=== PATIENT | male | born 1990 ===

== ENCOUNTER 2018-01-25 16:12 | Inpatient (IN) | payer OTHER ==
[2018-01-25] MEDS ORDERED: Sodium Chloride 0.9% 1,000 ML IV STA ×2 (17:02→20:00)
[2018-01-25 17:33] LABS: VENOUS BLOOD GAS BASE EXCESS 2.3 mmol/L (0.0-2.0); VENOUS BLOOD GAS PCO2 39 mmHg (40-60); VENOUS BLOOD GAS PO2 25 mm/Hg (30-55); VENOUS BLOOD PH 7.44 (7.32-7.43)
[2018-01-25 17:48] LABS: BASO % 0.3 % (0.0-2.0); EOS % 0.4 % (0.0-4.0); HEMOGLOBIN 14.8 g/dL (12.0-18.0); LYMPH # 0.6 K/uL (1.0-4.3); LYMPH % 9.9 % (20.0-40.0); MEAN CELL VOLUME 87.3 fl (80.0-94.0); MEAN CORPUSCULAR HGB CONC 34.4 g/dL (33.0-37.0); MEAN PLATELET VOLUME 8.1 fl (7.2-11.7); MONO # 0.2 K/uL (0.0-0.8); MONO % 2.7 % (0.0-10.0); NEUT # 5.1 K/uL (1.8-7.0); NEUT % 86.7 % (50.0-75.0); PLATELET COUNT 250 K/uL (130-400); RBC 4.92 Mil/uL (4.40-5.90); RED CELL DISTRIBUTION WIDTH 12.9 % (11.5-14.5); WHITE BLOOD COUNT 5.9 K/uL (4.8-10.8)
[2018-01-25 17:55] LABS: ALB/GLOB RATIO 0.9 (1.0-2.1)
[2018-01-25 18:03] LABS: ALBUMIN 3.6 g/dL (3.5-5.0); ALT/SGPT 63 U/L (21-72); AST/SGOT 65 U/L (17-59); BLOOD UREA NITROGEN 10 mg/dl (9-20); CALCIUM 8.2 mg/dL (8.4-10.2); GFR AFRICAN-AMERICAN > 60; GFR NON-AFRICAN AMERICAN > 60
[2018-01-25 18:56] LABS: BANDS 8 % (0-2); BASOPHIL 1 % (0-2); LYMPHOCYTE 5 % (20-50); MONOCYTE 1 % (0-10); NEUTROPHIL 82 % (42-75); REACTIVE LYMPHOCYTES 3 % (0-0); TOTAL CELLS COUNTED 100
[2018-01-25 18:57] LABS: PLATELET ESTIMATE NORMAL (NORMAL)
[2018-01-25] MEDS ORDERED: Iohexol 300 100 ML IJ ONE (19:05)
[2018-01-25] MEDS ORDERED: Sodium Chloride 0.9% 50 ML IV ONE (19:05)
--- NOTE | 2018-01-25 19:43 | ED PDOC ---
HPI: Fever Fever Onset Was: 01/24/18 Recent Sick Contacts: No Have you had recent travel within the past 21 days to any of the following countries: [place], [place], [place] or [place]?: No Does Patient Have Hx Of Febrile Seizures: No Did The Patient Have A Seizure Today: No Symptoms Associated With Fever: Vomiting, Diarrhea Additional Comments: 27 yo male with no medical problems presents with mild, diffuse abdominal pain for 1 week. PT states yesterday he began to have a fever. Pt did not take temperature at home. Pt states he took medication for fever at 4am today. Pt states he has been vomiting with watery diarrhea. No similar in the past. Past Medical History Reviewed: Historical Data, Nursing Documentation, Vital Signs Vital Signs: Last Vital Signs Temp 98.6 F 01/25/18 19:50 Pulse 102 H 01/25/18 19:50 Resp 18 01/25/18 19:50 BP 106/55 L 01/25/18 19:50 Pulse Ox 96 01/25/18 19:50 - Medical History PMH: No Chronic Diseases - Surgical History Surgical History: No Surg Hx - Family History Family History: States: No Known Family Hx - Living Arrangements Living Arrangements: With Family - Social History Current smoker - smoking cessation education provided: No - Allergies Allergies/Adverse Reactions: Allergies Allergy/AdvReac Type Severity Reaction Status Date / Time No Known Allergies Allergy Verified 01/25/18 16:26 Review of Systems ROS Statement: Except As Marked, All Systems Reviewed And Found Negative Physical Exam - Reviewed Nursing Documentation Reviewed: Yes Vital Signs Reviewed: Yes - Physical Exam Appears: Positive for: Well, Non-toxic, No Acute Distress Head Exam: Positive for: ATRAUMATIC, NORMAL INSPECTION, NORMOCEPHALIC Skin: Positive for: Normal Color, Warm, DRY Eye Exam: Positive for: Normal appearance ENT: Positive for: Normal ENT Inspection Neck: Positive for: Normal, Painless ROM Cardiovascular/Chest: Positive for: Regular Rate, Rhythm Respiratory: Positive for: Normal Breath Sounds. Negative for: Accessory Muscle Use, Respiratory Distress Gastrointestinal/Abdominal: Positive for: Normal Exam, Soft, Tenderness ( Diffuse ) Back: Positive for: Normal Inspection Extremity: Positive for: Normal ROM Neurologic/Psych: Positive for: Alert, Oriented - Laboratory Results Result Diagrams: 01/25/18 17:31 01/25/18 17:31 - ECG O2 Sat by Pulse Oximetry: 96 Medical Decision Making Medical Decision Making: Temp at 1845 - 99.[address] abd/pelvis. Disposition - Clinical Impression Clinical Impression: Fever, Abdominal discomfort - Patient ED Disposition Is Patient to be Admitted: Transfer of Care - Disposition Disposition: Transfer of Care Disposition Time: 20:00 Condition: STABLE Forms: [employer] (Belarusian)
[2018-01-25] MEDS ORDERED: Piperacillin/Tazobact 3.375 GM in Sodium Chloride 0.9% 100 ML IV ONE (20:51)
[2018-01-25] MEDS ORDERED: Piperacillin/Tazobact 3.375 gm Inj IVPB ONE (20:56)
[2018-01-25] MEDS ORDERED: Azithromycin 500 MG in Sodium Chloride 0.9% 250 ML IVPB STA (21:51)
[2018-01-25] MEDS ORDERED: Albuterol-Ipratrop 3 mg / 0.5 (3 ml) UD INH PRN (21:54)
--- NOTE | 2018-01-25 22:05 | CP.PCM.HP ---
History of Present Illness - History of Present Illness History of Present Illness: CC: f/n/v/d/abd pain HPI: This is a 27 y/o otherwise healthy male who presents with a week of n/v/d and abd pain. Has had some cough with clear sputum production. Has also had episodes of fever, uma noticeable from this AM. Episodic but not persistent SOB. denies any sick contacts with similar symptoms. Denies any specific exposures. Nothing seems to make symptoms better or worse. ROS: 14 systems reviewed, negative other than HPI MHx/SHx: None Allergies: NKDA Medications: None Family Hx: No relevant findings Social Hx: Lives with friends, smokes 4 cigs a day, occasional EtOH Present on Admission - Present on Admission Any Indicators Present on Admission: No Past Patient History - Past Social History Smoking Status: Former Smoker - PSYCHIATRIC Hx Substance Use: No Meds Allergies/Adverse Reactions: Allergies Allergy/AdvReac Type Severity Reaction Status Date / Time No Known Allergies Allergy Verified 01/25/18 16:26 Physical Exam - Constitutional Appears: No Acute Distress - Head Exam Head Exam: ATRAUMATIC, NORMOCEPHALIC - Eye Exam Eye Exam: EOMI, PERRL - ENT Exam ENT Exam: Mucous Membranes Moist - Neck Exam Neck exam: Positive for: Full Rom - Respiratory Exam Respiratory Exam: Decreased Breath Sounds - Cardiovascular Exam Cardiovascular Exam: REGULAR RHYTHM, +S1, +S2 - GI/Abdominal Exam GI & Abdominal Exam: Normal Bowel Sounds, Soft - Extremities Exam Extremities exam: Positive for: full ROM, normal inspection - Neurological Exam Neurological exam: Alert, CN II-XII Intact, Oriented x3 - Psychiatric Exam Psychiatric exam: Normal Affect, Normal Mood - Skin Skin Exam: Dry, Warm Results - Vital Signs Recent Vital Signs: Last Vital Signs Temp 98.6 F 01/25/18 19:50 Pulse 102 H 01/25/18 19:50 Resp 18 01/25/18 19:50 BP 106/55 L 01/25/18 19:50 Pulse Ox 96 01/25/18 20:00 - Labs Result Diagrams: 01/25/18 17:31 01/25/18 17:31 Labs: Laboratory Results - last 24 hr 01/25/18 01/25/18 01/25/18 17:06 17:31 17:31 WBC 5.9 RBC 4.92 Hgb 14.8 Hct 43.0 MCV 87.3 MCH 30.0 MCHC 34.4 RDW 12.9 Plt Count 250 MPV 8.1 Neut % (Auto) 86.7 H Lymph % (Auto) 9.9 L Coffey % (Auto) 2.7 Eos % (Auto) 0.4 Baso % (Auto) 0.3 Neut # (Auto) 5.1 Lymph # (Auto) 0.6 L Coffey # (Auto) 0.2 Eos # (Auto) 0.0 Baso # (Auto) 0.0 Neutrophils % (Manual) 82 H Band Neutrophils % 8 H Lymphocytes % (Manual) 5 L Reactive Lymphs % 3 H Monocytes % (Manual) 1 Basophils % (Manual) 1 Platelet Estimate Normal RBC Morphology Normal pO2 25 L VBG pH 7.44 H VBG pCO2 39 L VBG HCO3 25.3 VBG Total CO2 27.7 VBG O2 Sat (Calc) 51.8 VBG Base Excess 2.3 H VBG Potassium 3.4 L Sodium 131.0 L 134 Chloride 98.0 99 Glucose 102 Lactate 1.1 FiO2 21.0 Potassium 3.5 L Carbon Dioxide 25 Anion Gap 14 BUN 10 Creatinine 0.8 Est GFR ( Amer) > 60 Est GFR (Non-Af Amer) > 60 Random Glucose 103 Calcium 8.2 L Total Bilirubin 0.7 AST 65 H ALT 63 Alkaline Phosphatase 71 Total Protein 7.6 Albumin 3.6 Globulin 4.0 H Albumin/Globulin Ratio 0.9 L Venous Blood Potassium 3.4 L Influenza Typ A,B (EIA) 01/25/18 17:38 WBC RBC Hgb Hct MCV MCH MCHC RDW Plt Count MPV Neut % (Auto) Lymph % (Auto) Coffey % (Auto) Eos % (Auto) Baso % (Auto) Neut # (Auto) Lymph # (Auto) Coffey # (Auto) Eos # (Auto) Baso # (Auto) Neutrophils % (Manual) Band Neutrophils % Lymphocytes % (Manual) Reactive Lymphs % Monocytes % (Manual) Basophils % (Manual) Platelet Estimate RBC Morphology pO2 VBG pH VBG pCO2 VBG HCO3 VBG Total CO2 VBG O2 Sat (Calc) VBG Base Excess VBG Potassium Sodium Chloride Glucose Lactate FiO2 Potassium Carbon Dioxide Anion Gap BUN Creatinine Est GFR ( Amer) Est GFR (Non-Af Amer) Random Glucose Calcium Total Bilirubin AST ALT Alkaline Phosphatase Total Protein Albumin Globulin Albumin/Globulin Ratio Venous Blood Potassium Influenza Typ A,B (EIA) Negative for flu a/b - Imaging and Cardiology CT scan - abdomen Status: Image reviewed by me (showed ground glass opacities in b/l Lung h[place]) , Report reviewed by me Assessment & Plan (1) CAP (community acquired pneumonia) Assessment and Plan: 27 y/o male presenting with a week of n/v/d, abd pain, and with abnormal CT findings -- possible CAP, consider atypical like legionella as well. -Patient started on Zosyn in ER, will switch to azithromycin and ceftriaxone instead for better coverage of atypicals -Urine legionalla -PRN duonebs -PRN Zofran IV for n/v -PRN tylenol for fever -SQ lovenox for dvt ppx Status: Acute (2) Fever Status: Acute (3) Abdominal discomfort Status: Acute (4) DVT prophylaxis Status: Acute
[2018-01-26 06:56] LABS: HEMOGLOBIN 13.8 g/dL (12.0-18.0); MEAN CELL VOLUME 87.9 fl (80.0-94.0); MEAN CORPUSCULAR HGB CONC 34.2 g/dL (33.0-37.0); RBC 4.58 Mil/uL (4.40-5.90); RED CELL DISTRIBUTION WIDTH 12.9 % (11.5-14.5); WHITE BLOOD COUNT 5.1 K/uL (4.8-10.8)
[2018-01-26] MEDS ORDERED: Pneumococcal 23-Valent Vaccine IM ONE (08:00)
[2018-01-26 08:01] LABS: BLOOD UREA NITROGEN 6 mg/dl (9-20); CALCIUM 7.9 mg/dL (8.4-10.2); GFR AFRICAN-AMERICAN > 60; GFR NON-AFRICAN AMERICAN > 60
[2018-01-26] MEDS ORDERED: Sodium Chloride 3% for Inhalation 4 ML VIAL.NEB IH PRN ×2 (08:02→23:56)
[2018-01-26] MEDS: Enoxaparin 40 mg Syringe SC SCH (08:54)
--- NOTE | 2018-01-26 10:05 | CP.PCM.PN ---
<Edyta Veláqzuez - Last Filed: 01/26/18 15:59> Subjective - Date & Time of Evaluation Date of Evaluation: 01/26/18 Time of Evaluation: 10:05 - Subjective Subjective: 27 year old man admitted for a three day episode of nausea, vomiting, abdominal pain, chills and mild cough. Reports 6-7 bouts of diarrhea yesterday/overnight, of which he noticed were tinged with blood. No blood seen in urine. No abdominal tenderness on palpation. No recent travel history, has been in [facility] for last seven years. No sick contacts. Patient reports to be feeling better and is in no acute distress. Objective - Vital Signs/Intake and Output Vital Signs (last 24 hours): Temp Pulse Resp BP Pulse Ox 98.2 F 114 H 20 110/60 96 01/26/18 08:05 01/26/18 08:05 01/26/18 08:05 01/26/18 08:05 01/26/18 08:05 Intake and Output: 01/26/18 01/26/18 06:59 18:59 Intake Total 462 Balance 462 - Medications Medications: Current Medications Acetaminophen (Tylenol 325mg Tab) 650 mg PO Q6 PRN PRN Reason: Pain, Mild (1-3) Acetaminophen (Tylenol 325mg Tab) 650 mg PO Q6 PRN PRN Reason: Fever >100.4 F Albuterol/Ipratropium (Duoneb 3 Mg/0.5 Mg (3 Ml) Ud) 3 ml INH RQ6 PRN PRN Reason: Shortness of Breath Enoxaparin Sodium (Lovenox) 40 mg SC DAILY IVANNA PRN Reason: Protocol Last Admin: 01/26/18 08:54 Dose: 40 mg Azithromycin 500 mg/ Sodium (Chloride) 250 mls @ 250 mls/hr IVPB DAILY IVANNA PRN Reason: Protocol Ceftriaxone Sodium 1 gm/ (Sodium Chloride) 100 mls @ 100 mls/hr IVPB DAILY IVANNA PRN Reason: Protocol Last Admin: 01/26/18 08:55 Dose: 100 mls/hr Ondansetron HCl (Zofran Inj) 4 mg IVP Q6 PRN PRN Reason: Nausea/Vomiting - Labs Labs: 01/26/18 06:40 01/26/18 06:40 - Constitutional Appears: Well, Non-toxic, No Acute Distress - Head Exam Head Exam: ATRAUMATIC - Respiratory Exam Respiratory Exam: Clear to Ausculation Bilateral, Wheezes, NORMAL BREATHING PATTERN - Cardiovascular Exam Cardiovascular Exam: REGULAR RHYTHM - GI/Abdominal Exam GI & Abdominal Exam: Soft. absent: Guarding, Tenderness, Rebound - Neurological Exam Neurological Exam: Alert, Awake, Oriented x3 - Skin Skin Exam: Normal Color, Warm Assessment and Plan - Assessment and Plan (Free Text) Assessment: 27 year old man admitted for a three day episode of nausea, vomiting, abdominal pain, chills and mild cough. Reports 6-7 bouts of diarrhea yesterday/ overnight, of which he noticed were tinged with blood. No blood seen in urine. No abdominal tenderness on palpation. No recent travel history, has been in [facility] for last seven years. No sick contacts. Patient reports to be feeling better and is in no acute distress. 1. Gastroenteritis -6-7 episodes of bloody diarrhea yesterday (01/25), none as of today -Flagyl 500 mg IV Q8 -Zofran PRN -LR 100ml/mg -Stool cx pending -Ova parasites pending -Stool leukocytes pending 2. Pulmonary Nodules -CT: bilateral diffuse & extensive reticulo-nodular pulmonary opacities -Consulted pulmonary: Dr. Jenkins -Cannot rule out TB - transferred to 4th floor tele for TB precaution, PPD, AFBx3, possible bronchoscopy -Ceftriaxone 1gm , Azithromycin 500 mg -Tylenol PRN, Duoneb PRN -Sputum culture pending -Mycoplasma IgM pending -Legionella urine pending 3. DVT Prophylaxis -Lovenox <Adriana Fernandez - Last Filed: 01/26/18 16:34> Objective - Vital Signs/Intake and Output Vital Signs (last 24 hours): Temp Pulse Resp BP Pulse Ox 98.2 F 114 H 20 110/60 96 01/26/18 08:05 01/26/18 08:05 01/26/18 08:05 01/26/18 08:05 01/26/18 08:05 Intake and Output: 01/26/18 01/26/18 06:59 18:59 Intake Total 462 Balance 462 - Medications Medications: Current Medications Acetaminophen (Tylenol 325mg Tab) 650 mg PO Q6 PRN PRN Reason: Pain, Mild (1-3) Acetaminophen (Tylenol 325mg Tab) 650 mg PO Q6 PRN PRN Reason: Fever >100.4 F Albuterol/Ipratropium (Duoneb 3 Mg/0.5 Mg (3 Ml) Ud) 3 ml INH RQ6 PRN PRN Reason: Shortness of Breath Enoxaparin Sodium (Lovenox) 40 mg SC DAILY IVANNA PRN Reason: Protocol Last Admin: 01/26/18 08:54 Dose: 40 mg Azithromycin 500 mg/ Sodium (Chloride) 250 mls @ 250 mls/hr IVPB DAILY IVANNA PRN Reason: Protocol Last Admin: 01/26/18 11:35 Dose: 250 mls/hr Ceftriaxone Sodium 1 gm/ (Sodium Chloride) 100 mls @ 100 mls/hr IVPB DAILY IVANNA PRN Reason: Protocol Last Admin: 01/26/18 08:55 Dose: 100 mls/hr Metronidazole (Flagyl 500mg/100ml Ns) 100 mls @ 100 mls/hr IVPB Q8 IVANNA PRN Reason: Protocol Last Admin: 01/26/18 11:35 Dose: 100 mls/hr Lactated Ringer's (Lactated Ringer's) 1,000 mls @ 100 mls/hr IV .Q10H IVANNA Last Admin: 01/26/18 11:32 Dose: 100 mls/hr Ondansetron HCl (Zofran Inj) 4 mg IVP Q6 PRN PRN Reason: Nausea/Vomiting Tuberculin PPD (Tubersol) 5 tu ID ONCE ONE Stop: 01/26/18 15:45 - Labs Labs: 01/26/18 06:40 01/26/18 06:40 Attending/Attestation - Attestation I have personally seen and examined this patient.: Yes I have fully participated in the care of the patient.: Yes I have reviewed all pertinent clinical information, including history, physical exam and plan: Yes Notes (Text): 01/26/18 16:32 Additional Diagnosis: Renal Calcification, wedge shaped deformity seen on CT CT scan ( Kidneys) Bilateral renal wedge shaped and other verbal shaped calcific like hyperdensities -differential considerations as detailed above. Consider nephrology consultation follow up. Other renal findings are different than those initially provided by [facility] not aware patient having had any IV contrast on this exam. - Renal Sonogram -Urinalysis - Nephrology consult
--- NOTE | 2018-01-26 10:16 | CT ---
Date of service: 01/25/2018 PROCEDURE: CT Abdomen and Pelvis with contrast HISTORY: vomiting, diarrhea, fever COMPARISON: None. TECHNIQUE: Contrast dose: 95 mL of Omnipaque 300. Axial and reformatted coronal and sagittal CT images of the abdomen and pelvis were obtained after IV contrast administration. Radiation dose: Total exam DLP = 477.41 mGy-cm. This CT exam was performed using one or more of the following dose reduction techniques: Automated exposure control, adjustment of the mA and/or kV according to patient size, and/or use of iterative reconstruction technique. FINDINGS: LOWER THORAX: There are diffuse reticular and reticulonodular opacities in the lower lobes LIVER: Unremarkable. No gross lesion or ductal dilatation. GALLBLADDER AND BILE DUCTS: The gallbladder is contracted. No CT evidence of acute cholecystitis PANCREAS: Unremarkable. No gross lesion or ductal dilatation. SPLEEN: Unremarkable. ADRENALS: Unremarkable. No mass. KIDNEYS AND URETERS: Unremarkable. No hydronephrosis. No solid mass. VASCULATURE: Unremarkable. No aortic aneurysm. BOWEL: Unremarkable. No obstruction. No gross mural thickening. APPENDIX: Normal appendix. PERITONEUM: Unremarkable. No free fluid. No free air. LYMPH NODES: There are mildly enlarged retroperitoneal, root of the mesentery and periportal lymph nodes noted in the mid and upper abdomen. No evidence of significant lymphadenopathy in the pelvis. BLADDER: Unremarkable. REPRODUCTIVE: Unremarkable. BONES: No acute fracture. OTHER FINDINGS: None. IMPRESSION: Nonspecific diffuse reticular and reticulonodular opacities in the lungs. Differential consideration includes infection or inflammatory process. Mild retroperitoneal periportal and mesenteric root lymphadenopathy noted at the mid and upper abdomen. No CT evidence of cholecystitis pancreatitis or appendicitis. Preliminary report was submitted by [facility].
[2018-01-26] MEDS: Lactated Ringer's 1,000 ML IV SCH (11:32)
[2018-01-26] MEDS: metroNIDAZOLE 500mg/100ml NS 100 ML IVPB SCH ×2 (11:35→16:41)
[2018-01-26] MEDS: Azithromycin 500 MG in Sodium Chloride 0.9% 250 ML IVPB SCH (11:35)
--- NOTE | 2018-01-26 11:35 | CT ---
Date of service: 01/25/2018 PROCEDURE: CT Chest without contrast HISTORY: base of lungs abnormal on CT, bandemia COMPARISON: None. TECHNIQUE: Contiguous axial images were obtained through the chest without intravenous contrast enhancement. Sagittal and coronal reconstructions were performed. Radiation dose (DLP): 411 mGy-cm. This CT exam was performed using one or more of the following dose reduction techniques: Automated exposure control, adjustment of the mA and/or kV according to patient size, and/or use of iterative reconstruction technique. FINDINGS: LUNGS: Bilateral extensive diffuse reticular nodular opacities with superimposed coalescent airspace opacities are present. These coalescence of airspace opacities ground-glass like are mostly in the perihilar and upper lobe locations. No cavitary lesions noted. Some minimal biapical pleural thickening is present. A left upper lobe lateral peripheral 5-6 mm solid-appearing pulmonary nodule noted its chronicity is unknown another partly solid partly cystic peripheral nodule in the lateral left mid lung zone noted (axial series 3, image 57) MEDIASTINUM: Unremarkable thoracic aorta. No aneurysm. Normal sized heart. Main pulmonary artery unremarkable. No vascular congestion. No suspect lymphadenopathy. Few calcified mediastinal lymph nodes noted PLEURA: No pleural fluid. No pneumothorax. BONES: No fracture. No destructive lesion. UPPER ABDOMEN: Five renal multifocal hyperdensity compatible with renal variable shaped calcifications some of which are wedge shape. Medullary sponge kidney, papillary necrosis, calcified renal infarcts renal tuberculosis are some considerations. Consider nephrology consultation follow up OTHER FINDINGS: None. IMPRESSION: Bilateral diffuse and extensive reticulo nodular pulmonary opacities with superimposed coalescent airspace opacities -mostly central and upper lobe positions. A few nonspecific nodules on the left are noted. No cavities noted. No pneumothorax. No pleural effusion. Minimal biapical pleural thickening. Infection, inflammation, autoimmune, hypersensitivity are some considerations. TB is not excluded here. Clinical correlation and follow-up recommended. Bilateral renal wedge shaped and other verbal shaped calcific like hyperdensities -differential considerations as detailed above. Consider nephrology consultation follow up. Other renal findings are different than those initially provided by [facility] not aware patient having had any IV contrast on this exam. These findings are partially discordance with the results (preliminary interpretation) provided by [facility]. . Findings also marked for PA review
[2018-01-26] MEDS ORDERED: Tuberculin 5 Units/0.1 ml Inj ID ONE (15:44)
[2018-01-26] MEDS ORDERED: Potassium Chloride 20 mEq ER Tab PO ONE (17:00)
--- NOTE | 2018-01-26 18:06 | CP.PCM.CON ---
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 Worsening symptom of Fever, chills, that began on DOA 01-25-18 , with no relief, while at ER TMAx 104.0 F, HR: 134. Patient denies SOB, C/P, VARELA. 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 Aggravated factor: movements. On CT Abdomen were found opacities in the lungs, there after CT chest showed: B/ L diffused and extensive reticular nodular pulmonary opacities. TB no excluded. Pt denied: CP, syncope, dizziness, headache, back pain, numbness, urinary symptoms, sick contact, recent travel out of [facility]. A Review of Systems - Constitutional Constitutional: Chills, Fever - EENT Eyes: Other (negative) Ears: Other (negative) Nose/Mouth/Throat: Other (negative) - Cardiovascular Cardiovascular: Rapid Heart Rate - Respiratory Respiratory: Cough, Dyspnea (mild) - Gastrointestinal Gastrointestinal: Abdominal Pain (lower quadrants), Diarrhea, Nausea, Vomiting - Genitourinary Genitourinary: Other (negative) - Musculoskeletal Musculoskeletal: Other (negative) - Integumentary Integumentary: Other (negative) - Neurological Neurological: Other (negative) - Psychiatric Psychiatric: Other (negative) - Endocrine Endocrine: Other (negative) - Hematologic/Lymphatic Hematologic: Other (negative) Past Patient History - Past Medical History & Family History Past Medical History?: Yes Pertinent Family History: Unknown - Past Social History Smoking Status: Former Smoker Alcohol: Social Drugs: Denies Home Situation {Lives}: Friends - CARDIAC Hx Cardiac Disorders: No - PULMONARY Hx Respiratory Disorders: No - NEUROLOGICAL Hx Neurological Disorder: No - HEENT Hx HEENT Problems: No - RENAL Hx Chronic Kidney Disease: No - ENDOCRINE/METABOLIC Hx Endocrine Disorders: No - HEMATOLOGICAL/ONCOLOGICAL Hx Blood Disorders: No - INTEGUMENTARY Hx Dermatological Problems: No - MUSCULOSKELETAL/RHEUMATOLOGICAL Hx Musculoskeletal Disorders: No Hx Falls: No - GASTROINTESTINAL Hx Gastrointestinal Disorders: No - GENITOURINARY/GYNECOLOGICAL Hx Genitourinary Disorders: No - PSYCHIATRIC Hx Psychophysiologic Disorder: No Hx Substance Use: No - SURGICAL HISTORY Hx Surgeries: No - ANESTHESIA Hx Anesthesia: No Hx Anesthesia Reactions: No Hx Malignant Hyperthermia: No Has any member of the family had a problem w/ anesthesia?: No Meds Allergies/Adverse Reactions: Allergies Allergy/AdvReac Type Severity Reaction Status Date / Time No Known Allergies Allergy Verified 01/25/18 16:26 - Medications Medications: Current Medications Acetaminophen (Tylenol 325mg Tab) 650 mg PO Q6 PRN PRN Reason: Pain, Mild (1-3) Acetaminophen (Tylenol 325mg Tab) 650 mg PO Q6 PRN PRN Reason: Fever >100.4 F Albuterol/Ipratropium (Duoneb 3 Mg/0.5 Mg (3 Ml) Ud) 3 ml INH RQ6 PRN PRN Reason: Shortness of Breath Enoxaparin Sodium (Lovenox) 40 mg SC DAILY IVANNA PRN Reason: Protocol Last Admin: 01/26/18 08:54 Dose: 40 mg Azithromycin 500 mg/ Sodium (Chloride) 250 mls @ 250 mls/hr IVPB DAILY IVANNA PRN Reason: Protocol Last Admin: 01/26/18 11:35 Dose: 250 mls/hr Ceftriaxone Sodium 1 gm/ (Sodium Chloride) 100 mls @ 100 mls/hr IVPB DAILY IVANNA PRN Reason: Protocol Last Admin: 01/26/18 08:55 Dose: 100 mls/hr Metronidazole (Flagyl 500mg/100ml Ns) 100 mls @ 100 mls/hr IVPB Q8 IVANNA PRN Reason: Protocol Last Admin: 01/26/18 16:41 Dose: 100 mls/hr Lactated Ringer's (Lactated Ringer's) 1,000 mls @ 100 mls/hr IV .Q10H [facility] Last Admin: 01/26/18 11:32 Dose: 100 mls/hr Ondansetron HCl (Zofran Inj) 4 mg IVP Q6 PRN PRN Reason: Nausea/Vomiting Physical Exam - Constitutional Appears: No Acute Distress - Head Exam Head Exam: NORMAL INSPECTION - Eye Exam Eye Exam: PERRL - ENT Exam ENT Exam: Normal Exam - Neck Exam Neck exam: Positive for: Normal Inspection - Respiratory Exam Respiratory Exam: Clear to Auscultation Bilateral - Cardiovascular Exam Cardiovascular Exam: REGULAR RHYTHM - GI/Abdominal Exam GI & Abdominal Exam: Normal Bowel Sounds, Soft - Extremities Exam Extremities exam: Positive for: normal inspection - Back Exam Back exam: NORMAL INSPECTION - Neurological Exam Neurological exam: Alert, Oriented x3 Additional comments: No motor/sensory deficit. - Psychiatric Exam Psychiatric exam: Normal Mood - Skin Skin Exam: Warm Results - Vital Signs Recent Vital Signs: Last Vital Signs Temp 98 F 01/26/18 16:34 Pulse 117 H 01/26/18 16:34 Resp 20 01/26/18 16:34 BP 122/71 01/26/18 16:34 Pulse Ox 97 01/26/18 16:34 reviewed Marci - Labs Result Diagrams: 01/26/18 06:40 01/26/18 06:40 Labs: Laboratory Results - last 24 hr 01/25/18 01/25/18 01/25/18 17:31 17:38 22:00 WBC RBC Hgb Hct MCV MCH MCHC RDW Plt Count Neutrophils % (Manual) 82 H Band Neutrophils % 8 H Lymphocytes % (Manual) 5 L Reactive Lymphs % 3 H Monocytes % (Manual) 1 Basophils % (Manual) 1 Platelet Estimate Normal RBC Morphology Normal Sodium Potassium Chloride Carbon Dioxide Anion Gap BUN Creatinine Est GFR ( Amer) Est GFR (Non-Af Amer) Random Glucose Calcium Influenza Typ A,B (EIA) Negative for flu a/b Ur L.pneumophila Ag Grp A Beta Strep Ag Negative 01/25/18 01/26/18 01/26/18 22:00 06:40 06:40 WBC 5.1 RBC 4.58 Hgb 13.8 Hct 40.3 MCV 87.9 MCH 30.0 MCHC 34.2 RDW 12.9 Plt Count 241 Neutrophils % (Manual) Band Neutrophils % Lymphocytes % (Manual) Reactive Lymphs % Monocytes % (Manual) Basophils % (Manual) Platelet Estimate RBC Morphology Sodium 135 Potassium 3.4 L Chloride 102 Carbon Dioxide 23 Anion Gap 13 BUN 6 L Creatinine 0.7 L Est GFR ( Amer) > 60 Est GFR (Non-Af Amer) > 60 Random Glucose 90 Calcium 7.9 L Influenza Typ A,B (EIA) Ur L.pneumophila Ag Negative Grp A Beta Strep Ag reviewed J.P. - Imaging and Cardiology CT scan - chest Status: Report reviewed by me (Marci) CT scan - abdomen Status: Report reviewed by me (Marci) CT scan - pelvis Status: Report reviewed by me (Marci) Assessment & Plan (1) Pulmonary infiltrate Status: Acute Priority: High (2) Pulmonary nodules Status: Acute Priority: High - Assessment and Plan (Free Text) Plan: Continue Rocephin, Zithromax. Discussed with attendant, Patient to have PPD, Quantiferon Gold , respiratory isolation, Sputum AFB x3, sputum C-S , also, may need Bronchoscopy. - Date & Time Date: 01/26/18 Time: 13:30
[2018-01-27] MEDS: metroNIDAZOLE 500mg/100ml NS 100 ML IVPB SCH ×3 (00:53→15:59)
[2018-01-27] MEDS: Lactated Ringer's 1,000 ML IV SCH ×2 (00:54→10:00)
[2018-01-27 08:44] LABS: BASO % 0.4 % (0.0-2.0); EOS % 0.3 % (0.0-4.0); HEMOGLOBIN 14.2 g/dL (12.0-18.0); LYMPH # 0.7 K/uL (1.0-4.3); LYMPH % 10.3 % (20.0-40.0); MEAN CELL VOLUME 87.4 fl (80.0-94.0); MEAN CORPUSCULAR HGB CONC 34.4 g/dL (33.0-37.0); MEAN PLATELET VOLUME 8.3 fl (7.2-11.7); MONO # 0.1 K/uL (0.0-0.8); MONO % 1.8 % (0.0-10.0); NEUT % 87.2 % (50.0-75.0); RBC 4.74 Mil/uL (4.40-5.90); WHITE BLOOD COUNT 6.9 K/uL (4.8-10.8)
[2018-01-27 08:57] LABS: BLOOD UREA NITROGEN 5 mg/dl (9-20); CALCIUM 8.3 mg/dL (8.4-10.2); GFR AFRICAN-AMERICAN > 60; GFR NON-AFRICAN AMERICAN > 60
[2018-01-27] MEDS: Azithromycin 500 MG in Sodium Chloride 0.9% 250 ML IVPB SCH (10:01)
[2018-01-27] MEDS: Enoxaparin 40 mg Syringe SC SCH (10:02)
--- NOTE | 2018-01-27 11:03 | CP.PCM.PN ---
<Edyta Velázquez - Last Filed: 01/27/18 15:31> Subjective - Date & Time of Evaluation Date of Evaluation: 01/27/18 Time of Evaluation: 11:03 - Subjective Subjective: 27 year old man admitted for a three day episode of nausea, vomiting, abdominal pain, chills and mild cough. Late 01/26 and overnight patient had febrile episodes (T max 103.1 ). Examined at bedside, no abdominal tenderness on palpation. Patient is in no acute distress. Rapid HIV test positive - patient made aware of results, pending confirmatory RNA PCR testing. Explained diagnosis and emphasized management and severity of disease. Patient denies transfusion and IVDU, but admits to many unprotected sexual encounters with one female partner besides his (in [place]) since moving to the seven years ago. Objective - Vital Signs/Intake and Output Vital Signs (last 24 hours): Temp Pulse Resp BP Pulse Ox 99.5 F 145 H 20 114/68 94 L 01/27/18 08:00 01/27/18 08:00 01/27/18 08:00 01/27/18 08:00 01/27/18 08:00 - Medications Medications: Current Medications Acetaminophen (Tylenol 325mg Tab) 650 mg PO Q6 PRN PRN Reason: Pain, Mild (1-3) Acetaminophen (Tylenol 325mg Tab) 650 mg PO Q6 PRN PRN Reason: Fever >100.4 F Last Admin: 01/27/18 00:52 Dose: 650 mg Albuterol/Ipratropium (Duoneb 3 Mg/0.5 Mg (3 Ml) Ud) 3 ml INH RQ6 PRN PRN Reason: Shortness of Breath Enoxaparin Sodium (Lovenox) 40 mg SC DAILY IVANNA PRN Reason: Protocol Last Admin: 01/27/18 10:02 Dose: 40 mg Azithromycin 500 mg/ Sodium (Chloride) 250 mls @ 250 mls/hr IVPB DAILY IVANNA PRN Reason: Protocol Last Admin: 01/27/18 10:01 Dose: 250 mls/hr Ceftriaxone Sodium 1 gm/ (Sodium Chloride) 100 mls @ 100 mls/hr IVPB DAILY IVANNA PRN Reason: Protocol Last Admin: 01/27/18 10:02 Dose: 100 mls/hr Metronidazole (Flagyl 500mg/100ml Ns) 100 mls @ 100 mls/hr IVPB Q8 IVANNA PRN Reason: Protocol Last Admin: 01/27/18 10:01 Dose: 100 mls/hr Lactated Ringer's (Lactated Ringer's) 1,000 mls @ 100 mls/hr IV .Q10H [facility] Last Admin: 01/27/18 10:00 Dose: 100 mls/hr Ondansetron HCl (Zofran Inj) 4 mg IVP Q6 PRN PRN Reason: Nausea/Vomiting - Labs Labs: 01/27/18 08:00 01/27/18 08:00 - Constitutional Appears: Well - Head Exam Head Exam: ATRAUMATIC - Eye Exam Eye Exam: Normal appearance - Respiratory Exam Respiratory Exam: NORMAL BREATHING PATTERN - Cardiovascular Exam Cardiovascular Exam: REGULAR RHYTHM - GI/Abdominal Exam GI & Abdominal Exam: Soft. absent: Guarding, Tenderness, Rebound - Psychiatric Exam Psychiatric exam: Normal Affect, Normal Mood - Skin Skin Exam: Intact, Normal Color, Warm Assessment and Plan - Assessment and Plan (Free Text) Assessment: 27 year old man admitted for a three day episode of nausea, vomiting, abdominal pain, chills and mild cough. Rapid HIV test positive - confirmatory RNA PCR testing pending. 1. Gastroenteritis -Febrile (Tmax 103.1F) -Flagyl 500 mg IV Q8 -Zofran PRN -LR 100ml/mg -Stool cx NEG -Ova parasites NEG -Stool leukocytes NEG -Consult Infectious Disease 2. Pulmonary Nodules -CT: bilateral diffuse & extensive reticulo-nodular pulmonary opacities -Consulted pulmonary: Dr. Jenkins - recommended continue Ceftriaxone,Azithromycin , and TB workup, CRP, MANUEL, RADHA insufficiency -Cannot rule out TB - PPD, AFBx3, possible bronchoscopy -Ceftriaxone 1gm , Azithromycin 500 mg -Tylenol PRN, Duoneb PRN -Sputum culture pending -Mycoplasma IgM pending -Legionella NEGATIVE 3. 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 Renal Calcifications -CT: five renal multifocal hyperdensities compatable w/renal variable shaped calcifications -Nephrology Consult 5. DVT Prophylaxis -Lovenox <Adriana Fernandez - Last Filed: 01/27/18 16:29> Objective - Vital Signs/Intake and Output Vital Signs (last 24 hours): Temp Pulse Resp BP Pulse Ox 102.9 F H 132 H 18 110/66 94 L 01/27/18 16:16 01/27/18 16:16 01/27/18 16:16 01/27/18 16:16 01/27/18 16:16 - Medications Medications: Current Medications Acetaminophen (Tylenol 325mg Tab) 650 mg PO Q6 PRN PRN Reason: Pain, Mild (1-3) Acetaminophen (Tylenol 325mg Tab) 650 mg PO Q6 PRN PRN Reason: Fever >100.4 F Last Admin: 01/27/18 15:58 Dose: 650 mg Albuterol/Ipratropium (Duoneb 3 Mg/0.5 Mg (3 Ml) Ud) 3 ml INH RQ6 PRN PRN Reason: Shortness of Breath Enoxaparin Sodium (Lovenox) 40 mg SC DAILY IVANNA PRN Reason: Protocol Last Admin: 01/27/18 10:02 Dose: 40 mg Azithromycin 500 mg/ Sodium (Chloride) 250 mls @ 250 mls/hr IVPB DAILY IVANNA PRN Reason: Protocol Last Admin: 01/27/18 10:01 Dose: 250 mls/hr Ceftriaxone Sodium 1 gm/ (Sodium Chloride) 100 mls @ 100 mls/hr IVPB DAILY IVANNA PRN Reason: Protocol Last Admin: 01/27/18 10:02 Dose: 100 mls/hr Metronidazole (Flagyl 500mg/100ml Ns) 100 mls @ 100 mls/hr IVPB Q8 IVANNA PRN Reason: Protocol Last Admin: 01/27/18 15:59 Dose: 100 mls/hr Lactated Ringer's (Lactated Ringer's) 1,000 mls @ 100 mls/hr IV .Q10H [facility] Last Admin: 01/27/18 10:00 Dose: 100 mls/hr Ondansetron HCl (Zofran Inj) 4 mg IVP Q6 PRN PRN Reason: Nausea/Vomiting - Labs Labs: 01/27/18 08:00 01/27/18 08:00 Attending/Attestation - Attestation I have personally seen and examined this patient.: Yes I have fully participated in the care of the patient.: Yes I have reviewed all pertinent clinical information, including history, physical exam and plan: Yes
--- NOTE | 2018-01-27 11:05 | CP.PCM.CON ---
History of Present Illness - History of Present Illness History of Present Illness: Infectious Disease Consultation Note- asked to see this patient at the request of for fever and pulmonary findings on CT r/o TB HPI- Patient is a 27 year old male with no PMH who came to ED to be evaluated for 1 week history of fever and diarrhea, nausea and vomiting and night sweats and weight loss of 4 pounds. he denies any bloody diarrhea but the diarrhea is 4 times a day. He denies ever being sick before. denies any sob , has dry cough only, denies any sick contacts. denies any hemoptysis. denies any recent travel. denies any BELTRAN or sore throat. states he is but his is in [place]. states he has been in [place] for past 9 years and he works as [employer]. He states he lives with a roommate. he states he has out extramarital relations but always uses protection. He states he has never been tested for HIV. He denies ever knowing anyone with TB. Denies eating any new foods. He states he feels slightly betetr since being admitted here so far. MHx/SHx: None Allergies: NKDA Medications: None Family Hx: No relevant findings Social Hx: Lives with friends, smokes 4 cigs a day, occasional EtOH, weekly marijuana and he states 3 weeks ago one of his friends gave him cocaiene nad was his first time smoking this Review of Systems - Review of Systems Review of Systems: ROS- please see HPI Past Patient History - Past Medical History & Family History Past Medical History?: Yes - Past Social History Smoking Status: Former Smoker Alcohol: Social Drugs: Cannabis Home Situation {Lives}: Friends - CARDIAC Hx Cardiac Disorders: No - PULMONARY Hx Respiratory Disorders: No - NEUROLOGICAL Hx Neurological Disorder: No - HEENT Hx HEENT Problems: No - RENAL Hx Chronic Kidney Disease: No - ENDOCRINE/METABOLIC Hx Endocrine Disorders: No - HEMATOLOGICAL/ONCOLOGICAL Hx Blood Disorders: No - INTEGUMENTARY Hx Dermatological Problems: No - MUSCULOSKELETAL/RHEUMATOLOGICAL Hx Musculoskeletal Disorders: No Hx Falls: No - GASTROINTESTINAL Hx Gastrointestinal Disorders: No - GENITOURINARY/GYNECOLOGICAL Hx Genitourinary Disorders: No - PSYCHIATRIC Hx Psychophysiologic Disorder: No Hx Substance Use: No - SURGICAL HISTORY Hx Surgeries: No - ANESTHESIA Hx Anesthesia: No Hx Anesthesia Reactions: No Hx Malignant Hyperthermia: No Has any member of the family had a problem w/ anesthesia?: No Meds Allergies/Adverse Reactions: Allergies Allergy/AdvReac Type Severity Reaction Status Date / Time No Known Allergies Allergy Verified 01/25/18 16:26 - Medications Medications: Current Medications Acetaminophen (Tylenol 325mg Tab) 650 mg PO Q6 PRN PRN Reason: Pain, Mild (1-3) Acetaminophen (Tylenol 325mg Tab) 650 mg PO Q6 PRN PRN Reason: Fever >100.4 F Last Admin: 01/27/18 00:52 Dose: 650 mg Albuterol/Ipratropium (Duoneb 3 Mg/0.5 Mg (3 Ml) Ud) 3 ml INH RQ6 PRN PRN Reason: Shortness of Breath Enoxaparin Sodium (Lovenox) 40 mg SC DAILY IVANNA PRN Reason: Protocol Last Admin: 01/27/18 10:02 Dose: 40 mg Azithromycin 500 mg/ Sodium (Chloride) 250 mls @ 250 mls/hr IVPB DAILY IVANNA PRN Reason: Protocol Last Admin: 01/27/18 10:01 Dose: 250 mls/hr Ceftriaxone Sodium 1 gm/ (Sodium Chloride) 100 mls @ 100 mls/hr IVPB DAILY IVANNA PRN Reason: Protocol Last Admin: 01/27/18 10:02 Dose: 100 mls/hr Metronidazole (Flagyl 500mg/100ml Ns) 100 mls @ 100 mls/hr IVPB Q8 IVANNA PRN Reason: Protocol Last Admin: 01/27/18 10:01 Dose: 100 mls/hr Lactated Ringer's (Lactated Ringer's) 1,000 mls @ 100 mls/hr IV .Q10H [facility] Last Admin: 01/27/18 10:00 Dose: 100 mls/hr Ondansetron HCl (Zofran Inj) 4 mg IVP Q6 PRN PRN Reason: Nausea/Vomiting Physical Exam - Constitutional Appears: No Acute Distress - Head Exam Head Exam: ATRAUMATIC - Eye Exam Eye Exam: EOMI, PERRL - ENT Exam ENT Exam: Normal Oropharynx - Neck Exam Neck exam: Positive for: Full Rom Additional comments: supple - Respiratory Exam Respiratory Exam: NORMAL BREATHING PATTERN Additional comments: good breath sounds B/L no wheezing no rhonchi - Cardiovascular Exam Cardiovascular Exam: Tachycardia, +S1, +S2 - GI/Abdominal Exam GI & Abdominal Exam: Normal Bowel Sounds, Soft Additional comments: NT, ND No guarding, no rebound No CVA tenderness B/L - Extremities Exam Extremities exam: Positive for: normal inspection - Neurological Exam Neurological exam: Alert, Oriented x3 Results - Vital Signs Recent Vital Signs: Last Vital Signs Temp 99.5 F 01/27/18 08:00 Pulse 145 H 01/27/18 08:00 Resp 20 01/27/18 08:00 BP 114/68 01/27/18 08:00 Pulse Ox 94 L 01/27/18 08:00 - Labs Result Diagrams: 01/27/18 08:00 01/27/18 08:00 Labs: Laboratory Results - last 24 hr 01/25/18 01/26/18 01/27/18 22:00 12:14 08:00 WBC 6.9 RBC 4.74 Hgb 14.2 Hct 41.4 MCV 87.4 MCH 30.0 MCHC 34.4 RDW 13.0 Plt Count 275 MPV 8.3 Neut % (Auto) 87.2 H Lymph % (Auto) 10.3 L Meriw[place] % (Auto) 1.8 Eos % (Auto) 0.3 Baso % (Auto) 0.4 Neut # (Auto) 6.0 Lymph # (Auto) 0.7 L [place] # (Auto) 0.1 Eos # (Auto) 0.0 Baso # (Auto) 0.0 ESR 52 H Sodium Potassium Chloride Carbon Dioxide Anion Gap BUN Creatinine Est GFR ( Amer) Est GFR (Non-Af Amer) Random Glucose Calcium Stool Leukocytes, Qual Negative HIV-1 Ab Rapid Screen Ur L.pneumophila Ag Negative 01/27/18 01/27/18 08:00 08:00 WBC RBC Hgb Hct MCV MCH MCHC RDW Plt Count MPV Neut % (Auto) Lymph % (Auto) Meriwether % (Auto) Eos % (Auto) Baso % (Auto) Neut # (Auto) Lymph # (Auto) Meriwether # (Auto) Eos # (Auto) Baso # (Auto) ESR Sodium 135 Potassium 3.7 Chloride 100 Carbon Dioxide 26 Anion Gap 13 BUN 5 L Creatinine 0.6 L Est GFR ( Amer) > 60 Est GFR (Non-Af Amer) > 60 Random Glucose 98 Calcium 8.3 L Stool Leukocytes, Qual HIV-1 Ab Rapid Screen Ab reactive H Ur L.pneumophila Ag Microbiology 01/26/18 12:14 Stool Ova and Parasite Concentrate Exam - Final 01/25/18 22:00 Throat Group A Strep Throat Culture - Final NO BETA STREP GROUP A ISOLATED. 01/25/18 17:55 Blood-Venous Blood Culture - Preliminary NO GROWTH AFTER 24 HOURS 01/25/18 17:43 Blood-Venous Blood Culture - Preliminary NO GROWTH AFTER 24 HOURS Accession No. : [id number] Patient Name / ID : MARSHALL CANALES / [id number] Exam Date : 01/25/2018 22:01:25 ( Approved ) Study Comment : Sex / Age : M / 27Y Creator : Lisa Perez Dictator : Lisa Perez Inside Sales Manager : Cardroom Attendant : Lisa Perez Approver2 : Report Date : 01/26/2018 11:20:19 My Comment : Date of service: 01/25/2018 PROCEDURE: CT Chest without contrast HISTORY: base of lungs abnormal on CT, bandemia COMPARISON: None. TECHNIQUE: Contiguous axial images were obtained through the chest without intravenous contrast enhancement. Sagittal and coronal reconstructions were performed. Radiation dose (DLP): 411 mGy-cm. This CT exam was performed using one or more of the following dose reduction techniques: Automated exposure control, adjustment of the mA and/or kV according to patient size, and/or use of iterative reconstruction technique. FINDINGS: LUNGS: Bilateral extensive diffuse reticular nodular opacities with superimposed coalescent airspace opacities are present. These coalescence of airspace opacities ground-glass like are mostly in the perihilar and upper lobe locations. No cavitary lesions noted. Some minimal biapical pleural thickening is present. A left upper lobe lateral peripheral 5-6 mm solid-appearing pulmonary nodule noted its chronicity is unknown another partly solid partly cystic peripheral nodule in the lateral left mid lung zone noted (axial series 3, image 57) MEDIASTINUM: Unremarkable thoracic aorta. No aneurysm. Normal sized heart. Main pulmonary artery unremarkable. No vascular congestion. No suspect lymphadenopathy. Few calcified mediastinal lymph nodes noted PLEURA: No pleural fluid. No pneumothorax. BONES: No fracture. No destructive lesion. UPPER ABDOMEN: Five renal multifocal hyperdensity compatible with renal variable shaped calcifications some of which are wedge shape. Medullary sponge kidney, papillary necrosis, calcified renal infarcts renal tuberculosis are some considerations. Consider nephrology consultation follow up OTHER FINDINGS: None. IMPRESSION: Bilateral diffuse and extensive reticulo nodular pulmonary opacities with superimposed coalescent airspace opacities -mostly central and upper lobe positions. A few nonspecific nodules on the left are noted. No cavities noted. No pneumothorax. No pleural effusion. Minimal biapical pleural thickening. Infection, inflammation, autoimmune, hypersensitivity are some considerations. TB is not excluded here. Clinical correlation and follow-up recommended. Bilateral renal wedge shaped and other verbal shaped calcific like hyperdensities -differential considerations as detailed above. Consider nephrology consultation follow up. Other renal findings are different than those initially provided by [facility] not aware patient having had any IV contrast on this exam. These findings are partially discordance with the results (preliminary interpretation) provided by [facility]. . Findings also marked for PA review Accession No. : [id number] Patient Name / ID : MARSHALL NGUYEN PARKER / [id number] Exam Date : 01/25/2018 19:23:07 ( Approved ) Study Comment : Sex / Age : M / 27Y Creator : Jessica Schuster MD Dictator : Jessica Schuster MD Inside Sales Manager : Cardroom Attendant : Jessica Schuster MD Approver2 : Report Date : 01/26/2018 10:15:00 My Comment : Date of service: 01/25/2018 PROCEDURE: CT Abdomen and Pelvis with contrast HISTORY: vomiting, diarrhea, fever COMPARISON: None. TECHNIQUE: Contrast dose: 95 mL of Omnipaque 300. Axial and reformatted coronal and sagittal CT images of the abdomen and pelvis were obtained after IV contrast administration. Radiation dose: Total exam DLP = 477.41 mGy-cm. This CT exam was performed using one or more of the following dose reduction techniques: Automated exposure control, adjustment of the mA and/or kV according to patient size, and/or use of iterative reconstruction technique. FINDINGS: LOWER THORAX: There are diffuse reticular and reticulonodular opacities in the lower lobes LIVER: Unremarkable. No gross lesion or ductal dilatation. GALLBLADDER AND BILE DUCTS: The gallbladder is contracted. No CT evidence of acute cholecystitis PANCREAS: Unremarkable. No gross lesion or ductal dilatation. SPLEEN: Unremarkable. ADRENALS: Unremarkable. No mass. KIDNEYS AND URETERS: Unremarkable. No hydronephrosis. No solid mass. VASCULATURE: Unremarkable. No aortic aneurysm. BOWEL: Unremarkable. No obstruction. No gross mural thickening. APPENDIX: Normal appendix. PERITONEUM: Unremarkable. No free fluid. No free air. LYMPH NODES: There are mildly enlarged retroperitoneal, root of the mesentery and periportal lymph nodes noted in the mid and upper abdomen. No evidence of significant lymphadenopathy in the pelvis. BLADDER: Unremarkable. REPRODUCTIVE: Unremarkable. BONES: No acute fracture. OTHER FINDINGS: None. IMPRESSION: Nonspecific diffuse reticular and reticulonodular opacities in the lungs. Differential consideration includes infection or inflammatory process. Mild retroperitoneal periportal and mesenteric root lymphadenopathy noted at the mid and upper abdomen. No CT evidence of cholecystitis pancreatitis or appendicitis. Preliminary report was submitted by [facility].Accession No. : [id number] Patient Name / ID : MARSHALL NGUYEN PARKER / [id number] Exam Date : 01/27/2018 13:23:31 ( Approved ) Study Comment : Sex / Age : M / 27Y Creator : Tommy Gilmore MD Dictator : Tommy Gilmore MD Inside Sales Manager : Cardroom Attendant : Tommy Gilmore MD Approver2 : Report Date : 01/27/2018 14:33:29 My Comment : Date of service: 01/27/2018 PROCEDURE: Ultrasound of the Kidneys HISTORY: abnormal kidney on CT, for further eval COMPARISON: 01/25/2018. CT thorax 01/25/2018 CT abdomen and pelvis. TECHNIQUE: Sonogram of the kidneys. FINDINGS: RIGHT KIDNEY: Measures: 4.8 x 5.7 x 11.2 cm. Normal in size, contour and echogenicity. No stone, solid mass lesion or hydronephrosis visualized. LEFT KIDNEY: Measures: 6.2 x 6.6 x 11.5 cm. Normal in size, contour and echogenicity. No stone, solid mass lesion or hydronephrosis visualized. OTHER FINDINGS: None. IMPRESSION: Unremarkable renal sonogram. Assessment & Plan (1) Fever Status: Acute (2) Diarrhea Status: Acute (3) Nausea and vomiting Status: Acute - Assessment and Plan (Free Text) Assessment: A/P- 27 year old male with No PMH admitted with fever/ diarrhea/ n/v. etiology of the gastroenteritis unclear at this time, however since pt. has tested positive for HIV AB ( not confirmed yet) would definitely advise to check for opportunistic GI infections including cryptosporidium ,cyclospora. microsporidium in addition to stool cx and ova and parasite. pt. also noted to have extensive reticulonodular b/l pulmonary infiltrates on chest ct and would advise to cover for pneumonia. abd Ct - no evidence of colitis as per report. legionella ag- neg influenza- neg HIv ab- pos plan- check HIV Vl and CD4 check wetsern blot to confirm. check stool cx. check stool o and P. check cryptosporidium/cyclospora and microsporidium. check blood cx x 2. check Ua and urine cx. check mycoplasma serology. start opt. on IV zosyn for broader gram neg coverage. can continue with zithomax to cover for atypicals. check sputum AFB x 3. d/c IV flagyl. thank you for allowing me to take part in the care of this patient. will f/u
--- NOTE | 2018-01-27 14:40 | US ---
Date of service: 01/27/2018 PROCEDURE: Ultrasound of the Kidneys HISTORY: abnormal kidney on CT, for further eval COMPARISON: 01/25/2018. CT thorax 01/25/2018 CT abdomen and pelvis. TECHNIQUE: Sonogram of the kidneys. FINDINGS: RIGHT KIDNEY: Measures: 4.8 x 5.7 x 11.2 cm. Normal in size, contour and echogenicity. No stone, solid mass lesion or hydronephrosis visualized. LEFT KIDNEY: Measures: 6.2 x 6.6 x 11.5 cm. Normal in size, contour and echogenicity. No stone, solid mass lesion or hydronephrosis visualized. OTHER FINDINGS: None. IMPRESSION: Unremarkable renal sonogram.
[2018-01-27] MEDS: Piperacillin/Tazobact 3.375 GM in Sodium Chloride 0.9% 100 ML IVPB SCH (21:15)
[2018-01-28] MEDS: Piperacillin/Tazobact 3.375 GM in Sodium Chloride 0.9% 100 ML IVPB SCH ×4 (04:47→22:00)
[2018-01-28 05:49] LABS: BASO % 0.2 % (0.0-2.0); EOS % 0.7 % (0.0-4.0); HEMOGLOBIN 13.3 g/dL (12.0-18.0); LYMPH # 0.3 K/uL (1.0-4.3); LYMPH % 5.1 % (20.0-40.0); MEAN CELL VOLUME 87.5 fl (80.0-94.0); MEAN CORPUSCULAR HEMOGLOBIN 30.1 pg (27.0-31.0); MEAN CORPUSCULAR HGB CONC 34.4 g/dL (33.0-37.0); MEAN PLATELET VOLUME 8.4 fl (7.2-11.7); MONO # 0.1 K/uL (0.0-0.8); MONO % 1.9 % (0.0-10.0); NEUT % 92.1 % (50.0-75.0); NRBC % 0.2 % (0.0-0.0); PLATELET COUNT 234 K/uL (130-400); RBC 4.43 Mil/uL (4.40-5.90); WHITE BLOOD COUNT 5.4 K/uL (4.8-10.8)
[2018-01-28 06:13] LABS: BLOOD UREA NITROGEN 7 mg/dl (9-20); CALCIUM 8.1 mg/dL (8.4-10.2); GFR AFRICAN-AMERICAN > 60; GFR NON-AFRICAN AMERICAN > 60
[2018-01-28] MEDS ORDERED: Potassium Chloride 20 mEq ER Tab PO ONE (08:22)
[2018-01-28 08:31] LABS: BANDS 6 % (0-2); LYMPHOCYTE 3 % (20-50); MONOCYTE 2 % (0-10); NEUTROPHIL 89 % (42-75); PLATELET ESTIMATE NORMAL (NORMAL); TOTAL CELLS COUNTED 100
[2018-01-28] MEDS ORDERED: Potassium CL 10mEq/100ml 100 ML IVPB ONE (08:36)
--- NOTE | 2018-01-28 09:06 | CP.PCM.PN ---
Subjective - Date & Time of Evaluation Date of Evaluation: 01/27/18 Time of Evaluation: 11:00 - Subjective Subjective: NOTE for 01/27/18. F/U Pulmonary Infiltrate. No cough, no SOB , no abdominal pain, no Diarrhea Objective - Vital Signs/Intake and Output Vital Signs (last 24 hours): Temp Pulse Resp BP Pulse Ox 99.6 F 130 H 18 109/67 95 01/28/18 08:08 01/28/18 08:08 01/28/18 08:08 01/28/18 08:08 01/28/18 08:08 - Medications Medications: Current Medications Acetaminophen (Tylenol 325mg Tab) 650 mg PO Q6 PRN PRN Reason: Pain, Mild (1-3) Last Admin: 01/27/18 23:10 Dose: 650 mg Acetaminophen (Tylenol 325mg Tab) 650 mg PO Q6 PRN PRN Reason: Fever >100.4 F Last Admin: 01/27/18 15:58 Dose: 650 mg Albuterol/Ipratropium (Duoneb 3 Mg/0.5 Mg (3 Ml) Ud) 3 ml INH RQ6 PRN PRN Reason: Shortness of Breath Enoxaparin Sodium (Lovenox) 40 mg SC DAILY IVANNA PRN Reason: Protocol Last Admin: 01/27/18 10:02 Dose: 40 mg Azithromycin 500 mg/ Sodium (Chloride) 250 mls @ 250 mls/hr IVPB DAILY IVANNA PRN Reason: Protocol Last Admin: 01/27/18 10:01 Dose: 250 mls/hr Lactated Ringer's (Lactated Ringer's) 1,000 mls @ 100 mls/hr IV .Q10H IVANNA Last Admin: 01/27/18 10:00 Dose: 100 mls/hr Piperacillin Sod/Tazobactam (Sod 3.375 gm/ Sodium Chloride) 100 mls @ 100 mls/ hr IVPB Q6 IVANNA PRN Reason: Protocol Last Admin: 01/28/18 04:47 Dose: 100 mls/hr Potassium Chloride (Potassium Chloride 10 Meq/100 Ml) 100 mls @ 100 mls/hr IVPB ONCE ONE Stop: 01/28/18 09:35 Ondansetron HCl (Zofran Inj) 4 mg IVP Q6 PRN PRN Reason: Nausea/Vomiting - Labs Labs: 01/28/18 05:25 01/28/18 05:25 - Constitutional Appears: No Acute Distress - Head Exam Head Exam: NORMAL INSPECTION - Eye Exam Eye Exam: PERRL - ENT Exam ENT Exam: Normal Exam - Neck Exam Neck Exam: Normal Inspection - Respiratory Exam Respiratory Exam: Clear to Ausculation Bilateral - Cardiovascular Exam Cardiovascular Exam: REGULAR RHYTHM - GI/Abdominal Exam GI & Abdominal Exam: Soft, Normal Bowel Sounds - Extremities Exam Extremities Exam: Normal Inspection - Back Exam Back Exam: NORMAL INSPECTION - Neurological Exam Neurological Exam: Alert, Oriented x3. absent: Motor Sensory Deficit - Psychiatric Exam Psychiatric exam: Normal Mood - Skin Skin Exam: Warm Assessment and Plan (1) Pulmonary infiltrate Status: Acute (2) Pulmonary nodules Status: Acute - Assessment and Plan (Free Text) Plan: Continue Zithromax, Zosyn, f/u HIV Test , Quantiferon Gold
[2018-01-28] MEDS ORDERED: Metoprolol 1 mg/ml Inj IVP ONE (09:22)
[2018-01-28] MEDS: Enoxaparin 40 mg Syringe SC SCH (09:27)
[2018-01-28] MEDS: Azithromycin 500 MG in Sodium Chloride 0.9% 250 ML IVPB SCH (09:28)
--- NOTE | 2018-01-28 09:35 | CP.PCM.PN ---
Addendum entered and electronically signed by Edyta Fragoso MD 01/28/18 11: 54: Monitor hypokalemia via CMP Original Note: <Edyta Fragoso - Last Filed: 01/28/18 11:48> Subjective - Date & Time of Evaluation Date of Evaluation: 01/28/18 Time of Evaluation: 09:35 - Subjective Subjective: 27-year-old man admitted for a three day episode of n/v/d. Patient seen at bedside with noticeable chills complaining of being cold. Vitals: T 99.6F HR 130 , metoprolol 5mg ordered. Denies any new episodes of diarrhea since yesterday morning (01/27/18 am), no vomitting, nausea, chest pain, abdominal pain, or SOB. Objective - Vital Signs/Intake and Output Vital Signs (last 24 hours): Temp Pulse Resp BP Pulse Ox 99.6 F 130 H 18 109/67 95 01/28/18 08:08 01/28/18 08:08 01/28/18 08:08 01/28/18 08:08 01/28/18 08:08 - Medications Medications: Current Medications Acetaminophen (Tylenol 325mg Tab) 650 mg PO Q6 PRN PRN Reason: Pain, Mild (1-3) Last Admin: 01/27/18 23:10 Dose: 650 mg Acetaminophen (Tylenol 325mg Tab) 650 mg PO Q6 PRN PRN Reason: Fever >100.4 F Last Admin: 01/27/18 15:58 Dose: 650 mg Albuterol/Ipratropium (Duoneb 3 Mg/0.5 Mg (3 Ml) Ud) 3 ml INH RQ6 PRN PRN Reason: Shortness of Breath Enoxaparin Sodium (Lovenox) 40 mg SC DAILY IVANNA PRN Reason: Protocol Last Admin: 01/28/18 09:27 Dose: 40 mg Azithromycin 500 mg/ Sodium (Chloride) 250 mls @ 250 mls/hr IVPB DAILY IVANNA PRN Reason: Protocol Last Admin: 01/28/18 09:28 Dose: 250 mls/hr Lactated Ringer's (Lactated Ringer's) 1,000 mls @ 100 mls/hr IV .Q10H IVANNA Last Admin: 01/27/18 10:00 Dose: 100 mls/hr Piperacillin Sod/Tazobactam (Sod 3.375 gm/ Sodium Chloride) 100 mls @ 100 mls/ hr IVPB Q6 IVANNA PRN Reason: Protocol Last Admin: 01/28/18 04:47 Dose: 100 mls/hr Potassium Chloride (Potassium Chloride 10 Meq/100 Ml) 100 mls @ 100 mls/hr IVPB ONCE ONE Stop: 01/28/18 09:35 Metoprolol Tartrate (Lopressor) 5 mg IVP ONCE ONE Stop: 01/28/18 09:23 Ondansetron HCl (Zofran Inj) 4 mg IVP Q6 PRN PRN Reason: Nausea/Vomiting - Labs Labs: 01/28/18 05:25 01/28/18 05:25 Assessment and Plan - Assessment and Plan (Free Text) Assessment: 27 year old man admitted for a three day episode of nausea, vomiting, abdominal pain, chills and mild cough. Rapid HIV test positive - confirmatory RNA PCR testing pending. 1. Gastroenteritis -Febrile (T Max @ admission 104F), 102.9F (01/27/18), 99.6F (01/28/18) -Flagyl 500 mg IV Q8 -Zofran PRN -LR 100ml/mg -Stool cx NEG -Ova parasites NEG -Stool leukocytes NEG -Infectious Disease consulted: Dr. Atkinson 2. Pulmonary Nodules -CT: bilateral diffuse & extensive reticulo-nodular pulmonary opacities -Consulted pulmonary: Dr. Jenkins - recommended continue Ceftriaxone,Azithromycin , and TB workup, CRP, MANUEL, RADHA insufficiency -Cannot rule out TB - PPD, AFBx3, possible bronchoscopy -Ceftriaxone 1gm , Azithromycin 500 mg -Tylenol PRN, Duoneb PRN -Sputum culture = G NEG RODS -Mycoplasma IgM pending -Legionella NEGATIVE 3. HIV -HIV-1 Rapid Screen POSITIVE -HIV RNA PCR Pending -Hepatitis panel ordered, RPR, follow up CBC and CMP -oncology social worker made aware -contact [facility] 4. Renal Calcifications -CT: five renal multifocal hyperdensities compatable w/renal variable shaped calcifications -Nephrology Consult 5. Hypokalemia -40 mEq PO, 10 mEq IV -Monitor CBC 6. DVT Prophylaxis -Lovenox <Zina Montemayor K - Last Filed: 01/28/18 15:50> Objective - Vital Signs/Intake and Output Vital Signs (last 24 hours): Temp Pulse Resp BP Pulse Ox 99.5 F 132 H 18 99/58 L 94 L 01/28/18 12:03 01/28/18 12:03 01/28/18 12:03 01/28/18 12:03 01/28/18 12:03 - Medications Medications: Current Medications Acetaminophen (Tylenol 325mg Tab) 650 mg PO Q6 PRN PRN Reason: Pain, Mild (1-3) Last Admin: 01/27/18 23:10 Dose: 650 mg Acetaminophen (Tylenol 325mg Tab) 650 mg PO Q6 PRN PRN Reason: Fever >100.4 F Last Admin: 01/27/18 15:58 Dose: 650 mg Albuterol/Ipratropium (Duoneb 3 Mg/0.5 Mg (3 Ml) Ud) 3 ml INH RQ6 PRN PRN Reason: Shortness of Breath Enoxaparin Sodium (Lovenox) 40 mg SC DAILY IVANNA PRN Reason: Protocol Last Admin: 01/28/18 09:27 Dose: 40 mg Azithromycin 500 mg/ Sodium (Chloride) 250 mls @ 250 mls/hr IVPB DAILY IVANNA PRN Reason: Protocol Last Admin: 01/28/18 09:28 Dose: 250 mls/hr Lactated Ringer's (Lactated Ringer's) 1,000 mls @ 100 mls/hr IV .Q10H [facility] Last Admin: 01/28/18 13:09 Dose: 100 mls/hr Piperacillin Sod/Tazobactam (Sod 3.375 gm/ Sodium Chloride) 100 mls @ 100 mls/ hr IVPB Q6 IVANNA PRN Reason: Protocol Last Admin: 01/28/18 11:00 Dose: 100 mls/hr Ondansetron HCl (Zofran Inj) 4 mg IVP Q6 PRN PRN Reason: Nausea/Vomiting - Labs Labs: 01/28/18 05:25 01/28/18 05:25 Attending/Attestation - Attestation I have personally seen and examined this patient.: Yes I have fully participated in the care of the patient.: Yes I have reviewed all pertinent clinical information, including history, physical exam and plan: Yes Notes (Text): 01/28/18 15:50 Seen, examined, and discussed with resident Dr. Fragoso. Agree with findings and plan as above.
[2018-01-28 12:35] LABS: HEPATITIS B SURFACE AG Negative (NEGATIVE)
[2018-01-28 12:40] LABS: HEPATITIS A IGM NEGATIVE (NEGATIVE); HEPATITIS B CORE AB NEGATIVE (NEGATIVE)
[2018-01-28 12:51] LABS: HEPATITIS C ANTIBODY NEGATIVE (NEGATIVE)
[2018-01-28] MEDS: Lactated Ringer's 1,000 ML IV SCH (13:09)
--- NOTE | 2018-01-28 13:31 | CP.PCM.PN ---
Subjective - Date & Time of Evaluation Date of Evaluation: 01/28/18 Time of Evaluation: 13:31 - Subjective Subjective: ID Note- Pt. seen and examined today. denies any diarrhea or vomiting today. c/o chills. Objective - Vital Signs/Intake and Output Vital Signs (last 24 hours): Temp Pulse Resp BP Pulse Ox 99.5 F 132 H 18 99/58 L 94 L 01/28/18 12:03 01/28/18 12:03 01/28/18 12:03 01/28/18 12:03 01/28/18 12:03 - Medications Medications: Current Medications Acetaminophen (Tylenol 325mg Tab) 650 mg PO Q6 PRN PRN Reason: Pain, Mild (1-3) Last Admin: 01/27/18 23:10 Dose: 650 mg Acetaminophen (Tylenol 325mg Tab) 650 mg PO Q6 PRN PRN Reason: Fever >100.4 F Last Admin: 01/27/18 15:58 Dose: 650 mg Albuterol/Ipratropium (Duoneb 3 Mg/0.5 Mg (3 Ml) Ud) 3 ml INH RQ6 PRN PRN Reason: Shortness of Breath Enoxaparin Sodium (Lovenox) 40 mg SC DAILY IVANNA PRN Reason: Protocol Last Admin: 01/28/18 09:27 Dose: 40 mg Azithromycin 500 mg/ Sodium (Chloride) 250 mls @ 250 mls/hr IVPB DAILY IVANNA PRN Reason: Protocol Last Admin: 01/28/18 09:28 Dose: 250 mls/hr Lactated Ringer's (Lactated Ringer's) 1,000 mls @ 100 mls/hr IV .Q10H IVANNA Last Admin: 01/28/18 13:09 Dose: 100 mls/hr Piperacillin Sod/Tazobactam (Sod 3.375 gm/ Sodium Chloride) 100 mls @ 100 mls/ hr IVPB Q6 IVANNA PRN Reason: Protocol Last Admin: 01/28/18 11:00 Dose: 100 mls/hr Ondansetron HCl (Zofran Inj) 4 mg IVP Q6 PRN PRN Reason: Nausea/Vomiting - Labs Labs: - Additional Findings Additional findings: - Constitutional Appears: No Acute Distress - Head Exam Head Exam: ATRAUMATIC - Eye Exam Eye Exam: EOMI, PERRL - ENT Exam ENT Exam: Normal Oropharynx - Neck Exam Neck exam: Positive for: Full Rom Additional comments: supple - Respiratory Exam Respiratory Exam: NORMAL BREATHING PATTERN Additional comments: good breath sounds B/L no wheezing no rhonchi - Cardiovascular Exam Cardiovascular Exam: Tachycardia, +S1, +S2 - GI/Abdominal Exam GI & Abdominal Exam: Normal Bowel Sounds, Soft Additional comments: NT, ND No guarding, no rebound No CVA tenderness B/L - Extremities Exam Extremities exam: Positive for: normal inspection - Neurological Exam Neurological exam: Alert, Oriented x 3 Laboratory Results - last 72 hr 01/25/18 01/25/18 01/25/18 17:06 17:31 17:31 WBC 5.9 RBC 4.92 Hgb 14.8 Hct 43.0 MCV 87.3 MCH 30.0 MCHC 34.4 RDW 12.9 Plt Count 250 MPV 8.1 Neut % (Auto) 86.7 H Lymph % (Auto) 9.9 L [place] % (Auto) 2.7 Eos % (Auto) 0.4 Baso % (Auto) 0.3 Neut # (Auto) 5.1 Lymph # (Auto) 0.6 L [place] # (Auto) 0.2 Eos # (Auto) 0.0 Baso # (Auto) 0.0 Neutrophils % (Manual) 82 H Band Neutrophils % 8 H Lymphocytes % (Manual) 5 L Reactive Lymphs % 3 H Monocytes % (Manual) 1 Basophils % (Manual) 1 Platelet Estimate Normal RBC Morphology Normal ESR pO2 25 L VBG pH 7.44 H VBG pCO2 39 L VBG HCO3 25.3 VBG Total CO2 27.7 VBG O2 Sat (Calc) 51.8 VBG Base Excess 2.3 H VBG Potassium 3.4 L Sodium 131.0 L 134 Chloride 98.0 99 Glucose 102 Lactate 1.1 FiO2 21.0 Potassium 3.5 L Carbon Dioxide 25 Anion Gap 14 BUN 10 Creatinine 0.8 Est GFR ( Amer) > 60 Est GFR (Non-Af Amer) > 60 Random Glucose 103 Calcium 8.2 L Total Bilirubin 0.7 AST 65 H ALT 63 Alkaline Phosphatase 71 C-Reactive Protein Total Protein 7.6 Albumin 3.6 Globulin 4.0 H Albumin/Globulin Ratio 0.9 L Angiotensin Convert Enz Procalcitonin Venous Blood Potassium 3.4 L Urine Color Urine Clarity Urine pH Ur Specific [place] Urine Protein Urine Glucose (UA) Urine Ketones Urine Blood Urine Nitrate Urine Bilirubin Urine Urobilinogen Ur Leukocyte Esterase Urine RBC (Auto) Urine Microscopic WBC Stool Leukocytes, Qual MANUEL 6 Profile Scl-70 Antibody Scl-70 Interpretation Hepatitis A IgM Ab Hep Bs Antigen Hep B Core IgM Ab Hepatitis C Antibody HIV-1 Ab Rapid Screen Influenza Typ A,B (EIA) Ur L.pneumophila Ag Grp A Beta Strep Ag 01/25/18 01/25/18 01/25/18 17:38 22:00 22:00 WBC RBC Hgb Hct MCV MCH MCHC RDW Plt Count MPV Neut % (Auto) Lymph % (Auto) [place] % (Auto) Eos % (Auto) Baso % (Auto) Neut # (Auto) Lymph # (Auto) [place] # (Auto) Eos # (Auto) Baso # (Auto) Neutrophils % (Manual) Band Neutrophils % Lymphocytes % (Manual) Reactive Lymphs % Monocytes % (Manual) Basophils % (Manual) Platelet Estimate RBC Morphology ESR pO2 VBG pH VBG pCO2 VBG HCO3 VBG Total CO2 VBG O2 Sat (Calc) VBG Base Excess VBG Potassium Sodium Chloride Glucose Lactate FiO2 Potassium Carbon Dioxide Anion Gap BUN Creatinine Est GFR ( Amer) Est GFR (Non-Af Amer) Random Glucose Calcium Total Bilirubin AST ALT Alkaline Phosphatase C-Reactive Protein Total Protein Albumin Globulin Albumin/Globulin Ratio Angiotensin Convert Enz Procalcitonin Venous Blood Potassium Urine Color Urine Clarity Urine pH Ur Specific [place] Urine Protein Urine Glucose (UA) Urine Ketones Urine Blood Urine Nitrate Urine Bilirubin Urine Urobilinogen Ur Leukocyte Esterase Urine RBC (Auto) Urine Microscopic WBC Stool Leukocytes, Qual MANUEL 6 Profile Scl-70 Antibody Scl-70 Interpretation Hepatitis A IgM Ab Hep Bs Antigen Hep B Core IgM Ab Hepatitis C Antibody HIV-1 Ab Rapid Screen Influenza Typ A,B (EIA) Negative for flu a/b Ur L.pneumophila Ag Negative Grp A Beta Strep Ag Negative 01/26/18 01/26/18 01/26/18 06:40 06:40 12:14 WBC 5.1 RBC 4.58 Hgb 13.8 Hct 40.3 MCV 87.9 MCH 30.0 MCHC 34.2 RDW 12.9 Plt Count 241 MPV Neut % (Auto) Lymph % (Auto) [place] % (Auto) Eos % (Auto) Baso % (Auto) Neut # (Auto) Lymph # (Auto) [place] # (Auto) Eos # (Auto) Baso # (Auto) Neutrophils % (Manual) Band Neutrophils % Lymphocytes % (Manual) Reactive Lymphs % Monocytes % (Manual) Basophils % (Manual) Platelet Estimate RBC Morphology ESR pO2 VBG pH VBG pCO2 VBG HCO3 VBG Total CO2 VBG O2 Sat (Calc) VBG Base Excess VBG Potassium Sodium 135 Chloride 102 Glucose Lactate FiO2 Potassium 3.4 L Carbon Dioxide 23 Anion Gap 13 BUN 6 L Creatinine 0.7 L Est GFR ( Amer) > 60 Est GFR (Non-Af Amer) > 60 Random Glucose 90 Calcium 7.9 L Total Bilirubin AST ALT Alkaline Phosphatase C-Reactive Protein Total Protein Albumin Globulin Albumin/Globulin Ratio Angiotensin Convert Enz Procalcitonin Venous Blood Potassium Urine Color Urine Clarity Urine pH Ur Specific [place] Urine Protein Urine Glucose (UA) Urine Ketones Urine Blood Urine Nitrate Urine Bilirubin Urine Urobilinogen Ur Leukocyte Esterase Urine RBC (Auto) Urine Microscopic WBC Stool Leukocytes, Qual Negative MANUEL 6 Profile Scl-70 Antibody Scl-70 Interpretation Hepatitis A IgM Ab Hep Bs Antigen Hep B Core IgM Ab Hepatitis C Antibody HIV-1 Ab Rapid Screen Influenza Typ A,B (EIA) Ur L.pneumophila Ag Grp A Beta Strep Ag 01/27/18 01/27/18 01/27/18 08:00 08:00 08:00 WBC 6.9 RBC 4.74 Hgb 14.2 Hct 41.4 MCV 87.4 MCH 30.0 MCHC 34.4 RDW 13.0 Plt Count 275 MPV 8.3 Neut % (Auto) 87.2 H Lymph % (Auto) 10.3 L [place] % (Auto) 1.8 Eos % (Auto) 0.3 Baso % (Auto) 0.4 Neut # (Auto) 6.0 Lymph # (Auto) 0.7 L [place] # (Auto) 0.1 Eos # (Auto) 0.0 Baso # (Auto) 0.0 Neutrophils % (Manual) Band Neutrophils % Lymphocytes % (Manual) Reactive Lymphs % Monocytes % (Manual) Basophils % (Manual) Platelet Estimate RBC Morphology ESR 52 H pO2 VBG pH VBG pCO2 VBG HCO3 VBG Total CO2 VBG O2 Sat (Calc) VBG Base Excess VBG Potassium Sodium 135 Chloride 100 Glucose Lactate FiO2 Potassium 3.7 Carbon Dioxide 26 Anion Gap 13 BUN 5 L Creatinine 0.6 L Est GFR ( Amer) > 60 Est GFR (Non-Af Amer) > 60 Random Glucose 98 Calcium 8.3 L Total Bilirubin AST ALT Alkaline Phosphatase C-Reactive Protein 82.40 H Total Protein Albumin Globulin Albumin/Globulin Ratio Angiotensin Convert Enz Procalcitonin 0.61 H Venous Blood Potassium Urine Color Urine Clarity Urine pH Ur Specific [place] Urine Protein Urine Glucose (UA) Urine Ketones Urine Blood Urine Nitrate Urine Bilirubin Urine Urobilinogen Ur Leukocyte Esterase Urine RBC (Auto) Urine Microscopic WBC Stool Leukocytes, Qual MANUEL 6 Profile Negative Scl-70 Antibody Scl-70 Interpretation Hepatitis A IgM Ab Hep Bs Antigen Hep B Core IgM Ab Hepatitis C Antibody HIV-1 Ab Rapid Screen Influenza Typ A,B (EIA) Ur L.pneumophila Ag Grp A Beta Strep Ag 01/27/18 01/27/18 01/27/18 08:00 08:00 08:00 WBC RBC Hgb Hct MCV MCH MCHC RDW Plt Count MPV Neut % (Auto) Lymph % (Auto) [place] % (Auto) Eos % (Auto) Baso % (Auto) Neut # (Auto) Lymph # (Auto) [place] # (Auto) Eos # (Auto) Baso # (Auto) Neutrophils % (Manual) Band Neutrophils % Lymphocytes % (Manual) Reactive Lymphs % Monocytes % (Manual) Basophils % (Manual) Platelet Estimate RBC Morphology ESR pO2 VBG pH VBG pCO2 VBG HCO3 VBG Total CO2 VBG O2 Sat (Calc) VBG Base Excess VBG Potassium Sodium Chloride Glucose Lactate FiO2 Potassium Carbon Dioxide Anion Gap BUN Creatinine Est GFR ( Amer) Est GFR (Non-Af Amer) Random Glucose Calcium Total Bilirubin AST ALT Alkaline Phosphatase C-Reactive Protein Total Protein Albumin Globulin Albumin/Globulin Ratio Angiotensin Convert Enz 57 Procalcitonin Venous Blood Potassium Urine Color Urine Clarity Urine pH Ur Specific [place] Urine Protein Urine Glucose (UA) Urine Ketones Urine Blood Urine Nitrate Urine Bilirubin Urine Urobilinogen Ur Leukocyte Esterase Urine RBC (Auto) Urine Microscopic WBC Stool Leukocytes, Qual MANUEL 6 Profile Scl-70 Antibody <1.0 Scl-70 Interpretation Negative Hepatitis A IgM Ab Hep Bs Antigen Hep B Core IgM Ab Hepatitis C Antibody HIV-1 Ab Rapid Screen Ab reactive H Influenza Typ A,B (EIA) Ur L.pneumophila Ag Grp A Beta Strep Ag 01/28/18 01/28/18 01/28/18 05:25 05:25 05:25 WBC 5.4 RBC 4.43 Hgb 13.3 Hct 38.7 MCV 87.5 MCH 30.1 MCHC 34.4 RDW 13.0 Plt Count 234 MPV 8.4 Neut % (Auto) 92.1 H Lymph % (Auto) 5.1 L [place] % (Auto) 1.9 Eos % (Auto) 0.7 Baso % (Auto) 0.2 Neut # (Auto) 5.0 Lymph # (Auto) 0.3 L [place] # (Auto) 0.1 Eos # (Auto) 0.0 Baso # (Auto) 0.0 Neutrophils % (Manual) 89 H Band Neutrophils % 6 H Lymphocytes % (Manual) 3 L Reactive Lymphs % Monocytes % (Manual) 2 Basophils % (Manual) Platelet Estimate Normal RBC Morphology Normal ESR pO2 VBG pH VBG pCO2 VBG HCO3 VBG Total CO2 VBG O2 Sat (Calc) VBG Base Excess VBG Potassium Sodium 137 Chloride 101 Glucose Lactate FiO2 Potassium 3.2 L Carbon Dioxide 27 Anion Gap 12 BUN 7 L Creatinine 0.6 L Est GFR ( Amer) > 60 Est GFR (Non-Af Amer) > 60 Random Glucose 101 Calcium 8.1 L Total Bilirubin AST ALT Alkaline Phosphatase C-Reactive Protein Total Protein Albumin Globulin Albumin/Globulin Ratio Angiotensin Convert Enz Procalcitonin Venous Blood Potassium Urine Color Urine Clarity Urine pH Ur Specific [place] Urine Protein Urine Glucose (UA) Urine Ketones Urine Blood Urine Nitrate Urine Bilirubin Urine Urobilinogen Ur Leukocyte Esterase Urine RBC (Auto) Urine Microscopic WBC Stool Leukocytes, Qual MANUEL 6 Profile Scl-70 Antibody Scl-70 Interpretation Hepatitis A IgM Ab Negative Hep Bs Antigen Negative Hep B Core IgM Ab Negative Hepatitis C Antibody Negative HIV-1 Ab Rapid Screen Influenza Typ A,B (EIA) Ur L.pneumophila Ag Grp A Beta Strep Ag 01/28/18 15:30 WBC RBC Hgb Hct MCV MCH MCHC RDW Plt Count MPV Neut % (Auto) Lymph % (Auto) [place] % (Auto) Eos % (Auto) Baso % (Auto) Neut # (Auto) Lymph # (Auto) [place] # (Auto) Eos # (Auto) Baso # (Auto) Neutrophils % (Manual) Band Neutrophils % Lymphocytes % (Manual) Reactive Lymphs % Monocytes % (Manual) Basophils % (Manual) Platelet Estimate RBC Morphology ESR pO2 VBG pH VBG pCO2 VBG HCO3 VBG Total CO2 VBG O2 Sat (Calc) VBG Base Excess VBG Potassium Sodium Chloride Glucose Lactate FiO2 Potassium Carbon Dioxide Anion Gap BUN Creatinine Est GFR ( Amer) Est GFR (Non-Af Amer) Random Glucose Calcium Total Bilirubin AST ALT Alkaline Phosphatase C-Reactive Protein Total Protein Albumin Globulin Albumin/Globulin Ratio Angiotensin Convert Enz Procalcitonin Venous Blood Potassium Urine Color Yellow Urine Clarity Slighty-cloudy Urine pH 6.0 Ur Specific [place] 1.020 Urine Protein 100 Urine Glucose (UA) Neg Urine Ketones Negative Urine Blood Negative Urine Nitrate Negative Urine Bilirubin Negative Urine Urobilinogen 0.2-1.0 Ur Leukocyte Esterase Neg Urine RBC (Auto) < 1 Urine Microscopic WBC 4 Stool Leukocytes, Qual MANUEL 6 Profile Scl-70 Antibody Scl-70 Interpretation Hepatitis A IgM Ab Hep Bs Antigen Hep B Core IgM Ab Hepatitis C Antibody HIV-1 Ab Rapid Screen Influenza Typ A,B (EIA) Ur L.pneumophila Ag Grp A Beta Strep Ag Microbiology 01/27/18 08:31 Stool Ova and Parasite Concentrate Exam - Final 01/26/18 12:14 Stool Stool Culture - Final NO SALMONELLA, SHIGELLA OR CAMPYLOBACTER ISOLATED. 01/27/18 14:09 Sputum Gram Stain - Final 01/27/18 14:09 Sputum Sputum Culture - Preliminary NORMAL ORAL DEANN 01/25/18 17:55 Blood-Venous Blood Culture - Preliminary NO GROWTH AFTER 48 HOURS 01/25/18 17:43 Blood-Venous Blood Culture - Preliminary NO GROWTH AFTER 48 HOURS 01/26/18 12:14 Stool Ova and Parasite Concentrate Exam - Final 01/25/18 22:00 Throat Group A Strep Throat Culture - Final NO BETA STREP GROUP A ISOLATED. Assessment and Plan (1) Fever Status: Acute (2) Diarrhea Status: Acute (3) Nausea and vomiting Status: Acute - Assessment and Plan (Free Text) Assessment: A/P- 27 year old male with No PMH admitted with fever/ diarrhea/ n/v. afebrile normal wbc pt. also noted to have extensive reticulonodular b/l pulmonary infiltrates on chest ct and would advise to cover for pneumonia. abd Ct - no evidence of colitis as per report. legionella ag- neg influenza- neg HIv ab- pos blood cx- neg x 2 stool cx- neg stool ova and parasites- negative plan- await HIV Vl and CD4 check wetsern blot to confirm. await cryptosporidium/cyclospora and microsporidium. await mycoplasma serology. continue with IV zosyn and zithromax day #2. await sputum AFB x 3.
--- NOTE | 2018-01-28 14:25 | CP.PCM.PN ---
Subjective - Date & Time of Evaluation Date of Evaluation: 01/28/18 Time of Evaluation: 12:00 - Subjective Subjective: Occasional cogh with scanty amount of whitish flegm, every 3-4 hs, no SOB, no VARELA, Tachycardia, Fever reported by nurses Objective - Vital Signs/Intake and Output Vital Signs (last 24 hours): Temp Pulse Resp BP Pulse Ox 99.5 F 132 H 18 99/58 L 94 L 01/28/18 12:03 01/28/18 12:03 01/28/18 12:03 01/28/18 12:03 01/28/18 12:03 - Medications Medications: Current Medications Acetaminophen (Tylenol 325mg Tab) 650 mg PO Q6 PRN PRN Reason: Pain, Mild (1-3) Last Admin: 01/27/18 23:10 Dose: 650 mg Acetaminophen (Tylenol 325mg Tab) 650 mg PO Q6 PRN PRN Reason: Fever >100.4 F Last Admin: 01/27/18 15:58 Dose: 650 mg Albuterol/Ipratropium (Duoneb 3 Mg/0.5 Mg (3 Ml) Ud) 3 ml INH RQ6 PRN PRN Reason: Shortness of Breath Enoxaparin Sodium (Lovenox) 40 mg SC DAILY IVANNA PRN Reason: Protocol Last Admin: 01/28/18 09:27 Dose: 40 mg Azithromycin 500 mg/ Sodium (Chloride) 250 mls @ 250 mls/hr IVPB DAILY IVANNA PRN Reason: Protocol Last Admin: 01/28/18 09:28 Dose: 250 mls/hr Lactated Ringer's (Lactated Ringer's) 1,000 mls @ 100 mls/hr IV .Q10H IVANNA Last Admin: 01/28/18 13:09 Dose: 100 mls/hr Piperacillin Sod/Tazobactam (Sod 3.375 gm/ Sodium Chloride) 100 mls @ 100 mls/ hr IVPB Q6 IVANNA PRN Reason: Protocol Last Admin: 01/28/18 11:00 Dose: 100 mls/hr Ondansetron HCl (Zofran Inj) 4 mg IVP Q6 PRN PRN Reason: Nausea/Vomiting - Labs Labs: 01/28/18 05:25 01/28/18 05:25 - Constitutional Appears: No Acute Distress - Head Exam Head Exam: NORMAL INSPECTION - Eye Exam Eye Exam: PERRL - ENT Exam ENT Exam: Normal Exam - Neck Exam Neck Exam: Normal Inspection - Respiratory Exam Respiratory Exam: Rhonchi (few MYCHAL, rest clear) - Cardiovascular Exam Cardiovascular Exam: Tachycardia - GI/Abdominal Exam GI & Abdominal Exam: Soft, Normal Bowel Sounds - Extremities Exam Extremities Exam: Normal Inspection - Back Exam Back Exam: NORMAL INSPECTION - Neurological Exam Neurological Exam: Alert, CN II-XII Intact, Oriented x3. absent: Motor Sensory Deficit - Psychiatric Exam Psychiatric exam: Normal Affect - Skin Skin Exam: Warm Assessment and Plan (1) Pulmonary infiltrate Status: Acute (2) Pulmonary nodules Status: Acute (3) Fever Status: Acute - Assessment and Plan (Free Text) Plan: Fever, Tachycardia, PPD ( neg ), Quantiferon Gold ( neg ) , HIV rapid Test ( pos ), f/u Western Blood , [id number]-throat C-S all negative, f/u ECHO , Cardiology consult,if no clear etiology of Pulmonary infiltrates and fever Patient may need Bronchoscopy, continue Zithromax, Rocephin
[2018-01-28 15:56] LABS: URINE BILIRUBIN NEGATIVE (NEGATIVE); URINE BLOOD NEGATIVE (NEGATIVE); URINE CLARITY SLIGHTY-CLOUDY (Clear); URINE COLOR YELLOW (YELLOW); URINE GLUCOSE (UA) NEG (Normal); URINE LEUKOCYTE ESTERASE NEG Leu/uL (Negative); URINE PROTEIN 100 mg/dL (NEGATIVE); URINE UROBILINOGEN 0.2-1.0 mg/dL (0.2-1.0)
--- NOTE | 2018-01-28 22:38 | CP.PCM.PN ---
Subjective - Date & Time of Evaluation Date of Evaluation: 01/28/18 Time of Evaluation: 16:00 - Subjective Subjective: c/o current care Objective - Vital Signs/Intake and Output Vital Signs (last 24 hours): Temp Pulse Resp BP Pulse Ox 100.0 F H 134 H 18 124/63 93 L 01/28/18 19:37 01/28/18 19:37 01/28/18 19:37 01/28/18 19:37 01/28/18 19:37 Intake and Output: 01/28/18 01/29/18 18:59 06:59 Intake Total 2090 Output Total 640 Balance 1450 - Medications Medications: Current Medications Acetaminophen (Tylenol 325mg Tab) 650 mg PO Q6 PRN PRN Reason: Pain, Mild (1-3) Last Admin: 01/27/18 23:10 Dose: 650 mg Acetaminophen (Tylenol 325mg Tab) 650 mg PO Q6 PRN PRN Reason: Fever >100.4 F Last Admin: 01/27/18 15:58 Dose: 650 mg Albuterol/Ipratropium (Duoneb 3 Mg/0.5 Mg (3 Ml) Ud) 3 ml INH RQ6 PRN PRN Reason: Shortness of Breath Enoxaparin Sodium (Lovenox) 40 mg SC DAILY IVANNA PRN Reason: Protocol Last Admin: 01/28/18 09:27 Dose: 40 mg Azithromycin 500 mg/ Sodium (Chloride) 250 mls @ 250 mls/hr IVPB DAILY IVANNA PRN Reason: Protocol Last Admin: 01/28/18 09:28 Dose: 250 mls/hr Lactated Ringer's (Lactated Ringer's) 1,000 mls @ 100 mls/hr IV .Q10H IVANNA Last Admin: 01/28/18 13:09 Dose: 100 mls/hr Piperacillin Sod/Tazobactam (Sod 3.375 gm/ Sodium Chloride) 100 mls @ 100 mls/ hr IVPB Q6 IVANNA PRN Reason: Protocol Last Admin: 01/28/18 22:00 Dose: Not Given Ondansetron HCl (Zofran Inj) 4 mg IVP Q6 PRN PRN Reason: Nausea/Vomiting - Labs Labs: 01/28/18 05:25 01/28/18 05:25
[2018-01-29] MEDS: Lactated Ringer's 1,000 ML IV SCH ×3 (02:17→04:55)
[2018-01-29] MEDS: Piperacillin/Tazobact 3.375 GM in Sodium Chloride 0.9% 100 ML IVPB SCH ×4 (04:53→21:17)
[2018-01-29] MEDS ORDERED: Sodium Chloride 0.9% 1,000 ML IV SCH (07:15)
--- NOTE | 2018-01-29 07:15 | CP.PCM.PN ---
Subjective - Date & Time of Evaluation Date of Evaluation: 01/29/18 Time of Evaluation: 07:14 - Subjective Subjective: pt comfortable in bed, however complains of feeling warm tmax 101 overnight no sob, cp hd stable nad Objective - Vital Signs/Intake and Output Vital Signs (last 24 hours): Temp Pulse Resp BP Pulse Ox 101 F H 120 H 18 96/52 L 93 L 01/29/18 05:01 01/29/18 05:01 01/29/18 05:01 01/29/18 05:01 01/29/18 05:01 Intake and Output: 01/29/18 01/29/18 06:59 18:59 Intake Total 700 Balance 700 - Medications Medications: Current Medications Acetaminophen (Tylenol 325mg Tab) 650 mg PO Q6 PRN PRN Reason: Pain, Mild (1-3) Last Admin: 01/27/18 23:10 Dose: 650 mg Acetaminophen (Tylenol 325mg Tab) 650 mg PO Q6 PRN PRN Reason: Fever >100.4 F Last Admin: 01/29/18 04:53 Dose: 650 mg Albuterol/Ipratropium (Duoneb 3 Mg/0.5 Mg (3 Ml) Ud) 3 ml INH RQ6 PRN PRN Reason: Shortness of Breath Enoxaparin Sodium (Lovenox) 40 mg SC DAILY IVANNA PRN Reason: Protocol Last Admin: 01/28/18 09:27 Dose: 40 mg Azithromycin 500 mg/ Sodium (Chloride) 250 mls @ 250 mls/hr IVPB DAILY IVANNA PRN Reason: Protocol Last Admin: 01/28/18 09:28 Dose: 250 mls/hr Piperacillin Sod/Tazobactam (Sod 3.375 gm/ Sodium Chloride) 100 mls @ 100 mls/ hr IVPB Q6 IVANNA PRN Reason: Protocol Last Admin: 01/29/18 04:53 Dose: 100 mls/hr Sodium Chloride (Sodium Chloride 0.9%) 1,000 mls @ 999 mls/hr IV .Q1H1M IVANNA Stop: 01/30/18 07:14 Ondansetron HCl (Zofran Inj) 4 mg IVP Q6 PRN PRN Reason: Nausea/Vomiting - Labs Labs: 01/28/18 05:25 01/28/18 05:25 - Constitutional Appears: Non-toxic, No Acute Distress - Head Exam Head Exam: ATRAUMATIC, NORMOCEPHALIC - Eye Exam Eye Exam: EOMI, Normal appearance, PERRL Pupil Exam: NORMAL ACCOMODATION - ENT Exam ENT Exam: Mucous Membranes Moist, TM's Normal Bilaterally - Neck Exam Neck Exam: Full ROM, Normal Inspection - Respiratory Exam Respiratory Exam: Clear to Ausculation Bilateral, NORMAL BREATHING PATTERN - Cardiovascular Exam Cardiovascular Exam: RRR, +S1, +S2 - GI/Abdominal Exam GI & Abdominal Exam: Soft, Normal Bowel Sounds. absent: Tenderness, Organomegaly - Extremities Exam Extremities Exam: Normal Capillary Refill, Normal Inspection - Back Exam Back Exam: absent: CVA tenderness (L), CVA tenderness (R) - Neurological Exam Neurological Exam: Alert, Awake - Psychiatric Exam Psychiatric exam: Normal Affect, Normal Mood - Skin Skin Exam: Dry, Warm Assessment and Plan - Assessment and Plan (Free Text) Plan: 27 year old man admitted for a three day episode of nausea, vomiting, abdominal pain, chills and mild cough. Rapid HIV test positive - confirmatory RNA PCR testing pending. 1. Gastroenteritis -Febrile (T Max 101 overnight) -Flagyl 500 mg IV Q8 -Zofran PRN -LR 100ml/mg -Stool cx NEG -Ova parasites NEG -Stool leukocytes NEG -Infectious Disease consulted: Dr. Atkinson, awaiting further recommendations 2. Pulmonary Nodules -CT: bilateral diffuse & extensive reticulo-nodular pulmonary opacities -Consulted pulmonary: Dr. Jenkins - recommended continue Ceftriaxone,Azithromycin , CRP, MANUEL, RADHA insufficiency -Rule out TB - PPD, Quantiferon, AFBx3, possible bronchoscopy -Ceftriaxone 1gm , Azithromycin 500 mg -Tylenol PRN, Duoneb PRN -Sputum culture = G NEG RODS -Mycoplasma IgM pending -Legionella NEGATIVE 3. HIV -HIV-1 Rapid Screen POSITIVE -HIV RNA PCR Pending -Hepatitis panel ordered, RPR, follow up CBC and CMP -social scientist made aware -contact [facility] 4. Renal Calcifications -CT: five renal multifocal hyperdensities compatable w/renal variable shaped calcifications -Nephrology Consult 5. Hypokalemia -replete K, monitor 6. DVT Prophylaxis -Lovenox
[2018-01-29 07:27] LABS: BASO % 0.3 % (0.0-2.0); EOS % 0.7 % (0.0-4.0); HEMOGLOBIN 12.8 g/dL (12.0-18.0); LYMPH # 0.5 K/uL (1.0-4.3); LYMPH % 7.6 % (20.0-40.0); MEAN CELL VOLUME 87.6 fl (80.0-94.0); MEAN CORPUSCULAR HEMOGLOBIN 30.2 pg (27.0-31.0); MEAN CORPUSCULAR HGB CONC 34.4 g/dL (33.0-37.0); MEAN PLATELET VOLUME 8.6 fl (7.2-11.7); MONO # 0.1 K/uL (0.0-0.8); MONO % 2.3 % (0.0-10.0); NEUT # 5.7 K/uL (1.8-7.0); NEUT % 89.1 % (50.0-75.0); NRBC % 0.1 % (0.0-0.0); RBC 4.25 Mil/uL (4.40-5.90); RED CELL DISTRIBUTION WIDTH 13.1 % (11.5-14.5); WHITE BLOOD COUNT 6.3 K/uL (4.8-10.8)
[2018-01-29 07:49] LABS: ALB/GLOB RATIO 0.9 (1.0-2.1); ALT/SGPT 64 U/L (21-72); AST/SGOT 91 U/L (17-59); BLOOD UREA NITROGEN 5 mg/dl (9-20); GFR AFRICAN-AMERICAN > 60; GFR NON-AFRICAN AMERICAN > 60
[2018-01-29] MEDS: Enoxaparin 40 mg Syringe SC SCH (08:40)
[2018-01-29] MEDS: Azithromycin 500 MG in Sodium Chloride 0.9% 250 ML IVPB SCH (08:46)
[2018-01-29 10:59] LABS: % CD4 (T HELPER CELL) 8 Percent (30-61); % CD8 (SUPPRESSOR T CELL) 63 Percent (12-42); ABSOLUTE CD4 CELLS 30 Cells/mcL (490-1740); ABSOLUTE CD8 CELLS 229 Cells/mcL (180-1170); ABSOLUTE LYMPHOCYTES 365 Cells/mcL (850-3900); HELPER/SUPPRESSOR RATIO 0.13 Ratio (0.86-5.00)
--- NOTE | 2018-01-29 11:33 | CP.PCM.CON ---
History of Present Illness - History of Present Illness History of Present Illness: This 27-year- old man came into the emergency room after a brief period of nausea vomiting and diarrhea along with chills. His nausea and vomiting and diarrhea have mostly resolved but he continues to have chills and fevers. This consultation was requested because of a persistent tachycardia. The patient denies being sick for this illness and was not taking any particular medication. He is a smoker who denies recreational drug use or IV drug use. There is no history of chronic alcohol abuse. He reports good effort tolerance prior to this sickness. Physical examination shows a young man who is lying virtually flat in bed and his telemetry demonstrates a persistent sinus tachycardia in the range of 140 to 160 bpm. His jugular venous pressure was not elevated and there was no edema over his lower extremity. His blood pressure was 110/70 mmHg. His pedal pulses were well felt. His extremities were warm and nailbeds were pink. There was no central or peripheral cyanosis. There was no clubbing. There was no lymphadenopathy. The apex was not palpable the first and second heart sounds are normal there was no murmur or gallop no rales his abdomen was soft there was no area of tenderness or organomegaly a rectal examination was deferred. His electrocardiogram showed sinus tachycardia but otherwise no abnormal finding. His CT scan of the chest findings were noted. His lab tests were noted among which was the finding that he was positive for HIV antibody. Further workup is underway. Impression: Probable HIV disease. Sinus tachycardia here represents a physiological response to sepsis, fever and hypoxia imposed by pulmonary infiltrates. At this point no structural heart disease is suspected. An echocardiogram done during this period of tachycardia will have less than adequate findings. Since no clinical decision is going to be based on echo findings I have instructed the nurse to withhold echocardiogram until his heart rate slows down below 100 bpm. Are not detected any structural heart disease and no further intervention is necessary at this juncture. Past Patient History - Past Medical History & Family History Past Medical History?: Yes - Past Social History Smoking Status: Former Smoker Alcohol: Social Drugs: Cannabis Home Situation {Lives}: Friends - CARDIAC Hx Cardiac Disorders: No - PULMONARY Hx Respiratory Disorders: No - NEUROLOGICAL Hx Neurological Disorder: No - HEENT Hx HEENT Problems: No - RENAL Hx Chronic Kidney Disease: No - ENDOCRINE/METABOLIC Hx Endocrine Disorders: No - HEMATOLOGICAL/ONCOLOGICAL Hx Blood Disorders: No - INTEGUMENTARY Hx Dermatological Problems: No - MUSCULOSKELETAL/RHEUMATOLOGICAL Hx Musculoskeletal Disorders: No Hx Falls: No - GASTROINTESTINAL Hx Gastrointestinal Disorders: No - GENITOURINARY/GYNECOLOGICAL Hx Genitourinary Disorders: No - PSYCHIATRIC Hx Psychophysiologic Disorder: No Hx Substance Use: No - SURGICAL HISTORY Hx Surgeries: No - ANESTHESIA Hx Anesthesia: No Hx Anesthesia Reactions: No Hx Malignant Hyperthermia: No Has any member of the family had a problem w/ anesthesia?: No Meds Allergies/Adverse Reactions: Allergies Allergy/AdvReac Type Severity Reaction Status Date / Time No Known Allergies Allergy Verified 01/25/18 16:26 - Medications Medications: Current Medications Acetaminophen (Tylenol 325mg Tab) 650 mg PO Q6 PRN PRN Reason: Pain, Mild (1-3) Last Admin: 01/27/18 23:10 Dose: 650 mg Acetaminophen (Tylenol 325mg Tab) 650 mg PO Q6 PRN PRN Reason: Fever >100.4 F Last Admin: 01/29/18 09:51 Dose: 650 mg Albuterol/Ipratropium (Duoneb 3 Mg/0.5 Mg (3 Ml) Ud) 3 ml INH RQ6 PRN PRN Reason: Shortness of Breath Piperacillin Sod/Tazobactam (Sod 3.375 gm/ Sodium Chloride) 100 mls @ 100 mls/ hr IVPB Q6 IVANNA PRN Reason: Protocol Last Admin: 01/29/18 04:53 Dose: 100 mls/hr Sodium Chloride (Sodium Chloride 0.9%) 1,000 mls @ 999 mls/hr IV .Q1H1M IVANNA Stop: 01/30/18 07:14 Ondansetron HCl (Zofran Inj) 4 mg IVP Q6 PRN PRN Reason: Nausea/Vomiting Results - Vital Signs Recent Vital Signs: Last Vital Signs Temp 101.6 F H 01/29/18 09:51 Pulse 100 H 01/29/18 08:00 Resp 18 01/29/18 08:00 BP 112/67 01/29/18 08:00 Pulse Ox 96 01/29/18 08:00 - Labs Result Diagrams: 01/29/18 06:30 01/29/18 06:30 Labs: Laboratory Results - last 24 hr 01/26/18 01/27/18 01/27/18 09:20 08:00 08:00 WBC RBC Hgb Hct MCV MCH MCHC RDW Plt Count MPV Neut % (Auto) Lymph % (Auto) [place] % (Auto) Eos % (Auto) Baso % (Auto) Neut # (Auto) Lymph # (Auto) [place] # (Auto) Eos # (Auto) Baso # (Auto) Sodium Potassium Chloride Carbon Dioxide Anion Gap BUN Creatinine Est GFR ( Amer) Est GFR (Non-Af Amer) Random Glucose Calcium Total Bilirubin AST ALT Alkaline Phosphatase Total Protein Albumin Globulin Albumin/Globulin Ratio Angiotensin Convert Enz 57 Urine Color Urine Clarity Urine pH Ur Specific [place] Urine Protein Urine Glucose (UA) Urine Ketones Urine Blood Urine Nitrate Urine Bilirubin Urine Urobilinogen Ur Leukocyte Esterase Urine RBC (Auto) Urine Microscopic WBC Scl-70 Antibody <1.0 Scl-70 Interpretation Negative Absolute Lymphs (Flow) % CD4 Cells Absolute CD4 Count T-Help/Suppress Ratio % CD8 Cells Absolute CD8 Count T-Lymph Analys Comment RPR Hepatitis A IgM Ab Hep Bs Antigen Hep B Core IgM Ab Hepatitis C Antibody Mycoplasma pneumon IgM 144 TB Test (QFT) Nil TB Test Mitogen - Nil TB Test TB - Nil TB Test (QFT) 01/27/18 01/27/18 01/28/18 11:24 11:24 05:25 WBC RBC Hgb Hct MCV MCH MCHC RDW Plt Count MPV Neut % (Auto) Lymph % (Auto) [place] % (Auto) Eos % (Auto) Baso % (Auto) Neut # (Auto) Lymph # (Auto) [place] # (Auto) Eos # (Auto) Baso # (Auto) Sodium Potassium Chloride Carbon Dioxide Anion Gap BUN Creatinine Est GFR ( Amer) Est GFR (Non-Af Amer) Random Glucose Calcium Total Bilirubin AST ALT Alkaline Phosphatase Total Protein Albumin Globulin Albumin/Globulin Ratio Angiotensin Convert Enz Urine Color Urine Clarity Urine pH Ur Specific [place] Urine Protein Urine Glucose (UA) Urine Ketones Urine Blood Urine Nitrate Urine Bilirubin Urine Urobilinogen Ur Leukocyte Esterase Urine RBC (Auto) Urine Microscopic WBC Scl-70 Antibody Scl-70 Interpretation Absolute Lymphs (Flow) 365 L % CD4 Cells 8 L Absolute CD4 Count 30 L T-Help/Suppress Ratio 0.13 L % CD8 Cells 63 H Absolute CD8 Count 229 T-Lymph Analys Comment See note RPR Hepatitis A IgM Ab Negative Hep Bs Antigen Negative Hep B Core IgM Ab Negative Hepatitis C Antibody Negative Mycoplasma pneumon IgM TB Test (QFT) Nil 0.77 TB Test Mitogen - Nil 1.10 TB Test TB - Nil <0.00 TB Test (QFT) Negative 01/28/18 01/28/18 01/29/18 05:25 15:30 06:30 WBC RBC Hgb Hct MCV MCH MCHC RDW Plt Count MPV Neut % (Auto) Lymph % (Auto) [place] % (Auto) Eos % (Auto) Baso % (Auto) Neut # (Auto) Lymph # (Auto) [place] # (Auto) Eos # (Auto) Baso # (Auto) Sodium 135 Potassium 3.8 Chloride 100 Carbon Dioxide 29 Anion Gap 10 BUN 5 L Creatinine 0.7 L Est GFR ( Amer) > 60 Est GFR (Non-Af Amer) > 60 Random Glucose 93 Calcium 8.0 L Total Bilirubin 0.7 AST 91 H D ALT 64 Alkaline Phosphatase 77 Total Protein 6.4 Albumin 3.0 L Globulin 3.4 Albumin/Globulin Ratio 0.9 L Angiotensin Convert Enz Urine Color Yellow Urine Clarity Slighty-cloudy Urine pH 6.0 Ur Specific [place] 1.020 Urine Protein 100 Urine Glucose (UA) Neg Urine Ketones Negative Urine Blood Negative Urine Nitrate Negative Urine Bilirubin Negative Urine Urobilinogen 0.2-1.0 Ur Leukocyte Esterase Neg Urine RBC (Auto) < 1 Urine Microscopic WBC 4 Scl-70 Antibody Scl-70 Interpretation Absolute Lymphs (Flow) % CD4 Cells Absolute CD4 Count T-Help/Suppress Ratio % CD8 Cells Absolute CD8 Count T-Lymph Analys Comment RPR Nonreactive Hepatitis A IgM Ab Hep Bs Antigen Hep B Core IgM Ab Hepatitis C Antibody Mycoplasma pneumon IgM TB Test (QFT) Nil TB Test Mitogen - Nil TB Test TB - Nil TB Test (QFT) 01/29/18 06:30 WBC 6.3 RBC 4.25 L Hgb 12.8 Hct 37.2 MCV 87.6 MCH 30.2 MCHC 34.4 RDW 13.1 Plt Count 253 MPV 8.6 Neut % (Auto) 89.1 H Lymph % (Auto) 7.6 L [place] % (Auto) 2.3 Eos % (Auto) 0.7 Baso % (Auto) 0.3 Neut # (Auto) 5.7 Lymph # (Auto) 0.5 L [place] # (Auto) 0.1 Eos # (Auto) 0.0 Baso # (Auto) 0.0 Sodium Potassium Chloride Carbon Dioxide Anion Gap BUN Creatinine Est GFR ( Amer) Est GFR (Non-Af Amer) Random Glucose Calcium Total Bilirubin AST ALT Alkaline Phosphatase Total Protein Albumin Globulin Albumin/Globulin Ratio Angiotensin Convert Enz Urine Color Urine Clarity Urine pH Ur Specific [place] Urine Protein Urine Glucose (UA) Urine Ketones Urine Blood Urine Nitrate Urine Bilirubin Urine Urobilinogen Ur Leukocyte Esterase Urine RBC (Auto) Urine Microscopic WBC Scl-70 Antibody Scl-70 Interpretation Absolute Lymphs (Flow) % CD4 Cells Absolute CD4 Count T-Help/Suppress Ratio % CD8 Cells Absolute CD8 Count T-Lymph Analys Comment RPR Hepatitis A IgM Ab Hep Bs Antigen Hep B Core IgM Ab Hepatitis C Antibody Mycoplasma pneumon IgM TB Test (QFT) Nil TB Test Mitogen - Nil TB Test TB - Nil TB Test (QFT)
--- NOTE | 2018-01-29 14:07 | CP.PCM.PN ---
Subjective - Date & Time of Evaluation Date of Evaluation: 01/29/18 Time of Evaluation: 17:00 - Subjective Subjective: F/U Pulmonary Infiltrate. no SOB, no VARELA , occasional cough with scanty amount of whitish secetion Objective - Vital Signs/Intake and Output Vital Signs (last 24 hours): Temp Pulse Resp BP Pulse Ox 100 F H 137 H 18 96/51 L 94 L 01/29/18 12:00 01/29/18 12:00 01/29/18 12:00 01/29/18 12:00 01/29/18 12:00 Intake and Output: 01/29/18 01/29/18 06:59 18:59 Intake Total 700 1750 Output Total 800 Balance 700 950 - Medications Medications: Current Medications Acetaminophen (Tylenol 325mg Tab) 650 mg PO Q6 PRN PRN Reason: Pain, Mild (1-3) Last Admin: 01/27/18 23:10 Dose: 650 mg Acetaminophen (Tylenol 325mg Tab) 650 mg PO Q6 PRN PRN Reason: Fever >100.4 F Last Admin: 01/29/18 09:51 Dose: 650 mg Albuterol/Ipratropium (Duoneb 3 Mg/0.5 Mg (3 Ml) Ud) 3 ml INH RQ6 PRN PRN Reason: Shortness of Breath Piperacillin Sod/Tazobactam (Sod 3.375 gm/ Sodium Chloride) 100 mls @ 100 mls/ hr IVPB Q6 IVANNA PRN Reason: Protocol Last Admin: 01/29/18 11:33 Dose: 100 mls/hr Sodium Chloride (Sodium Chloride 0.9%) 1,000 mls @ 999 mls/hr IV .Q1H1M [facility] Stop: 01/30/18 07:14 Ondansetron HCl (Zofran Inj) 4 mg IVP Q6 PRN PRN Reason: Nausea/Vomiting - Labs Labs: 01/29/18 06:30 01/29/18 06:30 - Constitutional Appears: No Acute Distress - Head Exam Head Exam: NORMAL INSPECTION - Eye Exam Eye Exam: PERRL - ENT Exam ENT Exam: Normal Exam - Neck Exam Neck Exam: Normal Inspection - Respiratory Exam Respiratory Exam: Rhonchi (few LUE, rest clear) - Cardiovascular Exam Cardiovascular Exam: Tachycardia - GI/Abdominal Exam GI & Abdominal Exam: Soft, Normal Bowel Sounds - Extremities Exam Extremities Exam: Normal Inspection - Neurological Exam Neurological Exam: Alert, Oriented x3. absent: Motor Sensory Deficit - Psychiatric Exam Psychiatric exam: Normal Affect - Skin Skin Exam: Warm Assessment and Plan (1) Pulmonary infiltrate Status: Acute (2) Pulmonary nodules Status: Acute (3) Fever Status: Acute - Assessment and Plan (Free Text) Plan: Fever, Tachycardia , f/u ECHO , if/ sputum AFB neg, , Patient to have FOB Bx when stable
[2018-01-30] MEDS: Piperacillin/Tazobact 3.375 GM in Sodium Chloride 0.9% 100 ML IVPB SCH ×4 (04:00→21:00)
[2018-01-30 06:19] LABS: HEMOGLOBIN 13.4 g/dL (12.0-18.0); MEAN CELL VOLUME 85.7 fl (80.0-94.0); RBC 4.46 Mil/uL (4.40-5.90); RED CELL DISTRIBUTION WIDTH 13.4 % (11.5-14.5); WHITE BLOOD COUNT 7.7 K/uL (4.8-10.8)
[2018-01-30 06:30] LABS: BLOOD UREA NITROGEN 9 mg/dl (9-20); CALCIUM 8.1 mg/dL (8.4-10.2); GFR AFRICAN-AMERICAN > 60; GFR NON-AFRICAN AMERICAN > 60
[2018-01-30] MEDS ORDERED: Enoxaparin 80 mg Syringe SC STA (10:30)
[2018-01-30] MEDS ORDERED: Sodium Chloride 3% for Inhalation 4 ML VIAL.NEB IH PRN (10:31)
--- NOTE | 2018-01-30 10:47 | CP.PCM.PN ---
Subjective - Date & Time of Evaluation Date of Evaluation: 01/30/18 Time of Evaluation: 13:34 - Subjective Subjective: PT WORSENING TACHYCARDIA AND HYPOXIA TODAY MILD DYSPNEA REQUIRING 2-4L NC MONITOR CLOSELY CTA NO PE, +WORSENING RETICULONODULAR INFILTRATES INITIATE BACTRIM/SOLUMEDROL THERAPY today Objective - Vital Signs/Intake and Output Vital Signs (last 24 hours): Temp Pulse Resp BP Pulse Ox 103 F H 120 H 18 108/64 95 01/30/18 10:46 01/30/18 08:00 01/30/18 08:00 01/30/18 08:00 01/30/18 08:00 - Medications Medications: Current Medications Acetaminophen (Tylenol 325mg Tab) 650 mg PO Q6 PRN PRN Reason: Pain, Mild (1-3) Last Admin: 01/30/18 04:58 Dose: 650 mg Acetaminophen (Tylenol 325mg Tab) 650 mg PO Q6 PRN PRN Reason: Fever >100.4 F Last Admin: 01/30/18 10:46 Dose: 650 mg Albuterol/Ipratropium (Duoneb 3 Mg/0.5 Mg (3 Ml) Ud) 3 ml INH RQ6 PRN PRN Reason: Shortness of Breath Piperacillin Sod/Tazobactam (Sod 3.375 gm/ Sodium Chloride) 100 mls @ 100 mls/ hr IVPB Q6 IVANNA PRN Reason: Protocol Last Admin: 01/30/18 09:40 Dose: 100 mls/hr Vancomycin HCl 1 gm/ Sodium (Chloride) 250 mls @ 166.667 mls/hr IVPB Q12H [facility]NA PRN Reason: Protocol Ondansetron HCl (Zofran Inj) 4 mg IVP Q6 PRN PRN Reason: Nausea/Vomiting - Labs Labs: 01/30/18 05:45 01/30/18 05:45 - Constitutional Appears: Non-toxic, No Acute Distress - Head Exam Head Exam: ATRAUMATIC, NORMOCEPHALIC - Eye Exam Eye Exam: EOMI, Normal appearance, PERRL - ENT Exam ENT Exam: Mucous Membranes Moist, Normal Oropharynx - Respiratory Exam Respiratory Exam: NORMAL BREATHING PATTERN Additional comments: coarse breath sounds bilaterally - Cardiovascular Exam Cardiovascular Exam: Tachycardia, REGULAR RHYTHM, +S1, +S2 - GI/Abdominal Exam GI & Abdominal Exam: Soft, Normal Bowel Sounds. absent: Mass, Organomegaly - Extremities Exam Extremities Exam: Normal Capillary Refill. absent: Pedal Edema - Back Exam Back Exam: absent: CVA tenderness (L), CVA tenderness (R) - Neurological Exam Neurological Exam: Alert, Awake - Psychiatric Exam Psychiatric exam: Normal Affect, Normal Mood - Skin Skin Exam: Dry, Warm Assessment and Plan - Assessment and Plan (Free Text) Plan: 27 year old man admitted for a three day episode of nausea, vomiting, abdominal pain, chills and mild cough. Rapid HIV test positive - confirmatory RNA PCR tests positive. CD4 count 30. Worsening respiratory status day 5 of admission. Empiric treatment of PJP intiated with steroid therapy. ABG on room air had pO2 < 70 and Aa >35. AIDS, advanced HIV infection PCP Patient clinically worsening with O2 requirement 2L, tachycardia, high fever TMAX 103 today. Patient was evaluated for PE as he has been in bed for several days. No central PE, however worsening reticulonodular opacities/groundglass infiltrates. Given clinically worsening respiratory status, will empirically treat with Bactrim 20 mg/kg/day and Solumedrol 40mg q6h for prevention ARDS: ABG showed Aa >35 (45) and pO2 <70 (63). LDH sent today. - HIV-1 Rapid Screen POSITIVE - HIV RNA positive - CD 4 COUNT 30 -CT: bilateral diffuse & extensive reticulonodular pulmonary opacities, repeat CT worsened reticulonod/groundglass infiltrates - patient on Bactrim 450 mg IV Q8 hours and Solumedrol - continuing Vanc/Zosyn, will await further recs from ID. - Hepatitis panel, RPR, neg - Consulted pulmonary: Dr. Jenkins - recommended continue antibiotics, CRP, MANUEL, RADHA insufficiency - Rule out TB - PPD, Quantiferon, AFBx3 (two sent), possible bronchoscopy Quant test: based on [facility] instructions, there is possibility for false neg given the Cheng test is not 0.5 greater than test tube. Will await AFBs. - Sputum culture = G NEG RODS, normal oral quinten. Will await repeat cultures. - Mycoplasma IgG positive - Mycoplasma IgM - NOTE FROM [facility] TO DISREGARD RESULT. - Legionella NEGATIVE - ID consult, Dr. Atkinson - on isolation Gastroenteritis -on zosyn -Zofran PRN -Stool cx NEG -Ova parasites NEG -Stool leukocytes NEG -Infectious Disease consulted: Dr. Atkinson Renal Calcifications -CT: five renal multifocal hyperdensities compatable w/renal variable shaped calcifications -Nephrology Consult Hypokalemia -replete K, monitor DVT Prophylaxis -Lovenox
[2018-01-30] MEDS ORDERED: Sodium Chloride 0.9% 50 ML IV ONE (11:27)
[2018-01-30] MEDS ORDERED: Iodixanol 320 MG/ML 100 ML BOTTLE IV ONE (11:27)
--- NOTE | 2018-01-30 12:55 | CT ---
Date of service: 01/30/2018 PROCEDURE: CT Chest with contrast (Pulmonary Angiogram) HISTORY: dyspnea COMPARISON: Comparison made with CT chest 01/25/2018 TECHNIQUE: Axial computed tomography images were obtained of the chest in the pulmonary arterial phase of enhancement. Coronal and sagittal reformatted images were created and reviewed. Intravenous contrast dose: 90 cc Visipaque 320 Radiation dose: Total exam DLP = 439.01 mGy-cm. This CT exam was performed using one or more of the following dose reduction techniques: Automated exposure control, adjustment of the mA and/or kV according to patient size, and/or use of iterative reconstruction technique. The examination is limited due to suboptimal contrast enhancement of the pulmonary arteries. FINDINGS: PULMONARY ARTERIES: Unremarkable. No pulmonary embolism. AORTA: No acute findings. No thoracic aortic aneurysm. LUNGS: Re- demonstrated are extensive - significant diffuse reticulonodular interstitial infiltrates of which appear to have progressed slightly in both lower lung [place]. More confluent opacities in the lung apices/upper lobes remain. PLEURAL SPACES: Unremarkable. No effusion or pneumothorax. HEART: Unremarkable. No cardiomegaly. There is a tiny amount of fluid seen in the left between the ascending thoracic aorta and pulmonary trunk. LYMPH NODES: No lymphadenopathy. BONES, CHEST WALL: Unremarkable. No fracture or destructive lesion OTHER FINDINGS: There is a small hiatal hernia. IMPRESSION: Suboptimal study to evaluate for pulmonary embolus. No large central pulmonary embolus is identified extensive - significant diffuse reticulonodular interstitial infiltrates of which appear to have progressed slightly in both lower lung [place]. More confluent opacities in the lung apices/upper lobes remain.
[2018-01-30 13:50] LABS: ABG ALLEN TEST YES; ARTERIAL BLOOD GAS HEMOGLOBIN 13.8 g/dL (11.7-17.4); ARTERIAL BLOOD GAS O2 CAPACITY 18.7 mL/dL (16-24); ARTERIAL BLOOD GAS O2 CONTENT 17.9 ML/dL (15-23); ARTERIAL BLOOD GAS O2 SAT 95.8 % (95-98); ARTERIAL BLOOD GAS PCO2 33 mm/Hg (35-45); ARTERIAL BLOOD GAS PH 7.46 (7.35-7.45); ARTERIAL BLOOD GAS PO2 63 mm/Hg (80-100); ARTERIAL BLOOD GAS TCO2 24.5 mmol/L (22-28)
[2018-01-30] MEDS: WATER IVPB SCH ×3 (14:29→23:00)
[2018-01-30] MEDS: TRIMETHOPRIM IVPB SCH ×3 (14:29→23:00)
[2018-01-30] MEDS: SULFAMETHOXAZOLE IVPB SCH ×3 (14:29→23:00)
[2018-01-30] MEDS: DEXTROSE 5% IVPB SCH ×3 (14:29→23:00)
[2018-01-30] MEDS: MethylPREDNISolone 40 mg Vial IVP SCH ×2 (17:35→22:03)
[2018-01-31] MEDS: Piperacillin/Tazobact 3.375 GM in Sodium Chloride 0.9% 100 ML IVPB SCH ×4 (04:21→21:17)
[2018-01-31] MEDS: MethylPREDNISolone 40 mg Vial IVP SCH ×4 (04:21→22:57)
[2018-01-31] MEDS: TRIMETHOPRIM IVPB SCH ×3 (06:22→22:56)
[2018-01-31] MEDS: WATER IVPB SCH ×3 (06:22→22:56)
[2018-01-31] MEDS: SULFAMETHOXAZOLE IVPB SCH ×3 (06:22→22:56)
[2018-01-31] MEDS: DEXTROSE 5% IVPB SCH ×3 (06:22→22:56)
[2018-01-31 06:29] LABS: BASO % 0.2 % (0.0-2.0); EOS % 0.1 % (0.0-4.0); HEMOGLOBIN 13.1 g/dL (12.0-18.0); LYMPH # 0.3 K/uL (1.0-4.3); LYMPH % 8.3 % (20.0-40.0); MEAN CELL VOLUME 86.7 fl (80.0-94.0); MEAN CORPUSCULAR HEMOGLOBIN 29.7 pg (27.0-31.0); MEAN CORPUSCULAR HGB CONC 34.2 g/dL (33.0-37.0); MEAN PLATELET VOLUME 8.9 fl (7.2-11.7); MONO # 0.1 K/uL (0.0-0.8); MONO % 2.9 % (0.0-10.0); NEUT # 3.6 K/uL (1.8-7.0); NEUT % 88.5 % (50.0-75.0); NRBC % 0.1 % (0.0-0.0); RBC 4.42 Mil/uL (4.40-5.90); RED CELL DISTRIBUTION WIDTH 12.9 % (11.5-14.5)
[2018-01-31 06:54] LABS: BLOOD UREA NITROGEN 8 mg/dl (9-20); CALCIUM 8.2 mg/dL (8.4-10.2); GFR AFRICAN-AMERICAN > 60; GFR NON-AFRICAN AMERICAN > 60
--- NOTE | 2018-01-31 08:13 | CP.PCM.PN ---
Subjective - Date & Time of Evaluation Date of Evaluation: 01/31/18 Time of Evaluation: 08:12 - Subjective Subjective: pt significantly improved this morning states he feels much better after initiating bactrim and steroids less O2 requirement today, saturation improved HD stable NAD Objective - Vital Signs/Intake and Output Vital Signs (last 24 hours): Temp Pulse Resp BP Pulse Ox 97.5 F L 111 H 18 122/66 98 01/31/18 07:56 01/31/18 08:07 01/31/18 07:56 01/31/18 08:07 01/31/18 07:56 Vitals Reviewed GEN: WDWN, alert, cooperative HEENT: NCAT, PERRL, EOMI HEART: RRR, +S1S2, NO MRG LUNG: CTAB, with some coarse breath sounds ABD: soft, NT, ND, No HSM, No masses EXT: normal pedal pulses, normal capillary refill NEURO: awake, alert, no focal deficits SKIN: warm, dry PSYCH: normal mood, normal affect - Medications Medications: Current Medications Acetaminophen (Tylenol 325mg Tab) 650 mg PO Q6 PRN PRN Reason: Pain, Mild (1-3) Last Admin: 01/30/18 04:58 Dose: 650 mg Acetaminophen (Tylenol 325mg Tab) 650 mg PO Q6 PRN PRN Reason: Fever >100.4 F Last Admin: 01/30/18 10:46 Dose: 650 mg Albuterol/Ipratropium (Duoneb 3 Mg/0.5 Mg (3 Ml) Ud) 3 ml INH RQ6 PRN PRN Reason: Shortness of Breath Piperacillin Sod/Tazobactam (Sod 3.375 gm/ Sodium Chloride) 100 mls @ 100 mls/ hr IVPB Q6 IVANNA PRN Reason: Protocol Last Admin: 01/31/18 04:21 Dose: 100 mls/hr Vancomycin HCl 1 gm/ Sodium (Chloride) 250 mls @ 166.667 mls/hr IVPB Q12H IVANNA PRN Reason: Protocol Last Admin: 01/30/18 23:02 Dose: 166.667 mls/hr Trimethoprim/Sulfamethoxazole (450 mg/ Dextrose) 500 mls @ 333.333 mls/hr IVPB Q8@0630,1430,2230 IVANNA PRN Reason: Protocol Last Admin: 01/31/18 06:22 Dose: 333.333 mls/hr Methylprednisolone (Solu-Medrol) 40 mg IVP Q6 [facility] Last Admin: 01/31/18 04:21 Dose: 40 mg Metoprolol Tartrate (Lopressor) 25 mg PO Q12 [facility] Last Admin: 01/31/18 08:07 Dose: 25 mg Ondansetron HCl (Zofran Inj) 4 mg IVP Q6 PRN PRN Reason: Nausea/Vomiting - Labs Labs: 01/31/18 04:20 01/31/18 04:20 Assessment and Plan - Assessment and Plan (Free Text) Plan: 27 year old man admitted for a three day episode of nausea, vomiting, abdominal pain, chills and mild cough. Rapid HIV test positive - confirmatory RNA PCR tests positive. CD4 count 30. Worsening respiratory status day 5 of admission. Empiric treatment of PJP intiated with steroid therapy. ABG on room air had pO2 < 70 and Aa >35. AIDS, advanced HIV infection PCP Patient clinically worsening with O2 requirement 2L, tachycardia, high fever TMAX 103 today. Patient was evaluated for PE as he has been in bed for several days. No central PE, however worsening reticulonodular opacities/groundglass infiltrates. Given clinically worsening respiratory status, will empirically treat with Bactrim 20 mg/kg/day and Solumedrol 40mg q6h for prevention ARDS: ABG showed Aa >35 (45) and pO2 <70 (63). LDH sent. Improving with current therapy. - HIV-1 Rapid Screen POSITIVE - HIV RNA positive - CD 4 COUNT 30 -CT: bilateral diffuse & extensive reticulonodular pulmonary opacities, repeat CT worsened reticulonod/groundglass infiltrates - patient on Bactrim 450 mg IV Q8 hours and Solumedrol - continuing Vanc/Zosyn, will await further recs from ID. - Hepatitis panel, RPR, neg - Consulted pulmonary: Dr. Jenkins - recommended continue antibiotics, CRP, MANUEL, RADHA insufficiency, possible bronch. - Rule out TB - PPD, Quantiferon, AFBx3 (two sent), possible bronchoscopy Quant test: based on [facility] instructions, there is possibility for false neg given the Cheng test is not 0.5 greater than test tube. Will await AFBs. - Sputum culture = G NEG RODS, normal oral quinten. Will await repeat cultures. - Mycoplasma IgG positive - Mycoplasma IgM - NOTE FROM [facility] TO DISREGARD RESULT. - Legionella NEGATIVE - ID consult, Dr. Atkinson - on isolation Gastroenteritis -on zosyn -Zofran PRN -Stool cx NEG -Ova parasites NEG -Stool leukocytes NEG -Infectious Disease consulted: Dr. Atkinson Renal Calcifications -CT: five renal multifocal hyperdensities compatable w/renal variable shaped calcifications -Nephrology Consult Hypokalemia -replete K, monitor DVT Prophylaxis -Lovenox
--- NOTE | 2018-01-31 08:50 | CP.PCM.PN ---
Subjective - Date & Time of Evaluation Date of Evaluation: 01/30/18 Time of Evaluation: 12:00 - Subjective Subjective: NOTE FOR 01-30-18 no SOB , no SOB , occasional cough with scanty yellowish flegm Objective - Vital Signs/Intake and Output Vital Signs (last 24 hours): Temp Pulse Resp BP Pulse Ox 97.5 F L 111 H 18 122/66 98 01/31/18 07:56 01/31/18 08:07 01/31/18 07:56 01/31/18 08:07 01/31/18 07:56 - Medications Medications: Current Medications Acetaminophen (Tylenol 325mg Tab) 650 mg PO Q6 PRN PRN Reason: Pain, Mild (1-3) Last Admin: 01/30/18 04:58 Dose: 650 mg Acetaminophen (Tylenol 325mg Tab) 650 mg PO Q6 PRN PRN Reason: Fever >100.4 F Last Admin: 01/30/18 10:46 Dose: 650 mg Albuterol/Ipratropium (Duoneb 3 Mg/0.5 Mg (3 Ml) Ud) 3 ml INH RQ6 PRN PRN Reason: Shortness of Breath Piperacillin Sod/Tazobactam (Sod 3.375 gm/ Sodium Chloride) 100 mls @ 100 mls/ hr IVPB Q6 [facility] PRN Reason: Protocol Last Admin: 01/31/18 04:21 Dose: 100 mls/hr Vancomycin HCl 1 gm/ Sodium (Chloride) 250 mls @ 166.667 mls/hr IVPB Q12H [facility] PRN Reason: Protocol Last Admin: 01/30/18 23:02 Dose: 166.667 mls/hr Trimethoprim/Sulfamethoxazole (450 mg/ Dextrose) 500 mls @ 333.333 mls/hr IVPB Q8@0630,1430,2230 [facility] PRN Reason: Protocol Last Admin: 01/31/18 06:22 Dose: 333.333 mls/hr Methylprednisolone (Solu-Medrol) 40 mg IVP Q6 [facility] Last Admin: 01/31/18 04:21 Dose: 40 mg Metoprolol Tartrate (Lopressor) 25 mg PO Q12 [facility] Last Admin: 01/31/18 08:07 Dose: 25 mg Ondansetron HCl (Zofran Inj) 4 mg IVP Q6 PRN PRN Reason: Nausea/Vomiting - Labs Labs: 01/31/18 04:20 01/31/18 04:20 - Constitutional Appears: No Acute Distress - Head Exam Head Exam: NORMAL INSPECTION - Eye Exam Eye Exam: PERRL - ENT Exam ENT Exam: Normal Exam - Neck Exam Neck Exam: Normal Inspection - Respiratory Exam Respiratory Exam: Clear to Ausculation Bilateral - Cardiovascular Exam Cardiovascular Exam: Tachycardia - GI/Abdominal Exam GI & Abdominal Exam: Soft, Normal Bowel Sounds - Extremities Exam Extremities Exam: Normal Inspection - Back Exam Back Exam: NORMAL INSPECTION - Neurological Exam Neurological Exam: Alert, CN II-XII Intact, Oriented x3. absent: Motor Sensory Deficit - Psychiatric Exam Psychiatric exam: Normal Affect - Skin Skin Exam: Warm Assessment and Plan (1) Pulmonary infiltrate Status: Acute (2) Pulmonary nodules Status: Acute (3) Fever Status: Acute - Assessment and Plan (Free Text) Assessment: Tachycardia up to 130 , Fever up to 103, Patient on Zosyn, Bactrim , Vanco , awaiting sputum smear AFB x3 , if neg , planning Bronchoscopy when heart rate stable
--- NOTE | 2018-01-31 12:26 | CP.PCM.PN ---
Subjective - Date & Time of Evaluation Date of Evaluation: 01/31/18 Time of Evaluation: 12:26 - Subjective Subjective: ID Note- Pt. seen and examined today. Pt. states today he finally feels better after bactrim was initiated. He is afebrile today and denies any sob or any palpitations today. He is now aware of his HIV diagnosis ( as it was confirmed) and he states he has accepted this diagnosis and will try his best to stay positive and string and will be complaint with meds once prescribed. he denies any diarrhea or any nausea or vomiting and is eating well today. denies any dysurea. Objective - Vital Signs/Intake and Output Vital Signs (last 24 hours): Temp Pulse Resp BP Pulse Ox 97.9 F 107 H 18 110/70 98 01/31/18 12:15 01/31/18 12:15 01/31/18 12:15 01/31/18 12:15 01/31/18 12:15 - Medications Medications: Current Medications Acetaminophen (Tylenol 325mg Tab) 650 mg PO Q6 PRN PRN Reason: Pain, Mild (1-3) Last Admin: 01/30/18 04:58 Dose: 650 mg Acetaminophen (Tylenol 325mg Tab) 650 mg PO Q6 PRN PRN Reason: Fever >100.4 F Last Admin: 01/30/18 10:46 Dose: 650 mg Albuterol/Ipratropium (Duoneb 3 Mg/0.5 Mg (3 Ml) Ud) 3 ml INH RQ6 PRN PRN Reason: Shortness of Breath Piperacillin Sod/Tazobactam (Sod 3.375 gm/ Sodium Chloride) 100 mls @ 100 mls/ hr IVPB Q6 IVANNA PRN Reason: Protocol Last Admin: 01/31/18 04:21 Dose: 100 mls/hr Vancomycin HCl 1 gm/ Sodium (Chloride) 250 mls @ 166.667 mls/hr IVPB Q12H IVANNA PRN Reason: Protocol Last Admin: 01/31/18 09:54 Dose: 166.667 mls/hr Trimethoprim/Sulfamethoxazole (450 mg/ Dextrose) 500 mls @ 333.333 mls/hr IVPB Q8@0630,1430,2230 IVANNA PRN Reason: Protocol Last Admin: 01/31/18 06:22 Dose: 333.333 mls/hr Methylprednisolone (Solu-Medrol) 40 mg IVP Q6 [facility] Last Admin: 01/31/18 04:21 Dose: 40 mg Metoprolol Tartrate (Lopressor) 25 mg PO Q12 [facility] Last Admin: 01/31/18 08:07 Dose: 25 mg Ondansetron HCl (Zofran Inj) 4 mg IVP Q6 PRN PRN Reason: Nausea/Vomiting - Labs Labs: - Additional Findings Additional findings: - Constitutional Appears: No Acute Distress - Head Exam Head Exam: ATRAUMATIC - Eye Exam Eye Exam: EOMI, PERRL - ENT Exam ENT Exam: Normal Oropharynx - Neck Exam Neck exam: Positive for: Full Rom Additional comments: supple - Respiratory Exam Respiratory Exam: NORMAL BREATHING PATTERN Additional comments: good breath sounds B/L no wheezing no rhonchi - Cardiovascular Exam Cardiovascular Exam: Tachycardia, +S1, +S2 - GI/Abdominal Exam GI & Abdominal Exam: Normal Bowel Sounds, Soft Additional comments: NT, ND No guarding, no rebound No CVA tenderness B/L - Extremities Exam Extremities exam: Positive for: normal inspection - Neurological Exam Neurological exam: Alert, Oriented x 3 Laboratory Results - last 72 hr 01/26/18 01/27/18 01/27/18 09:20 08:00 09:49 WBC RBC Hgb Hct MCV MCH MCHC RDW Plt Count MPV Neut % (Auto) Lymph % (Auto) [place] % (Auto) Eos % (Auto) Baso % (Auto) Neut # (Auto) Lymph # (Auto) [place] # (Auto) Eos # (Auto) Baso # (Auto) D-Dimer, Quantitative pCO2 pO2 HCO3 ABG pH ABG Total CO2 ABG O2 Saturation ABG O2 Content ABG Base Excess ABG Hemoglobin ABG Carboxyhemoglobin POC ABG HHb (Measured) ABG Methemoglobin ABG O2 Capacity Lino Test A-a O2 Difference Hgb O2 Saturation FiO2 Sodium Potassium Chloride Carbon Dioxide Anion Gap BUN Creatinine Est GFR ( Amer) Est GFR (Non-Af Amer) POC Glucose (mg/dL) Random Glucose Calcium Total Bilirubin AST ALT Alkaline Phosphatase Total Protein Albumin Globulin Albumin/Globulin Ratio MANUEL Screen Negative MANUEL Titer TEST NOT PERFORMED MANUEL Titer 2 TEST NOT PERFORMED MANUEL Pattern TEST NOT PERFORMED MANUEL Pattern 2 TEST NOT PERFORMED Absolute Lymphs (Flow) % CD4 Cells Absolute CD4 Count T-Help/Suppress Ratio % CD8 Cells Absolute CD8 Count T-Lymph Analys Comment RPR HIV-1 RNA Qnt (RT-PCR) 5.19 H Mycoplasma pneumon IgG 1.15 H Mycoplasma pneumon IgM 144 TB Test (QFT) Nil TB Test Mitogen - Nil TB Test TB - Nil TB Test (QFT) 01/27/18 01/27/18 01/28/18 11:24 11:24 05:25 WBC RBC Hgb Hct MCV MCH MCHC RDW Plt Count MPV Neut % (Auto) Lymph % (Auto) [place] % (Auto) Eos % (Auto) Baso % (Auto) Neut # (Auto) Lymph # (Auto) [place] # (Auto) Eos # (Auto) Baso # (Auto) D-Dimer, Quantitative pCO2 pO2 HCO3 ABG pH ABG Total CO2 ABG O2 Saturation ABG O2 Content ABG Base Excess ABG Hemoglobin ABG Carboxyhemoglobin POC ABG HHb (Measured) ABG Methemoglobin ABG O2 Capacity Lino Test A-a O2 Difference Hgb O2 Saturation FiO2 Sodium Potassium Chloride Carbon Dioxide Anion Gap BUN Creatinine Est GFR ( Amer) Est GFR (Non-Af Amer) POC Glucose (mg/dL) Random Glucose Calcium Total Bilirubin AST ALT Alkaline Phosphatase Total Protein Albumin Globulin Albumin/Globulin Ratio MANUEL Screen MANUEL Titer MANUEL Titer 2 MANUEL Pattern MANUEL Pattern 2 Absolute Lymphs (Flow) 365 L % CD4 Cells 8 L Absolute CD4 Count 30 L T-Help/Suppress Ratio 0.13 L % CD8 Cells 63 H Absolute CD8 Count 229 T-Lymph Analys Comment See note RPR Nonreactive HIV-1 RNA Qnt (RT-PCR) Mycoplasma pneumon IgG Mycoplasma pneumon IgM TB Test (QFT) Nil 0.77 TB Test Mitogen - Nil 1.10 TB Test TB - Nil <0.00 TB Test (QFT) Negative 01/29/18 01/29/18 01/30/18 06:30 06:30 05:23 WBC 6.3 RBC 4.25 L Hgb 12.8 Hct 37.2 MCV 87.6 MCH 30.2 MCHC 34.4 RDW 13.1 Plt Count 253 MPV 8.6 Neut % (Auto) 89.1 H Lymph % (Auto) 7.6 L [place] % (Auto) 2.3 Eos % (Auto) 0.7 Baso % (Auto) 0.3 Neut # (Auto) 5.7 Lymph # (Auto) 0.5 L [place] # (Auto) 0.1 Eos # (Auto) 0.0 Baso # (Auto) 0.0 D-Dimer, Quantitative pCO2 pO2 HCO3 ABG pH ABG Total CO2 ABG O2 Saturation ABG O2 Content ABG Base Excess ABG Hemoglobin ABG Carboxyhemoglobin POC ABG HHb (Measured) ABG Methemoglobin ABG O2 Capacity Lino Test A-a O2 Difference Hgb O2 Saturation FiO2 Sodium 135 Potassium 3.8 Chloride 100 Carbon Dioxide 29 Anion Gap 10 BUN 5 L Creatinine 0.7 L Est GFR ( Amer) > 60 Est GFR (Non-Af Amer) > 60 POC Glucose (mg/dL) 80 Random Glucose 93 Calcium 8.0 L Total Bilirubin 0.7 AST 91 H D ALT 64 Alkaline Phosphatase 77 Total Protein 6.4 Albumin 3.0 L Globulin 3.4 Albumin/Globulin Ratio 0.9 L MANUEL Screen MANUEL Titer MANUEL Titer 2 MANUEL Pattern MANUEL Pattern 2 Absolute Lymphs (Flow) % CD4 Cells Absolute CD4 Count T-Help/Suppress Ratio % CD8 Cells Absolute CD8 Count T-Lymph Analys Comment RPR HIV-1 RNA Qnt (RT-PCR) Mycoplasma pneumon IgG Mycoplasma pneumon IgM TB Test (QFT) Nil TB Test Mitogen - Nil TB Test TB - Nil TB Test (QFT) 01/30/18 01/30/18 01/30/18 05:45 05:45 07:30 WBC 7.7 RBC 4.46 Hgb 13.4 Hct 38.2 MCV 85.7 MCH 30.0 MCHC 35.0 RDW 13.4 Plt Count 277 MPV Neut % (Auto) Lymph % (Auto) [place] % (Auto) Eos % (Auto) Baso % (Auto) Neut # (Auto) Lymph # (Auto) [place] # (Auto) Eos # (Auto) Baso # (Auto) D-Dimer, Quantitative 2962 H pCO2 pO2 HCO3 ABG pH ABG Total CO2 ABG O2 Saturation ABG O2 Content ABG Base Excess ABG Hemoglobin ABG Carboxyhemoglobin POC ABG HHb (Measured) ABG Methemoglobin ABG O2 Capacity Lino Test A-a O2 Difference Hgb O2 Saturation FiO2 Sodium 134 Potassium 3.7 Chloride 100 Carbon Dioxide 24 Anion Gap 14 BUN 9 Creatinine 0.5 L Est GFR ( Amer) > 60 Est GFR (Non-Af Amer) > 60 POC Glucose (mg/dL) Random Glucose 97 Calcium 8.1 L Total Bilirubin AST ALT Alkaline Phosphatase Total Protein Albumin Globulin Albumin/Globulin Ratio MANUEL Screen MANUEL Titer MANUEL Titer 2 MANUEL Pattern MANUEL Pattern 2 Absolute Lymphs (Flow) % CD4 Cells Absolute CD4 Count T-Help/Suppress Ratio % CD8 Cells Absolute CD8 Count T-Lymph Analys Comment RPR HIV-1 RNA Qnt (RT-PCR) Mycoplasma pneumon IgG Mycoplasma pneumon IgM TB Test (QFT) Nil TB Test Mitogen - Nil TB Test TB - Nil TB Test (QFT) 01/30/18 01/31/18 01/31/18 13:40 04:20 04:20 WBC 4.0 L RBC 4.42 Hgb 13.1 Hct 38.3 MCV 86.7 MCH 29.7 MCHC 34.2 RDW 12.9 Plt Count 306 MPV 8.9 Neut % (Auto) 88.5 H Lymph % (Auto) 8.3 L [place] % (Auto) 2.9 Eos % (Auto) 0.1 Baso % (Auto) 0.2 Neut # (Auto) 3.6 Lymph # (Auto) 0.3 L [place] # (Auto) 0.1 Eos # (Auto) 0.0 Baso # (Auto) 0.0 D-Dimer, Quantitative pCO2 33 L pO2 63 L HCO3 25.0 ABG pH 7.46 H ABG Total CO2 24.5 ABG O2 Saturation 95.8 ABG O2 Content 17.9 ABG Base Excess 0.3 ABG Hemoglobin 13.8 ABG Carboxyhemoglobin 2.0 H POC ABG HHb (Measured) 4.1 ABG Methemoglobin 1.4 ABG O2 Capacity 18.7 Lino Test Yes A-a O2 Difference 45.0 Hgb O2 Saturation 92.5 L FiO2 21.0 Sodium 137 Potassium 3.8 Chloride 103 Carbon Dioxide 22 Anion Gap 16 BUN 8 L Creatinine 0.4 L Est GFR ( Amer) > 60 Est GFR (Non-Af Amer) > 60 POC Glucose (mg/dL) Random Glucose 136 H Calcium 8.2 L Total Bilirubin AST ALT Alkaline Phosphatase Total Protein Albumin Globulin Albumin/Globulin Ratio MANUEL Screen MANUEL Titer MANUEL Titer 2 MANUEL Pattern MANUEL Pattern 2 Absolute Lymphs (Flow) % CD4 Cells Absolute CD4 Count T-Help/Suppress Ratio % CD8 Cells Absolute CD8 Count T-Lymph Analys Comment RPR HIV-1 RNA Qnt (RT-PCR) Mycoplasma pneumon IgG Mycoplasma pneumon IgM TB Test (QFT) Nil TB Test Mitogen - Nil TB Test TB - Nil TB Test (QFT) Microbiology 01/30/18 13:39 Other: Please Indicate Mycobacterial Culture - Preliminary 01/30/18 12:45 Blood Blood Culture - Preliminary NO GROWTH AFTER 24 HOURS 01/30/18 12:30 Blood Blood Culture - Preliminary NO GROWTH AFTER 24 HOURS 01/30/18 13:44 Urine Urine Culture - Final No Growth (<1,000 CFU/ML) 01/25/18 17:55 Blood-Venous Blood Culture - Final NO GROWTH AFTER 5 DAYS 01/25/18 17:43 Blood-Venous Blood Culture - Final NO GROWTH AFTER 5 DAYS 01/25/18 17:43 Blood-Venous Gram Stain - Final TEST NOT PERFORMED 01/28/18 15:30 Urine Urine Culture - Final No Growth (<1,000 CFU/ML) 01/27/18 14:09 Sputum Gram Stain - Final 01/27/18 14:09 Sputum Sputum Culture - Final NORMAL ORAL DEANN 01/27/18 08:31 Stool Ova and Parasite Concentrate Exam - Final 01/26/18 12:14 Stool Stool Culture - Final NO SALMONELLA, SHIGELLA OR CAMPYLOBACTER ISOLATED. 01/26/18 12:14 Stool Ova and Parasite Concentrate Exam - Final 01/25/18 22:00 Throat Group A Strep Throat Culture - Final NO BETA STREP GROUP A ISOLATED. Accession No. : [id number] Patient Name / ID : MARSHALL NGUYEN PARKER / [id number] Exam Date : 01/30/2018 11:29:54 ( Addendum_Approved ) Study Comment : Sex / Age : M / 27Y Creator : Herman Ziegler MD Dictator : Plant Manager : Reimbursement Spec : Herman Ziegler MD Approver2 : Report Date : 01/30/2018 12:53:23 My Comment : ADDENDUM: Subsequent discussion with attending physician indicates patient is HIV positive and therefore pneumocystis carinii lung infection should be considered. . The gallbladder is also incompletely distended which in part accounts for minimal wall thickening however there may also be small amount pericholecystic fluid. Clinic correlation recommended. Questionable hepatomegaly [ Addendum Report Added by Herman Ziegelr MD at 01/30/2018 14:24:49 ] Date of service: 01/30/2018 PROCEDURE: CT Chest with contrast (Pulmonary Angiogram) HISTORY: dyspnea COMPARISON: Comparison made with CT chest 01/25/2018 TECHNIQUE: Axial computed tomography images were obtained of the chest in the pulmonary arterial phase of enhancement. Coronal and sagittal reformatted images were created and reviewed. Intravenous contrast dose: 90 cc Visipaque 320 Radiation dose: Total exam DLP = 439.01 mGy-cm. This CT exam was performed using one or more of the following dose reduction techniques: Automated exposure control, adjustment of the mA and/or kV according to patient size, and/or use of iterative reconstruction technique. The examination is limited due to suboptimal contrast enhancement of the pulmonary arteries. FINDINGS: PULMONARY ARTERIES: Unremarkable. No pulmonary embolism. AORTA: No acute findings. No thoracic aortic aneurysm. LUNGS: Re- demonstrated are extensive - significant diffuse reticulonodular interstitial infiltrates of which appear to have progressed slightly in both lower lung [place]. More confluent opacities in the lung apices/upper lobes remain. PLEURAL SPACES: Unremarkable. No effusion or pneumothorax. HEART: Unremarkable. No cardiomegaly. There is a tiny amount of fluid seen in the left between the ascending thoracic aorta and pulmonary trunk. LYMPH NODES: No lymphadenopathy. BONES, CHEST WALL: Unremarkable. No fracture or destructive lesion OTHER FINDINGS: There is a small hiatal hernia. IMPRESSION: Suboptimal study to evaluate for pulmonary embolus. No large central pulmonary embolus is identified extensive - significant diffuse reticulonodular interstitial infiltrates of which appear to have progressed slightly in both lower lung [place]. More confluent opacities in the lung apices/upper lobes remain. Assessment and Plan (1) Fever Status: Acute (2) Diarrhea Status: Acute (3) Nausea and vomiting Status: Acute - Assessment and Plan (Free Text) Assessment: A/P- 27 year old male with No PMH admitted with fever/ diarrhea/ n/v and found to be HIV positive ( confirmed ) new diagnosis and extensive reticulonodular b/l lung opacitis on chest Ct . afebrile today normal wbc extensive reticulonodular b/l pulmonary infiltrates on chest ct and would advise to cover for pneumonia. abd Ct - no evidence of colitis as per report. legionella ag- neg influenza- neg HIv ab- pos ( conformed ) CD4-30 ( AIDS) blood cx- neg x 2 stool cx- neg stool ova and parasites- negative plan- agree with IV bactrim and steroids since Cd4 is <200 and extensive reticulonodular b/l pattern on chest CT PCP high possibility . day #2 continue with IV zosyn day #5. can d/c daily zithormax. await sputum AFB results. as per nurse all 3 have been sent. would advise to also place on weekly zithromax 1200 mg once a week for MAC prophylaxis since his CD4 is <50. advise to also check HIV genotype . pt. may also need bronchoscopy if no improvement in pulmonary findings on chest CT in next few days. had a lengthy conversation with patient and expained everything in regards to his illness to him in detail and answered all his questions and advised him once he is better and is d/c to f/u closely with the [facility] here in [place] for His HIV care. Patient verbalizes full understanding of all above nad agrees with above plan of care.
--- NOTE | 2018-01-31 13:57 | CARD ---
APPROVED REPORT Date of service: 01/28/2018 EKG Measurement Heart [id number] <Conclusion> Sinus tachycardia Otherwise normal ECG
--- NOTE | 2018-01-31 14:08 | CARD ---
APPROVED REPORT Date of service: 01/31/2018 EXAM: Two-dimensional and M-mode echocardiogram with Doppler and color Doppler. Other Information Quality : GoodRhythm : Tachycardia INDICATION Abnormal EKG/Arrhythmia 2D DIMENSIONS IVSd0.67 (0.7-1.1cm)LVDd4.57 (3.9-5.9cm) LVOT Diameter2.24 (1.8-2.4cm)PWd0.68 (0.7-1.1cm) IVSs1.15 (0.8-1.2cm)LVDs3.08 (2.5-4.0cm) FS (%) 32.6 %PWs0.83 (0.8-1.2cm) M-Mode DIMENSIONS Left Atrium (MM)3.62 (2.5-4.0cm)IVSd0.74 (0.7-1.1cm) Aortic Root2.97 (2.2-3.7cm)LVDd5.50 (4.0-5.6cm) Aortic Cusp Exc.1.97 (1.5-2.0cm)PWd0.85 (0.7-1.1cm) IVSs1.65 cmFS (%) 47 % LVDs2.91 (2.0-3.8cm)PWs1.26 cm Aortic Valve AoV Peak Jmqtrzzu310.4cm/sAoV VTI20.3cmAO Peak GR.8mmHg LVOT Peak Nepyzxcd827.0cm/sLVOT VTI19.77cmAO Mean GR.3mmHg PELON (VMAX)2.04qw6IWD (VTI)2.24cm2 Mitral Valve MV E Edlqiwux05.6cm/sMV DECEL [id number] A Szwzlnmm01.4cm/s MV RTV11chD/A ratio1.0MVA (PHT)5.09cm2 TDI Lateral E' Peak V14.67cm/sMedial E' Peak V13.77cm/sE/Lateral E'6.3 E/Medial E'6.7 Pulmonary Valve PV Peak Hhiztibi402.4cm/s LEFT VENTRICLE The left ventricle is normal size. There is normal left ventricular wall thickness. The left ventricular function is normal. The left ventricular ejection fraction is within the normal range. The Ejection Fraction is 60-65%. There is normal LV segmental wall motion. The left ventricular diastolic function is normal. RIGHT VENTRICLE The right ventricle is normal size. The right ventricular systolic function is normal. ATRIA The left atrium size is normal. The right atrium size is normal. AORTIC VALVE The aortic valve is normal in structure. No aortic regurgitation is present. There is no aortic valvular stenosis. MITRAL VALVE The mitral valve is normal in structure. There is no evidence of mitral valve prolapse. There is no mitral valve stenosis. Mitral regurgitation is trace. TRICUSPID VALVE The tricuspid valve is normal in structure. There is trace tricuspid regurgitation. There is no tricuspid valve prolapse or vegetation. There is no tricuspid valve stenosis. PULMONIC VALVE The pulmonary valve is normal in structure. There is no pulmonic valvular regurgitation. There is no pulmonic valvular stenosis. GREAT VESSELS The aortic root is normal in size. The IVC is normal in size and collapses >50% with inspiration. PERICARDIAL EFFUSION The pericardium appears normal. <Conclusion> The left ventricular function is normal. The left ventricular ejection fraction is within the normal range. The Ejection Fraction is 60-65%. Mitral regurgitation is trace.
--- NOTE | 2018-01-31 15:42 | CP.PCM.PN ---
Subjective - Date & Time of Evaluation Date of Evaluation: 01/31/18 Time of Evaluation: 12:00 - Subjective Subjective: F/U Pulmonary Infiltrate no cough, no SOB,no VARELA , no diarrhea Objective - Vital Signs/Intake and Output Vital Signs (last 24 hours): Temp Pulse Resp BP Pulse Ox 97.9 F 107 H 18 110/70 98 01/31/18 12:15 01/31/18 12:15 01/31/18 12:15 01/31/18 12:15 01/31/18 12:15 - Medications Medications: Current Medications Acetaminophen (Tylenol 325mg Tab) 650 mg PO Q6 PRN PRN Reason: Pain, Mild (1-3) Last Admin: 01/30/18 04:58 Dose: 650 mg Acetaminophen (Tylenol 325mg Tab) 650 mg PO Q6 PRN PRN Reason: Fever >100.4 F Last Admin: 01/30/18 10:46 Dose: 650 mg Albuterol/Ipratropium (Duoneb 3 Mg/0.5 Mg (3 Ml) Ud) 3 ml INH RQ6 PRN PRN Reason: Shortness of Breath Piperacillin Sod/Tazobactam (Sod 3.375 gm/ Sodium Chloride) 100 mls @ 100 mls/ hr IVPB Q6 IVANNA PRN Reason: Protocol Last Admin: 01/31/18 10:00 Dose: 100 mls/hr Vancomycin HCl 1 gm/ Sodium (Chloride) 250 mls @ 166.667 mls/hr IVPB Q12H IVNANA PRN Reason: Protocol Last Admin: 01/31/18 09:54 Dose: 166.667 mls/hr Trimethoprim/Sulfamethoxazole (450 mg/ Dextrose) 500 mls @ 333.333 mls/hr IVPB Q8@0630,1430,2230 IVANNA PRN Reason: Protocol Last Admin: 01/31/18 06:22 Dose: 333.333 mls/hr Methylprednisolone (Solu-Medrol) 40 mg IVP Q6 IVANNA Last Admin: 01/31/18 10:00 Dose: 40 mg Metoprolol Tartrate (Lopressor) 25 mg PO Q12 IVANNA Last Admin: 01/31/18 08:07 Dose: 25 mg Ondansetron HCl (Zofran Inj) 4 mg IVP Q6 PRN PRN Reason: Nausea/Vomiting - Labs Labs: 01/31/18 04:20 01/31/18 04:20 - Constitutional Appears: No Acute Distress - Head Exam Head Exam: NORMAL INSPECTION - Eye Exam Eye Exam: PERRL - ENT Exam ENT Exam: Normal Exam - Neck Exam Neck Exam: Normal Inspection - Respiratory Exam Respiratory Exam: Clear to Ausculation Bilateral - Cardiovascular Exam Cardiovascular Exam: Tachycardia - GI/Abdominal Exam GI & Abdominal Exam: Soft, Normal Bowel Sounds - Extremities Exam Extremities Exam: Normal Inspection - Back Exam Back Exam: NORMAL INSPECTION - Neurological Exam Neurological Exam: Alert, CN II-XII Intact, Oriented x3. absent: Motor Sensory Deficit - Psychiatric Exam Psychiatric exam: Normal Mood - Skin Skin Exam: Warm Assessment and Plan (1) Pulmonary infiltrate Status: Acute (2) Pulmonary nodules Status: Acute (3) Fever Status: Resolved (4) AIDS Status: Acute
[2018-02-01] MEDS: Piperacillin/Tazobact 3.375 GM in Sodium Chloride 0.9% 100 ML IVPB SCH ×4 (03:25→21:09)
[2018-02-01] MEDS: MethylPREDNISolone 40 mg Vial IVP SCH ×2 (03:41→09:29)
[2018-02-01] MEDS: TRIMETHOPRIM IVPB SCH ×3 (05:30→23:17)
[2018-02-01] MEDS: WATER IVPB SCH ×3 (05:30→23:17)
[2018-02-01] MEDS: SULFAMETHOXAZOLE IVPB SCH ×3 (05:30→23:17)
[2018-02-01] MEDS: DEXTROSE 5% IVPB SCH ×3 (05:30→23:17)
[2018-02-01 06:04] LABS: HEMOGLOBIN 12.9 g/dL (12.0-18.0); MEAN CELL VOLUME 88.4 fl (80.0-94.0); MEAN CORPUSCULAR HEMOGLOBIN 29.7 pg (27.0-31.0); MEAN CORPUSCULAR HGB CONC 33.6 g/dL (33.0-37.0); RBC 4.34 Mil/uL (4.40-5.90); RED CELL DISTRIBUTION WIDTH 13.4 % (11.5-14.5); WHITE BLOOD COUNT 8.8 K/uL (4.8-10.8)
[2018-02-01 06:40] LABS: ALBUMIN 3.3 g/dL (3.5-5.0); ALT/SGPT 94 U/L (21-72); AST/SGOT 90 U/L (17-59); BLOOD UREA NITROGEN 9 mg/dl (9-20); GFR AFRICAN-AMERICAN > 60; GFR NON-AFRICAN AMERICAN > 60
--- NOTE | 2018-02-01 09:58 | CP.PCM.PN ---
<Maura Lopez - Last Filed: 02/01/18 16:06> Subjective - Date & Time of Evaluation Date of Evaluation: 02/01/18 Time of Evaluation: 09:45 - Subjective Subjective: Patient was seen and examined at bedside with Dr. Fernandez. He reports feeling well today but was a bit worried about his recent diagnosis of HIV. Patient was counseled on HIV and what to expect in the coming days. He denies having any more diarrhea. He states he has good appetite and slept well last night. He denies Chest pain, fever, chills, nausea, vomiting, dyspnea, abdominal pain, diarrhea and constipation. Objective - Vital Signs/Intake and Output Vital Signs (last 24 hours): Temp Pulse Resp BP Pulse Ox 97.6 F 106 H 20 118/64 99 02/01/18 08:00 02/01/18 09:34 02/01/18 08:00 02/01/18 09:34 02/01/18 08:00 - Medications Medications: Current Medications Acetaminophen (Tylenol 325mg Tab) 650 mg PO Q6 PRN PRN Reason: Pain, Mild (1-3) Last Admin: 01/30/18 04:58 Dose: 650 mg Acetaminophen (Tylenol 325mg Tab) 650 mg PO Q6 PRN PRN Reason: Fever >100.4 F Last Admin: 01/30/18 10:46 Dose: 650 mg Albuterol/Ipratropium (Duoneb 3 Mg/0.5 Mg (3 Ml) Ud) 3 ml INH RQ6 PRN PRN Reason: Shortness of Breath Azithromycin (Zithromax) 1,200 mg PO MON@1800 [facility] PRN Reason: Protocol Last Admin: 01/31/18 18:00 Dose: 1,200 mg Piperacillin Sod/Tazobactam (Sod 3.375 gm/ Sodium Chloride) 100 mls @ 100 mls/ hr IVPB Q6 [facility] PRN Reason: Protocol Last Admin: 02/01/18 09:28 Dose: 100 mls/hr Vancomycin HCl 1 gm/ Sodium (Chloride) 250 mls @ 166.667 mls/hr IVPB Q12H [facility] PRN Reason: Protocol Last Admin: 01/31/18 22:44 Dose: 166.667 mls/hr Trimethoprim/Sulfamethoxazole (450 mg/ Dextrose) 500 mls @ 333.333 mls/hr IVPB Q8@0630,1430,2230 [facility] PRN Reason: Protocol Last Admin: 02/01/18 05:30 Dose: 333.333 mls/hr Methylprednisolone (Solu-Medrol) 40 mg IVP Q6 [facility] Last Admin: 02/01/18 09:29 Dose: 40 mg Metoprolol Tartrate (Lopressor) 25 mg PO Q12 [facility] Last Admin: 02/01/18 09:34 Dose: 25 mg Ondansetron HCl (Zofran Inj) 4 mg IVP Q6 PRN PRN Reason: Nausea/Vomiting - Labs Labs: 02/01/18 04:20 02/01/18 04:20 - Constitutional Appears: Well, Non-toxic, No Acute Distress - Head Exam Head Exam: NORMAL INSPECTION - Eye Exam Eye Exam: Normal appearance - ENT Exam ENT Exam: Mucous Membranes Moist (No oral thrush present on exam. ), Normal Exam , Normal External Ear Exam, Normal Oropharynx - Neck Exam Neck Exam: Full ROM. absent: Lymphadenopathy, Tenderness, Thyromegaly - Respiratory Exam Respiratory Exam: Clear to Ausculation Bilateral, NORMAL BREATHING PATTERN. absent: Decreased Breath Sounds, Prolonged Expiratory Phase, Rales, Rhonchi, Wheezes - Cardiovascular Exam Cardiovascular Exam: REGULAR RHYTHM, RRR, +S1, +S2. absent: Clicks, Gallop, JVD , Murmur - GI/Abdominal Exam GI & Abdominal Exam: Soft, Normal Bowel Sounds. absent: Distended, Guarding, Tenderness, Organomegaly, Rebound - Extremities Exam Extremities Exam: Normal Capillary Refill, Normal Inspection - Back Exam Back Exam: NORMAL INSPECTION. absent: CVA tenderness (L), CVA tenderness (R) - Neurological Exam Neurological Exam: Alert, Awake, Oriented x3 - Psychiatric Exam Psychiatric exam: Normal Affect, Normal Mood - Skin Skin Exam: Dry, Normal Color, Warm Assessment and Plan (1) AIDS Assessment & Plan: Positive HIV-1 rapid screen, HIV RNA= 5.1 million , CD4 count of 30. CT: bilateraly diffuse and extensive reticulonodular pulmonary opacities, repeat CT demonstrated worsened reticulonodular opacities with groundglass infiltrates. - Currently on Bactrim 450mg IV Q8h + Solumedrol 40 mg IV Q6h. - Taper Solumedrol beginning tomorrow: Solumedrol 40 mg po BID for a total of 5 days; Then on 02/05/18, taper to solumedrol 40mg po daily for 5 days. - Continue Vanco/ Zosyn. - Recommendation by ID: Zithromax 1200mg po once a week for MAC prophylaxis. - Check HIV genotype. Pending TB cultures: 2 cultures were negative; pending 1 AFB cultures. Quantiferon was negative. Dr. Phillip's recommendation: bronchoscopy when patient's HR is stable. Status: Acute (2) Gastroenteritis Assessment & Plan: Patient afebrile and denies abdominal pain and states he has not had any diarrhea the past 24 hours. Continue IV Zosyn + Zofran prn . Stool clx: Neg; Ova and parasites: NEG; Stool leukocytes: NEG; Resolved. Status: Acute (3) Renal calcification Assessment & Plan: Dedicated CT scan and ultrasound of kidneys did not show any kidney abnormalities. Status: Acute (4) Hypokalemia Assessment & Plan: Resolved. Status: Acute (5) DVT prophylaxis Assessment & Plan: Continue current management: SCD's and early ambulation. Status: Acute - Assessment and Plan (Free Text) Assessment: 27 yo m without medical history presented with 3 day history of N/V/ abd pain/ chilss/ and mild cough. Rapid HIV test was performed and reported as positive with confirmatory RNA PCR test positive. CD4 count reported as 30. Patient currenly on empiric treatment for PJP. Pending AFB sputum tests ( pending 2 test out of 3; 1st sputum was reported as negative) <Adriana Fernandez - Last Filed: 02/01/18 17:02> Objective - Vital Signs/Intake and Output Vital Signs (last 24 hours): Temp Pulse Resp BP Pulse Ox 98.2 F 100 H 17 113/62 98 02/01/18 15:51 02/01/18 15:51 02/01/18 15:51 02/01/18 15:51 02/01/18 15:51 - Medications Medications: Current Medications Acetaminophen (Tylenol 325mg Tab) 650 mg PO Q6 PRN PRN Reason: Pain, Mild (1-3) Last Admin: 01/30/18 04:58 Dose: 650 mg Acetaminophen (Tylenol 325mg Tab) 650 mg PO Q6 PRN PRN Reason: Fever >100.4 F Last Admin: 01/30/18 10:46 Dose: 650 mg Albuterol/Ipratropium (Duoneb 3 Mg/0.5 Mg (3 Ml) Ud) 3 ml INH RQ6 PRN PRN Reason: Shortness of Breath Azithromycin (Zithromax) 1,200 mg PO MON@1800 [facility] PRN Reason: Protocol Last Admin: 01/31/18 18:00 Dose: 1,200 mg Piperacillin Sod/Tazobactam (Sod 3.375 gm/ Sodium Chloride) 100 mls @ 100 mls/ hr IVPB Q6 [facility] PRN Reason: Protocol Last Admin: 02/01/18 09:28 Dose: 100 mls/hr Vancomycin HCl 1 gm/ Sodium (Chloride) 250 mls @ 166.667 mls/hr IVPB Q12H [facility] PRN Reason: Protocol Last Admin: 02/01/18 10:56 Dose: 166.667 mls/hr Trimethoprim/Sulfamethoxazole (450 mg/ Dextrose) 500 mls @ 333.333 mls/hr IVPB Q8@0630,1430,2230 [facility] PRN Reason: Protocol Last Admin: 02/01/18 14:53 Dose: 333.333 mls/hr Metoprolol Tartrate (Lopressor) 25 mg PO Q12 [facility] Last Admin: 02/01/18 09:34 Dose: 25 mg Ondansetron HCl (Zofran Inj) 4 mg IVP Q6 PRN PRN Reason: Nausea/Vomiting Prednisone (Prednisone Tab) 40 mg PO BID [facility] Stop: 02/04/18 17:01 Prednisone (Prednisone Tab) 40 mg PO DAILY [facility] Stop: 02/09/18 09:01 - Labs Labs: 02/01/18 04:20 02/01/18 04:20 Attending/Attestation - Attestation I have personally seen and examined this patient.: Yes I have fully participated in the care of the patient.: Yes I have reviewed all pertinent clinical information, including history, physical exam and plan: Yes
--- NOTE | 2018-02-01 15:10 | CP.PCM.PN ---
Subjective - Date & Time of Evaluation Date of Evaluation: 02/01/18 Time of Evaluation: 12:20 - Subjective Subjective: F/U Pulmonary Infiltrate. No cough, no SOB, no VARELA, no diarrhea Objective - Vital Signs/Intake and Output Vital Signs (last 24 hours): Temp Pulse Resp BP Pulse Ox 97.9 F 100 H 20 108/54 L 100 02/01/18 12:47 02/01/18 12:47 02/01/18 12:47 02/01/18 12:47 02/01/18 12:47 - Medications Medications: Current Medications Acetaminophen (Tylenol 325mg Tab) 650 mg PO Q6 PRN PRN Reason: Pain, Mild (1-3) Last Admin: 01/30/18 04:58 Dose: 650 mg Acetaminophen (Tylenol 325mg Tab) 650 mg PO Q6 PRN PRN Reason: Fever >100.4 F Last Admin: 01/30/18 10:46 Dose: 650 mg Albuterol/Ipratropium (Duoneb 3 Mg/0.5 Mg (3 Ml) Ud) 3 ml INH RQ6 PRN PRN Reason: Shortness of Breath Azithromycin (Zithromax) 1,200 mg PO MON@1800 [facility] PRN Reason: Protocol Last Admin: 01/31/18 18:00 Dose: 1,200 mg Piperacillin Sod/Tazobactam (Sod 3.375 gm/ Sodium Chloride) 100 mls @ 100 mls/ hr IVPB Q6 [facility] PRN Reason: Protocol Last Admin: 02/01/18 09:28 Dose: 100 mls/hr Vancomycin HCl 1 gm/ Sodium (Chloride) 250 mls @ 166.667 mls/hr IVPB Q12H [facility] PRN Reason: Protocol Last Admin: 02/01/18 10:56 Dose: 166.667 mls/hr Trimethoprim/Sulfamethoxazole (450 mg/ Dextrose) 500 mls @ 333.333 mls/hr IVPB Q8@0630,1430,2230 [facility] PRN Reason: Protocol Last Admin: 02/01/18 14:53 Dose: 333.333 mls/hr Methylprednisolone (Solu-Medrol) 40 mg IVP Q6 [facility] Last Admin: 02/01/18 09:29 Dose: 40 mg Metoprolol Tartrate (Lopressor) 25 mg PO Q12 [facility] Last Admin: 02/01/18 09:34 Dose: 25 mg Ondansetron HCl (Zofran Inj) 4 mg IVP Q6 PRN PRN Reason: Nausea/Vomiting - Labs Labs: 02/01/18 04:20 02/01/18 04:20 - Constitutional Appears: No Acute Distress - Head Exam Head Exam: NORMAL INSPECTION - Eye Exam Eye Exam: PERRL - ENT Exam ENT Exam: Normal Exam - Neck Exam Neck Exam: Normal Inspection - Respiratory Exam Respiratory Exam: Clear to Ausculation Bilateral - Cardiovascular Exam Cardiovascular Exam: Tachycardia - GI/Abdominal Exam GI & Abdominal Exam: Soft, Normal Bowel Sounds - Extremities Exam Extremities Exam: Normal Inspection - Back Exam Back Exam: NORMAL INSPECTION - Neurological Exam Neurological Exam: Alert, CN II-XII Intact, Oriented x3. absent: Motor Sensory Deficit - Psychiatric Exam Psychiatric exam: Normal Affect - Skin Skin Exam: Warm Assessment and Plan (1) Pulmonary infiltrate Status: Acute (2) Pulmonary nodules Status: Acute (3) Fever Status: Resolved (4) AIDS Status: Acute - Assessment and Plan (Free Text) Plan: continue Zosyn, Bactrim, Vanco, repeat CT Chest - to monitor PNA , may need FOB Bx if no improvement
[2018-02-02] MEDS: Piperacillin/Tazobact 3.375 GM in Sodium Chloride 0.9% 100 ML IVPB SCH ×4 (04:04→21:25)
[2018-02-02] MEDS: TRIMETHOPRIM IVPB SCH ×3 (05:52→22:49)
[2018-02-02] MEDS: SULFAMETHOXAZOLE IVPB SCH ×3 (05:52→22:49)
[2018-02-02] MEDS: WATER IVPB SCH ×3 (05:52→22:49)
[2018-02-02] MEDS: DEXTROSE 5% IVPB SCH ×3 (05:52→22:49)
--- NOTE | 2018-02-02 06:55 | CP.PCM.PN ---
<Maura Lopez - Last Filed: 02/02/18 15:17> Subjective - Date & Time of Evaluation Date of Evaluation: 02/02/18 Time of Evaluation: 07:45 - Subjective Subjective: Patient was seen and examined at bedside with Dr. Fernandez. He reports feeling well this morning with good appetite and no pain. He states that he is breathing well but is worried to be taken off the nasal cannula because he fears he will become worse. It was explained to him that he is saturating very well off of the nasal cannula and he should try to get out of bed and walk around the room. He denies chest pain, dyspnea, nausea, vomiting, abdominal pain, diarrhea, and constipation. Objective - Vital Signs/Intake and Output Vital Signs (last 24 hours): Temp Pulse Resp BP Pulse Ox 97.5 F L 91 H 20 104/62 97 02/02/18 05:00 02/02/18 05:00 02/02/18 05:00 02/02/18 05:00 02/02/18 05:00 Intake and Output: 02/01/18 02/02/18 18:59 06:59 Intake Total 3050 Output Total 2800 Balance 250 - Medications Medications: Current Medications Acetaminophen (Tylenol 325mg Tab) 650 mg PO Q6 PRN PRN Reason: Pain, Mild (1-3) Last Admin: 01/30/18 04:58 Dose: 650 mg Acetaminophen (Tylenol 325mg Tab) 650 mg PO Q6 PRN PRN Reason: Fever >100.4 F Last Admin: 01/30/18 10:46 Dose: 650 mg Albuterol/Ipratropium (Duoneb 3 Mg/0.5 Mg (3 Ml) Ud) 3 ml INH RQ6 PRN PRN Reason: Shortness of Breath Piperacillin Sod/Tazobactam (Sod 3.375 gm/ Sodium Chloride) 100 mls @ 100 mls/ hr IVPB Q6 [facility] PRN Reason: Protocol Last Admin: 02/02/18 04:04 Dose: 100 mls/hr Vancomycin HCl 1 gm/ Sodium (Chloride) 250 mls @ 166.667 mls/hr IVPB Q12H [facility] PRN Reason: Protocol Last Admin: 02/01/18 22:09 Dose: 166.667 mls/hr Trimethoprim/Sulfamethoxazole (450 mg/ Dextrose) 500 mls @ 333.333 mls/hr IVPB Q8@0630,1430,2230 [facility] PRN Reason: Protocol Last Admin: 02/02/18 05:52 Dose: 333.333 mls/hr Metoprolol Tartrate (Lopressor) 25 mg PO Q12 [facility] Last Admin: 02/01/18 21:09 Dose: 25 mg Ondansetron HCl (Zofran Inj) 4 mg IVP Q6 PRN PRN Reason: Nausea/Vomiting Prednisone (Prednisone Tab) 40 mg PO BID [facility] Stop: 02/04/18 17:01 Last Admin: 02/01/18 17:33 Dose: 40 mg Prednisone (Prednisone Tab) 40 mg PO DAILY [facility] Stop: 02/09/18 09:01 - Labs Labs: 02/01/18 04:20 02/01/18 04:20 - Constitutional Appears: Well, Non-toxic, No Acute Distress - Head Exam Head Exam: NORMAL INSPECTION - Eye Exam Eye Exam: Normal appearance - ENT Exam ENT Exam: Mucous Membranes Moist, Normal Exam, Normal Oropharynx (No thrush present on exam. ) - Neck Exam Neck Exam: Normal Inspection. absent: Lymphadenopathy, Tenderness, Thyromegaly - Respiratory Exam Respiratory Exam: Clear to Ausculation Bilateral, NORMAL BREATHING PATTERN. absent: Chest Wall Tenderness, Decreased Breath Sounds, Rales, Rhonchi, Wheezes , Respiratory Distress, Stridor - Cardiovascular Exam Cardiovascular Exam: REGULAR RHYTHM, RRR, +S1, +S2. absent: Clicks, Gallop, Rubs, Murmur - GI/Abdominal Exam GI & Abdominal Exam: Soft, Normal Bowel Sounds. absent: Firm, Guarding, Tenderness, Organomegaly, Pulsatile Mass, Rebound - Extremities Exam Extremities Exam: Normal Capillary Refill, Normal Inspection. absent: Pedal Edema, Tenderness - Back Exam Back Exam: NORMAL INSPECTION. absent: rash noted, tenderness - Neurological Exam Neurological Exam: Alert, Awake, Oriented x3 - Psychiatric Exam Psychiatric exam: Normal Affect, Normal Mood - Skin Skin Exam: Dry, Intact, Normal Color Assessment and Plan (1) AIDS Status: Acute (2) Gastroenteritis Status: Acute (3) Renal calcification Status: Acute (4) Hypokalemia Status: Acute (5) DVT prophylaxis Assessment & Plan: Status: Acute - Assessment and Plan (Free Text) Assessment: 27 yo m without medical history presented with 3 day history of N/V/ abd pain/ chilss/ and mild cough. Rapid HIV test was performed and reported as positive with confirmatory RNA PCR test positive. CD4 count reported as 30. Patient currenly on empiric treatment for PJP. Pending AFB sputum tests ( pending 1 test out of 3; 2 sputum tests were reported as negative) Plan: 1. AIDS Assessment & Plan: Positive HIV-1 rapid screen, HIV RNA= 5.1 million , CD4 count of 30. CT: bilateraly diffuse and extensive reticulonodular pulmonary opacities, repeat CT demonstrated worsened reticulonodular opacities with groundglass infiltrates. - Continue Bactrim. - Continue Prednisone 40 mg po BID for a total of 5 days; Then on 02/05/18, taper to Prednisone 40mg po daily for 5 days. - Continue Vanco/ Zosyn. - Recommendation by ID: Zithromax 1200mg po once a week for MAC prophylaxis. - Check HIV genotype. Pending TB cultures: 2 cultures were negative; pending 1 AFB cultures. 2 AFB sputum came back negative. Quantiferon was negative. - RPR: nonreactive. Hepatitis panel: negative. - As per Dr. Jenkins's recommendation: Pt may need CT chest on 02/06 to monitor pneumonia. 2 Gastroenteritis Assessment & Plan: Patient afebrile and denies abdominal pain and states he has not had any diarrhea the past 48 hours. Continue IV Zosyn + Zofran prn . Stool clx: Neg; Ova and parasites: NEG; Stool leukocytes: NEG; Resolved. 3 Renal calcification Assessment & Plan: Dedicated CT scan and ultrasound of kidneys did not show any kidney abnormalities. 4 Hypokalemia Assessment & Plan: Resolved. 5 DVT prophylaxis Assessment & Plan: Continue current management: SCD's and early ambulation. <Adriana Fernandez - Last Filed: 02/02/18 16:18> Objective - Vital Signs/Intake and Output Vital Signs (last 24 hours): Temp Pulse Resp BP Pulse Ox 98.2 F 103 H 20 116/68 97 02/02/18 12:49 02/02/18 12:49 02/02/18 12:49 02/02/18 12:49 02/02/18 12:49 - Medications Medications: Current Medications Acetaminophen (Tylenol 325mg Tab) 650 mg PO Q6 PRN PRN Reason: Pain, Mild (1-3) Last Admin: 01/30/18 04:58 Dose: 650 mg Acetaminophen (Tylenol 325mg Tab) 650 mg PO Q6 PRN PRN Reason: Fever >100.4 F Last Admin: 01/30/18 10:46 Dose: 650 mg Albuterol/Ipratropium (Duoneb 3 Mg/0.5 Mg (3 Ml) Ud) 3 ml INH RQ6 PRN PRN Reason: Shortness of Breath Piperacillin Sod/Tazobactam (Sod 3.375 gm/ Sodium Chloride) 100 mls @ 100 mls/ hr IVPB Q6 [facility] PRN Reason: Protocol Last Admin: 02/02/18 16:13 Dose: 100 mls/hr Vancomycin HCl 1 gm/ Sodium (Chloride) 250 mls @ 166.667 mls/hr IVPB Q12H [facility] PRN Reason: Protocol Last Admin: 02/02/18 09:35 Dose: 166.667 mls/hr Trimethoprim/Sulfamethoxazole (450 mg/ Dextrose) 500 mls @ 333.333 mls/hr IVPB Q8@0630,1430,2230 [facility] PRN Reason: Protocol Last Admin: 02/02/18 13:39 Dose: 333.333 mls/hr Metoprolol Tartrate (Lopressor) 25 mg PO Q12 [facility] Last Admin: 02/02/18 09:31 Dose: 25 mg Ondansetron HCl (Zofran Inj) 4 mg IVP Q6 PRN PRN Reason: Nausea/Vomiting Prednisone (Prednisone Tab) 40 mg PO BID [facility] Stop: 02/04/18 17:01 Last Admin: 02/02/18 09:32 Dose: 40 mg Prednisone (Prednisone Tab) 40 mg PO DAILY [facility] Stop: 02/09/18 09:01 - Labs Labs: 02/01/18 04:20 02/01/18 04:20 Attending/Attestation - Attestation I have personally seen and examined this patient.: Yes I have fully participated in the care of the patient.: Yes I have reviewed all pertinent clinical information, including history, physical exam and plan: Yes
--- NOTE | 2018-02-02 18:33 | CP.PCM.PN ---
Subjective - Date & Time of Evaluation Date of Evaluation: 02/02/18 Time of Evaluation: 14:10 - Subjective Subjective: F/U Pulmonary Infiltrate no SOB, no cough , no VARELA Objective - Vital Signs/Intake and Output Vital Signs (last 24 hours): Temp Pulse Resp BP Pulse Ox 98.3 F 105 H 16 120/73 96 02/02/18 16:37 02/02/18 16:37 02/02/18 16:37 02/02/18 16:37 02/02/18 16:37 Intake and Output: 02/02/18 02/02/18 06:59 18:59 Intake Total 2009 Output Total 400 Balance 1610 - Medications Medications: Current Medications Acetaminophen (Tylenol 325mg Tab) 650 mg PO Q6 PRN PRN Reason: Pain, Mild (1-3) Last Admin: 01/30/18 04:58 Dose: 650 mg Acetaminophen (Tylenol 325mg Tab) 650 mg PO Q6 PRN PRN Reason: Fever >100.4 F Last Admin: 01/30/18 10:46 Dose: 650 mg Albuterol/Ipratropium (Duoneb 3 Mg/0.5 Mg (3 Ml) Ud) 3 ml INH RQ6 PRN PRN Reason: Shortness of Breath Piperacillin Sod/Tazobactam (Sod 3.375 gm/ Sodium Chloride) 100 mls @ 100 mls/ hr IVPB Q6 [facility] PRN Reason: Protocol Last Admin: 02/02/18 16:13 Dose: 100 mls/hr Vancomycin HCl 1 gm/ Sodium (Chloride) 250 mls @ 166.667 mls/hr IVPB Q12H [facility] PRN Reason: Protocol Last Admin: 02/02/18 09:35 Dose: 166.667 mls/hr Trimethoprim/Sulfamethoxazole (450 mg/ Dextrose) 500 mls @ 333.333 mls/hr IVPB Q8@0630,1430,2230 [facility] PRN Reason: Protocol Last Admin: 02/02/18 13:39 Dose: 333.333 mls/hr Metoprolol Tartrate (Lopressor) 25 mg PO Q12 [facility] Last Admin: 02/02/18 09:31 Dose: 25 mg Ondansetron HCl (Zofran Inj) 4 mg IVP Q6 PRN PRN Reason: Nausea/Vomiting Prednisone (Prednisone Tab) 40 mg PO BID [facility] Stop: 02/04/18 17:01 Last Admin: 02/02/18 17:36 Dose: 40 mg Prednisone (Prednisone Tab) 40 mg PO DAILY [facility] Stop: 02/09/18 09:01 - Labs Labs: 02/01/18 04:20 02/01/18 04:20 - Constitutional Appears: No Acute Distress - Head Exam Head Exam: NORMAL INSPECTION - Eye Exam Eye Exam: PERRL - ENT Exam ENT Exam: Normal Exam - Neck Exam Neck Exam: Normal Inspection - Respiratory Exam Respiratory Exam: Clear to Ausculation Bilateral - Cardiovascular Exam Cardiovascular Exam: REGULAR RHYTHM - GI/Abdominal Exam GI & Abdominal Exam: Soft, Normal Bowel Sounds - Extremities Exam Extremities Exam: Normal Inspection - Back Exam Back Exam: NORMAL INSPECTION - Neurological Exam Neurological Exam: Alert, CN II-XII Intact, Oriented x3. absent: Motor Sensory Deficit - Psychiatric Exam Psychiatric exam: Normal Affect - Skin Skin Exam: Warm Assessment and Plan (1) Pulmonary infiltrate Status: Acute (2) Pulmonary nodules Status: Acute (3) Fever Status: Resolved (4) AIDS Status: Acute - Assessment and Plan (Free Text) Plan: fever resolved, low hundreds tachycardia to RSR, ECHO LVEF 60-65%, no vegetations,improved after start Bactrim, continue Zosyn, Vanco, f/u sputum x 3 AFB smear, repeat CT Chest -
[2018-02-03] MEDS: Piperacillin/Tazobact 3.375 GM in Sodium Chloride 0.9% 100 ML IVPB SCH ×4 (04:52→21:21)
[2018-02-03 05:48] LABS: HEMOGLOBIN 14.1 g/dL (12.0-18.0); MEAN CORPUSCULAR HEMOGLOBIN 29.5 pg (27.0-31.0); MEAN CORPUSCULAR HGB CONC 33.5 g/dL (33.0-37.0); RBC 4.79 Mil/uL (4.40-5.90); RED CELL DISTRIBUTION WIDTH 13.6 % (11.5-14.5)
[2018-02-03 06:05] LABS: ALB/GLOB RATIO 1.1 (1.0-2.1); ALBUMIN 3.7 g/dL (3.5-5.0); ALT/SGPT 165 U/L (21-72); AST/SGOT 80 U/L (17-59); BLOOD UREA NITROGEN 10 mg/dl (9-20); CALCIUM 8.3 mg/dL (8.4-10.2); GFR AFRICAN-AMERICAN > 60; GFR NON-AFRICAN AMERICAN > 60
[2018-02-03] MEDS: DEXTROSE 5% IVPB SCH ×3 (06:28→22:50)
[2018-02-03] MEDS: SULFAMETHOXAZOLE IVPB SCH ×3 (06:28→22:50)
[2018-02-03] MEDS: WATER IVPB SCH ×3 (06:28→22:50)
[2018-02-03] MEDS: TRIMETHOPRIM IVPB SCH ×3 (06:28→22:50)
--- NOTE | 2018-02-03 11:22 | CP.PCM.PN ---
<Maura Lopez - Last Filed: 02/03/18 15:15> Subjective - Date & Time of Evaluation Date of Evaluation: 02/03/18 Time of Evaluation: 09:50 - Subjective Subjective: Patient was seen and examined at bedside with Dr. Fernandez. He reports feeling well today. States he has not had diarrhea and reports he is breathing well without the nasal cannula. Denies fevers, chills, chest pain, dyspnea, nausea, vomiting , headache, abdominal pain, and diarrhea. [facility] came to see the patient and offered information about the [facility] program. Patient states that he spoke to the direct customer service representative and he states that he completed an application. Objective - Vital Signs/Intake and Output Vital Signs (last 24 hours): Temp Pulse Resp BP Pulse Ox 97 F L 89 20 122/71 97 02/03/18 09:00 02/03/18 09:00 02/03/18 09:00 02/03/18 09:00 02/03/18 09:00 - Medications Medications: Current Medications Acetaminophen (Tylenol 325mg Tab) 650 mg PO Q6 PRN PRN Reason: Pain, Mild (1-3) Last Admin: 01/30/18 04:58 Dose: 650 mg Acetaminophen (Tylenol 325mg Tab) 650 mg PO Q6 PRN PRN Reason: Fever >100.4 F Last Admin: 01/30/18 10:46 Dose: 650 mg Albuterol/Ipratropium (Duoneb 3 Mg/0.5 Mg (3 Ml) Ud) 3 ml INH RQ6 PRN PRN Reason: Shortness of Breath Piperacillin Sod/Tazobactam (Sod 3.375 gm/ Sodium Chloride) 100 mls @ 100 mls/ hr IVPB Q6 [facility] PRN Reason: Protocol Last Admin: 02/03/18 09:01 Dose: 100 mls/hr Vancomycin HCl 1 gm/ Sodium (Chloride) 250 mls @ 166.667 mls/hr IVPB Q12H [facility] PRN Reason: Protocol Last Admin: 02/03/18 10:02 Dose: 166.667 mls/hr Trimethoprim/Sulfamethoxazole (450 mg/ Dextrose) 500 mls @ 333.333 mls/hr IVPB Q8@0630,1430,2230 [facility] PRN Reason: Protocol Last Admin: 02/03/18 06:28 Dose: 333.333 mls/hr Metoprolol Tartrate (Lopressor) 25 mg PO Q12 [facility] Last Admin: 02/03/18 08:28 Dose: 25 mg Ondansetron HCl (Zofran Inj) 4 mg IVP Q6 PRN PRN Reason: Nausea/Vomiting Prednisone (Prednisone Tab) 40 mg PO BID [facility] Stop: 02/04/18 17:01 Last Admin: 02/03/18 08:29 Dose: 40 mg Prednisone (Prednisone Tab) 40 mg PO DAILY [facility] Stop: 02/09/18 09:01 - Labs Labs: 02/03/18 05:33 02/03/18 05:33 - Constitutional Appears: Well, Non-toxic, No Acute Distress - Head Exam Head Exam: NORMAL INSPECTION - Eye Exam Eye Exam: Normal appearance - ENT Exam ENT Exam: Mucous Membranes Moist, Normal Exam (no oral thrush present on exam. ) - Neck Exam Neck Exam: Normal Inspection. absent: Lymphadenopathy, Tenderness, Thyromegaly - Respiratory Exam Respiratory Exam: Clear to Ausculation Bilateral, NORMAL BREATHING PATTERN. absent: Chest Wall Tenderness, Decreased Breath Sounds, Rales, Rhonchi, Wheezes , Stridor - Cardiovascular Exam Cardiovascular Exam: REGULAR RHYTHM, RRR, +S1, +S2. absent: Diastolic murmur, Gallop, JVD, Rubs, Murmur - GI/Abdominal Exam GI & Abdominal Exam: Soft, Normal Bowel Sounds. absent: Firm, Guarding, Tenderness, Organomegaly, Rebound - Extremities Exam Extremities Exam: Full ROM, Normal Capillary Refill, Normal Inspection. absent : Pedal Edema, Tenderness - Neurological Exam Neurological Exam: Alert, Awake, Oriented x3 - Psychiatric Exam Psychiatric exam: Normal Affect, Normal Mood - Skin Skin Exam: Dry, Intact, Normal Color, Warm Assessment and Plan (1) AIDS Status: Acute (2) Gastroenteritis Status: Acute (3) Renal calcification Status: Acute (4) Hypokalemia Status: Acute (5) DVT prophylaxis Status: Acute - Assessment and Plan (Free Text) Assessment: 27 yo m without medical history presented with 3 day history of N/V/ abd pain/ chills/ and mild cough. Rapid HIV test was performed and reported as positive with confirmatory RNA PCR test positive. CD4 count reported as 30. Patient currenly on empiric treatment for PJP. Pending AFB sputum tests ( pending 1 test out of 3; 2 sputum tests were reported as negative) Plan: 1. AIDS Assessment & Plan: Positive HIV-1 rapid screen, HIV RNA= 5.1 million , CD4 count of 30. CT: bilateraly diffuse and extensive reticulonodular pulmonary opacities, repeat CT demonstrated worsened reticulonodular opacities with groundglass infiltrates. - Continue Bactrim. - Continue Prednisone 40 mg po BID for a total of 5 days; Then on 02/05/18, taper to Prednisone 40mg po daily for 5 days. - Continue Vanco/ Zosyn. - Recommendation by ID: Zithromax 1200mg po once a week for MAC prophylaxis. - Check HIV genotype. Pending TB cultures: 2 cultures were negative; pending 1 AFB cultures. 2 AFB sputum came back negative. Quantiferon was negative. - RPR: nonreactive. Hepatitis panel: negative. - Repeat chest CT in the am. - F/U Vancomycin trough 02/04/18. 2 Gastroenteritis Assessment & Plan: Resolved. 3 Renal calcification Assessment & Plan: Dedicated CT scan and ultrasound of kidneys did not show any kidney abnormalities. 4 Hypokalemia Assessment & Plan: Resolved. 5 DVT prophylaxis Assessment & Plan: Continue current management: SCD's and early ambulation. <Adriana Fernandez - Last Filed: 02/03/18 15:33> Objective - Vital Signs/Intake and Output Vital Signs (last 24 hours): Temp Pulse Resp BP Pulse Ox 98.4 F 101 H 18 117/67 97 02/03/18 12:00 02/03/18 12:00 02/03/18 12:00 02/03/18 12:00 02/03/18 12:00 - Medications Medications: Current Medications Acetaminophen (Tylenol 325mg Tab) 650 mg PO Q6 PRN PRN Reason: Pain, Mild (1-3) Last Admin: 01/30/18 04:58 Dose: 650 mg Acetaminophen (Tylenol 325mg Tab) 650 mg PO Q6 PRN PRN Reason: Fever >100.4 F Last Admin: 01/30/18 10:46 Dose: 650 mg Albuterol/Ipratropium (Duoneb 3 Mg/0.5 Mg (3 Ml) Ud) 3 ml INH RQ6 PRN PRN Reason: Shortness of Breath Piperacillin Sod/Tazobactam (Sod 3.375 gm/ Sodium Chloride) 100 mls @ 100 mls/ hr IVPB Q6 [facility] PRN Reason: Protocol Last Admin: 02/03/18 09:01 Dose: 100 mls/hr Vancomycin HCl 1 gm/ Sodium (Chloride) 250 mls @ 166.667 mls/hr IVPB Q12H [facility] PRN Reason: Protocol Last Admin: 02/03/18 10:02 Dose: 166.667 mls/hr Trimethoprim/Sulfamethoxazole (450 mg/ Dextrose) 500 mls @ 333.333 mls/hr IVPB Q8@0630,1430,2230 [facility] PRN Reason: Protocol Last Admin: 02/03/18 13:44 Dose: 333.333 mls/hr Metoprolol Tartrate (Lopressor) 25 mg PO Q12 [facility] Last Admin: 02/03/18 08:28 Dose: 25 mg Ondansetron HCl (Zofran Inj) 4 mg IVP Q6 PRN PRN Reason: Nausea/Vomiting Prednisone (Prednisone Tab) 40 mg PO BID [facility] Stop: 02/04/18 17:01 Last Admin: 02/03/18 08:29 Dose: 40 mg Prednisone (Prednisone Tab) 40 mg PO DAILY [facility] Stop: 02/09/18 09:01 - Labs Labs: 02/03/18 05:33 02/03/18 05:33 Attending/Attestation - Attestation I have personally seen and examined this patient.: Yes I have fully participated in the care of the patient.: Yes I have reviewed all pertinent clinical information, including history, physical exam and plan: Yes
--- NOTE | 2018-02-03 12:13 | CP.PCM.PN ---
Subjective - Date & Time of Evaluation Date of Evaluation: 02/03/18 Time of Evaluation: 12:13 - Subjective Subjective: ID Note- Pt. seen and examined today . pt. is in very good spirits and states he feels much better and his breathing is much better and denies any sob and is walking around in the room without any sob. he denies any more diarrhea and states his appetite is great and he is eating all his meals. Objective - Vital Signs/Intake and Output Vital Signs (last 24 hours): Temp Pulse Resp BP Pulse Ox 97 F L 89 20 122/71 97 02/03/18 09:00 02/03/18 09:00 02/03/18 09:00 02/03/18 09:00 02/03/18 09:00 - Medications Medications: Current Medications Acetaminophen (Tylenol 325mg Tab) 650 mg PO Q6 PRN PRN Reason: Pain, Mild (1-3) Last Admin: 01/30/18 04:58 Dose: 650 mg Acetaminophen (Tylenol 325mg Tab) 650 mg PO Q6 PRN PRN Reason: Fever >100.4 F Last Admin: 01/30/18 10:46 Dose: 650 mg Albuterol/Ipratropium (Duoneb 3 Mg/0.5 Mg (3 Ml) Ud) 3 ml INH RQ6 PRN PRN Reason: Shortness of Breath Piperacillin Sod/Tazobactam (Sod 3.375 gm/ Sodium Chloride) 100 mls @ 100 mls/ hr IVPB Q6 [facility] PRN Reason: Protocol Last Admin: 02/03/18 09:01 Dose: 100 mls/hr Vancomycin HCl 1 gm/ Sodium (Chloride) 250 mls @ 166.667 mls/hr IVPB Q12H [facility] PRN Reason: Protocol Last Admin: 02/03/18 10:02 Dose: 166.667 mls/hr Trimethoprim/Sulfamethoxazole (450 mg/ Dextrose) 500 mls @ 333.333 mls/hr IVPB Q8@0630,1430,2230 [facility] PRN Reason: Protocol Last Admin: 02/03/18 06:28 Dose: 333.333 mls/hr Metoprolol Tartrate (Lopressor) 25 mg PO Q12 [facility] Last Admin: 02/03/18 08:28 Dose: 25 mg Ondansetron HCl (Zofran Inj) 4 mg IVP Q6 PRN PRN Reason: Nausea/Vomiting Prednisone (Prednisone Tab) 40 mg PO BID [facility] Stop: 02/04/18 17:01 Last Admin: 02/03/18 08:29 Dose: 40 mg Prednisone (Prednisone Tab) 40 mg PO DAILY [facility] Stop: 02/09/18 09:01 - Labs Labs: - Additional Findings Additional findings: - Constitutional Appears: No Acute Distress - Head Exam Head Exam: ATRAUMATIC - Eye Exam Eye Exam: EOMI, PERRL - ENT Exam ENT Exam: Normal Oropharynx - Neck Exam Neck exam: Positive for: Full Rom Additional comments: supple - Respiratory Exam Respiratory Exam: NORMAL BREATHING PATTERN Additional comments: good breath sounds B/L no wheezing no rhonchi - Cardiovascular Exam Cardiovascular Exam: Tachycardia, +S1, +S2 - GI/Abdominal Exam GI & Abdominal Exam: Normal Bowel Sounds, Soft Additional comments: NT, ND No guarding, no rebound No CVA tenderness B/L - Extremities Exam Extremities exam: Positive for: normal inspection - Neurological Exam Neurological exam: Alert, Oriented x 3 Laboratory Results - last 72 hr 01/27/18 01/31/18 02/01/18 08:00 15:29 04:20 WBC 8.8 D RBC 4.34 L Hgb 12.9 Hct 38.4 MCV 88.4 MCH 29.7 MCHC 33.6 RDW 13.4 Plt Count 346 Sodium Potassium Chloride Carbon Dioxide Anion Gap BUN Creatinine Est GFR ( Amer) Est GFR (Non-Af Amer) Random Glucose Calcium Phosphorus Magnesium Total Bilirubin AST ALT Alkaline Phosphatase Lactate Dehydrogenase 1440 H Total Protein Albumin Globulin Albumin/Globulin Ratio A-PM Scleroderma 100 Ab <20 02/01/18 02/03/18 02/03/18 04:20 05:33 05:33 WBC 6.0 RBC 4.79 Hgb 14.1 Hct 42.1 MCV 88.0 MCH 29.5 MCHC 33.5 RDW 13.6 Plt Count 332 Sodium 138 137 Potassium 3.6 4.3 Chloride 106 104 Carbon Dioxide 24 23 Anion Gap 12 14 BUN 9 10 Creatinine 0.5 L 0.5 L Est GFR ( Amer) > 60 > 60 Est GFR (Non-Af Amer) > 60 > 60 Random Glucose 140 H 129 H Calcium 8.0 L 8.3 L Phosphorus 3.1 Magnesium 2.6 H Total Bilirubin 0.6 0.4 AST 90 H 80 H ALT 94 H D 165 H D Alkaline Phosphatase 89 102 Lactate Dehydrogenase Total Protein 6.6 7.1 Albumin 3.3 L 3.7 Globulin 3.4 3.4 Albumin/Globulin Ratio 1.0 1.1 A-PM Scleroderma 100 Ab Microbiology 01/30/18 12:45 Blood Blood Culture - Preliminary NO GROWTH AFTER 4 DAYS 01/30/18 12:30 Blood Blood Culture - Preliminary NO GROWTH AFTER 4 DAYS 01/31/18 12:58 Sputum Induced Gram Stain - Final 01/31/18 12:58 Sputum Induced Sputum Culture - Final NORMAL ORAL DEANN 01/31/18 09:35 Other: Please Indicate Mycobacterial Culture - Preliminary 01/30/18 13:39 Other: Please Indicate Mycobacterial Culture - Preliminary 01/30/18 13:44 Urine Urine Culture - Final No Growth (<1,000 CFU/ML) 01/25/18 17:55 Blood-Venous Blood Culture - Final NO GROWTH AFTER 5 DAYS 01/25/18 17:43 Blood-Venous Blood Culture - Final NO GROWTH AFTER 5 DAYS 01/25/18 17:43 Blood-Venous Gram Stain - Final TEST NOT PERFORMED 01/28/18 15:30 Urine Urine Culture - Final No Growth (<1,000 CFU/ML) 01/27/18 14:09 Sputum Gram Stain - Final 01/27/18 14:09 Sputum Sputum Culture - Final NORMAL ORAL DEANN 01/27/18 08:31 Stool Ova and Parasite Concentrate Exam - Final 01/26/18 12:14 Stool Stool Culture - Final NO SALMONELLA, SHIGELLA OR CAMPYLOBACTER ISOLATED. 01/26/18 12:14 Stool Ova and Parasite Concentrate Exam - Final 01/25/18 22:00 Throat Group A Strep Throat Culture - Final NO BETA STREP GROUP A ISOLATED. Assessment and Plan (1) Fever Status: Resolved (2) Diarrhea Status: Acute (3) Nausea and vomiting Status: Acute - Assessment and Plan (Free Text) Assessment: A/P- 27 year old male with No PMH admitted with fever/ diarrhea/ n/v and found to be HIV positive ( confirmed ) new diagnosis and extensive reticulonodular b/l lung opacitis on chest Ct . clinically much improved. afebrile past few days. normal wbc extensive reticulonodular b/l pulmonary infiltrates on chest ct report.. legionella ag- neg influenza- neg HIV ab- pos ( conformed ) CD4-30 ( AIDS) blood cx- neg x 3 stool cx- neg stool ova and parasites- negative sputum AFb- neg x 2 plan- agree with IV bactrim and steroids since Cd4 is <200 and extensive reticulonodular b/l pattern on chest CT PCP high possibility . day #5 needs total 21 days of PCP treatment and after completion of the treatment phase pt. should be on oral bactrim for PCP prophylaxis until his CD4 increases to above 200 once HAART regimen is initiated. continue with IV zosyn day #7 await third sputum AFB result. weekly zithromax 1200 mg once a week for MAC prophylaxis since his CD4 is <50. advise to also check HIV genotype . had a lengthy conversation with patient and explained everything in regards to his illness to him in detail and answered all his questions and advised him once he is better and is d/c to f/u closely with the [id number] here in [place] for His HIV care. Patient verbalizes full understanding of all above nad agrees with above plan of care.
--- NOTE | 2018-02-03 14:15 | CP.PCM.PN ---
Subjective - Date & Time of Evaluation Date of Evaluation: 02/03/18 Time of Evaluation: 10:50 - Subjective Subjective: F/U Pulmonary Infiltrate no AD, no SOB, no VARELA Objective - Vital Signs/Intake and Output Vital Signs (last 24 hours): Temp Pulse Resp BP Pulse Ox 98.4 F 101 H 18 117/67 97 02/03/18 12:00 02/03/18 12:00 02/03/18 12:00 02/03/18 12:00 02/03/18 12:00 - Medications Medications: Current Medications Acetaminophen (Tylenol 325mg Tab) 650 mg PO Q6 PRN PRN Reason: Pain, Mild (1-3) Last Admin: 01/30/18 04:58 Dose: 650 mg Acetaminophen (Tylenol 325mg Tab) 650 mg PO Q6 PRN PRN Reason: Fever >100.4 F Last Admin: 01/30/18 10:46 Dose: 650 mg Albuterol/Ipratropium (Duoneb 3 Mg/0.5 Mg (3 Ml) Ud) 3 ml INH RQ6 PRN PRN Reason: Shortness of Breath Piperacillin Sod/Tazobactam (Sod 3.375 gm/ Sodium Chloride) 100 mls @ 100 mls/ hr IVPB Q6 [facility]ANNA PRN Reason: Protocol Last Admin: 02/03/18 09:01 Dose: 100 mls/hr Vancomycin HCl 1 gm/ Sodium (Chloride) 250 mls @ 166.667 mls/hr IVPB Q12H [facility] PRN Reason: Protocol Last Admin: 02/03/18 10:02 Dose: 166.667 mls/hr Trimethoprim/Sulfamethoxazole (450 mg/ Dextrose) 500 mls @ 333.333 mls/hr IVPB Q8@0630,1430,2230 IVANNA PRN Reason: Protocol Last Admin: 02/03/18 13:44 Dose: 333.333 mls/hr Metoprolol Tartrate (Lopressor) 25 mg PO Q12 [facility] Last Admin: 02/03/18 08:28 Dose: 25 mg Ondansetron HCl (Zofran Inj) 4 mg IVP Q6 PRN PRN Reason: Nausea/Vomiting Prednisone (Prednisone Tab) 40 mg PO BID [facility] Stop: 02/04/18 17:01 Last Admin: 02/03/18 08:29 Dose: 40 mg Prednisone (Prednisone Tab) 40 mg PO DAILY [facility] Stop: 02/09/18 09:01 - Labs Labs: 02/03/18 05:33 02/03/18 05:33 - Constitutional Appears: No Acute Distress - Head Exam Head Exam: NORMAL INSPECTION - Eye Exam Eye Exam: PERRL - ENT Exam ENT Exam: Normal Exam - Neck Exam Neck Exam: Normal Inspection - Respiratory Exam Respiratory Exam: Clear to Ausculation Bilateral - Cardiovascular Exam Cardiovascular Exam: REGULAR RHYTHM - GI/Abdominal Exam GI & Abdominal Exam: Soft, Normal Bowel Sounds - Extremities Exam Extremities Exam: Normal Inspection - Back Exam Back Exam: NORMAL INSPECTION - Neurological Exam Neurological Exam: Alert, CN II-XII Intact, Oriented x3. absent: Motor Sensory Deficit - Psychiatric Exam Psychiatric exam: Normal Affect - Skin Skin Exam: Warm Assessment and Plan (1) Pulmonary infiltrate Status: Acute (2) Pulmonary nodules Status: Acute (3) Fever Status: Resolved (4) AIDS Status: Acute - Assessment and Plan (Free Text) Plan: Patient improved , most of the time on RSR, at times sinus Tach low 100, s , afebril, continue Bactrim, Zosyn, Vanco, f/u CT Chest
[2018-02-04] MEDS: Piperacillin/Tazobact 3.375 GM in Sodium Chloride 0.9% 100 ML IVPB SCH ×4 (04:05→21:40)
[2018-02-04 05:36] LABS: HEMOGLOBIN 14.4 g/dL (12.0-18.0); MEAN CELL VOLUME 87.5 fl (80.0-94.0); MEAN CORPUSCULAR HEMOGLOBIN 29.5 pg (27.0-31.0); MEAN CORPUSCULAR HGB CONC 33.7 g/dL (33.0-37.0); RBC 4.87 Mil/uL (4.40-5.90); WHITE BLOOD COUNT 6.5 K/uL (4.8-10.8)
[2018-02-04 05:51] LABS: ALB/GLOB RATIO 1.1 (1.0-2.1); ALBUMIN 3.7 g/dL (3.5-5.0); ALT/SGPT 181 U/L (21-72); AST/SGOT 78 U/L (17-59); BLOOD UREA NITROGEN 8 mg/dl (9-20); CALCIUM 8.6 mg/dL (8.4-10.2); GFR AFRICAN-AMERICAN > 60; GFR NON-AFRICAN AMERICAN > 60
[2018-02-04] MEDS: DEXTROSE 5% IVPB SCH ×3 (06:05→22:35)
[2018-02-04] MEDS: TRIMETHOPRIM IVPB SCH ×3 (06:05→22:35)
[2018-02-04] MEDS: WATER IVPB SCH ×3 (06:05→22:35)
[2018-02-04] MEDS: SULFAMETHOXAZOLE IVPB SCH ×3 (06:05→22:35)
--- NOTE | 2018-02-04 08:04 | CP.PCM.PN ---
<Maura Lopez - Last Filed: 02/04/18 16:21> Subjective - Date & Time of Evaluation Date of Evaluation: 02/04/18 Time of Evaluation: 08:00 - Subjective Subjective: Patient seen and examined at bedside with Dr. Montemayor. He states that he is feeling well and reports that after his meeting yesterday with [facility] he has hope that there is still a future after being diagnosed with HIV. He states he has a great support system. He reports good appetite and last BM was reported last night, around 10 p.m., described as soft and brown in color, non-watery and non-bloody. Denies chest pain, sore throat, fevers, chills, headaches, dyspnea, abdominal pain, dysuria, frequency and urgency. Objective - Vital Signs/Intake and Output Vital Signs (last 24 hours): Temp Pulse Resp BP Pulse Ox 98.0 F 93 H 18 118/70 97 02/04/18 04:54 02/04/18 04:54 02/04/18 04:54 02/04/18 04:54 02/04/18 04:54 - Medications Medications: Current Medications Acetaminophen (Tylenol 325mg Tab) 650 mg PO Q6 PRN PRN Reason: Pain, Mild (1-3) Last Admin: 01/30/18 04:58 Dose: 650 mg Acetaminophen (Tylenol 325mg Tab) 650 mg PO Q6 PRN PRN Reason: Fever >100.4 F Last Admin: 01/30/18 10:46 Dose: 650 mg Albuterol/Ipratropium (Duoneb 3 Mg/0.5 Mg (3 Ml) Ud) 3 ml INH RQ6 PRN PRN Reason: Shortness of Breath Piperacillin Sod/Tazobactam (Sod 3.375 gm/ Sodium Chloride) 100 mls @ 100 mls/ hr IVPB Q6 [facility] PRN Reason: Protocol Last Admin: 02/04/18 04:05 Dose: 100 mls/hr Vancomycin HCl 1 gm/ Sodium (Chloride) 250 mls @ 166.667 mls/hr IVPB Q12H [facility] PRN Reason: Protocol Last Admin: 02/03/18 22:50 Dose: 166.667 mls/hr Trimethoprim/Sulfamethoxazole (450 mg/ Dextrose) 500 mls @ 333.333 mls/hr IVPB Q8@0630,1430,2230 [facility] PRN Reason: Protocol Last Admin: 02/04/18 06:05 Dose: 333.333 mls/hr Metoprolol Tartrate (Lopressor) 25 mg PO Q12 [facility] Last Admin: 02/03/18 21:20 Dose: 25 mg Ondansetron HCl (Zofran Inj) 4 mg IVP Q6 PRN PRN Reason: Nausea/Vomiting Prednisone (Prednisone Tab) 40 mg PO BID [facility] Stop: 02/04/18 17:01 Last Admin: 02/03/18 16:24 Dose: 40 mg Prednisone (Prednisone Tab) 40 mg PO DAILY [facility] Stop: 02/09/18 09:01 - Labs Labs: 02/04/18 04:20 02/04/18 04:20 - Constitutional Appears: Well, Non-toxic, No Acute Distress - Head Exam Head Exam: NORMAL INSPECTION - Eye Exam Eye Exam: Normal appearance - ENT Exam ENT Exam: Mucous Membranes Moist, Normal Exam, Normal Oropharynx (No oral thrush appreciated on physical exam. ) - Neck Exam Neck Exam: Normal Inspection. absent: Lymphadenopathy, Tenderness, Thyromegaly - Respiratory Exam Respiratory Exam: Clear to Ausculation Bilateral, NORMAL BREATHING PATTERN. absent: Chest Wall Tenderness, Prolonged Expiratory Phase, Rales, Rhonchi, Wheezes, Respiratory Distress, Stridor - Cardiovascular Exam Cardiovascular Exam: REGULAR RHYTHM, RRR, +S1, +S2. absent: Clicks, Diastolic murmur, Gallop, JVD, Rubs, Murmur - GI/Abdominal Exam GI & Abdominal Exam: Soft, Normal Bowel Sounds. absent: Distended, Firm, Guarding, Rigid, Tenderness, Pulsatile Mass, Rebound - Extremities Exam Extremities Exam: Normal Capillary Refill, Normal Inspection. absent: Joint Swelling, Pedal Edema, Tenderness - Back Exam Back Exam: NORMAL INSPECTION. absent: CVA tenderness (L), CVA tenderness (R), paraspinal tenderness, rash noted, tenderness, vertebral tenderness - Neurological Exam Neurological Exam: Alert, Awake, Normal Gait, Oriented x3 - Psychiatric Exam Psychiatric exam: Normal Affect, Normal Mood - Skin Skin Exam: Dry, Intact, Normal Color, Warm Assessment and Plan (1) AIDS Status: Acute (2) Gastroenteritis Status: Acute (3) Renal calcification Status: Acute (4) Hypokalemia Status: Acute (5) DVT prophylaxis Status: Acute - Assessment and Plan (Free Text) Assessment: 27 yo m without medical history presented with 3 day history of N/V/ abd pain/ chills/ and mild cough. Rapid HIV test was performed and reported as positive with confirmatory RNA PCR test positive. CD4 count reported as 30. Patient is now feeling better and denies any complaints at this time. Patient currently on empiric treatment for PJP. AFB sputum negative x3. Plan: 1. AIDS Assessment & Plan: Positive HIV-1 rapid screen, HIV RNA= 5.1 million , CD4 count of 30. CT chest : bilateraly diffuse and extensive reticulonodular pulmonary opacities , repeat CT demonstrated worsened reticulonodular opacities with groundglass infiltrates. Repeat CT chest 02/04/18: interval worsening of interstitial, nodular, alveolar airspace disease in both lungs, worse in the left. Findings are concerning for opportunistic infection and atypical pneumonia including pneumo cystitis carinii and CADEN. - Continue Bactrim weight based; Complete 21 day course (Ending February 20.). - Continue Prednisone 40mg po daily for 5 days. - Continue Vanco/ Zosyn. Vanco trough: 5.3. - Recommendation by ID: Zithromax 1200mg po once a week for MAC prophylaxis. - AFB sputum negative x3. Quantiferon negative. - RPR: nonreactive. Hepatitis panel: negative. - per Dr. Jenkins: Patient is not stable to go home based on today's CT chest and ABG. ABG A-a difference: 54; pCO2: 31; Po2: 57; pH: 7.45; O2 saturation: 94.3. 2 Gastroenteritis Assessment & Plan: Resolved. 3 Renal calcification Assessment & Plan: Dedicated CT scan and ultrasound of kidneys did not show any kidney abnormalities. 4 Hypokalemia Assessment & Plan: Resolved. 5 DVT prophylaxis Assessment & Plan: Continue current management: SCD's and early ambulation. <Zina Montemayor - Last Filed: 02/05/18 09:33> Objective - Vital Signs/Intake and Output Vital Signs (last 24 hours): Temp Pulse Resp BP Pulse Ox 97.9 F 92 H 20 130/82 99 02/05/18 08:00 02/05/18 08:00 02/05/18 08:00 02/05/18 08:00 02/05/18 08:00 - Medications Medications: Current Medications Acetaminophen (Tylenol 325mg Tab) 650 mg PO Q6 PRN PRN Reason: Pain, Mild (1-3) Last Admin: 01/30/18 04:58 Dose: 650 mg Acetaminophen (Tylenol 325mg Tab) 650 mg PO Q6 PRN PRN Reason: Fever >100.4 F Last Admin: 01/30/18 10:46 Dose: 650 mg Albuterol/Ipratropium (Duoneb 3 Mg/0.5 Mg (3 Ml) Ud) 3 ml INH RQ6 PRN PRN Reason: Shortness of Breath Piperacillin Sod/Tazobactam (Sod 3.375 gm/ Sodium Chloride) 100 mls @ 100 mls/ hr IVPB Q6 [facility] PRN Reason: Protocol Last Admin: 02/05/18 04:03 Dose: 100 mls/hr Vancomycin HCl 1 gm/ Sodium (Chloride) 250 mls @ 166.667 mls/hr IVPB Q12H [facility] PRN Reason: Protocol Last Admin: 02/04/18 21:40 Dose: 166.667 mls/hr Trimethoprim/Sulfamethoxazole (450 mg/ Dextrose) 500 mls @ 333.333 mls/hr IVPB Q8@0630,1430,2230 [facility] PRN Reason: Protocol Last Admin: 02/05/18 06:03 Dose: 333.333 mls/hr Metoprolol Tartrate (Lopressor) 25 mg PO Q12 [facility] Last Admin: 02/04/18 21:39 Dose: 25 mg Ondansetron HCl (Zofran Inj) 4 mg IVP Q6 PRN PRN Reason: Nausea/Vomiting Prednisone (Prednisone Tab) 40 mg PO DAILY [facility] Stop: 02/09/18 09:01 - Labs Labs: 02/04/18 04:20 02/04/18 04:20 Attending/Attestation - Attestation I have personally seen and examined this patient.: Yes I have fully participated in the care of the patient.: Yes I have reviewed all pertinent clinical information, including history, physical exam and plan: Yes Notes (Text): 02/05/18 09:33 SEEN EXAMINED AND DISCUSSED WITH RESIDENT DR. Lopez. AGREE WITH FINDINGS AND PLAN ABOVE.
--- NOTE | 2018-02-04 10:23 | CP.PCM.DIS ---
Provider - Provider Date of Admission: 01/26/18 16:47 Attending physician: Wilma Edwards MD Primary care physician: Dr. Brewer. Consults: Dr. Alice Nunes Diagnosis - Discharge Diagnosis (1) AIDS Status: Acute Comment: Positive HIV-1 Rapid screen. HIV RNA PCR: 5.1 million. CD4 count of 30. Continue outpatient Bactrim. Continue Prednisone taper, 40 mg po daily for 5 days. Begin Zithromax 1200mg po once weekly for MAC prophylaxis until CD4 count rises to > 200. RPR: negative; Hepatitis panel: negative. (2) Gastroenteritis Status: Acute Comment: Resolved. (3) Renal calcification Status: Acute Comment: CT scan and ultrasound of kidneys did not show any kidney abnormalities. (4) Hypokalemia Status: Acute Comment: Resolved. (5) DVT prophylaxis Status: Acute Comment: Patient was on SCD's and early ambulation. He can continue ambulation at home. Hospital Course - Lab Results Lab Results: Micro Results 02/02/18 17:55 Other: Please Indicate Mycobacterial Culture - Preliminary 01/30/18 12:45 Blood Blood Culture - Preliminary NO GROWTH AFTER 4 DAYS 01/30/18 12:30 Blood Blood Culture - Preliminary NO GROWTH AFTER 4 DAYS 01/31/18 12:58 Sputum Induced Gram Stain - Final 01/31/18 12:58 Sputum Induced Sputum Culture - Final NORMAL ORAL DEANN 01/31/18 09:35 Other: Please Indicate Mycobacterial Culture - Preliminary 01/30/18 13:39 Other: Please Indicate Mycobacterial Culture - Preliminary 01/30/18 13:44 Urine Urine Culture - Final No Growth (<1,000 CFU/ML) 01/25/18 17:55 Blood-Venous Blood Culture - Final NO GROWTH AFTER 5 DAYS 01/25/18 17:43 Blood-Venous Blood Culture - Final NO GROWTH AFTER 5 DAYS 01/25/18 17:43 Blood-Venous Gram Stain - Final TEST NOT PERFORMED 01/28/18 15:30 Urine Urine Culture - Final No Growth (<1,000 CFU/ML) 01/27/18 14:09 Sputum Gram Stain - Final 01/27/18 14:09 Sputum Sputum Culture - Final NORMAL ORAL DEANN 01/27/18 08:31 Stool Ova and Parasite Concentrate Exam - Final 01/26/18 12:14 Stool Stool Culture - Final NO SALMONELLA, SHIGELLA OR CAMPYLOBACTER ISOLATED. 01/26/18 12:14 Stool Ova and Parasite Concentrate Exam - Final 01/25/18 22:00 Throat Group A Strep Throat Culture - Final NO BETA STREP GROUP A ISOLATED. Most Recent Lab Values WBC 6.5 K/uL (4.8-10.8) 02/04/18 04:20 RBC 4.87 Mil/uL (4.40-5.90) 02/04/18 04:20 Hgb 14.4 g/dL (12.0-18.0) 02/04/18 04:20 Hct 42.6 % (35.0-51.0) 02/04/18 04:20 MCV 87.5 fl (80.0-94.0) 02/04/18 04:20 MCH 29.5 pg (27.0-31.0) 02/04/18 04:20 MCHC 33.7 g/dL (33.0-37.0) 02/04/18 04:20 RDW 13.0 % (11.5-14.5) 02/04/18 04:20 Plt Count 339 K/uL (130-400) 02/04/18 04:20 MPV 8.9 fl (7.2-11.7) 01/31/18 04:20 Neut % (Auto) 88.5 % (50.0-75.0) H 01/31/18 04:20 Lymph % (Auto) 8.3 % (20.0-40.0) L 01/31/18 04:20 Josephine % (Auto) 2.9 % (0.0-10.0) 01/31/18 04:20 Eos % (Auto) 0.1 % (0.0-4.0) 01/31/18 04:20 Baso % (Auto) 0.2 % (0.0-2.0) 01/31/18 04:20 Neut # (Auto) 3.6 K/uL (1.8-7.0) 01/31/18 04:20 Lymph # (Auto) 0.3 K/uL (1.0-4.3) L 01/31/18 04:20 Josephine # (Auto) 0.1 K/uL (0.0-0.8) 01/31/18 04:20 Eos # (Auto) 0.0 K/uL (0.0-0.7) 01/31/18 04:20 Baso # (Auto) 0.0 K/uL (0.0-0.2) 01/31/18 04:20 Neutrophils % (Manual) 89 % (42-75) H 01/28/18 05:25 Band Neutrophils % 6 % (0-2) H 01/28/18 05:25 Lymphocytes % (Manual) 3 % (20-50) L 01/28/18 05:25 Reactive Lymphs % 3 % (0-0) H 01/25/18 17:31 Monocytes % (Manual) 2 % (0-10) 01/28/18 05:25 Basophils % (Manual) 1 % (0-2) 01/25/18 17:31 Platelet Estimate Normal (NORMAL) 01/28/18 05:25 RBC Morphology Normal (NORMAL) 01/28/18 05:25 ESR 52 mm/hr (0-15) H 01/27/18 08:00 D-Dimer, Quantitative 2962 ng/mlDDU (0-230) H 01/30/18 07:30 pCO2 33 mm/Hg (35-45) L 01/30/18 13:40 pO2 63 mm/Hg (80-100) L 01/30/18 13:40 HCO3 25.0 mmol/L (21-28) 01/30/18 13:40 ABG pH 7.46 (7.35-7.45) H 01/30/18 13:40 ABG Total CO2 24.5 mmol/L (22-28) 01/30/18 13:40 ABG O2 Saturation 95.8 % (95-98) 01/30/18 13:40 ABG O2 Content 17.9 ML/dL (15-23) 01/30/18 13:40 ABG Base Excess 0.3 mmol/L (-2.0-3.0) 01/30/18 13:40 ABG Hemoglobin 13.8 g/dL (11.7-17.4) 01/30/18 13:40 ABG Carboxyhemoglobin 2.0 % (0.5-1.5) H 01/30/18 13:40 POC ABG HHb (Measured) 4.1 % (0.0-5.0) 01/30/18 13:40 ABG Methemoglobin 1.4 % (0.0-3.0) 01/30/18 13:40 ABG O2 Capacity 18.7 mL/dL (16-24) 01/30/18 13:40 Lino Test Yes 01/30/18 13:40 VBG pH 7.44 (7.32-7.43) H 01/25/18 17:06 VBG pCO2 39 mmHg (40-60) L 01/25/18 17:06 VBG HCO3 25.3 mmol/L 01/25/18 17:06 VBG Total CO2 27.7 mmol/L (22-28) 01/25/18 17:06 VBG O2 Sat (Calc) 51.8 % (40-65) 01/25/18 17:06 VBG Base Excess 2.3 mmol/L (0.0-2.0) H 01/25/18 17:06 VBG Potassium 3.4 mmol/L (3.6-5.2) L 01/25/18 17:06 A-a O2 Difference 45.0 mm/Hg 01/30/18 13:40 Hgb O2 Saturation 92.5 % (95.0-98.0) L 01/30/18 13:40 Sodium 131.0 mmol/L (132-148) L 01/25/18 17:06 Chloride 98.0 mmol/L (98-107) 01/25/18 17:06 Glucose 102 mg/dL (75-110) 01/25/18 17:06 Lactate 1.1 mmol/L (0.7-2.1) 01/25/18 17:06 FiO2 21.0 % 01/30/18 13:40 Sodium 138 mmol/l (132-148) 02/04/18 04:20 Potassium 4.3 MMOL/L (3.6-5.0) 02/04/18 04:20 Chloride 102 mmol/L (98-107) 02/04/18 04:20 Carbon Dioxide 24 mmol/L (22-30) 02/04/18 04:20 Anion Gap 16 (10-20) 02/04/18 04:20 BUN 8 mg/dl (9-20) L 02/04/18 04:20 Creatinine 0.6 mg/dl (0.8-1.5) L 02/04/18 04:20 Est GFR ( Amer) > 60 02/04/18 04:20 Est GFR (Non-Af Amer) > 60 02/04/18 04:20 POC Glucose (mg/dL) 80 mg/dL (65-110) 01/30/18 05:23 Random Glucose 108 mg/dL (75-110) 02/04/18 04:20 Calcium 8.6 mg/dL (8.4-10.2) 02/04/18 04:20 Phosphorus 3.1 mg/dl (2.5-4.5) 02/01/18 04:20 Magnesium 2.6 MG/DL (1.6-2.3) H 02/01/18 04:20 Total Bilirubin 0.4 mg/dl (0.2-1.3) 02/04/18 04:20 AST 78 U/L (17-59) H 02/04/18 04:20 ALT 181 U/L (21-72) H 02/04/18 04:20 Alkaline Phosphatase 126 U/L (38-126) D 02/04/18 04:20 Lactate Dehydrogenase 1440 U/L (313-618) H 01/31/18 15:29 C-Reactive Protein 82.40 mg/L (0.0-9.9) H 01/27/18 08:00 Total Protein 7.1 G/DL (6.3-8.2) 02/04/18 04:20 Albumin 3.7 g/dL (3.5-5.0) 02/04/18 04:20 Globulin 3.4 gm/dL (2.2-3.9) 02/04/18 04:20 Albumin/Globulin Ratio 1.1 (1.0-2.1) 02/04/18 04:20 Angiotensin Convert Enz 57 U/L (9-67) 01/27/18 08:00 Procalcitonin 0.61 NG/ML (0.19-0.49) H 01/27/18 08:00 Venous Blood Potassium 3.4 mmol/L (3.6-5.2) L 01/25/18 17:06 Urine Color Yellow (YELLOW) 01/28/18 15:30 Urine Clarity Slighty-cloudy (Clear) 01/28/18 15:30 Urine pH 6.0 (5.0-8.0) 01/28/18 15:30 Ur Specific Blackwell 1.020 (1.003-1.030) 01/28/18 15:30 Urine Protein 100 mg/dL (NEGATIVE) 01/28/18 15:30 Urine Glucose (UA) Neg mg/dL (Normal) 01/28/18 15:30 Urine Ketones Negative mg/dL (NEGATIVE) 01/28/18 15:30 Urine Blood Negative (NEGATIVE) 01/28/18 15:30 Urine Nitrate Negative (NEGATIVE) 01/28/18 15:30 Urine Bilirubin Negative (NEGATIVE) 01/28/18 15:30 Urine Urobilinogen 0.2-1.0 mg/dL (0.2-1.0) 01/28/18 15:30 Ur Leukocyte Esterase Neg Lyric/uL (Negative) 01/28/18 15:30 Urine RBC (Auto) < 1 /hpf (0-3) 01/28/18 15:30 Urine Microscopic WBC 4 /hpf (0-5) 01/28/18 15:30 Stool Leukocytes, Qual Negative (NEGATIVE) 01/26/18 12:14 Vancomycin Trough 5.3 ug/mL (5.0-10.0) 02/04/18 04:20 Rheumatoid Factor IgA <5 U (<=6) 01/27/18 08:00 Rheumatoid Factor IgM <5 U (<=6) 01/27/18 08:00 MANUEL 6 Profile Negative (NEGATIVE) 01/27/18 08:00 MAUNEL Screen Negative (Negative) 01/27/18 08:00 MANUEL Titer TEST NOT PERFORMED 01/27/18 08:00 MANUEL Titer 2 TEST NOT PERFORMED 01/27/18 08:00 MANUEL Pattern TEST NOT PERFORMED 01/27/18 08:00 MANUEL Pattern 2 TEST NOT PERFORMED 01/27/18 08:00 Scl-70 Antibody <1.0 AI (<1.0) 01/27/18 08:00 Scl-70 Interpretation Negative (Negative) 01/27/18 08:00 A-PM Scleroderma 100 Ab <20 Units (<20) 01/27/18 08:00 Anti-SRP Antibody Not detected (Not detected) 01/27/18 08:00 Absolute Lymphs (Flow) 365 Cells/mcL (850-3900) L 01/27/18 11:24 % CD4 Cells 8 Percent (30-61) L 01/27/18 11:24 Absolute CD4 Count 30 Cells/mcL (490-1740) L 01/27/18 11:24 T-Help/Suppress Ratio 0.13 Ratio (0.86-5.00) L 01/27/18 11:24 % CD8 Cells 63 Percent (12-42) H 01/27/18 11:24 Absolute CD8 Count 229 Cells/mcL (180-1170) 01/27/18 11:24 T-Lymph Analys Comment See note 01/27/18 11:24 RPR Nonreactive (NONREACTIVE) 01/28/18 05:25 Hepatitis A IgM Ab Negative (NEGATIVE) 01/28/18 05:25 Hep Bs Antigen Negative (NEGATIVE) 01/28/18 05:25 Hep B Core IgM Ab Negative (NEGATIVE) 01/28/18 05:25 Hepatitis C Antibody Negative (NEGATIVE) 01/28/18 05:25 HIV-1 Ab Rapid Screen Ab reactive (NON REAC) H 01/27/18 08:00 HIV-1 RNA Qnt (RT-PCR) 5.19 (Not Detected) H 01/27/18 09:49 Influenza Typ A,B (EIA) Negative for flu a/b (NEGATIVE) 01/25/18 17:38 Ur L.pneumophila Ag Negative (NEGATIVE) 01/25/18 22:00 Mycoplasma pneumon IgG 1.15 (<=0.90) H 01/26/18 09:20 Mycoplasma pneumon IgM 144 U/mL (<770) 01/26/18 09:20 Grp A Beta Strep Ag Negative (NEGATIVE) 01/25/18 22:00 TB Test (QFT) Nil 0.77 IU/mL 01/27/18 11:24 TB Test Mitogen - Nil 1.10 IU/mL 01/27/18 11:24 TB Test TB - Nil <0.00 IU/mL 01/27/18 11:24 TB Test (QFT) Negative (Negative) 01/27/18 11:24 - Hospital Course Hospital Course: 27 yo m without medical history presented to the E.R with a week of abdominal pain associated with F/N/V/D. He also had cough productive of clear sputum. During the hospital course, patient was found to be HIV + on preliminary testing , HIV RNA PCR: 5.1 million, CD4 count of 30. CT of the chest on 01/30/18 demonstrated extensive diffuse reticulonodular interstitial infiltrates. Given HIV status, PCP lung infection was considered. Repeat CT of the chest on 02/04/18 demonstrates Antibiotic use during hospital stay: Vancomycin, Bactrim, and Zosyn. Discharge Exam - Head Exam Head Exam: NORMAL INSPECTION - Eye Exam Eye Exam: Normal appearance, PERRL - ENT Exam ENT Exam: Mucous Membranes Moist, Normal Exam, Normal Oropharynx - Neck Exam Additional comments: Normal inspection. No lymphadenopathy, full ROM, no neck stiffness, no thyromegaly. - Respiratory Exam Respiratory Exam: NORMAL BREATHING PATTERN, UNREMARKABLE. absent: Decreased Breath Sounds, Prolonged Expiratory Phase, Rales, Rhonchi, Wheezes, Respiratory Distress, Stridor - Cardiovascular Exam Cardiovascular Exam: REGULAR RHYTHM, RRR, +S1, +S2. absent: Clicks, Diastolic murmur, Gallop, JVD, Rubs, Systolic Murmur - GI/Abdominal Exam GI & Abdominal Exam: Normal Bowel Sounds, Soft, Unremarkable. absent: Distended , Firm, Guarding, Mass, Organomegaly, Pulsatile Mass, Rebound, Tenderness - Extremities Exam Extremities exam: normal inspection - Back Exam Back exam: NORMAL INSPECTION. absent: CVA tenderness (L), CVA tenderness (R), muscle spasm, paraspinal tenderness, rash noted, tenderness, vertebral tenderness - Neurological Exam Neurological exam: Alert, Normal Gait, Oriented x3 - Psychiatric Exam Psychiatric exam: Normal Affect, Normal Mood - Skin Skin Exam: Dry, Intact, Normal Color, Warm Discharge Plan - Discharge Medications Prescriptions: Metoprolol Tartrate [Lopressor] 25 mg PO Q12 #60 tab predniSONE [predniSONE Tab] 40 mg PO DAILY #30 tab - Follow Up Plan Condition: STABLE Disposition: HOME/ ROUTINE Instructions: Acute Abdomen (Belly Pain), Adult (DC), Fever, Adult (DC), Community-Acquired Pneumonia, Adult (DC) Additional Instructions: follow up with primary MD 1 week Follow up with HIV specialist at [facility] to initiate ARV therapy. Referrals: Angel Jenkins MD [Staff Provider] -
[2018-02-04 12:59] LABS: ABG ALLEN TEST YES; ARTERIAL BLOOD GAS HCO3 23.6 mmol/L (21-28); ARTERIAL BLOOD GAS O2 CAPACITY 18.9 mL/dL (16-24); ARTERIAL BLOOD GAS O2 CONTENT 17.8 ML/dL (15-23); ARTERIAL BLOOD GAS O2 SAT 94.3 % (95-98); ARTERIAL BLOOD GAS PCO2 31 mm/Hg (35-45); ARTERIAL BLOOD GAS PH 7.45 (7.35-7.45); ARTERIAL BLOOD GAS PO2 57 mm/Hg (80-100); ARTERIAL BLOOD GAS TCO2 22.5 mmol/L (22-28)
--- NOTE | 2018-02-04 13:52 | CT ---
Date of service: 02/04/2018 PROCEDURE: CT Chest without contrast HISTORY: Evaluate nodules and dyspnea, HIV-positive COMPARISON: 01/30/2018 and 01/25/2018. TECHNIQUE: Contiguous axial images were obtained through the chest without intravenous contrast enhancement. Sagittal and coronal reconstructions were performed. Radiation dose (DLP): mGy-cm. This CT exam was performed using one or more of the following dose reduction techniques: Automated exposure control, adjustment of the mA and/or kV according to patient size, and/or use of iterative reconstruction technique. FINDINGS: LUNGS: The lungs are well inflated. When compared to the prior examination, there is interval worsening of alveolar airspace disease in both lungs, worse in the left upper lobe, lingula and left lower lobe. There is redemonstration of diffuse interstitial thickening and extensive micro nodules in the lungs. There are no endobronchial lesions. MEDIASTINUM: The aorta is not dilated. The heart is normal in size. No pericardial effusion. No pathologic mediastinal lymphadenopathy. PLEURA: No pleural fluid. No pneumothorax. BONES: No fracture. No destructive lesion. Within normal limits for the patient's age. UPPER ABDOMEN: Grossly unremarkable. OTHER FINDINGS: None. IMPRESSION: Interval worsening of interstitial, nodular and alveolar airspace disease in both lungs, worse in the left lung. Findings are concerning for opportunistic infection an atypical pneumonia including pneumo cystitis carinii and CADEN.
--- NOTE | 2018-02-04 16:16 | CP.PCM.PN ---
Subjective - Date & Time of Evaluation Date of Evaluation: 02/04/18 Time of Evaluation: 12:20 - Subjective Subjective: F/u of Pulmonary infiltrate Seen and examined at bedside. In no acute distress. having low grade fever this morning Denies Cp, SOB, cough, chills no events overnight Objective - Vital Signs/Intake and Output Vital Signs (last 24 hours): Temp Pulse Resp BP Pulse Ox 100.9 F H 112 H 16 117/66 97 02/04/18 16:08 02/04/18 16:08 02/04/18 16:08 02/04/18 16:08 02/04/18 16:08 - Medications Medications: Current Medications Acetaminophen (Tylenol 325mg Tab) 650 mg PO Q6 PRN PRN Reason: Pain, Mild (1-3) Last Admin: 01/30/18 04:58 Dose: 650 mg Acetaminophen (Tylenol 325mg Tab) 650 mg PO Q6 PRN PRN Reason: Fever >100.4 F Last Admin: 01/30/18 10:46 Dose: 650 mg Albuterol/Ipratropium (Duoneb 3 Mg/0.5 Mg (3 Ml) Ud) 3 ml INH RQ6 PRN PRN Reason: Shortness of Breath Piperacillin Sod/Tazobactam (Sod 3.375 gm/ Sodium Chloride) 100 mls @ 100 mls/ hr IVPB Q6 IVANNA PRN Reason: Protocol Last Admin: 02/04/18 15:18 Dose: 100 mls/hr Vancomycin HCl 1 gm/ Sodium (Chloride) 250 mls @ 166.667 mls/hr IVPB Q12H IVANNA PRN Reason: Protocol Last Admin: 02/04/18 10:53 Dose: 166.667 mls/hr Trimethoprim/Sulfamethoxazole (450 mg/ Dextrose) 500 mls @ 333.333 mls/hr IVPB Q8@0630,1430,2230 IVANNA PRN Reason: Protocol Last Admin: 02/04/18 15:17 Dose: 333.333 mls/hr Metoprolol Tartrate (Lopressor) 25 mg PO Q12 IVANNA Last Admin: 02/04/18 09:28 Dose: 25 mg Ondansetron HCl (Zofran Inj) 4 mg IVP Q6 PRN PRN Reason: Nausea/Vomiting Prednisone (Prednisone Tab) 40 mg PO BID [facility] Stop: 02/04/18 17:01 Last Admin: 02/04/18 09:29 Dose: 40 mg Prednisone (Prednisone Tab) 40 mg PO DAILY IVANNA Stop: 02/09/18 09:01 - Labs Labs: 02/04/18 04:20 02/04/18 04:20 - Constitutional Appears: Non-toxic, No Acute Distress - Head Exam Head Exam: ATRAUMATIC, NORMOCEPHALIC - Eye Exam Eye Exam: Normal appearance - ENT Exam ENT Exam: Mucous Membranes Moist - Respiratory Exam Respiratory Exam: Clear to Ausculation Bilateral, NORMAL BREATHING PATTERN. absent: Rales, Rhonchi, Wheezes - Cardiovascular Exam Cardiovascular Exam: REGULAR RHYTHM, +S1, +S2 - GI/Abdominal Exam GI & Abdominal Exam: Soft, Normal Bowel Sounds. absent: Guarding, Rigid, Tenderness - Extremities Exam Extremities Exam: Normal Inspection. absent: Calf Tenderness, Pedal Edema - Back Exam Back Exam: NORMAL INSPECTION. absent: CVA tenderness (L), CVA tenderness (R) - Neurological Exam Neurological Exam: Alert, Awake, Oriented x3 Assessment and Plan (1) Pulmonary infiltrate Status: Acute (2) Pulmonary nodules Status: Acute (3) Fever Status: Resolved (4) AIDS Status: Acute - Assessment and Plan (Free Text) Plan: Having fevers this morning on current antibiotic treatment Chest CT done this morning reviewed, and impression is that infiltrates is not improving, and seem to be getting worse. pending official report will do an ABG stat in Room air c/w steriods c/w IV antibiotics, Vanco, Zosyn, Bactrim plan for Bronchoscopy on Wednesday will discuss with primary team
[2018-02-05] MEDS: Piperacillin/Tazobact 3.375 GM in Sodium Chloride 0.9% 100 ML IVPB SCH ×4 (04:03→21:24)
[2018-02-05] MEDS: WATER IVPB SCH ×2 (06:03→16:28)
[2018-02-05] MEDS: SULFAMETHOXAZOLE IVPB SCH ×2 (06:03→16:28)
[2018-02-05] MEDS: TRIMETHOPRIM IVPB SCH ×2 (06:03→16:28)
[2018-02-05] MEDS: DEXTROSE 5% IVPB SCH ×2 (06:03→16:28)
--- NOTE | 2018-02-05 12:01 | CP.PCM.PN ---
Subjective - Date & Time of Evaluation Date of Evaluation: 02/05/18 Time of Evaluation: 11:59 - Subjective Subjective: COMFORTABLE NO COMPLAINTS NO SOB / CP /CALF TENDERNESS HD STABLE NAD Objective - Vital Signs/Intake and Output Vital Signs (last 24 hours): Temp Pulse Resp BP Pulse Ox 97.9 F 92 H 20 130/82 99 02/05/18 08:00 02/05/18 09:55 02/05/18 08:00 02/05/18 09:55 02/05/18 08:00 - Medications Medications: Current Medications Acetaminophen (Tylenol 325mg Tab) 650 mg PO Q6 PRN PRN Reason: Pain, Mild (1-3) Last Admin: 01/30/18 04:58 Dose: 650 mg Acetaminophen (Tylenol 325mg Tab) 650 mg PO Q6 PRN PRN Reason: Fever >100.4 F Last Admin: 01/30/18 10:46 Dose: 650 mg Albuterol/Ipratropium (Duoneb 3 Mg/0.5 Mg (3 Ml) Ud) 3 ml INH RQ6 PRN PRN Reason: Shortness of Breath Piperacillin Sod/Tazobactam (Sod 3.375 gm/ Sodium Chloride) 100 mls @ 100 mls/ hr IVPB Q6 IVANNA PRN Reason: Protocol Last Admin: 02/05/18 09:52 Dose: 100 mls/hr Vancomycin HCl 1 gm/ Sodium (Chloride) 250 mls @ 166.667 mls/hr IVPB Q12H IVANNA PRN Reason: Protocol Last Admin: 02/05/18 09:54 Dose: 166.667 mls/hr Trimethoprim/Sulfamethoxazole (450 mg/ Dextrose) 500 mls @ 333.333 mls/hr IVPB Q8@0630,1430,2230 IVANNA PRN Reason: Protocol Last Admin: 02/05/18 06:03 Dose: 333.333 mls/hr Metoprolol Tartrate (Lopressor) 25 mg PO Q12 IVANNA Last Admin: 02/05/18 09:55 Dose: 25 mg Ondansetron HCl (Zofran Inj) 4 mg IVP Q6 PRN PRN Reason: Nausea/Vomiting Prednisone (Prednisone Tab) 40 mg PO DAILY IVANNA Stop: 02/09/18 09:01 Last Admin: 02/05/18 09:56 Dose: 40 mg - Labs Labs: 02/04/18 04:20 02/04/18 04:20 - Constitutional Appears: Non-toxic, No Acute Distress - Head Exam Head Exam: ATRAUMATIC, NORMOCEPHALIC - Eye Exam Eye Exam: EOMI, Normal appearance, PERRL Pupil Exam: NORMAL ACCOMODATION - Respiratory Exam Respiratory Exam: Clear to Ausculation Bilateral, NORMAL BREATHING PATTERN - Cardiovascular Exam Cardiovascular Exam: RRR, +S2 - GI/Abdominal Exam GI & Abdominal Exam: Soft, Normal Bowel Sounds. absent: Mass, Organomegaly - Extremities Exam Extremities Exam: Normal Capillary Refill. absent: Calf Tenderness - Back Exam Back Exam: absent: CVA tenderness (L), CVA tenderness (R) - Neurological Exam Neurological Exam: Alert, Awake, Oriented x3 - Psychiatric Exam Psychiatric exam: Normal Affect, Normal Mood - Skin Skin Exam: Normal Color, Petechiae, Warm Assessment and Plan - Assessment and Plan (Free Text) Plan: 7 yo m without medical history presented with 3 day history of N/V/ abd pain/ chills/ and mild cough. Rapid HIV test was performed and reported as positive with confirmatory RNA PCR test positive. CD4 count reported as 30. Patient is now feeling better and denies any complaints at this time. Patient currently on empiric treatment for PJP. AFB sputum negative x3. 1. AIDS Assessment & Plan: Positive HIV-1 rapid screen, HIV RNA= 5.1 million , CD4 count of 30. CT chest : bilateraly diffuse and extensive reticulonodular pulmonary opacities , repeat CT demonstrated worsened reticulonodular opacities with groundglass infiltrates. Repeat CT chest 02/04/18: interval worsening of interstitial, nodular, alveolar airspace disease in both lungs, worse in the left. Findings are concerning for opportunistic infection and atypical pneumonia including pneumo cystitis carinii and CADEN. - Continue Bactrim weight based; Complete 21 day course (Ending February 20.). - Continue Prednisone 40mg po daily - Continue Vanco/ Zosyn. Vanco trough: 5.3. - Recommendation by ID: Zithromax 1200mg po once a week for MAC prophylaxis. - AFB sputum negative x3. Quantiferon negative. - RPR: nonreactive. Hepatitis panel: negative. - per Dr. Jenkins: BRONCH FOR Wednesday Gastroenteritis Assessment & Plan: Resolved. 3 Renal calcification Assessment & Plan: Dedicated CT scan and ultrasound of kidneys did not show any kidney abnormalities. 4 Hypokalemia Assessment & Plan: Resolved. 5 DVT prophylaxis Assessment & Plan: Continue current management: SCD's and early ambulation.
--- NOTE | 2018-02-05 14:11 | CP.PCM.PN ---
Subjective - Date & Time of Evaluation Date of Evaluation: 02/05/18 Time of Evaluation: 12:30 - Subjective Subjective: F/U Pulmonary infiltrate No A/D, no SOB, no cough. Objective - Vital Signs/Intake and Output Vital Signs (last 24 hours): Temp Pulse Resp BP Pulse Ox 100.1 F H 119 H 18 111/58 L 97 02/05/18 13:00 02/05/18 13:00 02/05/18 13:00 02/05/18 13:00 02/05/18 13:00 - Medications Medications: Current Medications Acetaminophen (Tylenol 325mg Tab) 650 mg PO Q6 PRN PRN Reason: Pain, Mild (1-3) Last Admin: 01/30/18 04:58 Dose: 650 mg Acetaminophen (Tylenol 325mg Tab) 650 mg PO Q6 PRN PRN Reason: Fever >100.4 F Last Admin: 01/30/18 10:46 Dose: 650 mg Albuterol/Ipratropium (Duoneb 3 Mg/0.5 Mg (3 Ml) Ud) 3 ml INH RQ6 PRN PRN Reason: Shortness of Breath Piperacillin Sod/Tazobactam (Sod 3.375 gm/ Sodium Chloride) 100 mls @ 100 mls/ hr IVPB Q6 IVANNA PRN Reason: Protocol Last Admin: 02/05/18 09:52 Dose: 100 mls/hr Vancomycin HCl 1 gm/ Sodium (Chloride) 250 mls @ 166.667 mls/hr IVPB Q12H IVANNA PRN Reason: Protocol Last Admin: 02/05/18 09:54 Dose: 166.667 mls/hr Trimethoprim/Sulfamethoxazole (450 mg/ Dextrose) 500 mls @ 333.333 mls/hr IVPB Q8@0630,1430,2230 IVANNA PRN Reason: Protocol Last Admin: 02/05/18 06:03 Dose: 333.333 mls/hr Metoprolol Tartrate (Lopressor) 25 mg PO Q12 IVANNA Last Admin: 02/05/18 09:55 Dose: 25 mg Ondansetron HCl (Zofran Inj) 4 mg IVP Q6 PRN PRN Reason: Nausea/Vomiting Prednisone (Prednisone Tab) 40 mg PO DAILY IVANNA Stop: 02/09/18 09:01 Last Admin: 02/05/18 09:56 Dose: 40 mg - Labs Labs: 02/04/18 04:20 02/04/18 04:20 - Constitutional Appears: No Acute Distress - Head Exam Head Exam: NORMAL INSPECTION - Eye Exam Eye Exam: PERRL - ENT Exam ENT Exam: Normal Exam - Neck Exam Neck Exam: Normal Inspection - Respiratory Exam Respiratory Exam: Clear to Ausculation Bilateral - Cardiovascular Exam Cardiovascular Exam: REGULAR RHYTHM - GI/Abdominal Exam GI & Abdominal Exam: Soft, Normal Bowel Sounds - Extremities Exam Extremities Exam: Normal Inspection - Back Exam Back Exam: NORMAL INSPECTION - Neurological Exam Neurological Exam: Alert, CN II-XII Intact, Oriented x3. absent: Motor Sensory Deficit - Psychiatric Exam Psychiatric exam: Normal Mood - Skin Skin Exam: Warm Assessment and Plan (1) Pulmonary infiltrate Status: Acute (2) Pulmonary nodules Status: Acute (3) Fever Status: Resolved (4) AIDS Status: Acute - Assessment and Plan (Free Text) Plan: Continue ZoVincenzo abarca and rets of Tx. For Bronchoscopy/Bx on Wednesday
[2018-02-06] MEDS: Piperacillin/Tazobact 3.375 GM in Sodium Chloride 0.9% 100 ML IVPB SCH ×4 (04:10→21:09)
[2018-02-06 07:11] LABS: BASO % 0.2 % (0.0-2.0); EOS % 0.5 % (0.0-4.0); HEMOGLOBIN 15.7 g/dL (12.0-18.0); LYMPH # 0.5 K/uL (1.0-4.3); MEAN CELL VOLUME 87.7 fl (80.0-94.0); MEAN CORPUSCULAR HEMOGLOBIN 29.8 pg (27.0-31.0); MEAN PLATELET VOLUME 8.3 fl (7.2-11.7); MONO # 0.2 K/uL (0.0-0.8); NEUT # 7.3 K/uL (1.8-7.0); NEUT % 91.3 % (50.0-75.0); NRBC % 0.2 % (0.0-0.0); PLATELET COUNT 252 K/uL (130-400); RBC 5.27 Mil/uL (4.40-5.90); RED CELL DISTRIBUTION WIDTH 13.7 % (11.5-14.5)
[2018-02-06 07:17] LABS: BLOOD UREA NITROGEN 11 mg/dl (9-20); CALCIUM 8.6 mg/dL (8.4-10.2); GFR AFRICAN-AMERICAN > 60; GFR NON-AFRICAN AMERICAN > 60
--- NOTE | 2018-02-06 09:48 | CP.PCM.PN ---
Subjective - Date & Time of Evaluation Date of Evaluation: 02/06/18 Time of Evaluation: 09:47 - Subjective Subjective: pt doing well clinically no complaints no cp / sob / pain / calf tenderness hd stable nad Objective - Vital Signs/Intake and Output Vital Signs (last 24 hours): Temp Pulse Resp BP Pulse Ox 100 F H 129 H 18 149/66 95 02/06/18 08:00 02/06/18 08:00 02/06/18 08:00 02/06/18 08:00 02/06/18 08:00 - Medications Medications: Current Medications Acetaminophen (Tylenol 325mg Tab) 650 mg PO Q6 PRN PRN Reason: Pain, Mild (1-3) Last Admin: 01/30/18 04:58 Dose: 650 mg Acetaminophen (Tylenol 325mg Tab) 650 mg PO Q6 PRN PRN Reason: Fever >100.4 F Last Admin: 02/06/18 06:13 Dose: 650 mg Albuterol/Ipratropium (Duoneb 3 Mg/0.5 Mg (3 Ml) Ud) 3 ml INH RQ6 PRN PRN Reason: Shortness of Breath Piperacillin Sod/Tazobactam (Sod 3.375 gm/ Sodium Chloride) 100 mls @ 100 mls/ hr IVPB Q6 IVANNA PRN Reason: Protocol Last Admin: 02/06/18 04:10 Dose: 100 mls/hr Vancomycin HCl 1 gm/ Sodium (Chloride) 250 mls @ 166.667 mls/hr IVPB Q12H IVANNA PRN Reason: Protocol Last Admin: 02/05/18 22:37 Dose: 166.667 mls/hr Metoprolol Tartrate (Lopressor) 25 mg PO Q12 IVANNA Last Admin: 02/05/18 20:54 Dose: 25 mg Ondansetron HCl (Zofran Inj) 4 mg IVP Q6 PRN PRN Reason: Nausea/Vomiting Prednisone (Prednisone Tab) 40 mg PO DAILY IVANNA Stop: 02/09/18 09:01 Last Admin: 02/05/18 09:56 Dose: 40 mg - Labs Labs: 02/06/18 06:02 02/06/18 06:02 Assessment and Plan - Assessment and Plan (Free Text) Plan: 7 yo m without medical history presented with 3 day history of N/V/ abd pain/ chills/ and mild cough. Rapid HIV test was performed and reported as positive with confirmatory RNA PCR test positive. CD4 count reported as 30. Patient is now feeling better and denies any complaints at this time. Patient currently on empiric treatment for PJP. AFB sputum negative x3. 1. AIDS Assessment & Plan: Positive HIV-1 rapid screen, HIV RNA= 5.1 million , CD4 count of 30. CT chest : bilateraly diffuse and extensive reticulonodular pulmonary opacities , repeat CT demonstrated worsened reticulonodular opacities with groundglass infiltrates. Repeat CT chest 02/04/18: interval worsening of interstitial, nodular, alveolar airspace disease in both lungs, worse in the left. Findings are concerning for opportunistic infection and atypical pneumonia including pneumo cystitis carinii and CADEN. - Continue Bactrim weight based; Complete 21 day course (Ending February 20.). - Continue Prednisone 40mg po daily - Continue Vanco/ Zosyn. Vanco trough: 5.3. - Recommendation by ID: Zithromax 1200mg po once a week for MAC prophylaxis. - AFB sputum negative x3. Quantiferon negative. - RPR: nonreactive. Hepatitis panel: negative. - per Dr. Jenkins: BRONCH FOR WEDNESDAY, TOMORROW 2 Gastroenteritis Assessment & Plan: Resolved. 3 Renal calcification Assessment & Plan: Dedicated CT scan and ultrasound of kidneys did not show any kidney abnormalities. 4 Hypokalemia Assessment & Plan: Resolved. 5 Elevated transaminase -trend DVT prophylaxis Assessment & Plan: Continue current management: SCD's and early ambulation.
[2018-02-06 10:50] LABS: BANDS 5 % (0-2); LYMPHOCYTE 6 % (20-50); MONOCYTE 9 % (0-10); NEUTROPHIL 76 % (42-75); PLATELET CLUMPS PRESENT; PLATELET ESTIMATE NORMAL (NORMAL); REACTIVE LYMPHOCYTES 4 % (0-0); TOTAL CELLS COUNTED 100
[2018-02-06] MEDS: TRIMETHOPRIM IVPB SCH ×2 (11:32→18:00)
[2018-02-06] MEDS: DEXTROSE 5% IVPB SCH ×2 (11:32→18:00)
[2018-02-06] MEDS: WATER IVPB SCH ×2 (11:32→18:00)
[2018-02-06] MEDS: SULFAMETHOXAZOLE IVPB SCH ×2 (11:32→18:00)
--- NOTE | 2018-02-06 14:52 | CP.PCM.PN ---
Subjective - Date & Time of Evaluation Date of Evaluation: 02/06/18 Time of Evaluation: 13:40 - Subjective Subjective: F/U Pulmonary Infiltrate no Ad, no SOB, no VARELA, no cough Objective - Vital Signs/Intake and Output Vital Signs (last 24 hours): Temp Pulse Resp BP Pulse Ox 99.4 F 114 H 20 93/48 L 98 02/06/18 12:00 02/06/18 12:00 02/06/18 12:00 02/06/18 12:00 02/06/18 12:00 - Medications Medications: Current Medications Acetaminophen (Tylenol 325mg Tab) 650 mg PO Q6 PRN PRN Reason: Pain, Mild (1-3) Last Admin: 01/30/18 04:58 Dose: 650 mg Acetaminophen (Tylenol 325mg Tab) 650 mg PO Q6 PRN PRN Reason: Fever >100.4 F Last Admin: 02/06/18 06:13 Dose: 650 mg Albuterol/Ipratropium (Duoneb 3 Mg/0.5 Mg (3 Ml) Ud) 3 ml INH RQ6 PRN PRN Reason: Shortness of Breath Piperacillin Sod/Tazobactam (Sod 3.375 gm/ Sodium Chloride) 100 mls @ 100 mls/ hr IVPB Q6 IVANNA PRN Reason: Protocol Last Admin: 02/06/18 09:58 Dose: 100 mls/hr Vancomycin HCl 1 gm/ Sodium (Chloride) 250 mls @ 166.667 mls/hr IVPB Q12H IVANNA PRN Reason: Protocol Last Admin: 02/06/18 09:57 Dose: 166.667 mls/hr Trimethoprim/Sulfamethoxazole (450 mg/ Dextrose) 500 mls @ 333.333 mls/hr IVPB Q8 IVANNA PRN Reason: Protocol Stop: 02/20/18 00:00 Last Admin: 02/06/18 11:32 Dose: 333.333 mls/hr Metoprolol Tartrate (Lopressor) 25 mg PO Q12 IVANNA Last Admin: 02/06/18 09:57 Dose: 25 mg Ondansetron HCl (Zofran Inj) 4 mg IVP Q6 PRN PRN Reason: Nausea/Vomiting Prednisone (Prednisone Tab) 40 mg PO DAILY [facility] Stop: 02/09/18 09:01 Last Admin: 07/22/18 09:58 Dose: 40 mg - Labs Labs: 02/06/18 06:02 02/06/18 06:02 - Constitutional Appears: No Acute Distress - Head Exam Head Exam: NORMAL INSPECTION - Eye Exam Eye Exam: PERRL - ENT Exam ENT Exam: Normal Exam - Neck Exam Neck Exam: Normal Inspection - Respiratory Exam Respiratory Exam: Clear to Ausculation Bilateral - Cardiovascular Exam Cardiovascular Exam: REGULAR RHYTHM - GI/Abdominal Exam GI & Abdominal Exam: Soft, Normal Bowel Sounds - Extremities Exam Extremities Exam: Normal Inspection - Back Exam Back Exam: NORMAL INSPECTION - Neurological Exam Neurological Exam: Alert, CN II-XII Intact, Oriented x3. absent: Motor Sensory Deficit - Psychiatric Exam Psychiatric exam: Normal Affect - Skin Skin Exam: Warm Assessment and Plan (1) Pulmonary infiltrate Status: Acute (2) Pulmonary nodules Status: Acute (3) Fever Status: Resolved (4) AIDS Status: Acute - Assessment and Plan (Free Text) Plan: T Max 103, Tachycardia avg 100 to 110, continue DuoNeb, Bactrim Zosyn, Vanco, Prednisone, NPO after midnight, for FOB Bx am requiring intubation due to extensive B/L infiltrates and marked hypoxemia on RA
[2018-02-06 23:23] LABS: URINE BILIRUBIN NEGATIVE (NEGATIVE); URINE BLOOD NEGATIVE (NEGATIVE); URINE CLARITY CLEAR (Clear); URINE COLOR STRAW (YELLOW); URINE GLUCOSE (UA) >=500 mg/dL (Normal); URINE LEUKOCYTE ESTERASE NEG Leu/uL (Negative); URINE PROTEIN NEGATIVE (NEGATIVE); URINE UROBILINOGEN 0.2-1.0 mg/dL (0.2-1.0)
[2018-02-07] MEDS: WATER IVPB SCH ×3 (00:28→17:13)
[2018-02-07] MEDS: DEXTROSE 5% IVPB SCH ×3 (00:28→17:13)
[2018-02-07] MEDS: TRIMETHOPRIM IVPB SCH ×3 (00:28→17:13)
[2018-02-07] MEDS: SULFAMETHOXAZOLE IVPB SCH ×3 (00:28→17:13)
[2018-02-07] MEDS: Piperacillin/Tazobact 3.375 GM in Sodium Chloride 0.9% 100 ML IVPB SCH ×2 (04:16→09:33)
[2018-02-07 06:41] LABS: BASO % 0.3 % (0.0-2.0); EOS # 0.2 K/uL (0.0-0.7); EOS % 2.1 % (0.0-4.0); HEMOGLOBIN 15.9 g/dL (12.0-18.0); LYMPH # 1.1 K/uL (1.0-4.3); LYMPH % 11.9 % (20.0-40.0); MEAN CELL VOLUME 90.1 fl (80.0-94.0); MEAN CORPUSCULAR HEMOGLOBIN 29.8 pg (27.0-31.0); MEAN PLATELET VOLUME 8.2 fl (7.2-11.7); MONO # 0.1 K/uL (0.0-0.8); MONO % 1.3 % (0.0-10.0); NEUT # 7.9 K/uL (1.8-7.0); NEUT % 84.4 % (50.0-75.0); RBC 5.36 Mil/uL (4.40-5.90); RED CELL DISTRIBUTION WIDTH 14.4 % (11.5-14.5); WHITE BLOOD COUNT 9.3 K/uL (4.8-10.8)
[2018-02-07 06:50] LABS: INR 0.9 (0.9-1.2); PARTIAL THROMBOPLASTIN TIME 28.7 Seconds (25.6-37.1); PROTHROMBIN TIME 10.4 Seconds (9.8-13.1)
[2018-02-07 07:01] LABS: ALB/GLOB RATIO 1.1 (1.0-2.1); ALBUMIN 4.2 g/dL (3.5-5.0); ALT/SGPT 615 U/L (21-72); AST/SGOT 364 U/L (17-59); BLOOD UREA NITROGEN 11 mg/dl (9-20); CALCIUM 8.6 mg/dL (8.4-10.2); GFR AFRICAN-AMERICAN > 60; GFR NON-AFRICAN AMERICAN > 60
[2018-02-07] MEDS ORDERED: Metoprolol 1 mg/ml Inj IVP STA (07:10)
[2018-02-07] MEDS ORDERED: EPINEPHrine 1 mg/ml (1:1000) Inj ONE (10:29)
[2018-02-07] MEDS ORDERED: Lidocaine 2% Jelly (5 ml) TOP ONE (10:30)
--- NOTE | 2018-02-07 11:21 | CP.PCM.PN ---
<Maura Lopez - Last Filed: 02/07/18 15:41> Subjective - Date & Time of Evaluation Date of Evaluation: 02/07/18 Time of Evaluation: 11:35 - Subjective Subjective: Patient was seen and examined at bedside with Dr. Fernandez. He is sitting comfortably and reports he has no complaints. He states that he understands why the bronchoscopy could not be performed today due to his elevated LFT's. Patient was counseled on drinking habits. he reports he felt a bit feverish before but denies chills. He denies chest pain, shortness of breath, sore throat , nausea, vomiting, abdominal pain, diarrhea or constipation. Objective - Vital Signs/Intake and Output Vital Signs (last 24 hours): Temp Pulse Resp BP Pulse Ox 98.2 F 111 H 20 93/55 L 95 02/07/18 10:31 02/07/18 10:31 02/07/18 10:31 02/07/18 10:31 02/07/18 10:31 - Medications Medications: Current Medications Acetaminophen (Tylenol 325mg Tab) 650 mg PO Q6 PRN PRN Reason: Pain, Mild (1-3) Last Admin: 01/30/18 04:58 Dose: 650 mg Acetaminophen (Tylenol 325mg Tab) 650 mg PO Q6 PRN PRN Reason: Fever >100.4 F Last Admin: 02/06/18 06:13 Dose: 650 mg Albuterol/Ipratropium (Duoneb 3 Mg/0.5 Mg (3 Ml) Ud) 3 ml INH RQ6 PRN PRN Reason: Shortness of Breath Piperacillin Sod/Tazobactam (Sod 3.375 gm/ Sodium Chloride) 100 mls @ 100 mls/ hr IVPB Q6 IVANNA PRN Reason: Protocol Last Admin: 02/07/18 09:33 Dose: 100 mls/hr Vancomycin HCl 1 gm/ Sodium (Chloride) 250 mls @ 166.667 mls/hr IVPB Q12H IVANNA PRN Reason: Protocol Last Admin: 02/07/18 09:32 Dose: 166.667 mls/hr Trimethoprim/Sulfamethoxazole (450 mg/ Dextrose) 500 mls @ 333.333 mls/hr IVPB Q8 IVANNA PRN Reason: Protocol Stop: 02/20/18 00:00 Last Admin: 02/07/18 09:50 Dose: 333.333 mls/hr Metoprolol Tartrate (Lopressor) 25 mg PO Q12 IVANNA Last Admin: 02/07/18 09:58 Dose: Not Given Ondansetron HCl (Zofran Inj) 4 mg IVP Q6 PRN PRN Reason: Nausea/Vomiting Last Admin: 02/07/18 07:01 Dose: 4 mg Prednisone (Prednisone Tab) 40 mg PO DAILY IVANNA Stop: 02/09/18 09:01 Last Admin: 02/06/18 09:58 Dose: 40 mg - Labs Labs: 02/07/18 05:41 02/07/18 05:41 PT 10.4 Seconds (9.8-13.1) 02/07/18 05:41 INR 0.9 (0.9-1.2) 02/07/18 05:41 APTT 28.7 Seconds (25.6-37.1) 02/07/18 05:41 - Constitutional Appears: Well, Non-toxic, No Acute Distress - Head Exam Head Exam: NORMAL INSPECTION - Eye Exam Eye Exam: Normal appearance - ENT Exam ENT Exam: Mucous Membranes Moist, Normal Oropharynx (no oral thrush present on exam. ) - Neck Exam Neck Exam: Normal Inspection. absent: Lymphadenopathy, Tenderness, Thyromegaly - Respiratory Exam Respiratory Exam: Clear to Ausculation Bilateral, NORMAL BREATHING PATTERN. absent: Chest Wall Tenderness, Rales, Rhonchi, Wheezes, Respiratory Distress, Stridor - Cardiovascular Exam Cardiovascular Exam: REGULAR RHYTHM, RRR, +S1, +S2. absent: Clicks, Diastolic murmur, Gallop, JVD, Rubs, Murmur - GI/Abdominal Exam GI & Abdominal Exam: Soft, Normal Bowel Sounds. absent: Distended, Firm, Guarding, Tenderness, Organomegaly, Pulsatile Mass, Rebound - Extremities Exam Extremities Exam: Full ROM, Normal Capillary Refill, Normal Inspection. absent : Joint Swelling, Pedal Edema, Tenderness - Back Exam Back Exam: NORMAL INSPECTION - Neurological Exam Neurological Exam: Alert, Awake, Normal Gait, Oriented x3 - Psychiatric Exam Psychiatric exam: Normal Affect, Normal Mood - Skin Skin Exam: Dry, Intact, Normal Color, Warm Assessment and Plan (1) AIDS Status: Acute (2) Gastroenteritis Status: Acute (3) Elevated transaminase level Status: Acute (4) Renal calcification Status: Acute (5) Hypokalemia Status: Acute (6) DVT prophylaxis Status: Acute - Assessment and Plan (Free Text) Assessment: 27 yo male without medical history presented with 3 day history of N/V/ abd pain / chills/ and mild cough. Rapid HIV test was performed and reported as positive with confirmatory RNA PCR test positive. CD4 count reported as 30. Patient is now feeling better and denies any complaints at this time. Patient currently on empiric treatment for PJP. AFB sputum negative x3. Repeat CT chest 02/04/18: interval worsening of interstitial, nodular, alveolar airspace disease in both lungs, worse in the left. Findings are concerning for opportunistic infection and atypical pneumonia including pneumo cystitis carinii and CADEN. Plan: 1. AIDS Assessment & Plan: Positive HIV-1 rapid screen, HIV RNA= 5.1 million , CD4 count of 30. CT chest : bilateraly diffuse and extensive reticulonodular pulmonary opacities , repeat CT demonstrated worsened reticulonodular opacities with groundglass infiltrates. Repeat CT chest 02/04/18: interval worsening of interstitial, nodular, alveolar airspace disease in both lungs, worse in the left. Findings are concerning for opportunistic infection and atypical pneumonia including pneumo cystitis carinii and CADEN. - Continue Bactrim weight based; Complete 21 day course (Ending February 20.). - Begin Prednisone taper: Prednisone changed to 20mg po daily. - Continue Vanco. Vanco trough: 5.3. - Recommendation by ID: Zithromax 1200mg po once a week for MAC prophylaxis. - AFB sputum negative x3. Quantiferon negative. - RPR: nonreactive. Hepatitis panel: negative. - per Dr. Jenkins: BRONCH cancelled today due to elevated LFT's, Repeat CT CHEST Wednesday. 2 Gastroenteritis Assessment & Plan: Resolved. 3 Renal calcification Assessment & Plan: Dedicated CT scan and ultrasound of kidneys did not show any kidney abnormalities. 4 Hypokalemia Assessment & Plan: Resolved. 5 Elevated transaminase - possibly secondary to medication (Bactrim or Zosyn), need to r/o other liver causes. - CT abdomen on admission was negative for any abnormalities in the liver. -Zosyn discontinued -Patient was counseled on drinking habits. -Acetaminophen discontinued; Ibuprofen will be used for fever: 600mg Q8H prn fever. -continue to trend -If persistent transaminitis even after discontinuing Zosyn, will do further workup and consult GI. DVT prophylaxis Assessment & Plan: Continue current management: SCD's and early ambulation. <Adriana Fernandez Tanesha - Last Filed: 02/07/18 16:22> Objective - Vital Signs/Intake and Output Vital Signs (last 24 hours): Temp Pulse Resp BP Pulse Ox 100.4 F H 132 H 20 109/59 L 94 L 02/07/18 15:49 02/07/18 15:49 02/07/18 15:49 02/07/18 15:49 02/07/18 15:49 - Medications Medications: Current Medications Albuterol/Ipratropium (Duoneb 3 Mg/0.5 Mg (3 Ml) Ud) 3 ml INH RQ6 PRN PRN Reason: Shortness of Breath Trimethoprim/Sulfamethoxazole (450 mg/ Dextrose) 500 mls @ 333.333 mls/hr IVPB Q8 IVANNA PRN Reason: Protocol Stop: 02/20/18 00:00 Last Admin: 02/07/18 09:50 Dose: 333.333 mls/hr Ibuprofen (Motrin Tab) 600 mg PO Q8 PRN PRN Reason: Fever >100.4 F Metoprolol Tartrate (Lopressor) 25 mg PO Q12 [facility] Last Admin: 02/07/18 09:58 Dose: Not Given Ondansetron HCl (Zofran Inj) 4 mg IVP Q6 PRN PRN Reason: Nausea/Vomiting Last Admin: 02/07/18 07:01 Dose: 4 mg Prednisone (Prednisone Tab) 20 mg PO DAILY [facility] - Labs Labs: 02/07/18 05:41 02/07/18 05:41 PT 10.4 Seconds (9.8-13.1) 02/07/18 05:41 INR 0.9 (0.9-1.2) 02/07/18 05:41 APTT 28.7 Seconds (25.6-37.1) 02/07/18 05:41 Attending/Attestation - Attestation I have personally seen and examined this patient.: Yes I have fully participated in the care of the patient.: Yes I have reviewed all pertinent clinical information, including history, physical exam and plan: Yes
--- NOTE | 2018-02-07 14:00 | CP.PCM.PN ---
Subjective - Date & Time of Evaluation Date of Evaluation: 02/07/18 Time of Evaluation: 14:00 - Subjective Subjective: ID Note- Pt. seen and examined today. pt. denies any complaints now but overnight has had high fever spikes and tachycardia and sweating as per nurse when he gets the fevers. He denies any cough or sob . denies any dysurea, denies any abd. pain, denies any diarrhea, denies any nausea or vomiting and in fact has been eating 4 times a day. Objective - Vital Signs/Intake and Output Vital Signs (last 24 hours): Temp Pulse Resp BP Pulse Ox 98.4 F 116 H 18 115/71 97 02/07/18 12:25 02/07/18 12:25 02/07/18 12:25 02/07/18 12:25 02/07/18 12:25 - Medications Medications: Current Medications Albuterol/Ipratropium (Duoneb 3 Mg/0.5 Mg (3 Ml) Ud) 3 ml INH RQ6 PRN PRN Reason: Shortness of Breath Vancomycin HCl 1 gm/ Sodium (Chloride) 250 mls @ 166.667 mls/hr IVPB Q12H IVANNA PRN Reason: Protocol Last Admin: 02/07/18 09:32 Dose: 166.667 mls/hr Trimethoprim/Sulfamethoxazole (450 mg/ Dextrose) 500 mls @ 333.333 mls/hr IVPB Q8 IVANNA PRN Reason: Protocol Stop: 02/20/18 00:00 Last Admin: 02/07/18 09:50 Dose: 333.333 mls/hr Ibuprofen (Motrin Tab) 600 mg PO Q8 PRN PRN Reason: Fever >100.4 F Metoprolol Tartrate (Lopressor) 25 mg PO Q12 [facility] Last Admin: 02/07/18 09:58 Dose: Not Given Ondansetron HCl (Zofran Inj) 4 mg IVP Q6 PRN PRN Reason: Nausea/Vomiting Last Admin: 02/07/18 07:01 Dose: 4 mg Prednisone (Prednisone Tab) 20 mg PO DAILY [facility] Prednisone (Prednisone Tab) 20 mg PO DAILY [facility] Stop: 02/08/18 13:35 - Labs Labs: - Additional Findings Additional findings: - Constitutional Appears: No Acute Distress - Head Exam Head Exam: ATRAUMATIC - Eye Exam Eye Exam: EOMI, PERRL - ENT Exam ENT Exam: Normal Oropharynx - Neck Exam Neck exam: Positive for: Full Rom Additional comments: supple - Respiratory Exam Respiratory Exam: NORMAL BREATHING PATTERN Additional comments: good breath sounds B/L no wheezing no rhonchi - Cardiovascular Exam Cardiovascular Exam: Tachycardia, +S1, +S2 - GI/Abdominal Exam GI & Abdominal Exam: Normal Bowel Sounds, Soft Additional comments: NT, ND No guarding, no rebound No CVA tenderness B/L - Extremities Exam Extremities exam: Positive for: normal inspection - Neurological Exam Neurological exam: Alert, Oriented x 3 Laboratory Results - last 72 hr 01/27/18 02/06/18 02/06/18 08:00 06:02 06:02 WBC 8.0 RBC 5.27 Hgb 15.7 Hct 46.2 MCV 87.7 MCH 29.8 MCHC 34.0 RDW 13.7 Plt Count 252 MPV 8.3 Neut % (Auto) 91.3 H Lymph % (Auto) 6.0 L [place] % (Auto) 2.0 Eos % (Auto) 0.5 Baso % (Auto) 0.2 Neut # (Auto) 7.3 H Lymph # (Auto) 0.5 L [place] # (Auto) 0.2 Eos # (Auto) 0.0 Baso # (Auto) 0.0 Neutrophils % (Manual) 76 H Band Neutrophils % 5 H Lymphocytes % (Manual) 6 L Reactive Lymphs % 4 H Monocytes % (Manual) 9 Platelet Estimate Normal Plt Clumps, EDTA Present RBC Morphology Normal PT INR APTT Sodium 133 Potassium 4.6 Chloride 95 L Carbon Dioxide 27 Anion Gap 16 BUN 11 Creatinine 0.8 Est GFR ( Amer) > 60 Est GFR (Non-Af Amer) > 60 Random Glucose 84 Calcium 8.6 Total Bilirubin AST ALT Alkaline Phosphatase Total Protein Albumin Globulin Albumin/Globulin Ratio Urine Color Urine Clarity Urine pH Ur Specific [place] Urine Protein Urine Glucose (UA) Urine Ketones Urine Blood Urine Nitrate Urine Bilirubin Urine Urobilinogen Ur Leukocyte Esterase Urine RBC (Auto) Rheumatoid Factor IgG <5 02/06/18 02/07/18 02/07/18 23:00 05:41 05:41 WBC 9.3 RBC 5.36 Hgb 15.9 Hct 48.3 MCV 90.1 D MCH 29.8 MCHC 33.0 RDW 14.4 Plt Count 230 MPV 8.2 Neut % (Auto) 84.4 H Lymph % (Auto) 11.9 L [place] % (Auto) 1.3 Eos % (Auto) 2.1 Baso % (Auto) 0.3 Neut # (Auto) 7.9 H Lymph # (Auto) 1.1 [place] # (Auto) 0.1 Eos # (Auto) 0.2 Baso # (Auto) 0.0 Neutrophils % (Manual) Band Neutrophils % Lymphocytes % (Manual) Reactive Lymphs % Monocytes % (Manual) Platelet Estimate Plt Clumps, EDTA RBC Morphology PT INR APTT Sodium 141 Potassium 3.7 Chloride 100 Carbon Dioxide 24 Anion Gap 21 H BUN 11 Creatinine 0.7 L Est GFR ( Amer) > 60 Est GFR (Non-Af Amer) > 60 Random Glucose 90 Calcium 8.6 Total Bilirubin 0.7 AST 364 H D ALT 615 H D Alkaline Phosphatase 174 H D Total Protein 7.9 Albumin 4.2 Globulin 3.7 Albumin/Globulin Ratio 1.1 Urine Color Straw Urine Clarity Clear Urine pH 6.0 Ur Specific [place] 1.008 Urine Protein Negative Urine Glucose (UA) >=500 Urine Ketones Negative Urine Blood Negative Urine Nitrate Negative Urine Bilirubin Negative Urine Urobilinogen 0.2-1.0 Ur Leukocyte Esterase Neg Urine RBC (Auto) 2 Rheumatoid Factor IgG 02/07/18 05:41 WBC RBC Hgb Hct MCV MCH MCHC RDW Plt Count MPV Neut % (Auto) Lymph % (Auto) [place] % (Auto) Eos % (Auto) Baso % (Auto) Neut # (Auto) Lymph # (Auto) [place] # (Auto) Eos # (Auto) Baso # (Auto) Neutrophils % (Manual) Band Neutrophils % Lymphocytes % (Manual) Reactive Lymphs % Monocytes % (Manual) Platelet Estimate Plt Clumps, EDTA RBC Morphology PT 10.4 INR 0.9 APTT 28.7 Sodium Potassium Chloride Carbon Dioxide Anion Gap BUN Creatinine Est GFR ( Amer) Est GFR (Non-Af Amer) Random Glucose Calcium Total Bilirubin AST ALT Alkaline Phosphatase Total Protein Albumin Globulin Albumin/Globulin Ratio Urine Color Urine Clarity Urine pH Ur Specific [place] Urine Protein Urine Glucose (UA) Urine Ketones Urine Blood Urine Nitrate Urine Bilirubin Urine Urobilinogen Ur Leukocyte Esterase Urine RBC (Auto) Rheumatoid Factor IgG Microbiology 01/30/18 13:39 Other: Please Indicate Mycobacterial Culture - Preliminary 01/30/18 12:45 Blood Blood Culture - Final NO GROWTH AFTER 5 DAYS 01/30/18 12:45 Blood Gram Stain - Final TEST NOT PERFORMED 01/30/18 12:30 Blood Blood Culture - Final NO GROWTH AFTER 5 DAYS 01/30/18 12:30 Blood Gram Stain - Final TEST NOT PERFORMED 02/02/18 17:55 Other: Please Indicate Mycobacterial Culture - Preliminary 01/31/18 12:58 Sputum Induced Gram Stain - Final 01/31/18 12:58 Sputum Induced Sputum Culture - Final NORMAL ORAL DEANN 01/31/18 09:35 Other: Please Indicate Mycobacterial Culture - Preliminary 01/30/18 13:44 Urine Urine Culture - Final No Growth (<1,000 CFU/ML) 01/25/18 17:55 Blood-Venous Blood Culture - Final NO GROWTH AFTER 5 DAYS 01/25/18 17:43 Blood-Venous Blood Culture - Final NO GROWTH AFTER 5 DAYS 01/25/18 17:43 Blood-Venous Gram Stain - Final TEST NOT PERFORMED 01/28/18 15:30 Urine Urine Culture - Final No Growth (<1,000 CFU/ML) 01/27/18 14:09 Sputum Gram Stain - Final 01/27/18 14:09 Sputum Sputum Culture - Final NORMAL ORAL DEANN 01/27/18 08:31 Stool Ova and Parasite Concentrate Exam - Final 01/26/18 12:14 Stool Stool Culture - Final NO SALMONELLA, SHIGELLA OR CAMPYLOBACTER ISOLATED. 01/26/18 12:14 Stool Ova and Parasite Concentrate Exam - Final 01/25/18 22:00 Throat Group A Strep Throat Culture - Final NO BETA STREP GROUP A ISOLATED. Accession No. : [id number] Patient Name / ID : MARSHALL NGUYEN PARKER / [id number] Exam Date : 02/04/2018 09:01:11 ( Approved ) Study Comment : Sex / Age : M / 27Y Creator : Carolin Young MD Dictator : Carolin Young MD Hris Manager : Housecleaner : Carolin Young MD Approver2 : Report Date : 02/04/2018 13:46:06 My Comment : Date of service: 02/04/2018 PROCEDURE: CT Chest without contrast HISTORY: Evaluate nodules and dyspnea, HIV-positive COMPARISON: 01/30/2018 and 01/25/2018. TECHNIQUE: Contiguous axial images were obtained through the chest without intravenous contrast enhancement. Sagittal and coronal reconstructions were performed. Radiation dose (DLP): mGy-cm. This CT exam was performed using one or more of the following dose reduction techniques: Automated exposure control, adjustment of the mA and/or kV according to patient size, and/or use of iterative reconstruction technique. FINDINGS: LUNGS: The lungs are well inflated. When compared to the prior examination, there is interval worsening of alveolar airspace disease in both lungs, worse in the left upper lobe, lingula and left lower lobe. There is redemonstration of diffuse interstitial thickening and extensive micro nodules in the lungs. There are no endobronchial lesions. MEDIASTINUM: The aorta is not dilated. The heart is normal in size. No pericardial effusion. No pathologic mediastinal lymphadenopathy. PLEURA: No pleural fluid. No pneumothorax. BONES: No fracture. No destructive lesion. Within normal limits for the patient's age. UPPER ABDOMEN: Grossly unremarkable. OTHER FINDINGS: None. IMPRESSION: Interval worsening of interstitial, nodular and alveolar airspace disease in both lungs, worse in the left lung. Findings are concerning for opportunistic infection an atypical pneumonia including pneumo cystitis carinii and CADEN. Assessment and Plan (1) Fever Status: Resolved (2) Diarrhea Status: Acute (3) Nausea and vomiting Status: Acute (4) AIDS Status: Acute (5) Elevated transaminase level Status: Acute (6) Pulmonary infiltrate Status: Acute - Assessment and Plan (Free Text) Assessment: A/P- 27 year old male with No PMH admitted with fever/ diarrhea/ n/v and found to be HIV positive ( confirmed ) new diagnosis and extensive reticulonodular b/l lung opacitis on chest Ct . was afebrile and clinically betteruntil 2 days ago when he started to spike temps again. normal wbc extensive reticulonodular b/l pulmonary infiltrates on repeat chest CT report despite being on empiric broad spectrum antibiotics and iv bactrim for preseumed PCP. legionella ag- neg influenza- neg HIV ab- pos ( conformed ) CD4-30 ( AIDS) blood cx- neg x 3 stool cx- neg stool ova and parasites- negative sputum AFb smear- neg x 3 transaminitis - new hepatitis panel- neg plan- panculture again for fever work up. agree with IV bactrim and steroids since Cd4 is <200 and extensive reticulonodular b/l pattern on chest CT PCP high possibility . day #9 needs total 21 days of PCP treatment and after completion of the treatment phase pt. should be on oral bactrim for PCP prophylaxis until his CD4 increases to above 200 once HAART regimen is initiated. has completed 10 days of IV zosyn . d/c zosyn now. advise to d/c IV empiric vanco as well. weekly zithromax 1200 mg once a week for MAC prophylaxis since his CD4 is <50. disseminated MAC is still on the list of possibilities ,eventhough sputum AFB smear neg x 3, await sputum AFB culture. would advise bronchoscopy so that actual tissue can be sent for AFB, Fungal , cx. check CMV serology as well.may need EGD r/o CMV vs candidal esophagitis in light of very low cd4 and transaminitis . monitor LFTs now that zosyn is on hold and hold tylenol, would advise motrin instead PRN fever and if LFTS do not decrease will need CT of abd/pelv and GI consult. Patient verbalizes full understanding of all above nad agrees with above plan of care. All above also d/w hospitalist taking care of the patient at length.
--- NOTE | 2018-02-07 14:25 | CP.PCM.PN ---
Subjective - Date & Time of Evaluation Date of Evaluation: 02/07/18 Time of Evaluation: 11:00 - Subjective Subjective: F/U Pulmonary infiltrate Seen and examined at bedside. Patient in no acute distress. Denies Cp, SOB, cough, N/V. Continue spiking fevers in current abx Tx NPO for Bronchoscopy this morning. Spoke with Anesthesiologist due to significantly elevation of LFTs noted in this morning labs. Anesthesia agreed on cancel Broncho today, will re-test LFTs tomorrow. Primary team informed. Objective - Vital Signs/Intake and Output Vital Signs (last 24 hours): Temp Pulse Resp BP Pulse Ox 98.4 F 116 H 18 115/71 97 02/07/18 12:25 02/07/18 12:25 02/07/18 12:25 02/07/18 12:25 02/07/18 12:25 - Medications Medications: Current Medications Albuterol/Ipratropium (Duoneb 3 Mg/0.5 Mg (3 Ml) Ud) 3 ml INH RQ6 PRN PRN Reason: Shortness of Breath Vancomycin HCl 1 gm/ Sodium (Chloride) 250 mls @ 166.667 mls/hr IVPB Q12H [facility] PRN Reason: Protocol Last Admin: 02/07/18 09:32 Dose: 166.667 mls/hr Trimethoprim/Sulfamethoxazole (450 mg/ Dextrose) 500 mls @ 333.333 mls/hr IVPB Q8 [facility]NA PRN Reason: Protocol Stop: 02/20/18 00:00 Last Admin: 02/07/18 09:50 Dose: 333.333 mls/hr Ibuprofen (Motrin Tab) 600 mg PO Q8 PRN PRN Reason: Fever >100.4 F Metoprolol Tartrate (Lopressor) 25 mg PO Q12 [facility] Last Admin: 02/07/18 09:58 Dose: Not Given Ondansetron HCl (Zofran Inj) 4 mg IVP Q6 PRN PRN Reason: Nausea/Vomiting Last Admin: 02/07/18 07:01 Dose: 4 mg Prednisone (Prednisone Tab) 20 mg PO DAILY [facility] Prednisone (Prednisone Tab) 20 mg PO DAILY ONE Stop: 02/08/18 13:35 - Labs Labs: 02/07/18 05:41 02/07/18 05:41 PT 10.4 Seconds (9.8-13.1) 02/07/18 05:41 INR 0.9 (0.9-1.2) 02/07/18 05:41 APTT 28.7 Seconds (25.6-37.1) 02/07/18 05:41 - Constitutional Appears: Non-toxic, No Acute Distress - Eye Exam Eye Exam: Normal appearance - ENT Exam ENT Exam: Mucous Membranes Moist - Respiratory Exam Respiratory Exam: Clear to Ausculation Bilateral, NORMAL BREATHING PATTERN - Cardiovascular Exam Cardiovascular Exam: Tachycardia, REGULAR RHYTHM, +S1, +S2 - GI/Abdominal Exam GI & Abdominal Exam: Soft, Normal Bowel Sounds. absent: Guarding, Rigid, Tenderness - Extremities Exam Extremities Exam: Normal Inspection. absent: Calf Tenderness, Pedal Edema - Back Exam Back Exam: NORMAL INSPECTION. absent: CVA tenderness (L), CVA tenderness (R) - Neurological Exam Neurological Exam: Alert, Awake, Oriented x3 - Psychiatric Exam Psychiatric exam: Normal Affect, Normal Mood - Skin Skin Exam: Dry, Intact, Normal Color Assessment and Plan (1) Pulmonary infiltrate Status: Acute (2) Pulmonary nodules Status: Acute (3) Fever Status: Resolved (4) AIDS Status: Acute - Assessment and Plan (Free Text) Plan: C/w spiking fevers with T max 103 F, Tachycardia 110s-140s continue DuoNeb, Bactrim, Vanco, Prednisone f/u LFTs tomorrow morning. Pt requires intubation for Broncho due to extensive B/L infiltrates and marked hypoxemia on RA. f/u ID consult, recs are appreciated
--- NOTE | 2018-02-07 19:06 | US ---
Date of service: 02/07/2018 PROCEDURE: Bilateral lower extremity venous duplex Doppler. HISTORY: r/o DVT COMPARISON: None available. TECHNIQUE: Bilateral common femoral, superficial femoral, popliteal and posterior tibial veins were evaluated. Flow was assessed with color Doppler, compressibility, assessment of phasic flow and augmentation response. FINDINGS: COMMON FEMORAL VEIN: Right CFV: Unremarkable. Left CFV: Unremarkable. SUPERFICIAL FEMORAL VEIN: Right SFV: Unremarkable. Left SFV: Unremarkable. POPLITEAL VEIN: Right Popliteal: Unremarkable. Left Popliteal: Unremarkable. POSTERIOR TIBIAL VEIN: Right PTV: Unremarkable. Left PTV: Unremarkable. OTHER FINDINGS: None. IMPRESSION: No evidence of deep venous thrombosis.
[2018-02-08] MEDS: TRIMETHOPRIM IVPB SCH ×3 (00:29→16:52)
[2018-02-08] MEDS: DEXTROSE 5% IVPB SCH ×3 (00:29→16:52)
[2018-02-08] MEDS: SULFAMETHOXAZOLE IVPB SCH ×3 (00:29→16:52)
[2018-02-08] MEDS: WATER IVPB SCH ×3 (00:29→16:52)
[2018-02-08 06:09] LABS: BASO % 0.4 % (0.0-2.0); EOS # 0.2 K/uL (0.0-0.7); EOS % 5.6 % (0.0-4.0); HEMOGLOBIN 13.3 g/dL (12.0-18.0); LYMPH # 0.6 K/uL (1.0-4.3); MEAN CELL VOLUME 88.2 fl (80.0-94.0); MEAN CORPUSCULAR HEMOGLOBIN 29.2 pg (27.0-31.0); MEAN CORPUSCULAR HGB CONC 33.1 g/dL (33.0-37.0); MEAN PLATELET VOLUME 8.1 fl (7.2-11.7); MONO # 0.2 K/uL (0.0-0.8); MONO % 5.2 % (0.0-10.0); NEUT # 2.8 K/uL (1.8-7.0); NEUT % 73.8 % (50.0-75.0); NRBC % 0.2 % (0.0-0.0); RBC 4.55 Mil/uL (4.40-5.90); RED CELL DISTRIBUTION WIDTH 14.4 % (11.5-14.5); WHITE BLOOD COUNT 3.8 K/uL (4.8-10.8)
[2018-02-08 06:40] LABS: ALBUMIN 3.2 g/dL (3.5-5.0); ALT/SGPT 535 U/L (21-72); AST/SGOT 230 U/L (17-59); BILIRUBIN,DIRECT 0.2 mg/ml (0.0-0.4); BLOOD UREA NITROGEN 7 mg/dl (9-20); CALCIUM 8.3 mg/dL (8.4-10.2); GFR AFRICAN-AMERICAN > 60; GFR NON-AFRICAN AMERICAN > 60
--- NOTE | 2018-02-08 08:50 | CP.PCM.PN ---
<Maura Lopez - Last Filed: 02/08/18 11:34> Subjective - Date & Time of Evaluation Date of Evaluation: 02/08/18 Time of Evaluation: 08:45 - Subjective Subjective: Patient seen and examined at bedside with Dr. Fernandez. He reports that yesterday he felt feverish, had a mild sore throat and was sweating throughout the day but states that today he feels much better and denies those complaints. He reports excellent appetite and his last bowel movement was last night and was soft, denies blood in stool. Denies Fevers, chills, chest pain, dypsnea, sore throat, nausea, vomiting, and diarrhea. Duplex of bilateral lower extremities: negative for DVT. Objective - Vital Signs/Intake and Output Vital Signs (last 24 hours): Temp Pulse Resp BP Pulse Ox 97.4 F L 94 H 18 91/51 L 97 02/08/18 07:59 02/08/18 07:59 02/08/18 07:59 02/08/18 07:59 02/08/18 07:59 Intake and Output: 02/08/18 02/08/18 06:59 18:59 Intake Total 500 Output Total 300 Balance 200 - Medications Medications: Current Medications Albuterol/Ipratropium (Duoneb 3 Mg/0.5 Mg (3 Ml) Ud) 3 ml INH RQ6 PRN PRN Reason: Shortness of Breath Trimethoprim/Sulfamethoxazole (450 mg/ Dextrose) 500 mls @ 333.333 mls/hr IVPB Q8 IV[facility] PRN Reason: Protocol Stop: 02/20/18 00:00 Last Admin: 02/08/18 00:29 Dose: 333.333 mls/hr Ibuprofen (Motrin Tab) 600 mg PO Q8 PRN PRN Reason: Fever >100.4 F Last Admin: 02/07/18 17:46 Dose: 600 mg Metoprolol Tartrate (Lopressor) 25 mg PO Q12 [facility] Last Admin: 02/07/18 20:58 Dose: 25 mg Ondansetron HCl (Zofran Inj) 4 mg IVP Q6 PRN PRN Reason: Nausea/Vomiting Last Admin: 02/07/18 07:01 Dose: 4 mg Prednisone (Prednisone Tab) 20 mg PO DAILY [facility] - Labs Labs: 02/08/18 05:00 02/08/18 05:00 PT 10.4 Seconds (9.8-13.1) 02/07/18 05:41 INR 0.9 (0.9-1.2) 02/07/18 05:41 APTT 28.7 Seconds (25.6-37.1) 02/07/18 05:41 - Constitutional Appears: Well, Non-toxic, No Acute Distress - Head Exam Head Exam: NORMAL INSPECTION - Eye Exam Eye Exam: Normal appearance - ENT Exam ENT Exam: Mucous Membranes Moist, Normal Exam, Normal Oropharynx (no oral thrush on exam. ) - Neck Exam Neck Exam: Full ROM, Normal Inspection. absent: Lymphadenopathy, Tenderness, Thyromegaly - Respiratory Exam Respiratory Exam: Clear to Ausculation Bilateral, NORMAL BREATHING PATTERN. absent: Prolonged Expiratory Phase, Rhonchi, Wheezes - Cardiovascular Exam Cardiovascular Exam: REGULAR RHYTHM, RRR, +S1, +S2. absent: Clicks, Diastolic murmur, Gallop, JVD, Rubs, Murmur - GI/Abdominal Exam GI & Abdominal Exam: Soft, Normal Bowel Sounds. absent: Distended, Firm, Guarding, Tenderness, Organomegaly, Pulsatile Mass, Rebound - Extremities Exam Extremities Exam: Full ROM, Normal Capillary Refill, Normal Inspection. absent : Calf Tenderness, Joint Swelling, Pedal Edema, Tenderness - Back Exam Back Exam: NORMAL INSPECTION. absent: CVA tenderness (L), CVA tenderness (R), paraspinal tenderness, rash noted, tenderness, vertebral tenderness - Neurological Exam Neurological Exam: Alert, Awake, Oriented x3 - Psychiatric Exam Psychiatric exam: Normal Affect, Normal Mood - Skin Skin Exam: Dry, Intact, Normal Color, Warm Assessment and Plan (1) AIDS Status: Acute (2) Elevated transaminase level Status: Acute (3) Gastroenteritis Status: Acute (4) Renal calcification Status: Acute (5) Hypokalemia Status: Acute (6) DVT prophylaxis Status: Acute - Assessment and Plan (Free Text) Assessment: 27 yo male without medical history presented with 3 day history of N/V/ abd pain / chills/ and mild cough. Rapid HIV test was performed and reported as positive with confirmatory RNA PCR test positive. CD4 count reported as 30. Patient is now feeling better and denies any complaints at this time. Patient currently on empiric treatment for PJP. AFB sputum negative x3. Repeat CT chest 02/04/18: interval worsening of interstitial, nodular, alveolar airspace disease in both lungs, worse in the left. Findings are concerning for opportunistic infection and atypical pneumonia including pneumo cystitis carinii and CADEN. Plan: 1. AIDS Assessment & Plan: Positive HIV-1 rapid screen, HIV RNA= 5.1 million , CD4 count of 30. CT chest : bilateraly diffuse and extensive reticulonodular pulmonary opacities , repeat CT demonstrated worsened reticulonodular opacities with groundglass infiltrates. Repeat CT chest 02/04/18: interval worsening of interstitial, nodular, alveolar airspace disease in both lungs, worse in the left. Findings are concerning for opportunistic infection and atypical pneumonia including pneumo cystitis carinii and CADEN. - Continue Bactrim weight based; Complete 21 day course (Ending February 20.). - Begin Prednisone taper: Prednisone changed to 20mg po daily. - Continue Vanco. Vanco trough: 5.3. - Recommendation by ID: Zithromax 1200mg po once a week for MAC prophylaxis. - AFB sputum negative x3. Quantiferon negative. - RPR: nonreactive. Hepatitis panel: negative. - per Dr. Jenkins: BRONCH was cancelled 02/07/18 due to elevated LFT's, possibly reschedule for tomorrow, 02/09/18 if LFT's have decreased. If not then repeat CT CHEST Wednesday02/09/18. 2 Elevated transaminase - possibly secondary to medication (Bactrim or Zosyn), need to r/o other liver causes. - Lvier enzymes trending down after discontinuation of Zosyn - CT abdomen on admission was negative for any abnormalities in the liver. - Zosyn and Vanco were discontinued -Acetaminophen discontinued; Ibuprofen will be used for fever: 600mg Q8H prn fever. -continue to trend 3 Gastroenteritis Assessment & Plan: Resolved. 4 Renal calcification Assessment & Plan: Dedicated CT scan and ultrasound of kidneys did not show any kidney abnormalities. 5 Hypokalemia Assessment & Plan: Resolved. 6 DVT prophylaxis Assessment & Plan: Duplex of bilateral lower extremities 02/07/18 was negative for DVT. Continue current management: SCD's and early ambulation. <Adriana Fernandez - Last Filed: 02/08/18 15:46> Objective - Vital Signs/Intake and Output Vital Signs (last 24 hours): Temp Pulse Resp BP Pulse Ox 97.5 F L 113 H 18 121/72 97 02/08/18 13:00 02/08/18 13:00 02/08/18 13:00 02/08/18 13:00 02/08/18 13:00 Intake and Output: 02/08/18 02/08/18 06:59 18:59 Intake Total 500 Output Total 300 Balance 200 - Medications Medications: Current Medications Albuterol/Ipratropium (Duoneb 3 Mg/0.5 Mg (3 Ml) Ud) 3 ml INH RQ6 PRN PRN Reason: Shortness of Breath Trimethoprim/Sulfamethoxazole (450 mg/ Dextrose) 500 mls @ 333.333 mls/hr IVPB Q8 IVANNA PRN Reason: Protocol Stop: 02/20/18 00:00 Last Admin: 02/08/18 09:09 Dose: 333.333 mls/hr Ibuprofen (Motrin Tab) 600 mg PO Q8 PRN PRN Reason: Fever >100.4 F Last Admin: 02/07/18 17:46 Dose: 600 mg Metoprolol Tartrate (Lopressor) 25 mg PO Q12 [facility] Last Admin: 02/08/18 09:07 Dose: Not Given Ondansetron HCl (Zofran Inj) 4 mg IVP Q6 PRN PRN Reason: Nausea/Vomiting Last Admin: 02/07/18 07:01 Dose: 4 mg Prednisone (Prednisone Tab) 20 mg PO DAILY [facility] Last Admin: 02/08/18 09:03 Dose: 20 mg - Labs Labs: 02/08/18 05:00 02/08/18 05:00 PT 10.4 Seconds (9.8-13.1) 02/07/18 05:41 INR 0.9 (0.9-1.2) 02/07/18 05:41 APTT 28.7 Seconds (25.6-37.1) 02/07/18 05:41 Attending/Attestation - Attestation I have personally seen and examined this patient.: Yes I have fully participated in the care of the patient.: Yes I have reviewed all pertinent clinical information, including history, physical exam and plan: Yes
--- NOTE | 2018-02-08 14:38 | CP.PCM.PN ---
Subjective - Date & Time of Evaluation Date of Evaluation: 02/08/18 Time of Evaluation: 11:10 - Subjective Subjective: F/U Pulmonary Infiltrate Objective - Vital Signs/Intake and Output Vital Signs (last 24 hours): Temp Pulse Resp BP Pulse Ox 97.5 F L 113 H 18 121/72 97 02/08/18 13:00 02/08/18 13:00 02/08/18 13:00 02/08/18 13:00 02/08/18 13:00 Intake and Output: 02/08/18 02/08/18 06:59 18:59 Intake Total 500 Output Total 300 Balance 200 - Medications Medications: Current Medications Albuterol/Ipratropium (Duoneb 3 Mg/0.5 Mg (3 Ml) Ud) 3 ml INH RQ6 PRN PRN Reason: Shortness of Breath Trimethoprim/Sulfamethoxazole (450 mg/ Dextrose) 500 mls @ 333.333 mls/hr IVPB Q8 [facility] PRN Reason: Protocol Stop: 02/20/18 00:00 Last Admin: 02/08/18 09:09 Dose: 333.333 mls/hr Ibuprofen (Motrin Tab) 600 mg PO Q8 PRN PRN Reason: Fever >100.4 F Last Admin: 02/07/18 17:46 Dose: 600 mg Metoprolol Tartrate (Lopressor) 25 mg PO Q12 [facility] Last Admin: 02/08/18 09:07 Dose: Not Given Ondansetron HCl (Zofran Inj) 4 mg IVP Q6 PRN PRN Reason: Nausea/Vomiting Last Admin: 02/07/18 07:01 Dose: 4 mg Prednisone (Prednisone Tab) 20 mg PO DAILY [facility] Last Admin: 02/08/18 09:03 Dose: 20 mg - Labs Labs: 02/08/18 05:00 02/08/18 05:00 PT 10.4 Seconds (9.8-13.1) 02/07/18 05:41 INR 0.9 (0.9-1.2) 02/07/18 05:41 APTT 28.7 Seconds (25.6-37.1) 02/07/18 05:41 - Constitutional Appears: No Acute Distress - Head Exam Head Exam: NORMAL INSPECTION - Eye Exam Eye Exam: PERRL - ENT Exam ENT Exam: Mucous Membranes Moist - Neck Exam Neck Exam: Normal Inspection - Respiratory Exam Respiratory Exam: Clear to Ausculation Bilateral - Cardiovascular Exam Cardiovascular Exam: REGULAR RHYTHM - GI/Abdominal Exam GI & Abdominal Exam: Soft, Normal Bowel Sounds - Extremities Exam Extremities Exam: Normal Inspection - Back Exam Back Exam: NORMAL INSPECTION - Neurological Exam Neurological Exam: Alert, Awake, Oriented x3 - Psychiatric Exam Psychiatric exam: Normal Affect, Normal Mood - Skin Skin Exam: Normal Color, Warm Assessment and Plan (1) Pulmonary infiltrate Status: Acute (2) Pulmonary nodules Status: Acute (3) Fever Status: Resolved (4) AIDS Status: Acute
[2018-02-09] MEDS: TRIMETHOPRIM IVPB SCH ×3 (00:11→17:04)
[2018-02-09] MEDS: DEXTROSE 5% IVPB SCH ×3 (00:11→17:04)
[2018-02-09] MEDS: WATER IVPB SCH ×3 (00:11→17:04)
[2018-02-09] MEDS: SULFAMETHOXAZOLE IVPB SCH ×3 (00:11→17:04)
[2018-02-09 06:46] LABS: ALB/GLOB RATIO 1.1 (1.0-2.1); ALBUMIN 3.5 g/dL (3.5-5.0); ALT/SGPT 397 U/L (21-72); AST/SGOT 107 U/L (17-59); BLOOD UREA NITROGEN 8 mg/dl (9-20); CALCIUM 8.7 mg/dL (8.4-10.2); GFR AFRICAN-AMERICAN > 60; GFR NON-AFRICAN AMERICAN > 60
[2018-02-09 06:49] LABS: HIV-1 GENOTYPE DETECTED
[2018-02-09] MEDS ORDERED: Sodium Chloride 3% for Inhalation 4 ML VIAL.NEB IH PRN ×3 (08:31)
[2018-02-09] MEDS ORDERED: Albuterol-Ipratrop 3 mg / 0.5 (3 ml) UD INH PRN (08:31)
--- NOTE | 2018-02-09 13:56 | CP.PCM.PN ---
<Maura Lopez - Last Filed: 02/09/18 15:04> Subjective - Date & Time of Evaluation Date of Evaluation: 02/09/18 Time of Evaluation: 11:55 - Subjective Subjective: Patient seen and examined at bedside with Dr. Fernandez. He is sitting comfortably and states that he has no complaints today. He reports that he feels fine and has no pain. He denies chest pain, sore throat, headaches, vision changes, dyspnea, nausea, vomiting, abdominal pain, and diarrhea. Patient was counseled on his HIV status and how transmissible the disease is via sexual encounters. He was recommended to not be sexually active until his HIV load becomes undetectable and to utilize protection when sexually active. Objective - Vital Signs/Intake and Output Vital Signs (last 24 hours): Temp Pulse Resp BP Pulse Ox 98.3 F 105 H 18 107/59 L 96 02/09/18 12:34 02/09/18 12:34 02/09/18 12:34 02/09/18 12:34 02/09/18 12:34 - Medications Medications: Current Medications Albuterol/Ipratropium (Duoneb 3 Mg/0.5 Mg (3 Ml) Ud) 3 ml INH RQ6 PRN PRN Reason: Shortness of Breath Trimethoprim/Sulfamethoxazole (450 mg/ Dextrose) 500 mls @ 333.333 mls/hr IVPB Q8 [facility] PRN Reason: Protocol Stop: 02/20/18 00:00 Last Admin: 02/09/18 10:22 Dose: 333.333 mls/hr Ibuprofen (Motrin Tab) 600 mg PO Q8 PRN PRN Reason: Fever >100.4 F Metoprolol Tartrate (Lopressor) 25 mg PO Q12 [facility] Last Admin: 02/09/18 09:46 Dose: 25 mg Ondansetron HCl (Zofran Inj) 4 mg IVP Q6 PRN PRN Reason: Nausea/Vomiting Prednisone (Prednisone Tab) 20 mg PO DAILY [facility] Last Admin: 02/09/18 09:45 Dose: 20 mg - Labs Labs: 02/08/18 05:00 02/09/18 04:20 PT 10.4 Seconds (9.8-13.1) 02/07/18 05:41 INR 0.9 (0.9-1.2) 02/07/18 05:41 APTT 28.7 Seconds (25.6-37.1) 02/07/18 05:41 - Constitutional Appears: Well, Non-toxic, No Acute Distress - Head Exam Head Exam: NORMAL INSPECTION - Eye Exam Eye Exam: Normal appearance - ENT Exam ENT Exam: Mucous Membranes Moist (No oral thrush. ), Normal Oropharynx - Neck Exam Neck Exam: Normal Inspection. absent: Lymphadenopathy, Tenderness, Thyromegaly - Respiratory Exam Respiratory Exam: Clear to Ausculation Bilateral, NORMAL BREATHING PATTERN. absent: Decreased Breath Sounds, Rales, Rhonchi, Wheezes, Respiratory Distress, Stridor - Cardiovascular Exam Cardiovascular Exam: REGULAR RHYTHM, RRR, +S1, +S2. absent: Clicks, Diastolic murmur, Gallop, Rubs, +S4, Murmur - GI/Abdominal Exam GI & Abdominal Exam: Soft, Normal Bowel Sounds. absent: Distended, Firm, Guarding, Rigid, Tenderness, Hyperactive Bowel Sounds, Organomegaly, Pulsatile Mass, Rebound - Extremities Exam Extremities Exam: Normal Capillary Refill, Normal Inspection. absent: Calf Tenderness, Joint Swelling, Pedal Edema, Tenderness - Back Exam Back Exam: NORMAL INSPECTION. absent: CVA tenderness (L), CVA tenderness (R), paraspinal tenderness, rash noted, tenderness - Neurological Exam Neurological Exam: Alert, Awake, Oriented x3 - Psychiatric Exam Psychiatric exam: Normal Affect, Normal Mood - Skin Skin Exam: Dry, Intact, Normal Color, Warm Assessment and Plan (1) AIDS Status: Acute (2) Elevated transaminase level Status: Acute (3) Gastroenteritis Status: Acute (4) Renal calcification Status: Acute (5) Hypokalemia Status: Acute (6) DVT prophylaxis Status: Acute - Assessment and Plan (Free Text) Assessment: 27 yo male without medical history presented with 3 day history of N/V/ abd pain / chills/ and mild cough. Rapid HIV test was performed and reported as positive with confirmatory RNA PCR test positive. CD4 count reported as 30. Patient is now feeling better and denies any complaints at this time. Patient currently on empiric treatment for PJP. AFB sputum negative x3. Repeat CT chest 02/04/18: interval worsening of interstitial, nodular, alveolar airspace disease in both lungs, worse in the left. Findings are concerning for opportunistic infection and atypical pneumonia including pneumo cystitis carinii and CADEN. Repeat CT chest 02/09/18. Plan: 1. AIDS Assessment & Plan: Positive HIV-1 rapid screen, HIV RNA= 5.1 million , CD4 count of 30. CT chest : bilateraly diffuse and extensive reticulonodular pulmonary opacities , repeat CT demonstrated worsened reticulonodular opacities with groundglass infiltrates. Repeat CT chest 02/04/18: interval worsening of interstitial, nodular, alveolar airspace disease in both lungs, worse in the left. Findings are concerning for opportunistic infection and atypical pneumonia including pneumo cystitis carinii and CADEN. - Continue Bactrim weight based; Complete 21 day course (Ending February 20.). - Continue Prednisone 20mg po daily. - Continue Vanco. Vanco trough: 5.3. - Recommendation by ID: Zithromax 1200mg po once a week for MAC prophylaxis. - AFB sputum negative x3. Quantiferon negative. - RPR: nonreactive. Hepatitis panel: negative. CMV Ig.90 IgM:negative. - Pulm recommendation: Continue Bactrim weight based for a total of 21 days for PJP treatment, then Bactrim at prophylactic dose daily until CD4 count increases. - CT CHEST Wednesday02/09/18: interval improvement in prior areas of ground glass opacities. Similar diffuse interstitial lung markings. 2 Elevated transaminase - possibly secondary to medication (Bactrim or Zosyn), need to r/o other liver causes. - Liver enzymes trending down - CT abdomen on admission was negative for any abnormalities in the liver. - continue to trend 3 Gastroenteritis Assessment & Plan: Resolved. 4 Renal calcification Assessment & Plan: Dedicated CT scan and ultrasound of kidneys did not show any kidney abnormalities. 5 Hypokalemia Assessment & Plan: Resolved. 6 DVT prophylaxis Assessment & Plan: Duplex of bilateral lower extremities 02/07/18 was negative for DVT. Continue current management: SCD's and early ambulation. <Adriana Fernandez - Last Filed: 02/09/18 17:18> Objective - Vital Signs/Intake and Output Vital Signs (last 24 hours): Temp Pulse Resp BP Pulse Ox 98.7 F 107 H 18 109/74 97 02/09/18 16:29 02/09/18 16:29 02/09/18 16:29 02/09/18 16:29 02/09/18 16:29 - Medications Medications: Current Medications Albuterol/Ipratropium (Duoneb 3 Mg/0.5 Mg (3 Ml) Ud) 3 ml INH RQ6 PRN PRN Reason: Shortness of Breath Trimethoprim/Sulfamethoxazole (450 mg/ Dextrose) 500 mls @ 333.333 mls/hr IVPB Q8 [facility] PRN Reason: Protocol Stop: 02/20/18 00:00 Last Admin: 02/09/18 17:04 Dose: 333.333 mls/hr Ibuprofen (Motrin Tab) 600 mg PO Q8 PRN PRN Reason: Fever >100.4 F Metoprolol Tartrate (Lopressor) 25 mg PO Q12 [facility] Last Admin: 02/09/18 09:46 Dose: 25 mg Ondansetron HCl (Zofran Inj) 4 mg IVP Q6 PRN PRN Reason: Nausea/Vomiting Prednisone (Prednisone Tab) 20 mg PO DAILY [facility] Last Admin: 02/09/18 09:45 Dose: 20 mg - Labs Labs: 02/08/18 05:00 02/09/18 04:20 PT 10.4 Seconds (9.8-13.1) 02/07/18 05:41 INR 0.9 (0.9-1.2) 02/07/18 05:41 APTT 28.7 Seconds (25.6-37.1) 02/07/18 05:41 Attending/Attestation - Attestation I have personally seen and examined this patient.: Yes I have fully participated in the care of the patient.: Yes I have reviewed all pertinent clinical information, including history, physical exam and plan: Yes Notes (Text): Pt is off Vanco and Zosyn cont IV Bactrim till February 20 , prednisone tapered to 20mg daily Discussed case with Dr Alice razo that since pt's rpt CT scan showed improvement in Lung nodules/infiltrates , he recommended to continue medical management and will hold off on Bronchoscopy
--- NOTE | 2018-02-09 14:08 | CT ---
Date of service: 02/09/2018 PROCEDURE: CT Chest without contrast HISTORY: lung nodules COMPARISON: 02/04/2018 TECHNIQUE: Contiguous axial images were obtained through the chest without intravenous contrast enhancement. Sagittal and coronal reconstructions were performed. Radiation dose (DLP): 382 mGy-cm. This CT exam was performed using one or more of the following dose reduction techniques: Automated exposure control, adjustment of the mA and/or kV according to patient size, and/or use of iterative reconstruction technique. FINDINGS: LUNGS: The prior coalescent airspace opacities appear less dense diffusely. -improvement is inferred. No increasing or new areas of consolidation or increasing ground-glass density are perceived. As for discrete nodules ease are difficult to perceive. . Visualized airway clear. MEDIASTINUM: Unremarkable thoracic aorta. No aneurysm. Normal sized heart. Main pulmonary artery unremarkable. No vascular congestion. No suspect lymphadenopathy. A few calcified hilar lymph nodes compatible with prior granulomatous exposure is noted. PLEURA: No pleural fluid. No pneumothorax. BONES: No fracture. No destructive lesion. UPPER ABDOMEN: Grossly unremarkable. OTHER FINDINGS: None. IMPRESSION: Interval improvement/interval improved aeration in prior areas of coalescing airspace opacity/ground-glass opacities. No increasing dense areas of ground-glass opacity or increasing areas of consolidation suggested. Discrete nodules are difficult to assess. The diffuse overall increased interstitial lung marking prominence is believe similar. Correlation with pulmonary consultation advised.
--- NOTE | 2018-02-09 15:17 | CP.PCM.PN ---
Subjective - Date & Time of Evaluation Date of Evaluation: 02/09/18 Time of Evaluation: 15:16 - Subjective Subjective: ID note- pt. seen and examined today. denies any fever or chills. feels better . no diarrhea. Objective - Vital Signs/Intake and Output Vital Signs (last 24 hours): Temp Pulse Resp BP Pulse Ox 98.3 F 105 H 18 107/59 L 96 02/09/18 12:34 02/09/18 12:34 02/09/18 12:34 02/09/18 12:34 02/09/18 12:34 - Medications Medications: Current Medications Albuterol/Ipratropium (Duoneb 3 Mg/0.5 Mg (3 Ml) Ud) 3 ml INH RQ6 PRN PRN Reason: Shortness of Breath Trimethoprim/Sulfamethoxazole (450 mg/ Dextrose) 500 mls @ 333.333 mls/hr IVPB Q8 IVANNA PRN Reason: Protocol Stop: 02/20/18 00:00 Last Admin: 02/09/18 10:22 Dose: 333.333 mls/hr Ibuprofen (Motrin Tab) 600 mg PO Q8 PRN PRN Reason: Fever >100.4 F Metoprolol Tartrate (Lopressor) 25 mg PO Q12 [facility] Last Admin: 02/09/18 09:46 Dose: 25 mg Ondansetron HCl (Zofran Inj) 4 mg IVP Q6 PRN PRN Reason: Nausea/Vomiting Prednisone (Prednisone Tab) 20 mg PO DAILY [facility] Last Admin: 02/09/18 09:45 Dose: 20 mg - Labs Labs: - Additional Findings Additional findings: - Constitutional Appears: No Acute Distress - Head Exam Head Exam: ATRAUMATIC - Eye Exam Eye Exam: EOMI, PERRL - ENT Exam ENT Exam: Normal Oropharynx - Neck Exam Neck exam: Positive for: Full Rom Additional comments: supple - Respiratory Exam Respiratory Exam: NORMAL BREATHING PATTERN Additional comments: good breath sounds B/L no wheezing no rhonchi - Cardiovascular Exam Cardiovascular Exam: Tachycardia, +S1, +S2 - GI/Abdominal Exam GI & Abdominal Exam: Normal Bowel Sounds, Soft Additional comments: NT, ND No guarding, no rebound No CVA tenderness B/L - Extremities Exam Extremities exam: Positive for: normal inspection - Neurological Exam Neurological exam: Alert, Oriented x 3 Laboratory Results - last 72 hr 01/31/18 02/06/18 02/07/18 17:23 23:00 05:41 WBC RBC Hgb Hct MCV MCH MCHC RDW Plt Count MPV Neut % (Auto) Lymph % (Auto) [place] % (Auto) Eos % (Auto) Baso % (Auto) Neut # (Auto) Lymph # (Auto) [place] # (Auto) Eos # (Auto) Baso # (Auto) PT INR APTT Sodium 141 Potassium 3.7 Chloride 100 Carbon Dioxide 24 Anion Gap 21 H BUN 11 Creatinine 0.7 L Est GFR ( Amer) > 60 Est GFR (Non-Af Amer) > 60 Random Glucose 90 Calcium 8.6 Total Bilirubin 0.7 Direct Bilirubin AST 364 H D ALT 615 H D Alkaline Phosphatase 174 H D Total Protein 7.9 Albumin 4.2 Globulin 3.7 Albumin/Globulin Ratio 1.1 Urine Color Straw Urine Clarity Clear Urine pH 6.0 Ur Specific [place] 1.008 Urine Protein Negative Urine Glucose (UA) >=500 Urine Ketones Negative Urine Blood Negative Urine Nitrate Negative Urine Bilirubin Negative Urine Urobilinogen 0.2-1.0 Ur Leukocyte Esterase Neg Urine RBC (Auto) 2 CMV IgG Ab CMV IgM Ab HIV-1 Genotyping Detected H 02/07/18 02/07/18 02/07/18 05:41 05:41 15:55 WBC 9.3 RBC 5.36 Hgb 15.9 Hct 48.3 MCV 90.1 D MCH 29.8 MCHC 33.0 RDW 14.4 Plt Count 230 MPV 8.2 Neut % (Auto) 84.4 H Lymph % (Auto) 11.9 L [place] % (Auto) 1.3 Eos % (Auto) 2.1 Baso % (Auto) 0.3 Neut # (Auto) 7.9 H Lymph # (Auto) 1.1 [place] # (Auto) 0.1 Eos # (Auto) 0.2 Baso # (Auto) 0.0 PT 10.4 INR 0.9 APTT 28.7 Sodium Potassium Chloride Carbon Dioxide Anion Gap BUN Creatinine Est GFR ( Amer) Est GFR (Non-Af Amer) Random Glucose Calcium Total Bilirubin Direct Bilirubin AST ALT Alkaline Phosphatase Total Protein Albumin Globulin Albumin/Globulin Ratio Urine Color Urine Clarity Urine pH Ur Specific [place] Urine Protein Urine Glucose (UA) Urine Ketones Urine Blood Urine Nitrate Urine Bilirubin Urine Urobilinogen Ur Leukocyte Esterase Urine RBC (Auto) CMV IgG Ab 2.90 H CMV IgM Ab <30.00 HIV-1 Genotyping 02/08/18 02/08/18 02/09/18 05:00 05:00 04:20 WBC 3.8 L D RBC 4.55 Hgb 13.3 D Hct 40.1 MCV 88.2 MCH 29.2 MCHC 33.1 RDW 14.4 Plt Count 149 MPV 8.1 Neut % (Auto) 73.8 Lymph % (Auto) 15.0 L [place] % (Auto) 5.2 Eos % (Auto) 5.6 H Baso % (Auto) 0.4 Neut # (Auto) 2.8 Lymph # (Auto) 0.6 L [place] # (Auto) 0.2 Eos # (Auto) 0.2 Baso # (Auto) 0.0 PT INR APTT Sodium 138 136 Potassium 4.0 4.3 Chloride 104 100 Carbon Dioxide 24 25 Anion Gap 14 15 BUN 7 L 8 L Creatinine 0.5 L 0.6 L Est GFR ( Amer) > 60 > 60 Est GFR (Non-Af Amer) > 60 > 60 Random Glucose 77 86 Calcium 8.3 L 8.7 Total Bilirubin 0.4 0.5 Direct Bilirubin 0.2 AST 230 H D 107 H D ALT 535 H 397 H D Alkaline Phosphatase 137 H D 133 H Total Protein 6.4 6.9 Albumin 3.2 L D 3.5 Globulin 3.2 3.3 Albumin/Globulin Ratio 1.0 1.1 Urine Color Urine Clarity Urine pH Ur Specific [place] Urine Protein Urine Glucose (UA) Urine Ketones Urine Blood Urine Nitrate Urine Bilirubin Urine Urobilinogen Ur Leukocyte Esterase Urine RBC (Auto) CMV IgG Ab CMV IgM Ab HIV-1 Genotyping Microbiology 02/06/18 18:30 Blood-Venous Blood Culture - Preliminary NO GROWTH AFTER 48 HOURS 02/06/18 18:00 Blood-Venous Blood Culture - Preliminary NO GROWTH AFTER 48 HOURS 01/31/18 09:35 Other: Please Indicate Mycobacterial Culture - Preliminary 02/06/18 23:00 Urine,Clean Catch Urine Culture - Final No Growth (<1,000 CFU/ML) 01/30/18 13:39 Other: Please Indicate Mycobacterial Culture - Preliminary 01/30/18 12:45 Blood Blood Culture - Final NO GROWTH AFTER 5 DAYS 01/30/18 12:45 Blood Gram Stain - Final TEST NOT PERFORMED 01/30/18 12:30 Blood Blood Culture - Final NO GROWTH AFTER 5 DAYS 01/30/18 12:30 Blood Gram Stain - Final TEST NOT PERFORMED 02/02/18 17:55 Other: Please Indicate Mycobacterial Culture - Preliminary 01/31/18 12:58 Sputum Induced Gram Stain - Final 01/31/18 12:58 Sputum Induced Sputum Culture - Final NORMAL ORAL DEANN 01/30/18 13:44 Urine Urine Culture - Final No Growth (<1,000 CFU/ML) 01/25/18 17:55 Blood-Venous Blood Culture - Final NO GROWTH AFTER 5 DAYS 01/25/18 17:43 Blood-Venous Blood Culture - Final NO GROWTH AFTER 5 DAYS 01/25/18 17:43 Blood-Venous Gram Stain - Final TEST NOT PERFORMED 01/28/18 15:30 Urine Urine Culture - Final No Growth (<1,000 CFU/ML) 01/27/18 14:09 Sputum Gram Stain - Final 01/27/18 14:09 Sputum Sputum Culture - Final NORMAL ORAL DEANN 01/27/18 08:31 Stool Ova and Parasite Concentrate Exam - Final 01/26/18 12:14 Stool Stool Culture - Final NO SALMONELLA, SHIGELLA OR CAMPYLOBACTER ISOLATED. 01/26/18 12:14 Stool Ova and Parasite Concentrate Exam - Final 01/25/18 22:00 Throat Group A Strep Throat Culture - Final NO BETA STREP GROUP A ISOLATED. Accession No. : [id number] Patient Name / ID : MARSHALL NGUYEN PARKER / [id number] Exam Date : 02/09/2018 12:27:54 ( Approved ) Study Comment : Sex / Age : M / 27Y Creator : Lisa Perez Dictator : Lisa Perez Banquet Waiter/Waitress : Technology Support Analyst : Lisa Perez Approver2 : Report Date : 02/09/2018 14:06:56 My Comment : Date of service: 02/09/2018 PROCEDURE: CT Chest without contrast HISTORY: lung nodules COMPARISON: 02/04/2018 TECHNIQUE: Contiguous axial images were obtained through the chest without intravenous contrast enhancement. Sagittal and coronal reconstructions were performed. Radiation dose (DLP): 382 mGy-cm. This CT exam was performed using one or more of the following dose reduction techniques: Automated exposure control, adjustment of the mA and/or kV according to patient size, and/or use of iterative reconstruction technique. FINDINGS: LUNGS: The prior coalescent airspace opacities appear less dense diffusely. - improvement is inferred. No increasing or new areas of consolidation or increasing ground-glass density are perceived. As for discrete nodules ease are difficult to perceive. . Visualized airway clear. MEDIASTINUM: Unremarkable thoracic aorta. No aneurysm. Normal sized heart. Main pulmonary artery unremarkable. No vascular congestion. No suspect lymphadenopathy. A few calcified hilar lymph nodes compatible with prior granulomatous exposure is noted. PLEURA: No pleural fluid. No pneumothorax. BONES: No fracture. No destructive lesion. UPPER ABDOMEN: Grossly unremarkable. OTHER FINDINGS: None. IMPRESSION: Interval improvement/interval improved aeration in prior areas of coalescing airspace opacity/ground-glass opacities. No increasing dense areas of ground- glass opacity or increasing areas of consolidation suggested. Discrete nodules are difficult to assess. The diffuse overall increased interstitial lung marking prominence is believe similar. Correlation with pulmonary consultation advised. Accession No. : [id number] Patient Name / ID : MARSHALL NGUYEN PARKER / [id number] Exam Date : 02/07/2018 18:30:23 ( Approved ) Study Comment : Sex / Age : M / 27Y Creator : Mani Scott MD Dictator : Mani Scott MD Banquet Waiter/Waitress : Technology Support Analyst : Mani Scott MD Approver2 : Report Date : 02/07/2018 18:59:49 My Comment : Date of service: 02/07/2018 PROCEDURE: Bilateral lower extremity venous duplex Doppler. HISTORY: r/o DVT COMPARISON: None available. TECHNIQUE: Bilateral common femoral, superficial femoral, popliteal and posterior tibial veins were evaluated. Flow was assessed with color Doppler, compressibility, assessment of phasic flow and augmentation response. FINDINGS: COMMON FEMORAL VEIN: Right CFV: Unremarkable. Left CFV: Unremarkable. SUPERFICIAL FEMORAL VEIN: Right SFV: Unremarkable. Left SFV: Unremarkable. POPLITEAL VEIN: Right Popliteal: Unremarkable. Left Popliteal: Unremarkable. POSTERIOR TIBIAL VEIN: Right PTV: Unremarkable. Left PTV: Unremarkable. OTHER FINDINGS: None. IMPRESSION: No evidence of deep venous thrombosis. Assessment and Plan (1) Fever Status: Resolved (2) Diarrhea Status: Acute (3) Nausea and vomiting Status: Acute (4) AIDS Status: Acute (5) Elevated transaminase level Status: Acute (6) Pulmonary infiltrate Status: Acute - Assessment and Plan (Free Text) Assessment: A/P- 27 year old male with No PMH admitted with fever/ diarrhea/ n/v and found to be HIV positive ( confirmed ) new diagnosis and extensive reticulonodular b/l lung opacitis on chest Ct . clinically improved. afebrile since d/c zosyn past 2 days. normal wbc repeat chest ct improvement on the diffuse reticulonodular densities as per report. legionella ag- neg influenza- neg HIV ab- pos ( conformed ) CD4-30 ( AIDS) blood cx- neg x 5 urine cx- neg stool cx- neg stool ova and parasites- negative sputum AFb smear- neg x 3 transaminitis improving hepatitis panel- neg plan- agree with IV bactrim and steroids since Cd4 is <200 and extensive reticulonodular b/l pattern on chest CT PCP high possibility . day #11 needs total 21 days of PCP treatment and after completion of the treatment phase pt. should be on oral bactrim for PCP prophylaxis until his CD4 increases to above 200 once HAART regimen is initiated. has completed 10 days of IV zosyn and was d/c 2 days ago. weekly zithromax 1200 mg once a week for MAC prophylaxis since his CD4 is <50. would still advise bronch evaluation . Patient verbalizes full understanding of all above and agrees with above plan of care. All above also d/w hospitalist taking care of the patient at length.
--- NOTE | 2018-02-09 17:18 | CP.PCM.PN ---
Subjective - Date & Time of Evaluation Date of Evaluation: 02/09/18 Time of Evaluation: 12:20 - Subjective Subjective: F/U Pulmonary infiltrate. no SOB, no VARELA, no cough, no C/P Objective - Vital Signs/Intake and Output Vital Signs (last 24 hours): Temp Pulse Resp BP Pulse Ox 98.7 F 107 H 18 109/74 97 02/09/18 16:29 02/09/18 16:29 02/09/18 16:29 02/09/18 16:29 02/09/18 16:29 - Medications Medications: Current Medications Albuterol/Ipratropium (Duoneb 3 Mg/0.5 Mg (3 Ml) Ud) 3 ml INH RQ6 PRN PRN Reason: Shortness of Breath Trimethoprim/Sulfamethoxazole (450 mg/ Dextrose) 500 mls @ 333.333 mls/hr IVPB Q8 IVANNA PRN Reason: Protocol Stop: 02/20/18 00:00 Last Admin: 02/09/18 17:04 Dose: 333.333 mls/hr Ibuprofen (Motrin Tab) 600 mg PO Q8 PRN PRN Reason: Fever >100.4 F Metoprolol Tartrate (Lopressor) 25 mg PO Q12 [facility] Last Admin: 02/09/18 09:46 Dose: 25 mg Ondansetron HCl (Zofran Inj) 4 mg IVP Q6 PRN PRN Reason: Nausea/Vomiting Prednisone (Prednisone Tab) 20 mg PO DAILY [facility] Last Admin: 02/09/18 09:45 Dose: 20 mg - Labs Labs: 02/08/18 05:00 02/09/18 04:20 PT 10.4 Seconds (9.8-13.1) 02/07/18 05:41 INR 0.9 (0.9-1.2) 02/07/18 05:41 APTT 28.7 Seconds (25.6-37.1) 02/07/18 05:41 - Constitutional Appears: No Acute Distress - Head Exam Head Exam: NORMAL INSPECTION - Eye Exam Eye Exam: PERRL - ENT Exam ENT Exam: Normal Exam - Neck Exam Neck Exam: Normal Inspection - Respiratory Exam Respiratory Exam: Clear to Ausculation Bilateral - Cardiovascular Exam Cardiovascular Exam: Tachycardia - GI/Abdominal Exam GI & Abdominal Exam: Soft, Normal Bowel Sounds - Extremities Exam Extremities Exam: Normal Inspection - Back Exam Back Exam: NORMAL INSPECTION - Neurological Exam Neurological Exam: Alert, Awake, Oriented x3 - Psychiatric Exam Psychiatric exam: Normal Affect, Normal Mood - Skin Skin Exam: Normal Color, Warm Assessment and Plan (1) Pulmonary infiltrate Status: Acute (2) Pulmonary nodules Status: Acute (3) Fever Status: Resolved (4) AIDS Status: Acute - Assessment and Plan (Free Text) Plan: CT Chest Pneumonia improved , no Bronchoscopy at this moment, repeat CT Chest in one week, continue DuoNeb , Bactrim, Prednisone, Patient treated for PCP
[2018-02-10] MEDS: SULFAMETHOXAZOLE IVPB SCH ×2 (00:58→14:25)
[2018-02-10] MEDS: DEXTROSE 5% IVPB SCH ×2 (00:58→14:25)
[2018-02-10] MEDS: WATER IVPB SCH ×2 (00:58→14:25)
[2018-02-10] MEDS: TRIMETHOPRIM IVPB SCH ×2 (00:58→14:25)
[2018-02-10 06:37] LABS: BASO % 0.2 % (0.0-2.0); EOS # 0.3 K/uL (0.0-0.7); EOS % 3.9 % (0.0-4.0); HEMOGLOBIN 14.1 g/dL (12.0-18.0); LYMPH # 0.8 K/uL (1.0-4.3); LYMPH % 9.9 % (20.0-40.0); MEAN CELL VOLUME 87.6 fl (80.0-94.0); MEAN CORPUSCULAR HEMOGLOBIN 29.3 pg (27.0-31.0); MEAN CORPUSCULAR HGB CONC 33.5 g/dL (33.0-37.0); MEAN PLATELET VOLUME 8.2 fl (7.2-11.7); MONO # 0.3 K/uL (0.0-0.8); MONO % 3.8 % (0.0-10.0); NEUT # 6.3 K/uL (1.8-7.0); NEUT % 82.2 % (50.0-75.0); PLATELET COUNT 227 K/uL (130-400); RBC 4.79 Mil/uL (4.40-5.90); RED CELL DISTRIBUTION WIDTH 14.1 % (11.5-14.5); WHITE BLOOD COUNT 7.6 K/uL (4.8-10.8)
[2018-02-10 07:06] LABS: ALB/GLOB RATIO 1.1 (1.0-2.1); ALBUMIN 3.6 g/dL (3.5-5.0); ALT/SGPT 305 U/L (21-72); AST/SGOT 89 U/L (17-59); BLOOD UREA NITROGEN 11 mg/dl (9-20); CALCIUM 8.6 mg/dL (8.4-10.2); GFR AFRICAN-AMERICAN > 60; GFR NON-AFRICAN AMERICAN > 60
--- NOTE | 2018-02-10 11:36 | CP.PCM.PN ---
Subjective - Date & Time of Evaluation Date of Evaluation: 02/10/18 Time of Evaluation: 09:55 - Subjective Subjective: Patient was seen and examined at bedside with Dr. Dunlap. He is sitting comfortably and reports he has no complaints and he feels well. He states that he feels ready to go home. He reports his last BM was yesterday and states it was soft and formed. Great appetite is reported. He denies chest pain, headaches, shortness of breath, sore throat, nausea, vomiting, and diarrhea. Objective - Vital Signs/Intake and Output Vital Signs (last 24 hours): Temp Pulse Resp BP Pulse Ox 98.8 F 91 H 20 107/65 97 02/10/18 08:05 02/10/18 09:07 02/10/18 08:05 02/10/18 09:07 02/10/18 08:05 - Medications Medications: Current Medications Albuterol/Ipratropium (Duoneb 3 Mg/0.5 Mg (3 Ml) Ud) 3 ml INH RQ6 PRN PRN Reason: Shortness of Breath Trimethoprim/Sulfamethoxazole (450 mg/ Dextrose) 500 mls @ 333.333 mls/hr IVPB Q8 IVANNA PRN Reason: Protocol Stop: 02/20/18 00:00 Last Admin: 02/10/18 00:58 Dose: 333.333 mls/hr Ibuprofen (Motrin Tab) 600 mg PO Q8 PRN PRN Reason: Fever >100.4 F Metoprolol Tartrate (Lopressor) 25 mg PO Q12 [facility] Last Admin: 02/10/18 09:07 Dose: 25 mg Ondansetron HCl (Zofran Inj) 4 mg IVP Q6 PRN PRN Reason: Nausea/Vomiting Prednisone (Prednisone Tab) 20 mg PO DAILY [facility] Last Admin: 02/10/18 09:07 Dose: 20 mg - Labs Labs: 02/10/18 05:35 02/10/18 05:35 PT 10.4 Seconds (9.8-13.1) 02/07/18 05:41 INR 0.9 (0.9-1.2) 02/07/18 05:41 APTT 28.7 Seconds (25.6-37.1) 02/07/18 05:41 - Constitutional Appears: Well, Non-toxic, No Acute Distress - Head Exam Head Exam: NORMAL INSPECTION - Eye Exam Eye Exam: Normal appearance - ENT Exam ENT Exam: Mucous Membranes Moist, Normal Oropharynx (No oral thrush appreciated on exam. ) - Neck Exam Neck Exam: Full ROM, Normal Inspection. absent: Lymphadenopathy, Tenderness, Thyromegaly - Respiratory Exam Respiratory Exam: Clear to Ausculation Bilateral, NORMAL BREATHING PATTERN. absent: Chest Wall Tenderness, Decreased Breath Sounds, Prolonged Expiratory Phase, Rales, Rhonchi, Wheezes, Respiratory Distress, Stridor - Cardiovascular Exam Cardiovascular Exam: REGULAR RHYTHM, RRR, +S1, +S2. absent: Clicks, Diastolic murmur, Gallop, JVD, Rubs, Murmur - GI/Abdominal Exam GI & Abdominal Exam: Soft, Normal Bowel Sounds. absent: Firm, Guarding, Rigid, Tenderness, Organomegaly, Pulsatile Mass, Rebound - Extremities Exam Extremities Exam: Normal Capillary Refill, Normal Inspection. absent: Calf Tenderness, Joint Swelling, Pedal Edema, Tenderness - Back Exam Back Exam: NORMAL INSPECTION - Neurological Exam Neurological Exam: Alert, Awake, Oriented x3 - Psychiatric Exam Psychiatric exam: Normal Affect, Normal Mood - Skin Skin Exam: Dry, Intact, Normal Color, Warm Assessment and Plan (1) AIDS Status: Acute (2) Elevated transaminase level Status: Acute (3) Gastroenteritis Status: Acute (4) Renal calcification Status: Acute (5) Hypokalemia Status: Acute (6) DVT prophylaxis Status: Acute - Assessment and Plan (Free Text) Assessment: 27 yo male without medical history presented with 3 day history of N/V/ abd pain / chills/ and mild cough. Rapid HIV test was performed and reported as positive with confirmatory RNA PCR test positive. CD4 count reported as 30. Patient is now feeling better and denies any complaints at this time. Patient currently on treatment for PJP. Repeat CT chest 02/04/18: interval worsening of interstitial, nodular, alveolar airspace disease in both lungs, worse in the left. Findings are concerning for opportunistic infection and atypical pneumonia including pneumo cystitis carinii and CADEN. Repeat CT chest 02/09/18: interval worsening of interstitial, nodular, alveolar airspace disease in both lungs, worse in the left. Findings are concerning for opportunistic infection and atypical pneumonia including pneumo cystitis carinii and CADEN. Plan: 1. AIDS Assessment & Plan: Positive HIV-1 rapid screen, HIV RNA= 5.1 million , CD4 count of 30. Repeat CT chest 02/09/18: interval worsening of interstitial, nodular, alveolar airspace disease in both lungs, worse in the left. Findings are concerning for opportunistic infection and atypical pneumonia including pneumo cystitis carinii and CADEN. - Continue Bactrim weight based; Complete 21 day course (Ending February 20.). - Continue Prednisone 20mg po daily. - Discontinued Vancomycin and Zosyn. - Recommendation by ID: Zithromax 1200mg po once a week for MAC prophylaxis. - AFB sputum negative x3. Quantiferon negative. - RPR: nonreactive. Hepatitis panel: negative. CMV Ig.90 IgM:negative. - Pulm recommendation: Continue Bactrim weight based for a total of 21 days for PJP treatment, then Bactrim at prophylactic dose daily until CD4 count increases. 2 Elevated transaminase - D/C'ed Zosyn and Vanco - Liver enzymes continue to trend down - CT abdomen on admission was negative for any abnormalities in the liver. - continue to trend 3 Gastroenteritis Assessment & Plan: Resolved. 4 Renal calcification Assessment & Plan: Dedicated CT scan and ultrasound of kidneys did not show any kidney abnormalities. 5 Hypokalemia Assessment & Plan: Resolved. 6 DVT prophylaxis Assessment & Plan: Duplex of bilateral lower extremities 02/07/18 was negative for DVT. Continue current management: SCD's and early ambulation.
--- NOTE | 2018-02-10 11:39 | CP.PCM.DIS ---
Provider - Provider Date of Admission: 01/26/18 16:47 Attending physician: Wilma Edwards MD Time Spent in preparation of Discharge (in minutes): 45 Diagnosis - Discharge Diagnosis (1) AIDS Status: Acute Comment: Patient will follow up with [facility] for HAART treatment. Will begin AZITHROMYCIN 1200mg Weekly for prophylaxis for MAC. Patient to continue Bactrim weight based medication for PJP for a total of 21 days (ends Feb 20). Patient is instructed to continue his prednisone 20mg po daily. He will then begin Bactrim prophylactic dose. (2) Elevated transaminase level Status: Acute Comment: Secondary to previous antibiotics. CT abdomen on admission was negative for any abnormalities in the liver. Trending down. (3) Gastroenteritis Status: Acute Comment: Resolved. (4) Renal calcification Status: Acute Comment: Dedicated CT scan and ultrasound of kidneys did not show any kidney abnormalities. (5) Hypokalemia Status: Acute Comment: Resolved. (6) DVT prophylaxis Status: Acute Comment: Patient had a Duplex for bilateral lower extremity that was NEGATIVE for DVT. Hospital Course - Lab Results Lab Results: Micro Results 02/02/18 17:55 Other: Please Indicate Mycobacterial Culture - Preliminary 02/06/18 18:30 Blood-Venous Blood Culture - Preliminary NO GROWTH AFTER 3 DAYS 02/06/18 18:00 Blood-Venous Blood Culture - Preliminary NO GROWTH AFTER 3 DAYS 01/31/18 09:35 Other: Please Indicate Mycobacterial Culture - Preliminary 02/06/18 23:00 Urine,Clean Catch Urine Culture - Final No Growth (<1,000 CFU/ML) 01/30/18 13:39 Other: Please Indicate Mycobacterial Culture - Preliminary 01/30/18 12:45 Blood Blood Culture - Final NO GROWTH AFTER 5 DAYS 01/30/18 12:45 Blood Gram Stain - Final TEST NOT PERFORMED 01/30/18 12:30 Blood Blood Culture - Final NO GROWTH AFTER 5 DAYS 01/30/18 12:30 Blood Gram Stain - Final TEST NOT PERFORMED 01/31/18 12:58 Sputum Induced Gram Stain - Final 01/31/18 12:58 Sputum Induced Sputum Culture - Final NORMAL ORAL DEANN 01/30/18 13:44 Urine Urine Culture - Final No Growth (<1,000 CFU/ML) 01/25/18 17:55 Blood-Venous Blood Culture - Final NO GROWTH AFTER 5 DAYS 01/25/18 17:43 Blood-Venous Blood Culture - Final NO GROWTH AFTER 5 DAYS 01/25/18 17:43 Blood-Venous Gram Stain - Final TEST NOT PERFORMED 01/28/18 15:30 Urine Urine Culture - Final No Growth (<1,000 CFU/ML) 01/27/18 14:09 Sputum Gram Stain - Final 01/27/18 14:09 Sputum Sputum Culture - Final NORMAL ORAL DEANN 01/27/18 08:31 Stool Ova and Parasite Concentrate Exam - Final 01/26/18 12:14 Stool Stool Culture - Final NO SALMONELLA, SHIGELLA OR CAMPYLOBACTER ISOLATED. 01/26/18 12:14 Stool Ova and Parasite Concentrate Exam - Final 01/25/18 22:00 Throat Group A Strep Throat Culture - Final NO BETA STREP GROUP A ISOLATED. Most Recent Lab Values WBC 7.6 K/uL (4.8-10.8) D 02/10/18 05:35 RBC 4.79 Mil/uL (4.40-5.90) 02/10/18 05:35 Hgb 14.1 g/dL (12.0-18.0) 02/10/18 05:35 Hct 42.0 % (35.0-51.0) 02/10/18 05:35 MCV 87.6 fl (80.0-94.0) 02/10/18 05:35 MCH 29.3 pg (27.0-31.0) 02/10/18 05:35 MCHC 33.5 g/dL (33.0-37.0) 02/10/18 05:35 RDW 14.1 % (11.5-14.5) 02/10/18 05:35 Plt Count 227 K/uL (130-400) 02/10/18 05:35 MPV 8.2 fl (7.2-11.7) 02/10/18 05:35 Neut % (Auto) 82.2 % (50.0-75.0) H 02/10/18 05:35 Lymph % (Auto) 9.9 % (20.0-40.0) L 02/10/18 05:35 [place] % (Auto) 3.8 % (0.0-10.0) 02/10/18 05:35 Eos % (Auto) 3.9 % (0.0-4.0) 02/10/18 05:35 Baso % (Auto) 0.2 % (0.0-2.0) 02/10/18 05:35 Neut # (Auto) 6.3 K/uL (1.8-7.0) 02/10/18 05:35 Lymph # (Auto) 0.8 K/uL (1.0-4.3) L 02/10/18 05:35 [place] # (Auto) 0.3 K/uL (0.0-0.8) 02/10/18 05:35 Eos # (Auto) 0.3 K/uL (0.0-0.7) 02/10/18 05:35 Baso # (Auto) 0.0 K/uL (0.0-0.2) 02/10/18 05:35 Neutrophils % (Manual) 76 % (42-75) H 02/06/18 06:02 Band Neutrophils % 5 % (0-2) H 02/06/18 06:02 Lymphocytes % (Manual) 6 % (20-50) L 02/06/18 06:02 Reactive Lymphs % 4 % (0-0) H 02/06/18 06:02 Monocytes % (Manual) 9 % (0-10) 02/06/18 06:02 Basophils % (Manual) 1 % (0-2) 01/25/18 17:31 Platelet Estimate Normal (NORMAL) 02/06/18 06:02 Plt Clumps, EDTA Present 02/06/18 06:02 RBC Morphology Normal (NORMAL) 02/06/18 06:02 ESR 52 mm/hr (0-15) H 01/27/18 08:00 PT 10.4 Seconds (9.8-13.1) 02/07/18 05:41 INR 0.9 (0.9-1.2) 02/07/18 05:41 APTT 28.7 Seconds (25.6-37.1) 02/07/18 05:41 D-Dimer, Quantitative 2962 ng/mlDDU (0-230) H 01/30/18 07:30 pCO2 31 mm/Hg (35-45) L 02/04/18 12:54 pO2 57 mm/Hg (80-100) L 02/04/18 12:54 HCO3 23.6 mmol/L (21-28) 02/04/18 12:54 ABG pH 7.45 (7.35-7.45) 02/04/18 12:54 ABG Total CO2 22.5 mmol/L (22-28) 02/04/18 12:54 ABG O2 Saturation 94.3 % (95-98) L 02/04/18 12:54 ABG O2 Content 17.8 ML/dL (15-23) 02/04/18 12:54 ABG Base Excess -1.5 mmol/L (-2.0-3.0) 02/04/18 12:54 ABG Hemoglobin 14.0 g/dL (11.7-17.4) 02/04/18 12:54 ABG Carboxyhemoglobin 1.9 % (0.5-1.5) H 02/04/18 12:54 POC ABG HHb (Measured) 5.5 % (0.0-5.0) H 02/04/18 12:54 ABG Methemoglobin 2.1 % (0.0-3.0) 02/04/18 12:54 ABG O2 Capacity 18.9 mL/dL (16-24) 02/04/18 12:54 Lion Test Yes 02/04/18 12:54 VBG pH 7.44 (7.32-7.43) H 01/25/18 17:06 VBG pCO2 39 mmHg (40-60) L 01/25/18 17:06 VBG HCO3 25.3 mmol/L 01/25/18 17:06 VBG Total CO2 27.7 mmol/L (22-28) 01/25/18 17:06 VBG O2 Sat (Calc) 51.8 % (40-65) 01/25/18 17:06 VBG Base Excess 2.3 mmol/L (0.0-2.0) H 01/25/18 17:06 VBG Potassium 3.4 mmol/L (3.6-5.2) L 01/25/18 17:06 A-a O2 Difference 54.0 mm/Hg 02/04/18 12:54 Hgb O2 Saturation 90.5 % (95.0-98.0) L 02/04/18 12:54 Sodium 131.0 mmol/L (132-148) L 01/25/18 17:06 Chloride 98.0 mmol/L (98-107) 01/25/18 17:06 Glucose 102 mg/dL (75-110) 01/25/18 17:06 Lactate 1.1 mmol/L (0.7-2.1) 01/25/18 17:06 FiO2 21.0 % 02/04/18 12:54 Blood Gas Comments Room air 02/04/18 12:54 Crit Value Read Back N 02/04/18 12:54 Sodium 134 mmol/l (132-148) 02/10/18 05:35 Potassium 4.0 MMOL/L (3.6-5.0) 02/10/18 05:35 Chloride 98 mmol/L (98-107) 02/10/18 05:35 Carbon Dioxide 25 mmol/L (22-30) 02/10/18 05:35 Anion Gap 15 (10-20) 02/10/18 05:35 BUN 11 mg/dl (9-20) 02/10/18 05:35 Creatinine 0.6 mg/dl (0.8-1.5) L 02/10/18 05:35 Est GFR ( Amer) > 60 02/10/18 05:35 Est GFR (Non-Af Amer) > 60 02/10/18 05:35 POC Glucose (mg/dL) 80 mg/dL (65-110) 01/30/18 05:23 Random Glucose 78 mg/dL (75-110) 02/10/18 05:35 Calcium 8.6 mg/dL (8.4-10.2) 02/10/18 05:35 Phosphorus 3.1 mg/dl (2.5-4.5) 02/01/18 04:20 Magnesium 2.6 MG/DL (1.6-2.3) H 02/01/18 04:20 Total Bilirubin 0.5 mg/dl (0.2-1.3) 02/10/18 05:35 Direct Bilirubin 0.2 mg/ml (0.0-0.4) 02/08/18 05:00 AST 89 U/L (17-59) H 02/10/18 05:35 ALT 305 U/L (21-72) H D 02/10/18 05:35 Alkaline Phosphatase 122 U/L (38-126) 02/10/18 05:35 Lactate Dehydrogenase 1440 U/L (313-618) H 01/31/18 15:29 C-Reactive Protein 82.40 mg/L (0.0-9.9) H 01/27/18 08:00 Total Protein 6.9 G/DL (6.3-8.2) 02/10/18 05:35 Albumin 3.6 g/dL (3.5-5.0) 02/10/18 05:35 Globulin 3.3 gm/dL (2.2-3.9) 02/10/18 05:35 Albumin/Globulin Ratio 1.1 (1.0-2.1) 02/10/18 05:35 Angiotensin Convert Enz 57 U/L (9-67) 01/27/18 08:00 Procalcitonin 0.61 NG/ML (0.19-0.49) H 01/27/18 08:00 Venous Blood Potassium 3.4 mmol/L (3.6-5.2) L 01/25/18 17:06 Urine Color Straw (YELLOW) 02/06/18 23:00 Urine Clarity Clear (Clear) 02/06/18 23:00 Urine pH 6.0 (5.0-8.0) 02/06/18 23:00 Ur Specific [place] 1.008 (1.003-1.030) 02/06/18 23:00 Urine Protein Negative mg/dL (NEGATIVE) 02/06/18 23:00 Urine Glucose (UA) >=500 mg/dL (Normal) 02/06/18 23:00 Urine Ketones Negative mg/dL (NEGATIVE) 02/06/18 23:00 Urine Blood Negative (NEGATIVE) 02/06/18 23:00 Urine Nitrate Negative (NEGATIVE) 02/06/18 23:00 Urine Bilirubin Negative (NEGATIVE) 02/06/18 23:00 Urine Urobilinogen 0.2-1.0 mg/dL (0.2-1.0) 02/06/18 23:00 Ur Leukocyte Esterase Neg [place]/uL (Negative) 02/06/18 23:00 Urine RBC (Auto) 2 /hpf (0-3) 02/06/18 23:00 Urine Microscopic WBC 4 /hpf (0-5) 01/28/18 15:30 Stool Leukocytes, Qual Negative (NEGATIVE) 01/26/18 12:14 Vancomycin Trough 5.3 ug/mL (5.0-10.0) 02/04/18 04:20 Rheumatoid Factor IgG <5 U (<=6) 01/27/18 08:00 Rheumatoid Factor IgA <5 U (<=6) 01/27/18 08:00 Rheumatoid Factor IgM <5 U (<=6) 01/27/18 08:00 MANUEL 6 Profile Negative (NEGATIVE) 01/27/18 08:00 MANUEL Screen Negative (Negative) 01/27/18 08:00 MANUEL Titer TEST NOT PERFORMED 01/27/18 08:00 MANUEL Titer 2 TEST NOT PERFORMED 01/27/18 08:00 MANUEL Pattern TEST NOT PERFORMED 01/27/18 08:00 MANUEL Pattern 2 TEST NOT PERFORMED 01/27/18 08:00 Scl-70 Antibody <1.0 AI (<1.0) 01/27/18 08:00 Scl-70 Interpretation Negative (Negative) 01/27/18 08:00 A-PM Scleroderma 100 Ab <20 Units (<20) 01/27/18 08:00 Anti-SRP Antibody Not detected (Not detected) 01/27/18 08:00 Absolute Lymphs (Flow) 365 Cells/mcL (850-3900) L 01/27/18 11:24 % CD4 Cells 8 Percent (30-61) L 01/27/18 11:24 Absolute CD4 Count 30 Cells/mcL (490-1740) L 01/27/18 11:24 T-Help/Suppress Ratio 0.13 Ratio (0.86-5.00) L 01/27/18 11:24 % CD8 Cells 63 Percent (12-42) H 01/27/18 11:24 Absolute CD8 Count 229 Cells/mcL (180-1170) 01/27/18 11:24 T-Lymph Analys Comment See note 01/27/18 11:24 RPR Nonreactive (NONREACTIVE) 01/28/18 05:25 CMV IgG Ab 2.90 U/mL H 02/07/18 15:55 CMV IgM Ab <30.00 AU/mL 02/07/18 15:55 Hepatitis A IgM Ab Negative (NEGATIVE) 01/28/18 05:25 Hep Bs Antigen Negative (NEGATIVE) 01/28/18 05:25 Hep B Core IgM Ab Negative (NEGATIVE) 01/28/18 05:25 Hepatitis C Antibody Negative (NEGATIVE) 01/28/18 05:25 HIV-1 Ab Rapid Screen Ab reactive (NON REAC) H 01/27/18 08:00 HIV-1 RNA Qnt (RT-PCR) 5.19 (Not Detected) H 01/27/18 09:49 HIV-1 Genotyping Detected H 01/31/18 17:23 Influenza Typ A,B (EIA) Negative for flu a/b (NEGATIVE) 01/25/18 17:38 Ur L.pneumophila Ag Negative (NEGATIVE) 01/25/18 22:00 Mycoplasma pneumon IgG 1.15 (<=0.90) H 01/26/18 09:20 Mycoplasma pneumon IgM 144 U/mL (<770) 01/26/18 09:20 Grp A Beta Strep Ag Negative (NEGATIVE) 01/25/18 22:00 TB Test (QFT) Nil 0.77 IU/mL 01/27/18 11:24 TB Test Mitogen - Nil 1.10 IU/mL 01/27/18 11:24 TB Test TB - Nil <0.00 IU/mL 01/27/18 11:24 TB Test (QFT) Negative (Negative) 01/27/18 11:24 - Hospital Course Hospital Course: 27 yo male without medical history presented with a 3 day history of N/V/ abd pain/ chills/ and mild cough. Rapid HIV test was performed and reported as positive with confirmatory RNA PCR test positive for 5.1 million. CD4 count reported as 30. CT chest 02/04/18: interval worsening of interstitial, nodular, alveolar airspace disease in both lungs, worse in the left. Findings are concerning for opportunistic infection and atypical pneumonia including pneumo cystitis carinii and CADEN. Repeat CT chest 02/09/18: interval worsening of interstitial, nodular, alveolar airspace disease in both lungs, worse in the left. Findings are concerning for opportunistic infection and atypical pneumonia including pneumo cystitis carinii and CADEN. Lab serology: AFB sputum negative x3. Quantiferon negative. RPR: nonreactive. Hepatitis panel: negative. CMV Ig.90 IgM:negative. Patient was instructed on the importance of strict follow up at [facility] to begin his HAART treatment. He reports he understands and knows he will need to follow up with them for multiple appointments. He understands the importance of being compliant with his medications. Discharge Exam - Head Exam Head Exam: NORMAL INSPECTION Discharge Plan - Discharge Medications Prescriptions: Azithromycin 1,200 mg PO QWK #4 tablet Metoprolol Tartrate [Lopressor] 25 mg PO Q12 #60 tab predniSONE [predniSONE Tab] 20 mg PO DAILY #30 tab Sulfamethoxazole/Trimethoprim [Bactrim DS 800 mg-160 mg] 1 tab PO BID #30 tab - Follow Up Plan Condition: STABLE Disposition: HOME/ ROUTINE Instructions: Acute Abdomen (Belly Pain), Adult (DC), Fever, Adult (DC), Community-Acquired Pneumonia, Adult (DC) Additional Instructions: follow up with primary MD 1 week follow up with Dr Jenkins on for bronchoscopy 1-2 weeks Follow [facility] with [facility] ARV therapy. Referrals: Angel Jenkins MD [Staff Provider] -
[2018-02-10 12:07] LABS: BANDS 2 % (0-2); LYMPHOCYTE 12 % (20-50); MONOCYTE 7 % (0-10); NEUTROPHIL 79 % (42-75); PLATELET ESTIMATE NORMAL (NORMAL); TOTAL CELLS COUNTED 100
[2018-02-10 15:59] VITALS: BP 113/69; PULSE 112; RESP 18; TEMP 97.9; O2SAT 96
== END 2018-02-10 16:20 | disposition home or self-care (01) | DRG 714 ==
LOC: H.ER 16:12 → H.ERHOLD 21:03 → H.MEDSURG1 22:24 → OBSVTOIN 01-26 16:47 → H.TEL 01-26 18:10 → H.MEDSURG1 02-09 16:10
PROVIDERS: ADMIT Internal Medicine; ATTEND Internal Medicine
PROC: 3E0234Z Introduction of Serum, Toxoid and Vaccine into Muscle, Percutaneous Approach (ICD-10-PCS; principal; 2018-01-26)
DX: J18.9 Pneumonia, unspecified organism (principal); B20 Human immunodeficiency virus [HIV] disease; E87.6 Hypokalemia; R09.02 Hypoxemia; K52.9 Noninfective gastroenteritis and colitis, unspecified; N28.89 Other specified disorders of kidney and ureter; R91.8 Other nonspecific abnormal finding of lung field; R74.0 Nonspecific elevation of levels of transaminase and lactic acid dehydrogenase [LDH]; Z23 Encounter for immunization; F17.210 Nicotine dependence, cigarettes, uncomplicated; Z79.899 Other long term (current) drug therapy

== ENCOUNTER 2018-02-26 10:55 | Inpatient (IN) | payer SELFPAY ==
[2018-02-26 11:01] VITALS: BMI 25.0
[2018-02-26] MEDS ORDERED: Sodium Chloride 0.9% 1,000 ML IV STA (11:30)
--- NOTE | 2018-02-26 11:33 | ED PDOC ---
HPI: General Adult Time Seen by Provider: 02/26/18 11:32 Chief Complaint (Nursing): GI Problem Chief Complaint (Provider): VOMITING/DIARRHEA History Per: Patient (27 Y/O MALE NEWLY DIAGNOSED AIDS CD4 30 LAST ADMISSION 2017 WITH DIAGNOSIS OF PNEUMONIA/OPPORTUNISTIC INFECTION HERE FOR VOMITING/ DIARRHEA MULTIPLE EPISODES. STATES HE IS ON ANTIBIOTICS FOR PNEUMONIA BUT INTERMITTENTLY UNABLE TO TOLERATE.) Past Medical History Reviewed: Historical Data, Nursing Documentation, Vital Signs Vital Signs: Last Vital Signs Temp 98 F 02/26/18 11:00 Pulse 136 H 02/26/18 11:00 Resp BP 112/68 02/26/18 11:00 Pulse Ox 96 02/26/18 11:33 - Medical History PMH: Denies: Chronic Kidney Disease - Family History Family History: States: No Known Family Hx - Home Medications Home Medications: Ambulatory Orders Medication Instructions Recorded Azithromycin 1,200 mg PO QWK #4 tablet 02/10/18 Ibuprofen [Motrin Tab] 600 mg PO Q8 PRN tab 02/10/18 Metoprolol Tartrate [Lopressor] 25 mg PO Q12 #60 tab 02/10/18 Sulfamethoxazole/Trimethoprim 1 tab PO BID #30 tab 02/10/18 [Bactrim DS 800 mg-160 mg] predniSONE [predniSONE Tab] 20 mg PO DAILY #30 tab 02/10/18 - Allergies Allergies/Adverse Reactions: Allergies Allergy/AdvReac Type Severity Reaction Status Date / Time No Known Allergies Allergy Verified 02/26/18 11:19 Review of Systems ROS Statement: Except As Marked, All Systems Reviewed And Found Negative Physical Exam - Reviewed Nursing Documentation Reviewed: Yes Vital Signs Reviewed: Yes - Physical Exam Appears: Positive for: Well, Non-toxic, No Acute Distress Head Exam: Positive for: ATRAUMATIC, NORMAL INSPECTION, NORMOCEPHALIC Skin: Positive for: Normal Color, Warm, DRY Eye Exam: Positive for: EOMI, Normal appearance, PERRL ENT: Positive for: Normal ENT Inspection Neck: Positive for: Normal, Painless ROM Cardiovascular/Chest: Positive for: Regular Rate, Rhythm Respiratory: Positive for: CNT, Normal Breath Sounds Gastrointestinal/Abdominal: Positive for: Normal Exam, Soft Back: Positive for: Normal Inspection Extremity: Positive for: Normal ROM Neurologic/Psych: Positive for: Alert, Oriented - Laboratory Results Result Diagrams: 02/26/18 12:00 02/26/18 12:00 - ECG ECG Rhythm: Positive for: Sinus Tachycardia (SINUS TACHYCARDIA 122 BPM NO ECTOPY NO ACUTE CHANGES) O2 Sat by Pulse Oximetry: 96 - Progress ED Course And Treament: NS 2 LITERS WIDE OPEN PEPCID 20 MG IV X 1 DOSE ZOFRAN 4 MG IV X 1 DOSE CXR: DIFFUSE GROUND GLASS OPACITY Disposition - Clinical Impression Clinical Impression: Dehydration, Intractable vomiting, Pneumonia - Patient ED Disposition Is Patient to be Admitted: Yes - Disposition Disposition Time: 13:17 Condition: FAIR - Pt Status Changed To: Hospital Disposition Of: Inpatient - Admit Certification Admit to Inpatient:: After my assessment, the patient will require hospitalization for at least two midnights. This is because of the severity of symptoms shown, intensity of services needed, and/or the medical risk in this patient being treated as an outpatient.
[2018-02-26 12:11] LABS: HEMOGLOBIN 13.4 g/dL (12.0-18.0); LYMPH # 0.2 K/uL (1.0-4.3); LYMPH % 2.4 % (20.0-40.0); MEAN CELL VOLUME 88.6 fl (80.0-94.0); MEAN CORPUSCULAR HEMOGLOBIN 29.9 pg (27.0-31.0); MEAN CORPUSCULAR HGB CONC 33.8 g/dL (33.0-37.0); MEAN PLATELET VOLUME 7.7 fl (7.2-11.7); MONO % 0.2 % (0.0-10.0); NEUT # 8.6 K/uL (1.8-7.0); NEUT % 97.4 % (50.0-75.0); PLATELET COUNT 191 K/uL (130-400); RBC 4.49 Mil/uL (4.40-5.90); WHITE BLOOD COUNT 8.8 K/uL (4.8-10.8)
[2018-02-26 12:13] LABS: VENOUS BLOOD GAS BASE EXCESS 2.2 mmol/L (0.0-2.0); VENOUS BLOOD GAS PCO2 34 mmHg (40-60); VENOUS BLOOD GAS PO2 35 mm/Hg (30-55); VENOUS BLOOD PH 7.48 (7.32-7.43)
--- NOTE | 2018-02-26 12:13 | RAD ---
Date of service: 02/26/2018 HISTORY: H/O PNEUMONIA COMPARISON: CT chest dated 02/09/2018. TECHNIQUE: Chest PA and lateral FINDINGS: LUNGS: Diffuse reticulonodular/ground-glass opacities bilaterally. PLEURA: No significant pleural effusion identified. No pneumothorax apparent. CARDIOVASCULAR: Normal. OSSEOUS STRUCTURES: No significant abnormalities. VISUALIZED UPPER ABDOMEN: Normal. OTHER FINDINGS: None. IMPRESSION: Diffuse reticulonodular/ ground-glass opacity bilaterally.
[2018-02-26 12:20] LABS: ALB/GLOB RATIO 1.2 (1.0-2.1); ALBUMIN 3.3 g/dL (3.5-5.0); ALT/SGPT 65 U/L (21-72); AST/SGOT 41 U/L (17-59); BLOOD UREA NITROGEN 11 mg/dl (9-20); CALCIUM 8.1 mg/dL (8.4-10.2); GFR AFRICAN-AMERICAN > 60; GFR NON-AFRICAN AMERICAN > 60
[2018-02-26] MEDS ORDERED: Albuterol 0.083% Inhal Sol (2.5 mg/3 mL) UD INH STA (14:03)
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
[2018-02-26] MEDS ORDERED: Dextrose 5%/0.9% NS 1,000 ML IV ONE ×2 (14:27)
[2018-02-26 14:30] LABS: BANDS 4 % (0-2); LYMPHOCYTE 5 % (20-50); METAMYELOCYTE 2 % (0-0); MONOCYTE 4 % (0-10); NEUTROPHIL 85 % (42-75); PLATELET ESTIMATE NORMAL (NORMAL); TOTAL CELLS COUNTED 100
[2018-02-26 14:31] LABS: ANISOCYTOSIS SLIGHT; LARGE PLATELETS PRESENT; OVALOCYTES SLIGHT
[2018-02-26] MEDS ORDERED: Albuterol 0.083% Inhal Sol (2.5 mg/3 mL) UD INH PRN (14:31)
[2018-02-26] MEDS ORDERED: Sodium Chloride 3% for Inhalation 4 ML VIAL.NEB IH PRN (14:45)
--- NOTE | 2018-02-26 14:51 | CP.PCM.CON ---
History of Present Illness - History of Present Illness History of Present Illness: Infectious Disease Consultation Note- asked to see this patietn at the request of the [facility] team. HPI- Patient known to me from his previous admission. Patient is a pleasant 27 year old male who was admitted last month with diarrhea , fever and extensive reticulonodular opacities throughout his lung and was diagnosed with HIV on that visit ( newly diagnosed). He was on IV zosyn empirically for pneumonia for 10 days and on IV bactrim for presumed PCP since his CD4 was <50 and he was hypoxic and his cxr pattern. He responded very well to the bactrim and started regaining his appetite and gained weight, diarrhea resolved and fevers all subsided. He was d/c on oral bactrim after receiving 10 days of IV bactrim to complete total of 21 days of bactrim for pc and was advised to f/u with [facility] so that he can establish care there and start HAART regimen. Pt. sattes 2 days ago he was started on Genvoya by his HIV doctor at [facility] and he states after that he developed fever and diarrhe and nausea and that is why he presented to ED today. he denies any BELTRAN, denies any sob, clarisa any chest pain, rodríguez have cough but mostly dry, denies any bad. pain, denies any dysurea, + diarrhea past 2 days non -bloody, + nausea. saw the patient with the family practice resident in ED and he had temp of 103, not in any acute distress. labs from last admission- legionella ag- neg influenza- neg HIV ab- pos ( conformed ) CD4-30 ( AIDS) blood cx- neg x 5 urine cx- neg stool cx- neg stool ova and parasites- negative sputum AFb smear- neg x 3 transaminitis improving hepatitis panel- neg HIV genotype- No resistance listed. Review of Systems - Review of Systems Review of Systems: ROS- as stated in HPI Past Patient History - Past Medical History & Family History Past Medical History?: Yes - Past Social History Smoking Status: Former Smoker - CARDIAC Hx Cardiac Disorders: No - PULMONARY Hx Respiratory Disorders: No - NEUROLOGICAL Hx Neurological Disorder: No - HEENT Hx HEENT Problems: No - RENAL Hx Chronic Kidney Disease: No - ENDOCRINE/METABOLIC Hx Endocrine Disorders: No - HEMATOLOGICAL/ONCOLOGICAL Hx AIDS: Yes Hx Human Immunodeficiency Virus (HIV): Yes - INTEGUMENTARY Hx Dermatological Problems: No - MUSCULOSKELETAL/RHEUMATOLOGICAL Hx Musculoskeletal Disorders: No Hx Falls: No - GASTROINTESTINAL Hx Gastrointestinal Disorders: No - GENITOURINARY/GYNECOLOGICAL Hx Genitourinary Disorders: No - PSYCHIATRIC Hx Psychophysiologic Disorder: No Hx Substance Use: No - SURGICAL HISTORY Hx Surgeries: No - ANESTHESIA Hx Anesthesia: No Hx Anesthesia Reactions: No Hx Malignant Hyperthermia: No Meds Allergies/Adverse Reactions: Allergies Allergy/AdvReac Type Severity Reaction Status Date / Time No Known Allergies Allergy Verified 02/26/18 11:19 - Medications Medications: Current Medications Albuterol Sulfate (Albuterol 0.083% Inhal Carolee (2.5 Mg/3 Ml) Ud) 2.5 mg INH RQ6 PRN PRN Reason: Shortness of Breath Enoxaparin Sodium (Lovenox) 40 mg SC DAILY IVANNA PRN Reason: Protocol Dextrose/Sodium Chloride (Dextrose 5%/0.9% Ns 1000 Ml) 1,000 mls @ 100 mls/hr IV .Q10H ONE Stop: 02/27/18 00:26 Metoprolol Tartrate (Lopressor) 25 mg PO Q12 IVANNA Physical Exam - Constitutional Appears: No Acute Distress - Head Exam Head Exam: ATRAUMATIC - Eye Exam Eye Exam: EOMI, PERRL - ENT Exam ENT Exam: Normal Oropharynx - Neck Exam Neck exam: Positive for: Full Rom Additional comments: supple - Respiratory Exam Respiratory Exam: NORMAL BREATHING PATTERN Additional comments: decreased breath sounds at left base no wheezing - Cardiovascular Exam Cardiovascular Exam: RRR, +S1, +S2 - GI/Abdominal Exam GI & Abdominal Exam: Normal Bowel Sounds, Soft Additional comments: ND, NT - Extremities Exam Extremities exam: Positive for: normal inspection - Neurological Exam Neurological exam: Alert, Oriented x3 Results - Vital Signs Recent Vital Signs: Last Vital Signs Temp 103.2 F H 02/26/18 14:08 Pulse 120 H 02/26/18 14:00 Resp 16 02/26/18 14:00 BP 106/59 L 02/26/18 14:00 Pulse Ox 92 L 02/26/18 14:00 - Labs Result Diagrams: 02/26/18 12:00 02/26/18 12:00 Labs: Laboratory Results - last 24 hr 02/26/18 02/26/18 02/26/18 11:50 12:00 12:00 WBC 8.8 D RBC 4.49 Hgb 13.4 Hct 39.8 MCV 88.6 MCH 29.9 MCHC 33.8 RDW 16.0 H Plt Count 191 MPV 7.7 Neut % (Auto) 97.4 H Lymph % (Auto) 2.4 L Brewster % (Auto) 0.2 Eos % (Auto) 0.0 Baso % (Auto) 0.0 Neut # (Auto) 8.6 H Lymph # (Auto) 0.2 L Brewster # (Auto) 0.0 Eos # (Auto) 0.0 Baso # (Auto) 0.0 Neutrophils % (Manual) 85 H Band Neutrophils % 4 H Lymphocytes % (Manual) 5 L Monocytes % (Manual) 4 Metamyelocytes % 2 H Platelet Estimate Normal Large Platelets Present Anisocytosis (manual) Slight Ovalocytes Slight pO2 35 VBG pH 7.48 H VBG pCO2 34 L VBG HCO3 26.0 VBG Total CO2 26.3 VBG O2 Sat (Calc) 67.8 H VBG Base Excess 2.2 H VBG Potassium 3.8 Sodium 126.0 L 130 L Chloride 94.0 L 95 L Glucose 101 Lactate 2.1 FiO2 21.0 Potassium 4.3 Carbon Dioxide 24 Anion Gap 15 BUN 11 Creatinine 0.6 L Est GFR ( Amer) > 60 Est GFR (Non-Af Amer) > 60 Random Glucose 97 Calcium 8.1 L Magnesium 2.1 Total Bilirubin 1.2 AST 41 ALT 65 Alkaline Phosphatase 63 Total Protein 6.0 L Albumin 3.3 L Globulin 2.7 Albumin/Globulin Ratio 1.2 Venous Blood Potassium 3.8 Microbiology 02/06/18 23:00 Urine,Clean Catch Urine Culture - Final No Growth (<1,000 CFU/ML) 02/06/18 18:30 Blood-Venous Blood Culture - Final 02/06/18 18:30 Blood-Venous Gram Stain - Final NO GROWTH AFTER 5 DAYS TEST NOT PERFORMED 02/06/18 18:00 Blood-Venous Blood Culture - Final 02/06/18 18:00 Blood-Venous Gram Stain - Final NO GROWTH AFTER 5 DAYS TEST NOT PERFORMED 01/31/18 12:58 Sputum Induced Gram Stain - Final 01/31/18 12:58 Sputum Induced Sputum Culture - Final NORMAL ORAL DEANN 01/30/18 13:44 Urine Urine Culture - Final No Growth (<1,000 CFU/ML) 01/30/18 12:45 Blood Blood Culture - Final 01/30/18 12:45 Blood Gram Stain - Final NO GROWTH AFTER 5 DAYS TEST NOT PERFORMED 01/30/18 12:30 Blood Blood Culture - Final 01/30/18 12:30 Blood Gram Stain - Final NO GROWTH AFTER 5 DAYS TEST NOT PERFORMED 01/28/18 15:30 Urine Urine Culture - Final No Growth (<1,000 CFU/ML) 01/27/18 14:09 Sputum Gram Stain - Final 01/27/18 14:09 Sputum Sputum Culture - Final NORMAL ORAL DEANN 01/27/18 08:31 Stool Ova and Parasite Concentrate Exam - Final 01/26/18 12:14 Stool Stool Culture - Final NO SALMONELLA, SHIGELLA OR CAMPYLOBACTER ISOLATED. 01/26/18 12:14 Stool Ova and Parasite Concentrate Exam - Final 02/02/18 17:55 Other: Please Indicate Mycobacterial Culture - Preliminary 01/31/18 09:35 Other: Please Indicate Mycobacterial Culture - Preliminary 01/30/18 13:39 Other: Please Indicate Mycobacterial Culture - Preliminary Accession No. : [id number] Patient Name / ID : MARSHALL NGUYEN PARKER / [id number] Exam Date : 02/26/2018 11:34:07 ( Approved ) Study Comment : Sex / Age : M / 27Y Creator : Mani Scott MD Dictator : Mani Scott MD Platform Inspector : Upsetting Machine Operator : Mani Scott MD Approver2 : Report Date : 02/26/2018 12:12:03 My Comment : Date of service: 02/26/2018 HISTORY: H/O PNEUMONIA COMPARISON: CT chest dated 02/09/2018. TECHNIQUE: Chest PA and lateral FINDINGS: LUNGS: Diffuse reticulonodular/ground-glass opacities bilaterally. PLEURA: No significant pleural effusion identified. No pneumothorax apparent. CARDIOVASCULAR: Normal. OSSEOUS STRUCTURES: No significant abnormalities. VISUALIZED UPPER ABDOMEN: Normal. OTHER FINDINGS: None. IMPRESSION: Diffuse reticulonodular/ ground-glass opacity bilaterally. Assessment & Plan (1) AIDS Status: Acute (2) Diarrhea Status: Acute (3) Pneumonia Status: Acute (4) Fever Status: Acute - Assessment and Plan (Free Text) Assessment: A/P- 27 year old male with newly diagnosed HIV, PCP pneumonia admitted with nause and diarrhe after starting HAART 2 days ago. pt. febrile with nausea and diarrhea 2 days post HAART initiation could be secondary to immune reconstitution syndrome. last admission pt. was ruled out with 3 neg sputum AFB. plan- check blood cx x 2 check UA and urine cx. check stool cx and stool c.diff. check sputum cx. resume IV bactrim for PCP treatment. no need for prednisone as no hypoxemia on this admission. check chest CT as well. check abd ct as well r/o colitis specially since his CD4 was 30 last admission. continue with his HAART regimen. would also place on IV cefepime for nosocomial pneumonia coverage. get pulm evaluation as well since pt. might need bronchoscopy for further evaluation of the micronodular densities seen on cxr . check cd4 . all above d/w patient and family practice resident. Pt. verbalizes full understanding of all above and agrees with above plan of care. Thank you for allowing me to take part in the care of this patient. tino
[2018-02-26 16:34] LABS: BARBITURATES, UR NEGATIVE (NEGATIVE); BENZODIAZEPINES, UR NEGATIVE (NEGATIVE); OPIATES, UR NEGATIVE (NEGATIVE); PHENCYCLIDINE, UR NEGATIVE (NEGATIVE)
[2018-02-26] MEDS ORDERED: Sulfamethoxazole/Trimethoprim 160 MG in Dextrose 5% In Water 250 ML IVPB SCH (17:00)
--- NOTE | 2018-02-26 17:45 | CT ---
Date of service: 02/26/2018 PROCEDURE: CT Chest without contrast HISTORY: Hx of PCP COMPARISON: CT scan of the chest dated 02/09/2018. TECHNIQUE: Contiguous axial images were obtained through the chest without intravenous contrast enhancement. Sagittal and coronal reconstructions were performed. Radiation dose (DLP): 290.4 mGy-cm. This CT exam was performed using one or more of the following dose reduction techniques: Automated exposure control, adjustment of the mA and/or kV according to patient size, and/or use of iterative reconstruction technique. FINDINGS: LUNGS: Worsening of diffuse alveolar airspace disease, worse in the upper lobes. Redemonstration of extensive micro nodules bilaterally. Visualized airway clear. MEDIASTINUM: Unremarkable thoracic aorta. No aneurysm. Normal sized heart. Main pulmonary artery unremarkable. No vascular congestion. No lymphadenopathy. PLEURA: No pleural fluid. No pneumothorax. BONES: No fracture. No destructive lesion. UPPER ABDOMEN: Grossly unremarkable. OTHER FINDINGS: None. IMPRESSION: Interval worsening of bilateral airspace disease, worst in the upper lungs. Consider recurrence/worsening of opportunistic infection.
[2018-02-26] MEDS ORDERED: TRIMETHOPRIM IVPB SCH (19:00)
[2018-02-26] MEDS ORDERED: SULFAMETHOXAZOLE IVPB SCH (19:00)
[2018-02-26] MEDS ORDERED: WATER IVPB SCH (19:00)
[2018-02-26] MEDS ORDERED: DEXTROSE 5% IVPB SCH (19:00)
[2018-02-26] MEDS: Sodium Chloride 0.9% 1,000 ML IV SCH ×4 (19:15→23:00)
[2018-02-26] MEDS: Cefepime 1 GM in Sodium Chloride 0.9% 100 ML IVPB SCH (20:49)
[2018-02-26] MEDS ORDERED: Iohexol 300 100 ML IJ ONE (23:37)
[2018-02-26] MEDS ORDERED: Sodium Chloride 0.9% 50 ML IV ONE (23:37)
[2018-02-27] MEDS: Sodium Chloride 0.9% 1,000 ML IV SCH ×11 (00:05→10:32)
[2018-02-27 00:47] LABS: URINE BILIRUBIN NEGATIVE (NEGATIVE); URINE BLOOD NEGATIVE (NEGATIVE); URINE CLARITY CLEAR (Clear); URINE COLOR YELLOW (YELLOW); URINE GLUCOSE (UA) NEG (Normal); URINE LEUKOCYTE ESTERASE NEG Leu/uL (Negative); URINE PROTEIN 30 mg/dL (NEGATIVE); URINE UROBILINOGEN 0.2-1.0 mg/dL (0.2-1.0)
[2018-02-27] MEDS: Cefepime 1 GM in Sodium Chloride 0.9% 100 ML IVPB SCH ×4 (01:00→20:26)
[2018-02-27] MEDS: Albuterol 0.083% Inhal Sol (2.5 mg/3 mL) UD INH SCH ×4 (01:23→19:14)
[2018-02-27] MEDS: DEXTROSE 5% IVPB SCH ×2 (05:27→17:03)
[2018-02-27] MEDS: TRIMETHOPRIM IVPB SCH ×2 (05:27→17:03)
[2018-02-27] MEDS: WATER IVPB SCH ×2 (05:27→17:03)
[2018-02-27] MEDS: SULFAMETHOXAZOLE IVPB SCH ×2 (05:27→17:03)
[2018-02-27 07:40] LABS: BASO # 0.1 K/uL (0.0-0.2); BASO % 1.2 % (0.0-2.0); EOS % 0.2 % (0.0-4.0); HEMOGLOBIN 13.4 g/dL (12.0-18.0); LYMPH % 0.8 % (20.0-40.0); MEAN CELL VOLUME 89.1 fl (80.0-94.0); MEAN CORPUSCULAR HEMOGLOBIN 30.2 pg (27.0-31.0); MEAN CORPUSCULAR HGB CONC 33.9 g/dL (33.0-37.0); MEAN PLATELET VOLUME 8.6 fl (7.2-11.7); MONO % 0.5 % (0.0-10.0); NEUT # 6.3 K/uL (1.8-7.0); NEUT % 97.3 % (50.0-75.0); NRBC % 0.1 % (0.0-0.0); PLATELET COUNT 179 K/uL (130-400); RBC 4.43 Mil/uL (4.40-5.90); WHITE BLOOD COUNT 6.4 K/uL (4.8-10.8)
[2018-02-27 07:53] LABS: ALBUMIN 2.5 g/dL (3.5-5.0); ALT/SGPT 46 U/L (21-72); AST/SGOT 30 U/L (17-59); BLOOD UREA NITROGEN 7 mg/dl (9-20); CALCIUM 7.4 mg/dL (8.4-10.2); GFR AFRICAN-AMERICAN > 60; GFR NON-AFRICAN AMERICAN > 60
[2018-02-27 08:27] LABS: ABG ALLEN TEST YES; ARTERIAL BLOOD GAS HCO3 22.4 mmol/L (21-28); ARTERIAL BLOOD GAS O2 SAT 95.9 % (95-98); ARTERIAL BLOOD GAS PCO2 27 mm/Hg (35-45); ARTERIAL BLOOD GAS PH 7.46 (7.35-7.45); ARTERIAL BLOOD GAS PO2 72 mm/Hg (80-100)
--- NOTE | 2018-02-27 08:27 | PCM.RRT ---
<LazAnnabelle - Last Filed: 02/27/18 19:16> I.Reason for GOVERNMENT RELATIONS MANAGER - A) Acute Change in Patient: (Select all that apply): Acute change in heart rate less than 50 or greater than 120 Subjective: GOVERNMENT RELATIONS MANAGER called at 8:15AM for 27 y/o male w/ hx of HIV and PCP newly started on HIV rx, by nurse for tachycardia and hypotension. Patient nauseous and vomiting BP 88/44 HR 149 T 100.9 sat 90 EKG showed sinus tachycardia Patient alert/responsive/follows command Peripheral IV access was established Patient started on 3-4L O2 NC Patient given 1 Liter bolus NS, tylanol 650 mg PO and Motrin 600mg PO IV Zofran 4mg and 125mg IV methylprednisone given once Chest xray, ABG ordered BP 107/51 HR 150 O2 sat 93 Patient transferred to telemetry for further management - Neurological Status (Select all that apply): Alert - Respiratory Oxygen Delivery Method: Nasal Cannula @L/min Oxygen Flow Rate: 4 - Constitutional Appears: No Acute Distress - Head Head Exam: ATRAUMATIC - Eyes Eye Exam: Normal appearance - Respiratory Exam Respiratory Exam: Clear to Ausculation Bilateral, NORMAL BREATHING PATTERN - Cardiovascular Exam Cardiovascular Exam: Tachycardia, REGULAR RHYTHM, +S1, +S2 - GI/Abdominal Exam GI & Abdominal Exam: Soft, Normal Bowel Sounds. absent: Tenderness - Neurological Exam Neurological Exam: Alert, Awake, Oriented x3 - Extremities Exam Extremities Exam: Normal Inspection. absent: Pedal Edema, Tenderness <Adriana Fernandez - Last Filed: 02/28/18 13:24> GOVERNMENT RELATIONS MANAGER Nurse Assessment - Vital Signs Vital Signs: Rapid Response Vital Sign Blood Pressure 109/44 Pulse Rate 152 Respiratory Rate 34 Temperature 100.9 F Oxygen Saturation 90 - Vital Signs at end of GOVERNMENT RELATIONS MANAGER Vital Signs at end of GOVERNMENT RELATIONS MANAGER: Rapid Response End Vital Sign Blood Pressure 102/74 Pulse Rate 147 Respiratory Rate 30 O2 Sat by Pulse Oximetry 93 Attending/Attestation - Attestation I have personally seen and examined this patient.: Yes I have fully participated in the care of the patient.: Yes I have reviewed all pertinent clinical information, including history, physical exam and plan: Yes
--- NOTE | 2018-02-27 09:01 | CARD ---
APPROVED REPORT Date of service: 02/27/2018 EKG Measurement Heart [id number] <Conclusion> Sinus tachycardia Septal infarct, age undetermined Abnormal ECG
--- NOTE | 2018-02-27 10:00 | CT ---
Date of service: 02/26/2018 PROCEDURE: CT Abdomen and Pelvis with contrast HISTORY: r/o colitis, COMPARISON: CT scan of the abdomen pelvis dated 01/25/2018. TECHNIQUE: Contrast dose: 95 mL Omnipaque 300 Radiation dose: Total exam DLP = two-view 5.4 mGy-cm. This CT exam was performed using one or more of the following dose reduction techniques: Automated exposure control, adjustment of the mA and/or kV according to patient size, and/or use of iterative reconstruction technique. FINDINGS: LOWER THORAX: Partially imaged bilateral alveolar airspace disease with extensive micro nodules. LIVER: Unremarkable. No gross lesion or ductal dilatation. GALLBLADDER AND BILE DUCTS: Unremarkable. PANCREAS: Unremarkable. No gross lesion or ductal dilatation. SPLEEN: Unremarkable. ADRENALS: Unremarkable. No mass. KIDNEYS AND URETERS: Unremarkable. No hydronephrosis. No solid mass. VASCULATURE: Unremarkable. No aortic aneurysm. BOWEL: Unremarkable. No obstruction. No gross mural thickening. APPENDIX: Normal appendix. PERITONEUM: Unremarkable. No free fluid. No free air. LYMPH NODES: Multiple prominent mesenteric and retroperitoneal lymph nodes which do not meet size criteria for adenopathy. BLADDER: Unremarkable. REPRODUCTIVE: Unremarkable. BONES: No acute fracture. OTHER FINDINGS: None. IMPRESSION: Extensive partially imaged bilateral alveolar airspace disease with extensive micro nodules, better characterized on preceding chest CT. Nonspecific prominent mesenteric and retroperitoneal lymph nodes which do not meet size criteria for adenopathy.
[2018-02-27] MEDS: Enoxaparin 40 mg Syringe SC SCH (10:13)
--- NOTE | 2018-02-27 10:55 | RAD ---
Date of service: 02/27/2018 PROCEDURE: CHEST RADIOGRAPH, 1 VIEW HISTORY: TOY STUFFER COMPARISON: Chest radiograph dated 02/26/2018. FINDINGS: LUNGS: Similar diffuse reticulonodular ground-glass opacities, bilaterally. PLEURA: No pneumothorax or pleural fluid seen. CARDIOVASCULAR: Normal. OSSEOUS STRUCTURES: No significant abnormalities. VISUALIZED UPPER ABDOMEN: Normal. OTHER FINDINGS: None. IMPRESSION: Similar diffuse reticular nodular ground-glass opacities, bilaterally.
[2018-02-27 11:32] LABS: ANISOCYTOSIS SLIGHT; BANDS 7 % (0-2); LARGE PLATELETS PRESENT; LYMPHOCYTE 3 % (20-50); METAMYELOCYTE 3 % (0-0); MONOCYTE 4 % (0-10); MYELOCYTE 2 % (0-0); NEUTROPHIL 81 % (42-75); OVALOCYTES SLIGHT; PLATELET ESTIMATE NORMAL (NORMAL); TEARDROP CELLS SLIGHT; TOTAL CELLS COUNTED 100
[2018-02-27] MEDS ORDERED: Patient's Own Med (Elviteg/Cob/Emtri/Tenof Alafen [Genvoya Tablet] 1 TAB) PO SCH (14:30)
--- NOTE | 2018-02-27 15:27 | CP.PCM.PN ---
Subjective - Date & Time of Evaluation Date of Evaluation: 02/27/18 Time of Evaluation: 08:00 - Subjective Subjective: Patient seen and examined at bedside. Denies nausea, vomiting, fever or chills. CUSTOM GARMENT DESIGNER was called this AM due to hypotension/fever 100.9F and tachycardia. Patient was transferred to telemetry due to persistent hypotension. Symptoms and vital signs improved with IV fluids, IV steroids, tylenol and ibuprofen. Objective - Vital Signs/Intake and Output Vital Signs (last 24 hours): Temp Pulse Resp BP Pulse Ox 97.7 F 102 H 18 97/59 L 96 02/27/18 12:33 02/27/18 12:33 02/27/18 12:33 02/27/18 12:33 02/27/18 12:33 - Medications Medications: Current Medications Acetaminophen (Tylenol 325mg Tab) 650 mg PO Q6 PRN PRN Reason: Fever >100.4 F Albuterol Sulfate (Albuterol 0.083% Inhal Carolee (2.5 Mg/3 Ml) Ud) 2.5 mg INH RQ6 [facility] Last Admin: 02/27/18 13:50 Dose: 2.5 mg Azithromycin (Zithromax) 1,200 mg PO QWK IVANNA PRN Reason: Protocol Enoxaparin Sodium (Lovenox) 40 mg SC DAILY IVANNA PRN Reason: Protocol Last Admin: 02/27/18 10:13 Dose: 40 mg Home Med (Elviteg/Cob/Emtri/Tenof Alafen [Genvoya Tablet]) 1 tab PO DAILY IVANNA Cefepime HCl 1 gm/ Sodium (Chloride) 100 mls @ 100 mls/hr IVPB Q8H IVANNA PRN Reason: Protocol Last Admin: 02/27/18 13:28 Dose: 100 mls/hr Trimethoprim/Sulfamethoxazole (450 mg/ Dextrose) 500 mls @ 250 mls/hr IVPB Q8@ 0500,1300,2100 IVANNA PRN Reason: Protocol Last Admin: 02/27/18 05:27 Dose: 250 mls/hr Dextrose/Sodium Chloride (Dextrose 5%-0.45% Ns 500 Ml) 1,000 mls @ 160 mls/hr IV .Q6H15M [facility] Stop: 02/27/18 16:42 Last Admin: 02/27/18 11:45 Dose: 160 mls/hr Metoprolol Tartrate (Lopressor) 25 mg PO Q12 [facility] Last Admin: 02/27/18 10:12 Dose: Not Given Ondansetron HCl (Zofran Inj) 4 mg IVP Q4 PRN PRN Reason: Nausea/Vomiting Prednisone (Prednisone Tab) 40 mg PO Q12 [facility] Stop: 03/05/18 09:01 Prednisone (Prednisone Tab) 40 mg PO DAILY [facility] Stop: 03/10/18 09:01 Prednisone (Prednisone Tab) 20 mg PO DAILY [facility] Stop: 03/21/18 09:01 - Labs Labs: 02/27/18 06:00 02/27/18 06:00 - Constitutional Appears: No Acute Distress - Head Exam Head Exam: ATRAUMATIC, NORMOCEPHALIC - Eye Exam Eye Exam: EOMI - ENT Exam ENT Exam: Mucous Membranes Moist - Neck Exam Neck Exam: Full ROM - Respiratory Exam Respiratory Exam: Rales (bilateral lower lobes), NORMAL BREATHING PATTERN. absent: Wheezes - Cardiovascular Exam Cardiovascular Exam: Tachycardia, +S1, +S2 - GI/Abdominal Exam GI & Abdominal Exam: Soft, Normal Bowel Sounds. absent: Tenderness - Extremities Exam Extremities Exam: Full ROM, Normal Capillary Refill. absent: Tenderness - Neurological Exam Neurological Exam: Alert, Awake, CN II-XII Intact, Oriented x3 - Psychiatric Exam Psychiatric exam: Normal Affect, Normal Mood - Skin Skin Exam: Dry, Warm Assessment and Plan - Assessment and Plan (Free Text) Assessment: 27 yr old M admitted for sepsis secondary to pneumocystis pneumonia with PMHx of recently diagnosed symptomatic HIV-AIDS (CD4 count 30 on 02/02/18) and PCP pneumonia. Sepsis secondary to Pneumocystis Pneumonia -criteria met with Fever 102.3F , tachycardia 104, and CXR: Diffuse ground glass opacity -continue IVF, 2L boluses and maintenance fluid -Pulmonology on consult: Dr. Ovalles-appreciated -ID on consult: Dr. Atkinson-recommendations appreciated -restart Genvoya 1 tab PO QD (patient brought his home medication) -continue Bactrim DS IV Q8 day 2, Continue with Azithromycin 1,200mg PO QWeek for MAC prophylaxis (last dose given 02/26/18) -start Prednisone 40mg PO BID x 5 days (02/28-03/04), then 40mg PO QD x 5 days (-03/09), then 20mg PO QD x 11 days (03/10-03/20) -continue Cefepime 1g Q8 IV -02/26/[address]: Interval worsening of bilateral airspace disease, worst in the upper lungs. Consider recurrence/worsening of opportunistic infection -02/26/18 Abd/Pelvis CT: Nonspecific prominent mesenteric and retroperitoneal lymph nodes which do not meet size criteria for adenopathy -Follow Ucx, Stool Cx/C.diff, sputum Cx and Legionella ag -UA negative for infection, 2x blood culture 02/26/18 no growth for 24hrs -LDH 1124 -continue 2L supplemental O2 via nasal cannula to keep SpO2 >92% Acquired Immunodeficiency Syndrome-HIV -CD4 30 in 01/2018 -Symptomatic -Consult ID, Dr. Atkinson, recommendations appreciated -continue PCP treatment and MAC ppx until CD4 (next dose due on 03/05/18) as above -restart ART (Genvoya) -Follow up repeat CD4, VL and lymphocyte subset panel IRIS- Immune Reconstitution Inflammatory Syndrome -ID on board: Dr. Atkinson, continue treatment as above (Genvoya, Bactrim, Azithromycin, steroids) -IVF, symptomatic management (tylenol and ibuprofen for fever) Tachycardia -tylenol and ibuprofen for fever -continue with Metoprolol Tartrate 25 mg PO Q12 -monitor vitals Substance abuse -Hx marijuana and Cocaine use in past -Utox positive for marijuana DVT Prophylaxis -SCD's -Lovenox 40mg SC daily Full Code Emergency contact: Sister, Ms. Ochoa # [phone]
[2018-02-27] MEDS: Patient's Own Med (Elviteg/Cob/Emtri/Tenof Alafen [Genvoya Tablet] 1 TAB) PO SCH (16:57)
--- NOTE | 2018-02-27 18:57 | CARD ---
APPROVED REPORT Date of service: 02/26/2018 EKG Measurement Heart [id number] <Conclusion> Sinus tachycardia Otherwise normal ECG
[2018-02-28] MEDS: TRIMETHOPRIM IVPB SCH ×3 (02:00→16:52)
[2018-02-28] MEDS: SULFAMETHOXAZOLE IVPB SCH ×3 (02:00→16:52)
[2018-02-28] MEDS: DEXTROSE 5% IVPB SCH ×3 (02:00→16:52)
[2018-02-28] MEDS: WATER IVPB SCH ×3 (02:00→16:52)
[2018-02-28] MEDS: Albuterol 0.083% Inhal Sol (2.5 mg/3 mL) UD INH SCH ×4 (02:06→19:13)
[2018-02-28] MEDS: Cefepime 1 GM in Sodium Chloride 0.9% 100 ML IVPB SCH ×3 (04:39→20:37)
--- NOTE | 2018-02-28 08:59 | CP.PCM.PN ---
Subjective - Date & Time of Evaluation Date of Evaluation: 02/28/18 Time of Evaluation: 07:15 - Subjective Subjective: Patient see and examined this morning at bedside. NAD, Afebrile, no acute events overnight, tolerating PO intake. Denies any chest pain, SOB, dizziness, abdominal pain or urinary symptoms. Objective - Vital Signs/Intake and Output Vital Signs (last 24 hours): Temp Pulse Resp BP Pulse Ox 97.9 F 116 H 18 106/63 94 L 02/28/18 04:59 02/28/18 04:59 02/28/18 04:59 02/28/18 04:59 02/28/18 04:59 - Medications Medications: Current Medications Acetaminophen (Tylenol 325mg Tab) 650 mg PO Q6 PRN PRN Reason: Fever >100.4 F Albuterol Sulfate (Albuterol 0.083% Inhal Carolee (2.5 Mg/3 Ml) Ud) 2.5 mg INH RQ6 [facility] Last Admin: 02/28/18 07:29 Dose: 2.5 mg Azithromycin (Zithromax) 1,200 mg PO QWK IVANNA PRN Reason: Protocol Enoxaparin Sodium (Lovenox) 40 mg SC DAILY IVANNA PRN Reason: Protocol Last Admin: 02/27/18 10:13 Dose: 40 mg Home Med (Elviteg/Cob/Emtri/Tenof Alafen [Genvoya Tablet]) 1 tab PO DAILY [facility] Last Admin: 02/27/18 16:57 Dose: 1 tab Cefepime HCl 1 gm/ Sodium (Chloride) 100 mls @ 100 mls/hr IVPB Q8H IVANNA PRN Reason: Protocol Last Admin: 02/28/18 04:39 Dose: 100 mls/hr Trimethoprim/Sulfamethoxazole (450 mg/ Dextrose) 500 mls @ 250 mls/hr IVPB Q8@ 0100,0900,1700 IVANNA PRN Reason: Protocol Last Admin: 02/28/18 02:00 Dose: 250 mls/hr Metoprolol Tartrate (Lopressor) 25 mg PO Q12 [facility] Last Admin: 02/27/18 21:44 Dose: 25 mg Ondansetron HCl (Zofran Inj) 4 mg IVP Q4 PRN PRN Reason: Nausea/Vomiting Prednisone (Prednisone Tab) 40 mg PO Q12 [facility] Stop: 03/05/18 09:01 Prednisone (Prednisone Tab) 40 mg PO DAILY IVANNA Stop: 03/10/18 09:01 Prednisone (Prednisone Tab) 20 mg PO DAILY IVANNA Stop: 03/21/18 09:01 - Labs Labs: 02/27/18 06:00 02/27/18 06:00 - Constitutional Appears: No Acute Distress - Head Exam Head Exam: NORMAL INSPECTION - Eye Exam Eye Exam: Normal appearance Pupil Exam: NORMAL ACCOMODATION - ENT Exam ENT Exam: Mucous Membranes Moist - Neck Exam Neck Exam: Normal Inspection - Respiratory Exam Respiratory Exam: Clear to Ausculation Bilateral, NORMAL BREATHING PATTERN. absent: Accessory Muscle Use, Chest Wall Tenderness, Decreased Breath Sounds, Rhonchi, Wheezes - Cardiovascular Exam Cardiovascular Exam: REGULAR RHYTHM, +S1, +S2 - GI/Abdominal Exam GI & Abdominal Exam: Soft, Normal Bowel Sounds. absent: Tenderness - Extremities Exam Extremities Exam: Full ROM, Normal Capillary Refill, Normal Inspection - Back Exam Back Exam: NORMAL INSPECTION. absent: CVA tenderness (L), CVA tenderness (R) - Neurological Exam Neurological Exam: Alert, Awake, CN II-XII Intact, Normal Gait, Oriented x3 Neuro motor strength exam: Left Upper Extremity: 5, Right Upper Extremity: 5, Left Lower Extremity: 5, Right Lower Extremity: 5 - Skin Skin Exam: Dry, Intact, Normal Color, Warm Assessment and Plan - Assessment and Plan (Free Text) Assessment: A/P: 27 yr old M admitted for sepsis secondary to pneumocystis pneumonia with PMHx of recently diagnosed symptomatic HIV-AIDS (CD4 count 30 on 02/02/18) and PCP pneumonia. Sepsis secondary to Pneumocystis Pneumonia -Improving -Pulmonology on consult: Dr. Ovalles-appreciated -ID on consult: Dr. Atkinson-recommendations appreciated -C/w Genvoya 1 tab PO QD (patient brought his home medication) -continue Bactrim 450mg IV Q8 day 3, Continue with Azithromycin 1,200mg PO QWeek for MAC prophylaxis (last dose given 02/26/18) -start Prednisone 40mg PO BID x 5 days (02/28-03/04), then 40mg PO QD x 5 days (-03/09), then 20mg PO QD x 11 days (03/10-03/20) -continue Cefepime 1g Q8 IV (day 3) -Follow Ucx; NGPD, Stool Cx/C.diff, sputum Cx: pending and Legionella ag: negative Acquired Immunodeficiency Syndrome-HIV -CD4 30 in 01/2018 -Symptomatic -Consult ID, Dr. Atkinson, recommendations appreciated -continue PCP treatment and MAC ppx until CD4 (next dose due on 03/05/18) as above -Continue ART (Genvoya) -Follow up repeat CD4, VL and lymphocyte subset panel IRIS- Immune Reconstitution Inflammatory Syndrome -ID on board: Dr. Atkinson, continue treatment as above (Genvoya, Bactrim, Azithromycin, steroids) -IVF, symptomatic management Tachycardia -tylenol and ibuprofen for fever -Increase Metoprolol Tartrate to 50mg PO Q12H due to tachycardia -monitor vitals Substance abuse -Hx marijuana and Cocaine use in past -Utox positive for marijuana DVT Prophylaxis -SCD's -Lovenox 40mg SC daily Full Code Emergency contact: Sister, Ms. Ochoa # [phone]
[2018-02-28] MEDS: Enoxaparin 40 mg Syringe SC SCH (09:49)
[2018-02-28] MEDS: Patient's Own Med (Elviteg/Cob/Emtri/Tenof Alafen [Genvoya Tablet] 1 TAB) PO SCH (09:50)
--- NOTE | 2018-02-28 10:33 | CP.PCM.PN ---
Subjective - Date & Time of Evaluation Date of Evaluation: 02/28/18 Time of Evaluation: 10:33 - Subjective Subjective: ID note- Pt. seen and examined today on tele floor. patient states he feels better today but yesterday he was hypoxic and hypotensive as per nurse and per whom I spoke with yesterday afternoon. he was restarted on steropids since his pao2 was 72% and he has responded well to this. he denies any sob today. denies any diarrhea today. denies any fever today. states has cough but mostly dry and occasionally whitish phlegm. Objective - Vital Signs/Intake and Output Vital Signs (last 24 hours): Temp Pulse Resp BP Pulse Ox 98.4 F 122 H 18 109/64 93 L 02/28/18 08:00 02/28/18 09:50 02/28/18 08:00 02/28/18 09:50 02/28/18 08:00 - Medications Medications: Current Medications Acetaminophen (Tylenol 325mg Tab) 650 mg PO Q6 PRN PRN Reason: Fever >100.4 F Albuterol Sulfate (Albuterol 0.083% Inhal Carolee (2.5 Mg/3 Ml) Ud) 2.5 mg INH RQ6 [facility] Last Admin: 02/28/18 07:29 Dose: 2.5 mg Azithromycin (Zithromax) 1,200 mg PO QWK IVANNA PRN Reason: Protocol Enoxaparin Sodium (Lovenox) 40 mg SC DAILY IVANNA PRN Reason: Protocol Last Admin: 02/28/18 09:49 Dose: 40 mg Home Med (Elviteg/Cob/Emtri/Tenof Alafen [Genvoya Tablet]) 1 tab PO DAILY [facility] Last Admin: 02/28/18 09:50 Dose: 1 tab Cefepime HCl 1 gm/ Sodium (Chloride) 100 mls @ 100 mls/hr IVPB Q8H IVANNA PRN Reason: Protocol Last Admin: 02/28/18 04:39 Dose: 100 mls/hr Trimethoprim/Sulfamethoxazole (450 mg/ Dextrose) 500 mls @ 250 mls/hr IVPB Q8@ 0100,0900,1700 IVANNA PRN Reason: Protocol Last Admin: 02/28/18 09:48 Dose: 250 mls/hr Sodium Chloride (Sodium Chloride 0.9%) 1,000 mls @ 125 mls/hr IV .Q8H [facility] Stop: 03/01/18 10:04 Metoprolol Tartrate (Lopressor) 25 mg PO Q12 [facility] Last Admin: 02/28/18 09:50 Dose: 25 mg Ondansetron HCl (Zofran Inj) 4 mg IVP Q4 PRN PRN Reason: Nausea/Vomiting Prednisone (Prednisone Tab) 40 mg PO Q12 [facility] Stop: 03/05/18 09:01 Last Admin: 02/28/18 09:49 Dose: 40 mg Prednisone (Prednisone Tab) 40 mg PO DAILY [facility] Stop: 03/10/18 09:01 Prednisone (Prednisone Tab) 20 mg PO DAILY [facility] Stop: 03/21/18 09:01 - Labs Labs: - Additional Findings Additional findings: - Constitutional Appears: No Acute Distress - Head Exam Head Exam: ATRAUMATIC - Eye Exam Eye Exam: EOMI, PERRL - ENT Exam ENT Exam: Normal Oropharynx - Neck Exam Neck exam: Positive for: Full Rom Additional comments: supple - Respiratory Exam Respiratory Exam: NORMAL BREATHING PATTERN Additional comments: decreased breath sounds at left base no wheezing - Cardiovascular Exam Cardiovascular Exam: RRR, +S1, +S2 - GI/Abdominal Exam GI & Abdominal Exam: Normal Bowel Sounds, Soft Additional comments: ND, NT - Extremities Exam Extremities exam: Positive for: normal inspection - Neurological Exam Neurological exam: Alert, Oriented x 3 Laboratory Results - last 72 hr 02/26/18 02/26/18 02/26/18 11:50 12:00 12:00 WBC 8.8 D RBC 4.49 Hgb 13.4 Hct 39.8 MCV 88.6 MCH 29.9 MCHC 33.8 RDW 16.0 H Plt Count 191 MPV 7.7 Neut % (Auto) 97.4 H Lymph % (Auto) 2.[address] [place] % (Auto) 0.2 Eos % (Auto) 0.0 Baso % (Auto) 0.0 Neut # (Auto) 8.6 H Lymph # (Auto) 0.[address] [place] # (Auto) 0.0 Eos # (Auto) 0.0 Baso # (Auto) 0.0 Neutrophils % (Manual) 85 H Band Neutrophils % 4 H Lymphocytes % (Manual) 5 L Monocytes % (Manual) 4 Metamyelocytes % 2 H Myelocytes % Platelet Estimate Normal Large Platelets Present Anisocytosis (manual) Slight Tear Drop Cells Ovalocytes Slight pCO2 pO2 35 HCO3 ABG pH ABG Total CO2 ABG O2 Saturation ABG Base Excess Lino Test ABG Potassium VBG pH 7.48 H VBG pCO2 34 L VBG HCO3 26.0 VBG Total CO2 26.3 VBG O2 Sat (Calc) 67.8 H VBG Base Excess 2.2 H VBG Potassium 3.8 A-a O2 Difference Sodium 126.0 L 130 L Chloride 94.0 L 95 L Glucose 101 Lactate 2.1 FiO2 21.0 Potassium 4.3 Carbon Dioxide 24 Anion Gap 15 BUN 11 Creatinine 0.6 L Est GFR ( Amer) > 60 Est GFR (Non-Af Amer) > 60 Random Glucose 97 Calcium 8.1 L Magnesium 2.1 Total Bilirubin 1.2 AST 41 ALT 65 Alkaline Phosphatase 63 Lactate Dehydrogenase Total Protein 6.0 L Albumin 3.3 L Globulin 2.7 Albumin/Globulin Ratio 1.2 Arterial Blood Potassium Venous Blood Potassium 3.8 Urine Color Urine Clarity Urine pH Ur Specific [place] Urine Protein Urine Glucose (UA) Urine Ketones Urine Blood Urine Nitrate Urine Bilirubin Urine Urobilinogen Ur Leukocyte Esterase Urine RBC (Auto) Urine Microscopic WBC Urine Opiates Screen Urine Methadone Screen Ur Barbiturates Screen Ur Phencyclidine Scrn Ur Amphetamines Screen U Benzodiazepines Scrn U Oth Cocaine Metabols U Cannabinoids Screen Ur L.pneumophila Ag 02/26/18 02/27/18 02/27/18 16:15 00:19 06:00 WBC RBC Hgb Hct MCV MCH MCHC RDW Plt Count MPV Neut % (Auto) Lymph % (Auto) [place] % (Auto) Eos % (Auto) Baso % (Auto) Neut # (Auto) Lymph # (Auto) [facility] # (Auto) Eos # (Auto) Baso # (Auto) Neutrophils % (Manual) Band Neutrophils % Lymphocytes % (Manual) Monocytes % (Manual) Metamyelocytes % Myelocytes % Platelet Estimate Large Platelets Anisocytosis (manual) Tear Drop Cells Ovalocytes pCO2 pO2 HCO3 ABG pH ABG Total CO2 ABG O2 Saturation ABG Base Excess Lino Test ABG Potassium VBG pH VBG pCO2 VBG HCO3 VBG Total CO2 VBG O2 Sat (Calc) VBG Base Excess VBG Potassium A-a O2 Difference Sodium 133 Chloride 104 Glucose Lactate FiO2 Potassium 3.8 Carbon Dioxide 23 Anion Gap 10 BUN 7 L Creatinine 0.4 L Est GFR ( Amer) > 60 Est GFR (Non-Af Amer) > 60 Random Glucose 124 H Calcium 7.4 L Magnesium Total Bilirubin 0.7 AST 30 ALT 46 Alkaline Phosphatase 57 Lactate Dehydrogenase Total Protein 4.9 L Albumin 2.5 L D Globulin 2.5 Albumin/Globulin Ratio 1.0 Arterial Blood Potassium Venous Blood Potassium Urine Color Yellow Urine Clarity Clear Urine pH 6.0 Ur Specific [place] 1.014 Urine Protein 30 Urine Glucose (UA) Neg Urine Ketones Negative Urine Blood Negative Urine Nitrate Negative Urine Bilirubin Negative Urine Urobilinogen 0.2-1.0 Ur Leukocyte Esterase Neg Urine RBC (Auto) 2 Urine Microscopic WBC 2 Urine Opiates Screen Negative Urine Methadone Screen Negative Ur Barbiturates Screen Negative Ur Phencyclidine Scrn Negative Ur Amphetamines Screen Negative U Benzodiazepines Scrn Negative U Oth Cocaine Metabols Negative U Cannabinoids Screen Positive H Ur L.pneumophila Ag 02/27/18 02/27/18 02/27/18 06:00 06:00 08:24 WBC 6.4 RBC 4.43 Hgb 13.4 Hct 39.5 MCV 89.1 MCH 30.2 MCHC 33.9 RDW 16.0 H Plt Count 179 MPV 8.6 Neut % (Auto) 97.3 H Lymph % (Auto) 0.[address] [place] % (Auto) 0.5 Eos % (Auto) 0.2 Baso % (Auto) 1.2 Neut # (Auto) 6.3 Lymph # (Auto) 0.[address] [place] # (Auto) 0.0 Eos # (Auto) 0.0 Baso # (Auto) 0.1 Neutrophils % (Manual) 81 H Band Neutrophils % 7 H Lymphocytes % (Manual) 3 L Monocytes % (Manual) 4 Metamyelocytes % 3 H Myelocytes % 2 H Platelet Estimate Normal Large Platelets Present Anisocytosis (manual) Slight Tear Drop Cells Slight Ovalocytes Slight pCO2 27 L pO2 72 L HCO3 22.4 ABG pH 7.46 H ABG Total CO2 20.0 L ABG O2 Saturation 95.9 ABG Base Excess -3.2 L Lino Test Yes ABG Potassium 3.5 L VBG pH VBG pCO2 VBG HCO3 VBG Total CO2 VBG O2 Sat (Calc) VBG Base Excess VBG Potassium A-a O2 Difference 94.0 Sodium 129.0 L Chloride 101.0 Glucose 105 Lactate 1.5 FiO2 28.0 Potassium Carbon Dioxide Anion Gap BUN Creatinine Est GFR ( Amer) Est GFR (Non-Af Amer) Random Glucose Calcium Magnesium Total Bilirubin AST ALT Alkaline Phosphatase Lactate Dehydrogenase 1124 H Total Protein Albumin Globulin Albumin/Globulin Ratio Arterial Blood Potassium 3.5 L Venous Blood Potassium Urine Color Urine Clarity Urine pH Ur Specific [place] Urine Protein Urine Glucose (UA) Urine Ketones Urine Blood Urine Nitrate Urine Bilirubin Urine Urobilinogen Ur Leukocyte Esterase Urine RBC (Auto) Urine Microscopic WBC Urine Opiates Screen Urine Methadone Screen Ur Barbiturates Screen Ur Phencyclidine Scrn Ur Amphetamines Screen U Benzodiazepines Scrn U Oth Cocaine Metabols U Cannabinoids Screen Ur L.pneumophila Ag 02/27/18 10:00 WBC RBC Hgb Hct MCV MCH MCHC RDW Plt Count MPV Neut % (Auto) Lymph % (Auto) [facility] % (Auto) Eos % (Auto) Baso % (Auto) Neut # (Auto) Lymph # (Auto) [facility] # (Auto) Eos # (Auto) Baso # (Auto) Neutrophils % (Manual) Band Neutrophils % Lymphocytes % (Manual) Monocytes % (Manual) Metamyelocytes % Myelocytes % Platelet Estimate Large Platelets Anisocytosis (manual) Tear Drop Cells Ovalocytes pCO2 pO2 HCO3 ABG pH ABG Total CO2 ABG O2 Saturation ABG Base Excess Lino Test ABG Potassium VBG pH VBG pCO2 VBG HCO3 VBG Total CO2 VBG O2 Sat (Calc) VBG Base Excess VBG Potassium A-a O2 Difference Sodium Chloride Glucose Lactate FiO2 Potassium Carbon Dioxide Anion Gap BUN Creatinine Est GFR ( Amer) Est GFR (Non-Af Amer) Random Glucose Calcium Magnesium Total Bilirubin AST ALT Alkaline Phosphatase Lactate Dehydrogenase Total Protein Albumin Globulin Albumin/Globulin Ratio Arterial Blood Potassium Venous Blood Potassium Urine Color Urine Clarity Urine pH Ur Specific [place] Urine Protein Urine Glucose (UA) Urine Ketones Urine Blood Urine Nitrate Urine Bilirubin Urine Urobilinogen Ur Leukocyte Esterase Urine RBC (Auto) Urine Microscopic WBC Urine Opiates Screen Urine Methadone Screen Ur Barbiturates Screen Ur Phencyclidine Scrn Ur Amphetamines Screen U Benzodiazepines Scrn U Oth Cocaine Metabols U Cannabinoids Screen Ur L.pneumophila Ag Negative Microbiology 02/26/18 12:00 Blood Blood Culture - Preliminary NO GROWTH AFTER 48 HOURS 02/26/18 12:00 Blood Blood Culture - Preliminary NO GROWTH AFTER 48 HOURS 02/26/18 16:15 Urine Urine Culture - Final No Growth (<1,000 CFU/ML) 02/27/18 02:51 Sputum Gram Stain - Final 02/26/18 19:03 Blood-Venous Blood Culture - Preliminary NO GROWTH AFTER 24 HOURS 02/26/18 18:53 Blood-Venous Blood Culture - Preliminary NO GROWTH AFTER 24 HOURS Accession No. : [id number] Patient Name / ID : MARSHALL CANALES / [id number] Exam Date : 02/26/2018 23:50:33 ( Approved ) Study Comment : Sex / Age : M / 27Y Creator : Mani Scott MD Dictator : Mani Scott MD Nursing Home Admissions Director : Assisted Living Executive Director : Mani Scott MD Approver2 : Report Date : 02/27/2018 09:53:39 My Comment : Date of service: 02/26/2018 PROCEDURE: CT Abdomen and Pelvis with contrast HISTORY: r/o colitis, COMPARISON: CT scan of the abdomen pelvis dated 01/25/2018. TECHNIQUE: Contrast dose: 95 mL Omnipaque 300 Radiation dose: Total exam DLP = two-view 5.4 mGy-cm. This CT exam was performed using one or more of the following dose reduction techniques: Automated exposure control, adjustment of the mA and/or kV according to patient size, and/or use of iterative reconstruction technique. FINDINGS: LOWER THORAX: Partially imaged bilateral alveolar airspace disease with extensive micro nodules. LIVER: Unremarkable. No gross lesion or ductal dilatation. GALLBLADDER AND BILE DUCTS: Unremarkable. PANCREAS: Unremarkable. No gross lesion or ductal dilatation. SPLEEN: Unremarkable. ADRENALS: Unremarkable. No mass. KIDNEYS AND URETERS: Unremarkable. No hydronephrosis. No solid mass. VASCULATURE: Unremarkable. No aortic aneurysm. BOWEL: Unremarkable. No obstruction. No gross mural thickening. APPENDIX: Normal appendix. PERITONEUM: Unremarkable. No free fluid. No free air. LYMPH NODES: Multiple prominent mesenteric and retroperitoneal lymph nodes which do not meet size criteria for adenopathy. BLADDER: Unremarkable. REPRODUCTIVE: Unremarkable. BONES: No acute fracture. OTHER FINDINGS: None. IMPRESSION: Extensive partially imaged bilateral alveolar airspace disease with extensive micro nodules, better characterized on preceding chest CT. Nonspecific prominent mesenteric and retroperitoneal lymph nodes which do not meet size criteria for adenopathy. Assessment and Plan (1) AIDS Status: Acute (2) Diarrhea Status: Acute (3) Pneumonia Status: Acute (4) Fever Status: Acute - Assessment and Plan (Free Text) Assessment: A/P- 27 year old male with newly diagnosed HIV, PCP pneumonia admitted with nause and diarrhe after starting HAART 2 days ago. clinically improved. afebrile today normal wbc count stool c.diff- neg x 2 blood cx- neg x 4 urine cx- neg sputum cx-pending CT chest and abd result noted. plan- continue with IV bactrim for PCP treatment. had already completed 11 days of IV bactrim last admission and was d/c on oral bactrim. hence day #13 of IV bactrim. no objection to continuing with prednisosne sicne Pao2 was low. monitor ABG in 1-2 days. continue with his HAART regimen. would also place on IV cefepime for nosocomial pneumonia coverage.day 3. await pulm input for bronch and further eval of these micronodular opacities on b/l lungs . continue with once a week azithromycin 1200 mg for MAC prophylaxis until Cd4 gets >50. all above d/w patient and family practice resident at length.
[2018-02-28] MEDS: Sodium Chloride 0.9% 1,000 ML IV SCH ×2 (11:37→20:42)
[2018-03-01] MEDS: Albuterol 0.083% Inhal Sol (2.5 mg/3 mL) UD INH SCH ×4 (00:59→19:17)
[2018-03-01] MEDS: WATER IVPB SCH ×3 (02:00→17:30)
[2018-03-01] MEDS: TRIMETHOPRIM IVPB SCH ×3 (02:00→17:30)
[2018-03-01] MEDS: DEXTROSE 5% IVPB SCH ×3 (02:00→17:30)
[2018-03-01] MEDS: SULFAMETHOXAZOLE IVPB SCH ×3 (02:00→17:30)
[2018-03-01] MEDS: Sodium Chloride 0.9% 1,000 ML IV SCH (03:00)
[2018-03-01] MEDS: Cefepime 1 GM in Sodium Chloride 0.9% 100 ML IVPB SCH ×3 (04:12→21:43)
[2018-03-01 07:08] LABS: ALBUMIN 2.5 g/dL (3.5-5.0); ALT/SGPT 63 U/L (21-72); AST/SGOT 42 U/L (17-59); BLOOD UREA NITROGEN 7 mg/dl (9-20); CALCIUM 7.6 mg/dL (8.4-10.2); GFR AFRICAN-AMERICAN > 60; GFR NON-AFRICAN AMERICAN > 60
--- NOTE | 2018-03-01 08:22 | CP.PCM.PN ---
Subjective - Date & Time of Evaluation Date of Evaluation: 03/01/18 Time of Evaluation: 07:15 - Subjective Subjective: Patient seen and examined this morning at bedside. Reports improved breathing, used NC on and off overnight. Patient is tolerating PO diet, ambulating, afebrile, denies any dizziness, SOB, chest pain, abdominal pain or urinary symptoms. Patient reports normal BM this morning. - Blood Cx : Gram + cocci Objective - Vital Signs/Intake and Output Vital Signs (last 24 hours): Temp Pulse Resp BP Pulse Ox 97.5 F L 107 H 18 109/66 95 03/01/18 04:52 03/01/18 08:05 03/01/18 08:05 03/01/18 08:05 03/01/18 08:05 - Medications Medications: Current Medications Acetaminophen (Tylenol 325mg Tab) 650 mg PO Q6 PRN PRN Reason: Fever >100.4 F Albuterol Sulfate (Albuterol 0.083% Inhal Carolee (2.5 Mg/3 Ml) Ud) 2.5 mg INH RQ6 [facility] Last Admin: 03/01/18 07:56 Dose: 2.5 mg Azithromycin (Zithromax) 1,200 mg PO QWK IVANNA PRN Reason: Protocol Enoxaparin Sodium (Lovenox) 40 mg SC DAILY IVANNA PRN Reason: Protocol Last Admin: 02/28/18 09:49 Dose: 40 mg Home Med (Elviteg/Cob/Emtri/Tenof Alafen [Genvoya Tablet]) 1 tab PO DAILY [facility] Last Admin: 02/28/18 09:50 Dose: 1 tab Cefepime HCl 1 gm/ Sodium (Chloride) 100 mls @ 100 mls/hr IVPB Q8H [facility]ANNA PRN Reason: Protocol Last Admin: 03/01/18 04:12 Dose: 100 mls/hr Trimethoprim/Sulfamethoxazole (450 mg/ Dextrose) 500 mls @ 250 mls/hr IVPB Q8@ 0100,0900,1700 IVANNA PRN Reason: Protocol Last Admin: 03/01/18 02:00 Dose: 250 mls/hr Sodium Chloride (Sodium Chloride 0.9%) 1,000 mls @ 125 mls/hr IV .Q8H [facility] Stop: 03/01/18 10:04 Last Admin: 03/01/18 03:00 Dose: 125 mls/hr Vancomycin HCl 1 gm/ Sodium (Chloride) 250 mls @ 166.667 mls/hr IVPB Q12 IVANNA PRN Reason: Protocol Last Admin: 02/28/18 22:06 Dose: 166.667 mls/hr Metoprolol Tartrate (Lopressor) 50 mg PO Q12 [facility] Last Admin: 02/28/18 22:06 Dose: 50 mg Ondansetron HCl (Zofran Inj) 4 mg IVP Q4 PRN PRN Reason: Nausea/Vomiting Prednisone (Prednisone Tab) 40 mg PO Q12 [facility] Stop: 03/05/18 09:01 Last Admin: 02/28/18 22:07 Dose: 40 mg Prednisone (Prednisone Tab) 40 mg PO DAILY [facility] Stop: 03/10/18 09:01 Prednisone (Prednisone Tab) 20 mg PO DAILY [facility] Stop: 03/21/18 09:01 - Labs Labs: 02/27/18 06:00 03/01/18 04:20 - Constitutional Appears: No Acute Distress - Head Exam Head Exam: NORMAL INSPECTION - Eye Exam Eye Exam: EOMI, Normal appearance, PERRL Pupil Exam: NORMAL ACCOMODATION - ENT Exam ENT Exam: Mucous Membranes Moist - Neck Exam Neck Exam: Full ROM, Normal Inspection - Respiratory Exam Respiratory Exam: Clear to Ausculation Bilateral, NORMAL BREATHING PATTERN. absent: Accessory Muscle Use, Chest Wall Tenderness, Rhonchi, Wheezes, Respiratory Distress - Cardiovascular Exam Cardiovascular Exam: REGULAR RHYTHM, +S1, +S2 - GI/Abdominal Exam GI & Abdominal Exam: Soft, Normal Bowel Sounds. absent: Tenderness, Pulsatile Mass, Rebound - Rectal Exam Rectal Exam: NORMAL INSPECTION - Extremities Exam Extremities Exam: Full ROM, Normal Capillary Refill, Normal Inspection. absent : Pedal Edema, Tenderness - Back Exam Back Exam: NORMAL INSPECTION. absent: CVA tenderness (L), CVA tenderness (R) - Neurological Exam Neurological Exam: Alert, Awake, CN II-XII Intact, Normal Gait, Oriented x3 Neuro motor strength exam: Left Upper Extremity: 5, Right Upper Extremity: 5, Left Lower Extremity: 5, Right Lower Extremity: 5 - Psychiatric Exam Psychiatric exam: Normal Affect - Skin Skin Exam: Dry, Intact, Normal Color, Warm Assessment and Plan - Assessment and Plan (Free Text) Assessment: A/P: 27 yr old M admitted for sepsis secondary to pneumocystis pneumonia with PMHx of recently diagnosed symptomatic HIV-AIDS (CD4 count 30 on 02/02/18) and PCP pneumonia. Sepsis secondary to Pneumocystis Pneumonia and gram positive cocci, Blood culture positive -Improving -Pulmonology on consult: Dr. Ovalles-appreciated -ID on consult: Dr. Atkinson-recommendations appreciated -C/w Genvoya 1 tab PO QD (patient brought his home medication) -continue Bactrim 450mg IV Q8 day 4, Continue with Azithromycin 1,200mg PO QWeek for MAC prophylaxis (last dose given 02/26/18) -start Prednisone 40mg PO BID x 5 days (02/28-03/04), then 40mg PO QD x 5 days (-03/09), then 20mg PO QD x 11 days (03/10-03/20) -continue Cefepime 1g Q8 IV (day 4) -blood Cx (02/26): + for Gram positive cocci, Follow up other blood Cxs which show no growth per day -Vancomycin 1gm Q12H, day#2 -Follow up Echo -Follow up Stool Cx/C.diff, sputum Cx: pending. Negative Ucx and Legionella ag Acquired Immunodeficiency Syndrome-HIV -CD4 30 in 01/2018 -Symptomatic -Consult ID, Dr. Atkinson, recommendations appreciated -continue PCP treatment and MAC ppx until CD4 (next dose due on 03/05/18) as above -Continue ART (Genvoya) -Follow up repeat CD4, VL and lymphocyte subset panel IRIS- Immune Reconstitution Inflammatory Syndrome -ID on board: Dr. Atiknson, continue treatment as above (Genvoya, Bactrim, Azithromycin, steroids) -IVF, symptomatic management Tachycardia -Asymptomatic -C/w Metoprolol Tartrate to 50mg PO Q12H due to tachycardia -monitor vitals Substance abuse -Hx marijuana and Cocaine use in past -Utox positive for marijuana DVT Prophylaxis -SCD's -Lovenox 40mg SC daily Full Code Emergency contact: Sister, Ms. Ochoa # [phone]
[2018-03-01] MEDS: Patient's Own Med (Elviteg/Cob/Emtri/Tenof Alafen [Genvoya Tablet] 1 TAB) PO SCH (10:29)
[2018-03-01] MEDS: Enoxaparin 40 mg Syringe SC SCH (10:31)
--- NOTE | 2018-03-01 12:14 | CP.PCM.PN ---
Subjective - Date & Time of Evaluation Date of Evaluation: 03/01/18 Time of Evaluation: 12:13 - Subjective Subjective: ID note- pt. seen na d examined today. denies any fever or chills. denies any diarrhea today. mild dry cough. Objective - Vital Signs/Intake and Output Vital Signs (last 24 hours): Temp Pulse Resp BP Pulse Ox 97.5 F L 107 H 18 109/69 95 03/01/18 04:52 03/01/18 10:30 03/01/18 08:05 03/01/18 10:30 03/01/18 08:05 - Medications Medications: Current Medications Acetaminophen (Tylenol 325mg Tab) 650 mg PO Q6 PRN PRN Reason: Fever >100.4 F Albuterol Sulfate (Albuterol 0.083% Inhal Carolee (2.5 Mg/3 Ml) Ud) 2.5 mg INH RQ6 [facility] Last Admin: 03/01/18 07:56 Dose: 2.5 mg Azithromycin (Zithromax) 1,200 mg PO QWK IVANNA PRN Reason: Protocol Enoxaparin Sodium (Lovenox) 40 mg SC DAILY IVANNA PRN Reason: Protocol Last Admin: 03/01/18 10:31 Dose: 40 mg Home Med (Elviteg/Cob/Emtri/Tenof Alafen [Genvoya Tablet]) 1 tab PO DAILY [facility] Last Admin: 03/01/18 10:29 Dose: 1 tab Cefepime HCl 1 gm/ Sodium (Chloride) 100 mls @ 100 mls/hr IVPB Q8H IVANNA PRN Reason: Protocol Last Admin: 03/01/18 04:12 Dose: 100 mls/hr Trimethoprim/Sulfamethoxazole (450 mg/ Dextrose) 500 mls @ 250 mls/hr IVPB Q8@ 0100,0900,1700 IVANNA PRN Reason: Protocol Last Admin: 03/01/18 09:40 Dose: 250 mls/hr Vancomycin HCl 1 gm/ Sodium (Chloride) 250 mls @ 166.667 mls/hr IVPB Q12 IVANNA PRN Reason: Protocol Last Admin: 03/01/18 09:20 Dose: 166.667 mls/hr Metoprolol Tartrate (Lopressor) 50 mg PO Q12 [facility] Last Admin: 03/01/18 10:30 Dose: 50 mg Ondansetron HCl (Zofran Inj) 4 mg IVP Q4 PRN PRN Reason: Nausea/Vomiting Prednisone (Prednisone Tab) 40 mg PO Q12 [facility] Stop: 03/05/18 09:01 Last Admin: 03/01/18 10:30 Dose: 40 mg Prednisone (Prednisone Tab) 40 mg PO DAILY [facility] Stop: 03/10/18 09:01 Prednisone (Prednisone Tab) 20 mg PO DAILY [facility] Stop: 03/21/18 09:01 - Labs Labs: - Additional Findings Additional findings: - Constitutional Appears: No Acute Distress - Head Exam Head Exam: ATRAUMATIC - Eye Exam Eye Exam: EOMI, PERRL - ENT Exam ENT Exam: Normal Oropharynx - Neck Exam Neck exam: Positive for: Full Rom Additional comments: supple - Respiratory Exam Respiratory Exam: NORMAL BREATHING PATTERN Additional comments: good air entry b/l decreased breath sounds at left base no wheezing - Cardiovascular Exam Cardiovascular Exam: RRR, +S1, +S2 - GI/Abdominal Exam GI & Abdominal Exam: Normal Bowel Sounds, Soft Additional comments: ND, NT - Extremities Exam Extremities exam: Positive for: normal inspection - Neurological Exam Neurological exam: Alert, Oriented x 3 Laboratory Results - last 72 hr 02/27/18 02/27/18 02/27/18 00:19 06:00 06:00 WBC RBC Hgb Hct MCV MCH MCHC RDW Plt Count MPV Neut % (Auto) Lymph % (Auto) [place] % (Auto) Eos % (Auto) Baso % (Auto) Neut # (Auto) Lymph # (Auto) [place] # (Auto) Eos # (Auto) Baso # (Auto) Neutrophils % (Manual) Band Neutrophils % Lymphocytes % (Manual) Monocytes % (Manual) Metamyelocytes % Myelocytes % Platelet Estimate Large Platelets Anisocytosis (manual) Tear Drop Cells Ovalocytes pCO2 pO2 HCO3 ABG pH ABG Total CO2 ABG O2 Saturation ABG Base Excess Lino Test ABG Potassium A-a O2 Difference Glucose Lactate FiO2 Sodium 133 Potassium 3.8 Chloride 104 Carbon Dioxide 23 Anion Gap 10 BUN 7 L Creatinine 0.4 L Est GFR ( Amer) > 60 Est GFR (Non-Af Amer) > 60 POC Glucose (mg/dL) Random Glucose 124 H Calcium 7.4 L Total Bilirubin 0.7 AST 30 ALT 46 Alkaline Phosphatase 57 Lactate Dehydrogenase 1124 H Total Protein 4.9 L Albumin 2.5 L D Globulin 2.5 Albumin/Globulin Ratio 1.0 Arterial Blood Potassium Urine Color Yellow Urine Clarity Clear Urine pH 6.0 Ur Specific [place] 1.014 Urine Protein 30 Urine Glucose (UA) Neg Urine Ketones Negative Urine Blood Negative Urine Nitrate Negative Urine Bilirubin Negative Urine Urobilinogen 0.2-1.0 Ur Leukocyte Esterase Neg Urine RBC (Auto) 2 Urine Microscopic WBC 2 Ur L.pneumophila Ag 02/27/18 02/27/18 02/27/18 06:00 07:58 08:24 WBC 6.4 RBC 4.43 Hgb 13.4 Hct 39.5 MCV 89.1 MCH 30.2 MCHC 33.9 RDW 16.0 H Plt Count 179 MPV 8.6 Neut % (Auto) 97.3 H Lymph % (Auto) 0.8 L [place] % (Auto) 0.5 Eos % (Auto) 0.2 Baso % (Auto) 1.2 Neut # (Auto) 6.3 Lymph # (Auto) 0.0 L [place] # (Auto) 0.0 Eos # (Auto) 0.0 Baso # (Auto) 0.1 Neutrophils % (Manual) 81 H Band Neutrophils % 7 H Lymphocytes % (Manual) 3 L Monocytes % (Manual) 4 Metamyelocytes % 3 H Myelocytes % 2 H Platelet Estimate Normal Large Platelets Present Anisocytosis (manual) Slight Tear Drop Cells Slight Ovalocytes Slight pCO2 27 L pO2 72 L HCO3 22.4 ABG pH 7.46 H ABG Total CO2 20.0 L ABG O2 Saturation 95.9 ABG Base Excess -3.2 L Lino Test Yes ABG Potassium 3.5 L A-a O2 Difference 94.0 Glucose 105 Lactate 1.5 FiO2 28.0 Sodium 129.0 L Potassium Chloride 101.0 Carbon Dioxide Anion Gap BUN Creatinine Est GFR ( Amer) Est GFR (Non-Af Amer) POC Glucose (mg/dL) 92 Random Glucose Calcium Total Bilirubin AST ALT Alkaline Phosphatase Lactate Dehydrogenase Total Protein Albumin Globulin Albumin/Globulin Ratio Arterial Blood Potassium 3.5 L Urine Color Urine Clarity Urine pH Ur Specific [place] Urine Protein Urine Glucose (UA) Urine Ketones Urine Blood Urine Nitrate Urine Bilirubin Urine Urobilinogen Ur Leukocyte Esterase Urine RBC (Auto) Urine Microscopic WBC Ur L.pneumophila Ag 02/27/18 03/01/18 03/01/18 10:00 04:00 04:20 WBC RBC Hgb Hct MCV MCH MCHC RDW Plt Count MPV Neut % (Auto) Lymph % (Auto) [place] % (Auto) Eos % (Auto) Baso % (Auto) Neut # (Auto) Lymph # (Auto) [place] # (Auto) Eos # (Auto) Baso # (Auto) Neutrophils % (Manual) Band Neutrophils % Lymphocytes % (Manual) Monocytes % (Manual) Metamyelocytes % Myelocytes % Platelet Estimate Large Platelets Anisocytosis (manual) Tear Drop Cells Ovalocytes pCO2 pO2 HCO3 ABG pH ABG Total CO2 ABG O2 Saturation ABG Base Excess Lino Test ABG Potassium A-a O2 Difference Glucose Lactate FiO2 Sodium 137 Potassium 3.6 Chloride 106 Carbon Dioxide 21 L Anion Gap 14 BUN 7 L Creatinine 0.4 L Est GFR ( Amer) > 60 Est GFR (Non-Af Amer) > 60 POC Glucose (mg/dL) Random Glucose 138 H Calcium 7.6 L Total Bilirubin 0.2 AST 42 ALT 63 Alkaline Phosphatase 56 Lactate Dehydrogenase Total Protein 4.9 L Albumin 2.5 L Globulin 2.4 Albumin/Globulin Ratio 1.0 Arterial Blood Potassium Urine Color Urine Clarity Urine pH Ur Specific [place] Urine Protein Urine Glucose (UA) Urine Ketones Urine Blood Urine Nitrate Urine Bilirubin Urine Urobilinogen Ur Leukocyte Esterase Urine RBC (Auto) Urine Microscopic WBC Ur L.pneumophila Ag Negative Negative Microbiology 02/26/18 19:03 Blood-Venous Blood Culture - Preliminary NO GROWTH AFTER 3 DAYS 02/28/18 04:00 Stool Ova and Parasite Concentrate Exam - Final 02/26/18 12:00 Blood Blood Culture - Preliminary NO GROWTH AFTER 3 DAYS 02/26/18 12:00 Blood Blood Culture - Preliminary NO GROWTH AFTER 3 DAYS 02/27/18 02:51 Sputum Gram Stain - Final 02/27/18 02:51 Sputum Sputum Culture - Final NORMAL ORAL DEANN 02/26/18 18:53 Blood-Venous S.aureus & Coag-Neg Staph PNA FISH - Final 02/26/18 18:53 Blood-Venous Blood Culture - Preliminary Gram Positive Cocci 02/26/18 18:53 Blood-Venous Gram Stain - Final 02/26/18 16:15 Urine Urine Culture - Final No Growth (<1,000 CFU/ML) Assessment and Plan (1) AIDS Status: Acute (2) Diarrhea Status: Acute (3) Pneumonia Status: Acute (4) Fever Status: Acute - Assessment and Plan (Free Text) Assessment: A/P- 27 year old male with newly diagnosed HIV, PCP pneumonia admitted with nause and diarrhe after starting HAART 2 days ago. clinically improved. afebrile past 48 hours. normal wbc count stool c.diff- neg x 2 one of the blood cx from 02/26/2018- reported last night as GPC blood cx- neg x 3 urine cx- neg sputum cx-pending CT chest and abd result noted. plan- continue with IV bactrim for PCP treatment. had already completed 11 days of IV bactrim last admission and was d/c on oral bactrim. hence day #14 of IV bactrim. no objection to continuing with prednisosne sicne Pao2 was low. monitor ABG in 1-2 days. continue with his HAART regimen. would advise to continue with IV cefepime for nosocomial pneumonia coverage.day #4. continue with once a week azithromycin 1200 mg for MAC prophylaxis until Cd4 gets >50. Initiated vancomyicn IV for GPC in 1 blood cx pending ID and sensitivity of the GPC in one blood cx ( could be contaminant). advise to check echo r/o any vegetations in light of this one pos blood cx. Keep vanco trough <20. all above d/w patient and family practice resident at length.
--- NOTE | 2018-03-01 16:40 | CARD ---
APPROVED REPORT Date of service: 03/01/2018 EXAM: Two-dimensional and M-mode echocardiogram with Doppler and color Doppler. Other Information Quality : GoodRhythm : Tachycardia INDICATION Infection: 2D DIMENSIONS IVSd0.88 (0.7-1.1cm)LVDd4.85 (3.9-5.9cm) LVOT Diameter2.04 (1.8-2.4cm)PWd0.92 (0.7-1.1cm) IVSs1.19 (0.8-1.2cm)LVDs2.96 (2.5-4.0cm) FS (%) 38.9 %PWs1.29 (0.8-1.2cm) M-Mode DIMENSIONS Left Atrium (MM)4.22 (2.5-4.0cm)IVSd1.26 (0.7-1.1cm) Aortic Root2.91 (2.2-3.7cm)LVDd4.86 (4.0-5.6cm) Aortic Cusp Exc.2.26 (1.5-2.0cm)PWd0.98 (0.7-1.1cm) IVSs1.52 cmFS (%) 44 % LVDs2.73 (2.0-3.8cm)PWs1.54 cm Aortic Valve AoV Peak Exgctuhf097.4cm/sAoV VTI25.9cmAO Peak GR.10mmHg LVOT Peak Jbutqsmy539.2cm/sLVOT VTI17.52cmAO Mean GR.6mmHg Mitral Valve E/A ratio0.0 TDI E/Lateral E'0.0E/Medial E'0.0 Pulmonary Valve PV Peak Gxmkvpsh082.7cm/s LEFT VENTRICLE The left ventricle is normal size. There is normal left ventricular wall thickness. The left ventricular ejection fraction is within the normal range. The Ejection Fraction is 60-65%. No regional wall motion abnormalities noted.. The left ventricular diastolic function is normal. No left ventricle thrombus noted on this study. There is no ventricular septal defect visualized. There is no mass noted in the left ventricle. RIGHT VENTRICLE The right ventricle is normal size. There is normal right ventricular wall thickness. The right ventricular systolic function is normal. ATRIA The left atrium size is normal. The right atrium size is normal. The interatrial septum is intact with no evidence for an atrial septal defect. AORTIC VALVE The aortic valve is normal in structure. No aortic regurgitation is present. There is no aortic valvular stenosis. MITRAL VALVE The mitral valve is normal in structure. There is no mitral valve stenosis. There is mild mitral valve regurgitation noted. TRICUSPID VALVE The tricuspid valve is normal in structure. There is no tricuspid valve regurgitation noted. PULMONIC VALVE The pulmonary valve is normal in structure. There is no pulmonic valvular regurgitation. GREAT VESSELS The aortic root is normal in size. The ascending aorta is normal in size. The pulmonary artery is normal. The IVC is normal in size and collapses >50% with inspiration. PERICARDIAL EFFUSION There is no pericardial effusion. <Conclusion> Mild mitral insufficiency Otherwise normal transthoracic echocardiogram. The Ejection Fraction is 60-65%. No evidence of valvular vegetation
--- NOTE | 2018-03-01 19:55 | CP.PCM.CON ---
History of Present Illness - History of Present Illness History of Present Illness: Called to consult on a 27 year old male, with a recent Dx of HIV and possible PCP PNA. I have spoken to this patient in [place], and he did not give any complaints of Pulmonary symptoms except of occasionally dry cough, whie has improved over weeks. Neg SOB, Neg hemoptysis, neg fevers, neg wheezing. He is a former lite smoker on the order of 2 or 3 cigarettes per day, for many years. NKDA Fam Hx: Non Con. Afebrile, VSS Head: neg Adeno Lungs Some scattered crackles which cleared with coughing. No C,C,E. CT Scan c/w ground glass infistrates. Lab results as below. A/P This patient was admitted for mainly GI issues. He was dx with presumtive PCP giving HIV and ground glass CT scan. Bronch was not done on his admission for PNA? I think his CT findings are PCP Pna in which his films are lagging behind his clinical improvement. Plan: Cont IV Abx as per ID. Induce sputum for PCP by DFA. No need for Bronch at this point given paucity of pulmonary sx. Would give PCP prophylaxis after full course of PCP treatment is given. Please reconsult again PRN. F.U with Pulmonary clinic at [facility]. Signing out of case. Past Patient History - Past Medical History & Family History Past Medical History?: Yes - Past Social History Smoking Status: Former Smoker - CARDIAC Hx Cardiac Disorders: No - PULMONARY Hx Respiratory Disorders: No - NEUROLOGICAL Hx Neurological Disorder: No - HEENT Hx HEENT Problems: No - RENAL Hx Chronic Kidney Disease: No - ENDOCRINE/METABOLIC Hx Endocrine Disorders: No - HEMATOLOGICAL/ONCOLOGICAL Hx Human Immunodeficiency Virus (HIV): Yes - INTEGUMENTARY Hx Dermatological Problems: No - MUSCULOSKELETAL/RHEUMATOLOGICAL Hx Musculoskeletal Disorders: No Hx Falls: No - GASTROINTESTINAL Hx Gastrointestinal Disorders: No - GENITOURINARY/GYNECOLOGICAL Hx Genitourinary Disorders: No - PSYCHIATRIC Hx Psychophysiologic Disorder: No Hx Substance Use: No - SURGICAL HISTORY Hx Surgeries: No - ANESTHESIA Hx Anesthesia: No Hx Anesthesia Reactions: No Hx Malignant Hyperthermia: No Meds Allergies/Adverse Reactions: Allergies Allergy/AdvReac Type Severity Reaction Status Date / Time No Known Allergies Allergy Verified 02/26/18 11:19 - Medications Medications: Current Medications Acetaminophen (Tylenol 325mg Tab) 650 mg PO Q6 PRN PRN Reason: Fever >100.4 F Albuterol Sulfate (Albuterol 0.083% Inhal Carolee (2.5 Mg/3 Ml) Ud) 2.5 mg INH RQ6 [facility] Last Admin: 03/01/18 19:17 Dose: 2.5 mg Azithromycin (Zithromax) 1,200 mg PO QWK IVANNA PRN Reason: Protocol Enoxaparin Sodium (Lovenox) 40 mg SC DAILY IVANNA PRN Reason: Protocol Last Admin: 03/01/18 10:31 Dose: 40 mg Home Med (Elviteg/Cob/Emtri/Tenof Alafen [Genvoya Tablet]) 1 tab PO DAILY [facility] Last Admin: 03/01/18 10:29 Dose: 1 tab Cefepime HCl 1 gm/ Sodium (Chloride) 100 mls @ 100 mls/hr IVPB Q8H IVANNA PRN Reason: Protocol Last Admin: 03/01/18 11:25 Dose: 100 mls/hr Trimethoprim/Sulfamethoxazole (450 mg/ Dextrose) 500 mls @ 250 mls/hr IVPB Q8@ 0100,0900,1700 IVANNA PRN Reason: Protocol Last Admin: 03/01/18 09:40 Dose: 250 mls/hr Vancomycin HCl 1 gm/ Sodium (Chloride) 250 mls @ 166.667 mls/hr IVPB Q12 IVANNA PRN Reason: Protocol Last Admin: 03/01/18 09:20 Dose: 166.667 mls/hr Metoprolol Tartrate (Lopressor) 50 mg PO Q12 [facility] Last Admin: 03/01/18 10:30 Dose: 50 mg Ondansetron HCl (Zofran Inj) 4 mg IVP Q4 PRN PRN Reason: Nausea/Vomiting Prednisone (Prednisone Tab) 40 mg PO Q12 [facility] Stop: 03/05/18 09:01 Last Admin: 03/01/18 10:30 Dose: 40 mg Prednisone (Prednisone Tab) 40 mg PO DAILY [facility] Stop: 03/10/18 09:01 Prednisone (Prednisone Tab) 20 mg PO DAILY [facility] Stop: 03/21/18 09:01 Results - Vital Signs Recent Vital Signs: Last Vital Signs Temp 97.4 F L 03/01/18 19:35 Pulse 109 H 03/01/18 19:35 Resp 20 03/01/18 19:35 BP 107/75 03/01/18 19:35 Pulse Ox 97 03/01/18 19:35 - Labs Result Diagrams: 02/27/18 06:00 03/01/18 04:20 Labs: Laboratory Results - last 24 hr 03/01/18 03/01/18 04:00 04:20 Sodium 137 Potassium 3.6 Chloride 106 Carbon Dioxide 21 L Anion Gap 14 BUN 7 L Creatinine 0.4 L Est GFR ( Amer) > 60 Est GFR (Non-Af Amer) > 60 Random Glucose 138 H Calcium 7.6 L Total Bilirubin 0.2 AST 42 ALT 63 Alkaline Phosphatase 56 Total Protein 4.9 L Albumin 2.5 L Globulin 2.4 Albumin/Globulin Ratio 1.0 Ur L.pneumophila Ag Negative
[2018-03-02] MEDS: WATER IVPB SCH ×3 (01:00→17:00)
[2018-03-02] MEDS: Albuterol 0.083% Inhal Sol (2.5 mg/3 mL) UD INH SCH ×4 (01:00→19:03)
[2018-03-02] MEDS: TRIMETHOPRIM IVPB SCH ×3 (01:00→17:00)
[2018-03-02] MEDS: SULFAMETHOXAZOLE IVPB SCH ×3 (01:00→17:00)
[2018-03-02] MEDS: DEXTROSE 5% IVPB SCH ×3 (01:00→17:00)
[2018-03-02] MEDS: Cefepime 1 GM in Sodium Chloride 0.9% 100 ML IVPB SCH ×3 (04:33→20:00)
--- NOTE | 2018-03-02 07:55 | CP.PCM.PN ---
Subjective - Date & Time of Evaluation Date of Evaluation: 03/02/18 Time of Evaluation: 07:00 - Subjective Subjective: Patient seen and examined this morning. NAD, Afebrile, no acute event overnight , patient denies any nausea, vomiting, diarrhea, chest pain, SOB, dizzines, abdominal pain, urinary symptoms or weakness. - Follow up with C.diff, ABG and Vanc trough today Objective - Vital Signs/Intake and Output Vital Signs (last 24 hours): Temp Pulse Resp BP Pulse Ox 98.5 F 103 H 18 112/69 95 03/02/18 04:47 03/02/18 04:47 03/02/18 04:47 03/02/18 04:47 03/02/18 04:47 - Medications Medications: Current Medications Acetaminophen (Tylenol 325mg Tab) 650 mg PO Q6 PRN PRN Reason: Fever >100.4 F Albuterol Sulfate (Albuterol 0.083% Inhal Carolee (2.5 Mg/3 Ml) Ud) 2.5 mg INH RQ6 [facility] Last Admin: 03/02/18 01:00 Dose: 2.5 mg Azithromycin (Zithromax) 1,200 mg PO QWK IVANNA PRN Reason: Protocol Enoxaparin Sodium (Lovenox) 40 mg SC DAILY [facility] PRN Reason: Protocol Last Admin: 03/01/18 10:31 Dose: 40 mg Home Med (Elviteg/Cob/Emtri/Tenof Alafen [Genvoya Tablet]) 1 tab PO DAILY [facility] Last Admin: 03/01/18 10:29 Dose: 1 tab Cefepime HCl 1 gm/ Sodium (Chloride) 100 mls @ 100 mls/hr IVPB Q8H IVANNA PRN Reason: Protocol Last Admin: 03/02/18 04:33 Dose: 100 mls/hr Trimethoprim/Sulfamethoxazole (450 mg/ Dextrose) 500 mls @ 250 mls/hr IVPB Q8@ 0100,0900,1700 IVANNA PRN Reason: Protocol Last Admin: 03/02/18 01:00 Dose: 250 mls/hr Vancomycin HCl 1 gm/ Sodium (Chloride) 250 mls @ 166.667 mls/hr IVPB Q12 [facility] PRN Reason: Protocol Last Admin: 03/01/18 21:44 Dose: 166.667 mls/hr Metoprolol Tartrate (Lopressor) 50 mg PO Q12 [facility] Last Admin: 03/01/18 21:49 Dose: 50 mg Ondansetron HCl (Zofran Inj) 4 mg IVP Q4 PRN PRN Reason: Nausea/Vomiting Prednisone (Prednisone Tab) 40 mg PO Q12 [facility] Stop: 03/05/18 09:01 Last Admin: 03/01/18 21:48 Dose: 40 mg Prednisone (Prednisone Tab) 40 mg PO DAILY [facility] Stop: 03/10/18 09:01 Prednisone (Prednisone Tab) 20 mg PO DAILY [facility] Stop: 03/21/18 09:01 - Labs Labs: 02/27/18 06:00 03/01/18 04:20 - Constitutional Appears: No Acute Distress - Head Exam Head Exam: NORMAL INSPECTION - Eye Exam Eye Exam: EOMI, Normal appearance, PERRL - ENT Exam ENT Exam: Mucous Membranes Moist Additional comments: Cold sores in mouth with mild oral thrust - Neck Exam Neck Exam: Full ROM, Normal Inspection - Respiratory Exam Respiratory Exam: Clear to Ausculation Bilateral, NORMAL BREATHING PATTERN. absent: Accessory Muscle Use, Chest Wall Tenderness, Prolonged Expiratory Phase , Rhonchi, Wheezes, Respiratory Distress - Cardiovascular Exam Cardiovascular Exam: REGULAR RHYTHM, +S1, +S2 - GI/Abdominal Exam GI & Abdominal Exam: Soft, Normal Bowel Sounds. absent: Distended, Tenderness, Hypoactive Bowel Sounds, Organomegaly - Extremities Exam Extremities Exam: Full ROM, Normal Capillary Refill, Normal Inspection. absent : Joint Swelling, Pedal Edema, Tenderness - Back Exam Back Exam: NORMAL INSPECTION. absent: CVA tenderness (L), CVA tenderness (R) - Neurological Exam Neurological Exam: Alert, Awake, CN II-XII Intact, Normal Gait, Oriented x3 Neuro motor strength exam: Left Upper Extremity: 5, Right Upper Extremity: 5, Left Lower Extremity: 5, Right Lower Extremity: 5 - Psychiatric Exam Psychiatric exam: Normal Affect - Skin Skin Exam: Normal Color Assessment and Plan - Assessment and Plan (Free Text) Assessment: A/P: 27 yr old M admitted for sepsis secondary to pneumocystis pneumonia with PMHx of recently diagnosed symptomatic HIV-AIDS (CD4 count 30 on 02/02/18) and PCP pneumonia. Sepsis secondary to Pneumocystis Pneumonia and Coag neg staph bacteremia -Improving -Pulmonology on consult: Dr. Ovalles-appreciated (No need for Bronch, Induce sputum for PCP by DFA (lab called its not available, will follow up with Dr. Ovalles)) -ID on consult: Dr. Atkinosn-recommendations appreciated -Echo 03/11: No endocarditis, EF 60-65, mild MV insufficiency -continue Bactrim 450mg IV Q8 day 15, Continue with Azithromycin 1,200mg PO QWeek for MAC prophylaxis (last dose given 02/26/18) -continue Prednisone 40mg PO BID x 5 days (02/28-03/04), then 40mg PO QD x 5 days (03/05-03/09), then 20mg PO QD x 11 days (03/10-03/20) -continue Cefepime 1g Q8 IV (day 5) -blood Cx (02/26): + for Gram positive cocci, Follow up other blood Cxs which show no growth per day -Vancomycin 1gm Q12H, day#3 (Follow up Vanco Trough today) -follow up ABG, CXR today, will get blood Cx today -Follow up C.diff. Negative Ucx, stool Cx, sputum Cx and Legionella ag Acquired Immunodeficiency Syndrome-HIV -CD4 30 in 01/2018 -Symptomatic -Consult ID, Dr. Atkinson, recommendations appreciated -continue PCP treatment and MAC ppx until CD4 (next dose due on 03/05/18) as above -Continue ART (Genvoya) -Follow up repeat CD4, VL and lymphocyte subset panel IRIS- Immune Reconstitution Inflammatory Syndrome -ID on board: Dr. Atkinson, continue treatment as above (Genvoya, Bactrim, Azithromycin, steroids) -IVF, symptomatic management Tachycardia -Asymptomatic -C/w Metoprolol Tartrate to 50mg PO Q12H due to tachycardia -monitor vitals Substance abuse -Hx marijuana and Cocaine use in past -Utox positive for marijuana DVT Prophylaxis -SCD's -Lovenox 40mg SC daily Full Code Emergency contact: Sister, Ms. Ochao # [phone]
[2018-03-02 09:45] LABS: ABG ALLEN TEST YES; ARTERIAL BLOOD GAS HCO3 24.1 mmol/L (21-28); ARTERIAL BLOOD GAS HEMOGLOBIN 12.9 g/dL (11.7-17.4); ARTERIAL BLOOD GAS O2 CAPACITY 17.5 mL/dL (16-24); ARTERIAL BLOOD GAS O2 SAT 97.1 % (95-98); ARTERIAL BLOOD GAS PCO2 31 mm/Hg (35-45); ARTERIAL BLOOD GAS PH 7.46 (7.35-7.45); ARTERIAL BLOOD GAS PO2 80 mm/Hg (80-100)
[2018-03-02] MEDS: Patient's Own Med (Elviteg/Cob/Emtri/Tenof Alafen [Genvoya Tablet] 1 TAB) PO SCH (10:01)
[2018-03-02] MEDS: Enoxaparin 40 mg Syringe SC SCH (10:01)
[2018-03-02] MEDS: Nystatin 100,000 Units/ml Oral Susp 5 ml UD PO SCH ×4 (11:30→21:33)
[2018-03-02] MEDS: Citracal+D 315mg/250IU PO SCH (15:01)
--- NOTE | 2018-03-02 17:48 | RAD ---
Date of service: 03/02/2018 HISTORY: PCP COMPARISON: Comparison is made with 02/27/2018 TECHNIQUE: Chest PA and lateral FINDINGS: LUNGS: Interval improvement in the previously noted pulmonary edema since the previous exam. There is persistent mild to moderate pulmonary congestion and diffuse reticular opacities at the mid and lower lungs PLEURA: No significant pleural effusion identified. No pneumothorax apparent. CARDIOVASCULAR: Normal. OSSEOUS STRUCTURES: No significant abnormalities. VISUALIZED UPPER ABDOMEN: Normal. OTHER FINDINGS: None. IMPRESSION: Interval improvement in the lungs since the previous exam.
[2018-03-03] MEDS: TRIMETHOPRIM IVPB SCH ×3 (00:05→17:29)
[2018-03-03] MEDS: WATER IVPB SCH ×3 (00:05→17:29)
[2018-03-03] MEDS: DEXTROSE 5% IVPB SCH ×3 (00:05→17:29)
[2018-03-03] MEDS: SULFAMETHOXAZOLE IVPB SCH ×3 (00:05→17:29)
[2018-03-03] MEDS: Albuterol 0.083% Inhal Sol (2.5 mg/3 mL) UD INH SCH ×4 (01:15→19:16)
[2018-03-03] MEDS: Cefepime 1 GM in Sodium Chloride 0.9% 100 ML IVPB SCH ×3 (04:24→21:28)
--- NOTE | 2018-03-03 09:23 | CP.PCM.PN ---
Subjective - Date & Time of Evaluation Date of Evaluation: 03/03/18 Time of Evaluation: 07:10 - Subjective Subjective: Patient seen and evaluated during morning rounds. NAD. No acute events overnight. Slept well last night. Denies any Nausea, vomitting, diarrhea, consitaption, cough, shortness of breath, chest pain, fever, chills, urinary Sx or dizziness. Tolerates diet well, appetite WNL. F/U C. Diff. Objective - Vital Signs/Intake and Output Vital Signs (last 24 hours): Temp Pulse Resp BP Pulse Ox 97.7 F 88 18 112/69 96 03/03/18 08:04 03/03/18 08:04 03/03/18 08:04 03/03/18 08:04 03/03/18 08:04 - Medications Medications: Current Medications Acetaminophen (Tylenol 325mg Tab) 650 mg PO Q6 PRN PRN Reason: Fever >100.4 F Albuterol Sulfate (Albuterol 0.083% Inhal Carolee (2.5 Mg/3 Ml) Ud) 2.5 mg INH RQ6 [facility] Last Admin: 03/03/18 07:27 Dose: 2.5 mg Azithromycin (Zithromax) 1,200 mg PO QWK [facility]NA PRN Reason: Protocol Calcium/Vitamin D (Citracal+D 315mg/250iu) 2 tab PO DAILY [facility]NA Last Admin: 03/02/18 15:01 Dose: 2 tab Enoxaparin Sodium (Lovenox) 40 mg SC DAILY IVANNA PRN Reason: Protocol Last Admin: 03/02/18 10:01 Dose: 40 mg Home Med (Elviteg/Cob/Emtri/Tenof Alafen [Genvoya Tablet]) 1 tab PO DAILY [facility] Last Admin: 03/02/18 10:01 Dose: 1 tab Cefepime HCl 1 gm/ Sodium (Chloride) 100 mls @ 100 mls/hr IVPB Q8H [facility]NA PRN Reason: Protocol Last Admin: 03/03/18 04:24 Dose: 100 mls/hr Trimethoprim/Sulfamethoxazole (450 mg/ Dextrose) 500 mls @ 250 mls/hr IVPB Q8@ 0100,0900,1700 IVANNA PRN Reason: Protocol Last Admin: 03/03/18 00:05 Dose: 250 mls/hr Vancomycin HCl 1 gm/ Sodium (Chloride) 250 mls @ 166.667 mls/hr IVPB Q12 IVANNA PRN Reason: Protocol Last Admin: 03/02/18 21:24 Dose: 166.667 mls/hr Metoprolol Tartrate (Lopressor) 50 mg PO Q12 [facility] Last Admin: 03/02/18 21:34 Dose: 50 mg Nystatin (Nystatin Oral Susp) 5 ml PO QID [facility] Stop: 03/08/18 23:59 Last Admin: 03/02/18 21:33 Dose: 5 ml Ondansetron HCl (Zofran Inj) 4 mg IVP Q4 PRN PRN Reason: Nausea/Vomiting Prednisone (Prednisone Tab) 40 mg PO Q12 [facility] Stop: 03/05/18 09:01 Last Admin: 03/02/18 21:51 Dose: 40 mg Prednisone (Prednisone Tab) 40 mg PO DAILY [facility] Stop: 03/10/18 09:01 Prednisone (Prednisone Tab) 20 mg PO DAILY [facility] Stop: 03/21/18 09:01 - Labs Labs: 02/27/18 06:00 03/01/18 04:20 - Constitutional Appears: Well, Non-toxic, No Acute Distress - Head Exam Head Exam: ATRAUMATIC, NORMAL INSPECTION, NORMOCEPHALIC - Eye Exam Eye Exam: EOMI, Normal appearance, PERRL Pupil Exam: PERRL - ENT Exam ENT Exam: Mucous Membranes Moist - Neck Exam Neck Exam: Full ROM - Respiratory Exam Respiratory Exam: Clear to Ausculation Bilateral. absent: Chest Wall Tenderness , Decreased Breath Sounds, Rales, Rhonchi, Wheezes - Cardiovascular Exam Cardiovascular Exam: REGULAR RHYTHM, +S1, +S2. absent: Murmur - GI/Abdominal Exam GI & Abdominal Exam: Soft, Normal Bowel Sounds. absent: Distended, Guarding, Rigid, Tenderness - Back Exam Back Exam: absent: CVA tenderness (L), CVA tenderness (R) - Neurological Exam Neurological Exam: Alert, Awake, Oriented x3 - Psychiatric Exam Psychiatric exam: Normal Mood - Skin Skin Exam: Dry, Intact, Warm Assessment and Plan - Assessment and Plan (Free Text) Assessment: A/P: 27 yr old M admitted for sepsis secondary to pneumocystis pneumonia with PMHx of recently diagnosed symptomatic HIV-AIDS (CD4 count 30 on 02/02/18) and PCP pneumonia. Plan: Sepsis secondary to Pneumocystis Pneumonia and Coag neg staph bacteremia -Improving, Afebrile -Pulmonology on consult: Dr. Ovalles-appreciated (No need for Bronch, Induce sputum for PCP by DFA (lab called its not available, will follow up with Dr. Ovalles)) -ID on consult: Dr. Atkinson-recommendations appreciated -Echo 03/11: No endocarditis, EF 60-65, mild MV insufficiency -continue Bactrim 450mg IV Q8 day 16(4 more days), Continue with Azithromycin 1, 200mg PO QWeek for MAC prophylaxis (last dose ? ) -continue Cefepime 1g Q8 IV (day 5) -Vancomycin 1gm Q12H, day# 4, Vanco Trough < 5.0 however most likely inaccurate due to draw timing, Will repeat tomorrow) -continue Prednisone 40mg PO BID x 5 days (02/28-03/04), then 40mg PO QD x 5 days (03/05-03/09), then 20mg PO QD x 11 days (03/10-03/20) -blood Cx (02/26): + for Gram positive cocci, Follow up Blood Cx showed no growth. -Follow up blood Cx 03/02/18 showed no growth (preliminary) -CXR shows interval improvement in pneumonia. Still mild to moderate congestion with reticular opacity -ABG: PH 7.46, PCO2 31, Carboxy HGB 1.9 -Follow up C.diff. Negative Ucx, stool Cx, sputum Cx and Legionella ag Acquired Immunodeficiency Syndrome-HIV -CD4 30 in 01/2018 -Symptomatic -Consult ID, Dr. Atkinson, recommendations appreciated -Continue PCP treatment and MAC ppx until CD4 (next dose due on 03/05/18) as above -Continue ART (Genvoya) -VL 3.54 -Repeat CD4 and lymphocyte subset panel tomorrow AM IRIS- Immune Reconstitution Inflammatory Syndrome -ID on board: Dr. Atkinson, continue treatment as above (Genvoya, Bactrim, Azithromycin, steroids) -IVF, symptomatic management Tachycardia -Asymptomatic -C/w Metoprolol Tartrate to 50mg PO Q12H due to tachycardia -Monitor vitals Substance abuse -Hx marijuana and Cocaine use in past -Utox positive for marijuana DVT Prophylaxis -SCD's -Lovenox 40mg SC daily Full Code Emergency contact: Sister, Ms. Ochoa # [phone]
[2018-03-03] MEDS: Citracal+D 315mg/250IU PO SCH (10:24)
[2018-03-03] MEDS: Patient's Own Med (Elviteg/Cob/Emtri/Tenof Alafen [Genvoya Tablet] 1 TAB) PO SCH (10:25)
[2018-03-03] MEDS: Enoxaparin 40 mg Syringe SC SCH (10:25)
[2018-03-03] MEDS: Nystatin 100,000 Units/ml Oral Susp 5 ml UD PO SCH ×4 (10:26→21:25)
[2018-03-04] MEDS: SULFAMETHOXAZOLE IVPB SCH ×3 (00:11→17:00)
[2018-03-04] MEDS: DEXTROSE 5% IVPB SCH ×3 (00:11→17:00)
[2018-03-04] MEDS: TRIMETHOPRIM IVPB SCH ×3 (00:11→17:00)
[2018-03-04] MEDS: WATER IVPB SCH ×3 (00:11→17:00)
[2018-03-04] MEDS: Albuterol 0.083% Inhal Sol (2.5 mg/3 mL) UD INH SCH ×4 (01:11→19:13)
[2018-03-04] MEDS: Cefepime 1 GM in Sodium Chloride 0.9% 100 ML IVPB SCH ×3 (04:10→20:29)
[2018-03-04 07:45] LABS: BLOOD UREA NITROGEN 10 mg/dl (9-20); CALCIUM 9.1 mg/dL (8.4-10.2); GFR AFRICAN-AMERICAN > 60; GFR NON-AFRICAN AMERICAN > 60
[2018-03-04 08:23] LABS: BASO % 0.6 % (0.0-2.0); EOS % 0.3 % (0.0-4.0); HEMOGLOBIN 14.6 g/dL (12.0-18.0); LYMPH # 0.1 K/uL (1.0-4.3); MEAN CELL VOLUME 88.4 fl (80.0-94.0); MEAN CORPUSCULAR HEMOGLOBIN 29.4 pg (27.0-31.0); MEAN CORPUSCULAR HGB CONC 33.3 g/dL (33.0-37.0); MEAN PLATELET VOLUME 8.8 fl (7.2-11.7); MONO % 0.3 % (0.0-10.0); NEUT # 3.8 K/uL (1.8-7.0); NEUT % 95.8 % (50.0-75.0); NRBC % 0.4 % (0.0-0.0); PLATELET COUNT 340 K/uL (130-400); RBC 4.97 Mil/uL (4.40-5.90); RED CELL DISTRIBUTION WIDTH 16.8 % (11.5-14.5)
--- NOTE | 2018-03-04 08:32 | CP.PCM.PN ---
Subjective - Date & Time of Evaluation Date of Evaluation: 03/04/18 Time of Evaluation: 07:20 - Subjective Subjective: Patient seen and examined at bedside during morning rounds in tele. No acute events last night. NAD. Patient has oral thrush despite taking Nystatin swish and swallow QID. Denies any odynophagia or dysphagia. Denies any fever, chills, fatigue, CP, SOB, N/V/D/C, dysuria or other urinary Sx. Appetite WNL. Normal BM today. Objective - Vital Signs/Intake and Output Vital Signs (last 24 hours): Temp Pulse Resp BP Pulse Ox 97.5 F L 88 18 115/71 97 03/04/18 07:55 03/04/18 07:55 03/04/18 07:55 03/04/18 07:55 03/04/18 07:55 - Medications Medications: Current Medications Acetaminophen (Tylenol 325mg Tab) 650 mg PO Q6 PRN PRN Reason: Fever >100.4 F Albuterol Sulfate (Albuterol 0.083% Inhal Carolee (2.5 Mg/3 Ml) Ud) 2.5 mg INH RQ6 [facility] Last Admin: 03/04/18 07:40 Dose: 2.5 mg Azithromycin (Zithromax) 1,200 mg PO QWK [facility]NA PRN Reason: Protocol Calcium/Vitamin D (Citracal+D 315mg/250iu) 2 tab PO DAILY [facility] Last Admin: 03/03/18 10:24 Dose: 2 tab Enoxaparin Sodium (Lovenox) 40 mg SC DAILY [facility] PRN Reason: Protocol Last Admin: 03/03/18 10:25 Dose: 40 mg Home Med (Elviteg/Cob/Emtri/Tenof Alafen [Genvoya Tablet]) 1 tab PO DAILY [facility] Last Admin: 03/03/18 10:25 Dose: 1 tab Cefepime HCl 1 gm/ Sodium (Chloride) 100 mls @ 100 mls/hr IVPB Q8H [facility] PRN Reason: Protocol Last Admin: 03/04/18 04:10 Dose: 100 mls/hr Trimethoprim/Sulfamethoxazole (450 mg/ Dextrose) 500 mls @ 250 mls/hr IVPB Q8@ 0100,0900,1700 [facility]NA PRN Reason: Protocol Last Admin: 03/04/18 00:11 Dose: 250 mls/hr Vancomycin HCl 1 gm/ Sodium (Chloride) 250 mls @ 166.667 mls/hr IVPB Q12 [facility]NA PRN Reason: Protocol Last Admin: 03/03/18 21:28 Dose: 166.667 mls/hr Metoprolol Tartrate (Lopressor) 50 mg PO Q12 [facility] Last Admin: 03/03/18 21:25 Dose: 50 mg Nystatin (Nystatin Oral Susp) 5 ml PO QID [facility] Stop: 03/08/18 23:59 Last Admin: 03/03/18 21:25 Dose: 5 ml Ondansetron HCl (Zofran Inj) 4 mg IVP Q4 PRN PRN Reason: Nausea/Vomiting Prednisone (Prednisone Tab) 40 mg PO Q12 [facility] Stop: 03/05/18 09:01 Last Admin: 03/03/18 21:26 Dose: 40 mg Prednisone (Prednisone Tab) 40 mg PO DAILY [facility] Stop: 03/10/18 09:01 Prednisone (Prednisone Tab) 20 mg PO DAILY [facility] Stop: 03/21/18 09:01 - Labs Labs: 03/04/18 07:12 03/04/18 07:12 - Constitutional Appears: Well, Non-toxic, No Acute Distress - Head Exam Head Exam: ATRAUMATIC, NORMAL INSPECTION, NORMOCEPHALIC - Eye Exam Eye Exam: EOMI, Normal appearance, PERRL - ENT Exam ENT Exam: Mucous Membranes Moist Additional comments: + Oral thrush hard palate and pharynx. - Neck Exam Neck Exam: Full ROM - Respiratory Exam Respiratory Exam: Clear to Ausculation Bilateral, NORMAL BREATHING PATTERN. absent: Rales, Rhonchi, Wheezes - Cardiovascular Exam Cardiovascular Exam: REGULAR RHYTHM, +S1, +S2. absent: Murmur - GI/Abdominal Exam GI & Abdominal Exam: Soft, Normal Bowel Sounds. absent: Guarding, Rigid, Tenderness - Extremities Exam Extremities Exam: absent: Calf Tenderness, Tenderness - Back Exam Back Exam: absent: CVA tenderness (L), CVA tenderness (R) - Neurological Exam Neurological Exam: Alert, Awake, Oriented x3 - Psychiatric Exam Psychiatric exam: Normal Affect, Normal Mood - Skin Skin Exam: Dry, Intact, Normal Color Assessment and Plan - Assessment and Plan (Free Text) Assessment: 27 yr old M admitted for sepsis secondary to pneumocystis pneumonia with PMHx of recently diagnosed symptomatic HIV-AIDS (CD4 count 30 on 02/02/18) and PCP pneumonia. Plan: Sepsis secondary to Pneumocystis Pneumonia and Coag neg staph bacteremia -Improving, Afebrile -ID on consult: Dr. Atkinson-recommendations appreciated -Echo 03/11: No endocarditis, EF 60-65, mild MV insufficiency -continue Bactrim 450mg IV Q8 day 17(3 more days), Continue with Azithromycin 1, 200mg PO QWeek for MAC prophylaxis(tomorrow) -continue Cefepime 1g Q8 IV (day 6) -Vancomycin 1gm Q12H, day# 5, Vanco Trough < 5.0 x 2. Dose is weight based. -continue Prednisone 40mg PO BID x 5 days (02/28-03/04), then 40mg PO QD x 5 days (03/05-03/09), then 20mg PO QD x 11 days (03/10-03/20) -blood Cx (02/26): + for Gram positive cocci, Follow up Blood Cx showed no growth. -Follow up blood Cx 03/02/18 showed no growth (preliminary) -CXR shows interval improvement in pneumonia. Still mild to moderate congestion with reticular opacity -Negative Ucx, stool Cx, sputum Cx and Legionella ag -ABG: PH 7.46, PCO2 31, Carboxy HGB 1.9 -Follow up C.diff(Previous on 02/26/18 Negative). Acquired Immunodeficiency Syndrome-HIV -CD4 30 in 01/2018 -Symptomatic -Consult ID, Dr. Atkinson, recommendations appreciated -Continue PCP treatment and MAC ppx until CD4 (next dose due on 03/05/18) as above -Continue ART (Genvoya) -VL 3.54 -F/U CD4 and lymphocyte subset panel Oral Thrush -Asymptomatic, but not improving -On Nystatin swish and swallow QID -Will monitor IRIS- Immune Reconstitution Inflammatory Syndrome -ID on board: Dr. Atkinson, continue treatment as above (Genvoya, Bactrim, Azithromycin, steroids) -IVF, symptomatic management Tachycardia -Resolved, Asymptomatic -C/w Metoprolol Tartrate to 50mg PO Q12H due to tachycardia -Monitor vitals Substance abuse -Hx marijuana and Cocaine use in past -Utox positive for marijuana DVT Prophylaxis -SCD's -Lovenox 40mg SC daily Full Code Emergency contact: Sister, Ms. Ochoa # [phone]
[2018-03-04] MEDS: Citracal+D 315mg/250IU PO SCH (09:11)
[2018-03-04] MEDS: Nystatin 100,000 Units/ml Oral Susp 5 ml UD PO SCH ×4 (09:11→21:42)
[2018-03-04] MEDS: Enoxaparin 40 mg Syringe SC SCH (09:12)
[2018-03-04] MEDS: Patient's Own Med (Elviteg/Cob/Emtri/Tenof Alafen [Genvoya Tablet] 1 TAB) PO SCH (09:12)
[2018-03-04 10:02] LABS: BASOPHIL 1 % (0-2); LYMPHOCYTE 2 % (20-50); MONOCYTE 7 % (0-10); MYELOCYTE 1 % (0-0); TOTAL CELLS COUNTED 100
[2018-03-04 10:03] LABS: BANDS 8 % (0-2); METAMYELOCYTE 3 % (0-0); NEUTROPHIL 78 % (42-75); PLATELET ESTIMATE NORMAL (NORMAL)
[2018-03-04] MEDS: Saccharomyces Boulardi 250 mg Cap PO SCH (17:01)
[2018-03-05] MEDS: TRIMETHOPRIM IVPB SCH ×3 (00:45→16:12)
[2018-03-05] MEDS: DEXTROSE 5% IVPB SCH ×3 (00:45→16:12)
[2018-03-05] MEDS: SULFAMETHOXAZOLE IVPB SCH ×3 (00:45→16:12)
[2018-03-05] MEDS: WATER IVPB SCH ×3 (00:45→16:12)
[2018-03-05] MEDS: Albuterol 0.083% Inhal Sol (2.5 mg/3 mL) UD INH SCH ×4 (01:28→19:01)
[2018-03-05] MEDS: Cefepime 1 GM in Sodium Chloride 0.9% 100 ML IVPB SCH ×3 (04:06→20:31)
[2018-03-05] MEDS: Saccharomyces Boulardi 250 mg Cap PO SCH ×2 (08:39→16:13)
[2018-03-05] MEDS: Citracal+D 315mg/250IU PO SCH (08:39)
[2018-03-05] MEDS: Nystatin 100,000 Units/ml Oral Susp 5 ml UD PO SCH ×4 (08:39→21:39)
[2018-03-05] MEDS: Patient's Own Med (Elviteg/Cob/Emtri/Tenof Alafen [Genvoya Tablet] 1 TAB) PO SCH (08:39)
[2018-03-05] MEDS: Enoxaparin 40 mg Syringe SC SCH (08:39)
--- NOTE | 2018-03-05 11:03 | CP.PCM.PN ---
Subjective - Date & Time of Evaluation Date of Evaluation: 03/05/18 Time of Evaluation: 09:00 - Subjective Subjective: Patient sitting upright in chair. No complaints offered. No difficulty breathing , no cough, dyspnea or chest pain.Eating well, no dysphagia/odinophagia. Pt in good spirits. Tolerating regular diet. Objective - Vital Signs/Intake and Output Vital Signs (last 24 hours): Temp Pulse Resp BP Pulse Ox 98.0 F 103 H 19 121/73 96 03/05/18 07:35 03/05/18 08:43 03/05/18 07:35 03/05/18 08:43 03/05/18 07:35 - Medications Medications: Current Medications Acetaminophen (Tylenol 325mg Tab) 650 mg PO Q6 PRN PRN Reason: Fever >100.4 F Albuterol Sulfate (Albuterol 0.083% Inhal Carolee (2.5 Mg/3 Ml) Ud) 2.5 mg INH RQ6 [facility] Last Admin: 03/05/18 07:02 Dose: 2.5 mg Azithromycin (Zithromax) 1,200 mg PO QWK IVANNA PRN Reason: Protocol Calcium/Vitamin D (Citracal+D 315mg/250iu) 2 tab PO DAILY [facility] Last Admin: 03/05/18 08:39 Dose: 2 tab Enoxaparin Sodium (Lovenox) 40 mg SC DAILY IVANNA PRN Reason: Protocol Last Admin: 03/05/18 08:39 Dose: 40 mg Home Med (Elviteg/Cob/Emtri/Tenof Alafen [Genvoya Tablet]) 1 tab PO DAILY [facility] Last Admin: 03/05/18 08:39 Dose: 1 tab Cefepime HCl 1 gm/ Sodium (Chloride) 100 mls @ 100 mls/hr IVPB Q8H [facility]NA PRN Reason: Protocol Last Admin: 03/05/18 04:06 Dose: 100 mls/hr Trimethoprim/Sulfamethoxazole (450 mg/ Dextrose) 500 mls @ 250 mls/hr IVPB Q8@ 0100,0900,1700 IVANNA PRN Reason: Protocol Last Admin: 03/05/18 10:54 Dose: 250 mls/hr Vancomycin HCl 1 gm/ Sodium (Chloride) 250 mls @ 166.667 mls/hr IVPB Q12 IV[facility]NA PRN Reason: Protocol Last Admin: 03/05/18 08:38 Dose: 166.667 mls/hr Metoprolol Tartrate (Lopressor) 50 mg PO Q12 [facility] Last Admin: 03/05/18 08:43 Dose: 50 mg Nystatin (Nystatin Oral Susp) 5 ml PO QID [facility] Stop: 03/08/18 23:59 Last Admin: 03/05/18 08:39 Dose: 5 ml Ondansetron HCl (Zofran Inj) 4 mg IVP Q4 PRN PRN Reason: Nausea/Vomiting Prednisone (Prednisone Tab) 40 mg PO DAILY [facility] Stop: 03/10/18 09:01 Last Admin: 03/05/18 08:38 Dose: 40 mg Prednisone (Prednisone Tab) 20 mg PO DAILY [facility] Stop: 03/21/18 09:01 Saccharomyces Boulardii (Florastor) 250 mg PO BID [facility] Last Admin: 03/05/18 08:39 Dose: 250 mg - Labs Labs: 03/04/18 07:12 03/04/18 07:12 - Constitutional Appears: Non-toxic, No Acute Distress - Head Exam Head Exam: ATRAUMATIC, NORMAL INSPECTION, NORMOCEPHALIC - Eye Exam Eye Exam: Normal appearance, PERRL - ENT Exam Additional comments: white plaques on throat - Respiratory Exam Respiratory Exam: Clear to Ausculation Bilateral, NORMAL BREATHING PATTERN. absent: Decreased Breath Sounds, Prolonged Expiratory Phase, Wheezes, Respiratory Distress - Cardiovascular Exam Cardiovascular Exam: REGULAR RHYTHM, +S1, +S2 - GI/Abdominal Exam GI & Abdominal Exam: Soft, Normal Bowel Sounds. absent: Tenderness - Extremities Exam Extremities Exam: Normal Inspection. absent: Pedal Edema - Neurological Exam Neurological Exam: Alert, Awake, CN II-XII Intact, Oriented x3 - Psychiatric Exam Psychiatric exam: Normal Affect, Normal Mood - Skin Skin Exam: Dry, Intact, Normal Color, Warm Assessment and Plan - Assessment and Plan (Free Text) Assessment: 27 yr old M with PMH of AIDS (CD4 count 30 on 02/02/18) admitted for sepsis secondary to PCP pneumonia, now with staph bacteremia, oral candidiasis. Plan: #Sepsis secondary to Pneumocystis Pneumonia and Coag neg staph bacteremia -ID on consult: Dr. Atkinson-recommendations appreciated -Echo 03/11: No endocarditis, EF 60-65, mild MV insufficiency -continue Bactrim 450mg IV Q8 day 18(2 more days), Continue with Azithromycin 1, 200mg PO QWeek for MAC prophylaxis to be given 03/05/18 -continue Cefepime 1g Q8 IV (day 7) -Vancomycin 1gm Q12H, day# 6, Vanco Trough < 5.0 x 2. Dose is weight based. -continue 40mg PO QD x 5 days (03/05-03/09), then 20mg PO QD x 11 days (03/10-03/20) -blood Cx (02/26): + for Gram positive cocci, all repeat cultures thereafter have been negative -Follow up blood Cx 03/02/18 showed no growth (preliminary) -Negative Ucx, stool Cx, sputum Cx and Legionella ag -Follow up C.diff(Previous on 02/26/18 Negative). #Acquired Immunodeficiency Syndrome -CD4 30 in 01/2018, awaiting repeat -Symptomatic -Consult ID, Dr. Atkinson, recommendations appreciated -Genvoya #Oral Candisiasis -Asymptomatic -On Nystatin swish and swallow QID - will continue to monitor, will continue with nystatin for now. Consider Fluconazole PO once treatment with Bactrim has been discontinued if persists. #IRIS- Immune Reconstitution Inflammatory Syndrome -ID on board: Dr. Atkinson, continue treatment as above (Genvoya, Bactrim, Azithromycin, steroids) -IVF, symptomatic management #Tachycardia -Resolved, Asymptomatic -C/w Metoprolol Tartrate to 50mg PO Q12H due to tachycardia -Monitor vitals #Substance abuse -Hx marijuana and Cocaine use in past -Utox positive for marijuana #DVT Prophylaxis -SCD's -Lovenox 40mg SC daily #Full Code Emergency contact: Sister, Ms. Ochoa # [phone]
[2018-03-06] MEDS: TRIMETHOPRIM IVPB SCH ×3 (01:14→19:25)
[2018-03-06] MEDS: SULFAMETHOXAZOLE IVPB SCH ×3 (01:14→19:25)
[2018-03-06] MEDS: DEXTROSE 5% IVPB SCH ×3 (01:14→19:25)
[2018-03-06] MEDS: WATER IVPB SCH ×3 (01:14→19:25)
[2018-03-06] MEDS: Albuterol 0.083% Inhal Sol (2.5 mg/3 mL) UD INH SCH ×4 (02:28→19:10)
[2018-03-06] MEDS: Cefepime 1 GM in Sodium Chloride 0.9% 100 ML IVPB SCH ×3 (04:15→22:09)
[2018-03-06 05:51] LABS: % CD4 (T HELPER CELL) 20 Percent (30-61); % CD8 (SUPPRESSOR T CELL) 69 Percent (12-42); ABSOLUTE CD4 CELLS 25 Cells/mcL (490-1740); ABSOLUTE CD8 CELLS 88 Cells/mcL (180-1170); ABSOLUTE LYMPHOCYTES 128 Cells/mcL (850-3900); HELPER/SUPPRESSOR RATIO 0.29 Ratio (0.86-5.00)
[2018-03-06] MEDS: Saccharomyces Boulardi 250 mg Cap PO SCH ×2 (08:40→16:54)
[2018-03-06] MEDS: Patient's Own Med (Elviteg/Cob/Emtri/Tenof Alafen [Genvoya Tablet] 1 TAB) PO SCH (08:40)
[2018-03-06] MEDS: Citracal+D 315mg/250IU PO SCH (08:40)
[2018-03-06] MEDS: Nystatin 100,000 Units/ml Oral Susp 5 ml UD PO SCH ×4 (08:41→21:41)
[2018-03-06] MEDS: Enoxaparin 40 mg Syringe SC SCH (08:41)
--- NOTE | 2018-03-06 10:58 | CP.PCM.PN ---
Subjective - Date & Time of Evaluation Date of Evaluation: 03/06/18 Time of Evaluation: 09:45 - Subjective Subjective: Patient seen and evaluated at bedside in AM. NAD. No acute events overnight, slept well. Oral thrush mildly improved with Nystatin but still present. No dysphagia or odynophagia. Appetite normal, tolerating diet well. Denies any CP, SOB, cough, headache, dizziness, nausea, vomiting, diarrhea, urinary sx. Objective - Vital Signs/Intake and Output Vital Signs (last 24 hours): Temp Pulse Resp BP Pulse Ox 98.5 F 91 H 19 111/69 96 03/06/18 07:50 03/06/18 08:40 03/06/18 07:50 03/06/18 08:40 03/06/18 07:50 - Medications Medications: Current Medications Acetaminophen (Tylenol 325mg Tab) 650 mg PO Q6 PRN PRN Reason: Fever >100.4 F Albuterol Sulfate (Albuterol 0.083% Inhal Carolee (2.5 Mg/3 Ml) Ud) 2.5 mg INH RQ6 [facility] Last Admin: 03/06/18 07:58 Dose: 2.5 mg Azithromycin (Zithromax) 1,200 mg PO Q7D [facility] PRN Reason: Protocol Last Admin: 03/05/18 16:12 Dose: 1,200 mg Calcium/Vitamin D (Citracal+D 315mg/250iu) 2 tab PO DAILY [facility] Last Admin: 03/06/18 08:40 Dose: 2 tab Enoxaparin Sodium (Lovenox) 40 mg SC DAILY [facility] PRN Reason: Protocol Last Admin: 03/06/18 08:41 Dose: 40 mg Home Med (Elviteg/Cob/Emtri/Tenof Alafen [Genvoya Tablet]) 1 tab PO DAILY [facility] Last Admin: 03/06/18 08:40 Dose: 1 tab Cefepime HCl 1 gm/ Sodium (Chloride) 100 mls @ 100 mls/hr IVPB Q8H [facility] PRN Reason: Protocol Last Admin: 03/06/18 04:15 Dose: 100 mls/hr Trimethoprim/Sulfamethoxazole (450 mg/ Dextrose) 500 mls @ 250 mls/hr IVPB Q8@ 0100,0900,1700 [facility] PRN Reason: Protocol Last Admin: 03/06/18 10:35 Dose: 250 mls/hr Vancomycin HCl 1 gm/ Sodium (Chloride) 250 mls @ 166.667 mls/hr IVPB Q12 [facility] PRN Reason: Protocol Last Admin: 03/06/18 08:39 Dose: 166.667 mls/hr Metoprolol Tartrate (Lopressor) 50 mg PO Q12 [facility] Last Admin: 03/06/18 08:40 Dose: 50 mg Nystatin (Nystatin Oral Susp) 5 ml PO QID [facility] Stop: 03/08/18 23:59 Last Admin: 03/06/18 08:41 Dose: 5 ml Ondansetron HCl (Zofran Inj) 4 mg IVP Q4 PRN PRN Reason: Nausea/Vomiting Prednisone (Prednisone Tab) 40 mg PO DAILY [facility] Stop: 03/10/18 09:01 Last Admin: 03/06/18 08:44 Dose: 40 mg Prednisone (Prednisone Tab) 20 mg PO DAILY [facility] Stop: 03/21/18 09:01 Saccharomyces Boulardii (Florastor) 250 mg PO BID [facility] Last Admin: 03/06/18 08:40 Dose: 250 mg - Labs Labs: 03/04/18 07:12 03/04/18 07:12 - Constitutional Appears: Well, Non-toxic, No Acute Distress - Head Exam Head Exam: ATRAUMATIC, NORMAL INSPECTION, NORMOCEPHALIC - Eye Exam Eye Exam: Normal appearance, PERRL - ENT Exam ENT Exam: Mucous Membranes Moist Additional comments: White oropharyngeal plaques - Respiratory Exam Respiratory Exam: Clear to Ausculation Bilateral, NORMAL BREATHING PATTERN. absent: Rales, Rhonchi, Wheezes, Respiratory Distress - Cardiovascular Exam Cardiovascular Exam: REGULAR RHYTHM, +S1, +S2, Murmur - GI/Abdominal Exam GI & Abdominal Exam: Soft, Normal Bowel Sounds. absent: Guarding, Rigid, Tenderness - Extremities Exam Extremities Exam: absent: Pedal Edema, Tenderness - Neurological Exam Neurological Exam: Alert, Awake, Oriented x3 - Psychiatric Exam Psychiatric exam: Normal Affect, Normal Mood - Skin Skin Exam: Dry, Intact, Normal Color Assessment and Plan - Assessment and Plan (Free Text) Assessment: 27 yr old M with PMH of AIDS (CD4 count 30 on 02/02/18) admitted for sepsis secondary to PCP pneumonia, now with staph bacteremia, oral candidiasis. Plan: Sepsis secondary to Pneumocystis Pneumonia and Coag neg staph bacteremia -Asymptomatic -ID on consult: Dr. Atkinson-recommendations appreciated -Echo 03/11: No endocarditis, EF 60-65, mild MV insufficiency -continue Bactrim 450mg IV Q8 day 19(1 more day), Continue with Azithromycin 1, 200mg PO QWeek for MAC prophylaxis given 03/05/18 -Cefepime 1g Q8 IV Rx completed yesterday. -Vancomycin 1gm Q12H, day# 7, Vanco Trough < 5.0 x 2. Dose is weight based. -continue 40mg PO QD x 5 days (03/05-03/09), then 20mg PO QD x 11 days (03/10-03/20) -blood Cx (02/26): + for Gram positive cocci, all repeat cultures thereafter have been negative -Follow up blood Cx 03/02/18 showed no growth (preliminary) -Negative Ucx, stool Cx, sputum Cx and Legionella ag, C.diff(Previous on Negative) Acquired Immunodeficiency Syndrome -CD4 count 25, CD 4% 20 on 03/04/2018 -Symptomatic -Consult ID, Dr. Atkinson, recommendations appreciated -Genvoya Oral Candisiasis -Asymptomatic, improving -On Nystatin swish and swallow QID -will continue to monitor, will continue with nystatin for now. Consider Fluconazole PO once treatment with Bactrim has been discontinued if persists. IRIS- Immune Reconstitution Inflammatory Syndrome -ID on board: Dr. Atkinson, continue treatment as above (Genvoya, Bactrim, Azithromycin, steroids) -IVF, symptomatic management Tachycardia -Resolved, Asymptomatic -C/w Metoprolol Tartrate to 50mg PO Q12H due to tachycardia -Monitor vitals Substance abuse -Hx marijuana and Cocaine use in past -Utox positive for marijuana DVT Prophylaxis -SCD's -Lovenox 40mg SC daily Full Code Emergency contact: Sister, Ms. Ochoa # [phone] Disposition: Possible discharge after completion of IV Abx with Bactrim tomorrow. Discharge on Oral Bactrim, Azithromycin and Prednisone taper.
[2018-03-07] MEDS: Albuterol 0.083% Inhal Sol (2.5 mg/3 mL) UD INH SCH ×2 (01:03→07:31)
[2018-03-07] MEDS: SULFAMETHOXAZOLE IVPB SCH ×3 (03:14→21:10)
[2018-03-07] MEDS: WATER IVPB SCH ×3 (03:14→21:10)
[2018-03-07] MEDS: DEXTROSE 5% IVPB SCH ×3 (03:14→21:10)
[2018-03-07] MEDS: TRIMETHOPRIM IVPB SCH ×3 (03:14→21:10)
[2018-03-07] MEDS: Cefepime 1 GM in Sodium Chloride 0.9% 100 ML IVPB SCH ×3 (06:02→22:51)
--- NOTE | 2018-03-07 08:27 | CP.PCM.PN ---
Subjective - Date & Time of Evaluation Date of Evaluation: 03/07/18 Time of Evaluation: 07:50 - Subjective Subjective: Patient seen and examined at bedside in AM. No acute events overnight but patient did not sleep well due to noise in the room. Patient was Tachycardic(Pulse 129) during vitals check this morning. But patient denies any chest pain, SOB, palpitations, diaphoresis, headache, dizziness, abdominal pain, N/V or LE swelling. EKG done stat showed Sinus Tachycardia with HR of 117. No acute ST changes. Metoprolol 50 mg IVANNA given @ 8.11 am. Will reevaluate again. Objective - Vital Signs/Intake and Output Vital Signs (last 24 hours): Temp Pulse Resp BP Pulse Ox 99.1 F 129 H 19 94/50 L 95 03/07/18 08:19 03/07/18 08:19 03/07/18 08:19 03/07/18 08:19 03/07/18 08:19 - Medications Medications: Current Medications Acetaminophen (Tylenol 325mg Tab) 650 mg PO Q6 PRN PRN Reason: Fever >100.4 F Albuterol Sulfate (Albuterol 0.083% Inhal Carolee (2.5 Mg/3 Ml) Ud) 2.5 mg INH RQ6 IVANNA Last Admin: 03/07/18 07:31 Dose: 2.5 mg Calcium/Vitamin D (Citracal+D 315mg/250iu) 2 tab PO DAILY IVANNA Last Admin: 03/06/18 08:40 Dose: 2 tab Enoxaparin Sodium (Lovenox) 40 mg SC DAILY IVANNA PRN Reason: Protocol Last Admin: 03/06/18 08:41 Dose: 40 mg Home Med (Elviteg/Cob/Emtri/Tenof Alafen [Genvoya Tablet]) 1 tab PO DAILY IVANNA Last Admin: 03/06/18 08:40 Dose: 1 tab Trimethoprim/Sulfamethoxazole (450 mg/ Dextrose) 500 mls @ 250 mls/hr IVPB Q8@ 0300,1100,1900 IVANNA PRN Reason: Protocol Last Admin: 03/07/18 03:14 Dose: 250 mls/hr Cefepime HCl 1 gm/ Sodium (Chloride) 100 mls @ 100 mls/hr IVPB Q8@0600,1400, 2200 IVANNA PRN Reason: Protocol Last Admin: 03/07/18 06:02 Dose: 100 mls/hr Metoprolol Tartrate (Lopressor) 50 mg PO Q12 [facility] Last Admin: 03/07/18 08:11 Dose: 50 mg Nystatin (Nystatin Oral Susp) 5 ml PO QID [facility] Stop: 03/08/18 23:59 Last Admin: 03/06/18 21:41 Dose: 5 ml Ondansetron HCl (Zofran Inj) 4 mg IVP Q4 PRN PRN Reason: Nausea/Vomiting Prednisone (Prednisone Tab) 40 mg PO DAILY [facility] Stop: 03/10/18 09:01 Last Admin: 03/06/18 08:44 Dose: 40 mg Prednisone (Prednisone Tab) 20 mg PO DAILY [facility] Stop: 03/21/18 09:01 Saccharomyces Boulardii (Florastor) 250 mg PO BID [facility] Last Admin: 03/06/18 16:54 Dose: 250 mg - Labs Labs: 03/04/18 07:12 03/04/18 07:12 - Constitutional Appears: Well, Non-toxic, No Acute Distress - Head Exam Head Exam: ATRAUMATIC, NORMAL INSPECTION, NORMOCEPHALIC - Eye Exam Eye Exam: Normal appearance, PERRL - ENT Exam ENT Exam: Mucous Membranes Moist - Respiratory Exam Respiratory Exam: Clear to Ausculation Bilateral, NORMAL BREATHING PATTERN. absent: Accessory Muscle Use, Chest Wall Tenderness, Decreased Breath Sounds, Rales, Rhonchi, Wheezes, Respiratory Distress - Cardiovascular Exam Cardiovascular Exam: Tachycardia, +S1, +S2. absent: Clicks, Irregular Rhythm, Rubs, Murmur - GI/Abdominal Exam GI & Abdominal Exam: Soft, Normal Bowel Sounds - Extremities Exam Extremities Exam: absent: Calf Tenderness, Pedal Edema, Tenderness - Neurological Exam Neurological Exam: Alert, Awake, Oriented x3 - Psychiatric Exam Psychiatric exam: Normal Affect, Normal Mood - Skin Skin Exam: Dry, Intact, Normal Color Assessment and Plan - Assessment and Plan (Free Text) Assessment: 27 yr old M with PMH of AIDS (CD4 count 30 on 02/02/18) admitted for sepsis secondary to PCP pneumonia, now with staph bacteremia, oral candidiasis. Plan: Sepsis secondary to Pneumocystis Pneumonia and Coag neg staph bacteremia -Asymptomatic -ID on consult: Dr. Atkinson-recommendations appreciated. -Echo 03/11: No endocarditis, EF 60-65, mild MV insufficiency. -Continue Bactrim 450mg IV Q8 day 20(1 more day), than Bactrim DS once daily till CD 4 count >200 -Continue with Azithromycin 1,200mg PO QWeek for MAC prophylaxis given 03/05/18, Till CD 4 count >50 -D/C Cefepime 1g Q8 IV Rx day 10 -D/C Vancomycin 1gm Q12H -Continue 40mg PO QD for now. -blood Cx (02/26): + for Gram positive cocci, all repeat cultures thereafter have been negative -Negative Ucx, blood culture x 3, sputum Cx and Legionella ag, C.diff(Previous on 02/26/18 Negative) Acquired Immunodeficiency Syndrome -Asymptomatic -CD4 count 25, CD-4 20% on 03/04/2018 -Consult ID, Dr. Atkinson, recommendations appreciated -C/W Genvoya -F/U with Dr. Ji outpatient after discharge Tachycardia -Asymptomatic -Episode of sinus Tachy 03/07/18 around 7.40AM -EKG 03/07/18: Sinus Tachycardia, No acute ST changes -Metoprolol 50 mg IVANNA given, Vitals 1 hr S/P HR:106, BP: 111/65 -C/W Metoprolol Tartrate to 50mg PO Q12H due to tachycardia -Monitor vitals Oral Candisiasis -Asymptomatic, improving -On Nystatin swish and swallow QID -Will continue to monitor, will continue with nystatin for now. Consider Fluconazole PO once treatment with Bactrim has been discontinued if persists. IRIS- Immune Reconstitution Inflammatory Syndrome -ID on board: Dr. Atkinson, continue treatment as above (Genvoya, Bactrim, Azithromycin, steroids) -IVF, symptomatic management Substance abuse -Hx marijuana and Cocaine use in past -Utox positive for marijuana DVT Prophylaxis -SCD's -Lovenox 40mg SC daily Full Code Emergency contact: Sister, Ms. Ochoa # [phone]
[2018-03-07] MEDS: Nystatin 100,000 Units/ml Oral Susp 5 ml UD PO SCH ×5 (09:34→22:51)
[2018-03-07] MEDS: Enoxaparin 40 mg Syringe SC SCH (09:45)
[2018-03-07] MEDS: Citracal+D 315mg/250IU PO SCH (09:45)
[2018-03-07] MEDS: Saccharomyces Boulardi 250 mg Cap PO SCH ×2 (09:48→17:48)
[2018-03-07] MEDS: Patient's Own Med (Elviteg/Cob/Emtri/Tenof Alafen [Genvoya Tablet] 1 TAB) PO SCH (09:49)
[2018-03-07] MEDS ORDERED: Albuterol 0.083% Inhal Sol (2.5 mg/3 mL) UD INH PRN (10:19)
--- NOTE | 2018-03-07 11:37 | CARD ---
APPROVED REPORT Date of service: 03/07/2018 EKG Measurement Heart [id number] VT [id number] <Conclusion> Sinus tachycardia Otherwise normal ECG
--- NOTE | 2018-03-07 12:37 | CP.PCM.PN ---
Subjective - Date & Time of Evaluation Date of Evaluation: 03/07/18 Time of Evaluation: 12:37 - Subjective Subjective: ID Note- Patient seen and examined today. pt. is in good spirits and states he feels fine. denies any complaints and is eating well. denies any diarrhea, denies any fever or chills, denies any sob or any more cough. Objective - Vital Signs/Intake and Output Vital Signs (last 24 hours): Temp Pulse Resp BP Pulse Ox 99.1 F 129 H 19 94/50 L 95 03/07/18 08:19 03/07/18 08:19 03/07/18 08:19 03/07/18 08:19 03/07/18 08:19 - Medications Medications: Current Medications Acetaminophen (Tylenol 325mg Tab) 650 mg PO Q6 PRN PRN Reason: Fever >100.4 F Albuterol Sulfate (Albuterol 0.083% Inhal Carolee (2.5 Mg/3 Ml) Ud) 2.5 mg INH RQ6 PRN PRN Reason: Shortness of Breath Calcium/Vitamin D (Citracal+D 315mg/250iu) 2 tab PO DAILY [facility] Last Admin: 03/07/18 09:45 Dose: 2 tab Enoxaparin Sodium (Lovenox) 40 mg SC DAILY IVANNA PRN Reason: Protocol Last Admin: 03/07/18 09:45 Dose: 40 mg Home Med (Elviteg/Cob/Emtri/Tenof Alafen [Genvoya Tablet]) 1 tab PO DAILY [facility] Last Admin: 03/07/18 09:49 Dose: 1 tab Trimethoprim/Sulfamethoxazole (450 mg/ Dextrose) 500 mls @ 250 mls/hr IVPB Q8@ 0300,1100,1900 IVANNA PRN Reason: Protocol Last Admin: 03/07/18 03:14 Dose: 250 mls/hr Cefepime HCl 1 gm/ Sodium (Chloride) 100 mls @ 100 mls/hr IVPB Q8@0600,1400, 2200 IVANNA PRN Reason: Protocol Last Admin: 03/07/18 06:02 Dose: 100 mls/hr Metoprolol Tartrate (Lopressor) 50 mg PO Q12 [facility] Last Admin: 03/07/18 08:11 Dose: 50 mg Nystatin (Nystatin Oral Susp) 5 ml PO QID [facility] Stop: 03/08/18 23:59 Last Admin: 03/07/18 09:34 Dose: 5 ml Ondansetron HCl (Zofran Inj) 4 mg IVP Q4 PRN PRN Reason: Nausea/Vomiting Prednisone (Prednisone Tab) 40 mg PO DAILY [facility] Stop: 03/10/18 09:01 Last Admin: 03/07/18 09:45 Dose: 40 mg Prednisone (Prednisone Tab) 20 mg PO DAILY [facility] Stop: 03/21/18 09:01 Saccharomyces Boulardii (Florastor) 250 mg PO BID [facility] Last Admin: 03/07/18 09:48 Dose: 250 mg - Labs Labs: - Additional Findings Additional findings: - Constitutional Appears: No Acute Distress - Head Exam Head Exam: ATRAUMATIC - Eye Exam Eye Exam: EOMI, PERRL - ENT Exam ENT Exam: Normal Oropharynx - Neck Exam Neck exam: Positive for: Full Rom Additional comments: supple - Respiratory Exam Respiratory Exam: NORMAL BREATHING PATTERN Additional comments: good air entry b/l no wheezing - Cardiovascular Exam Cardiovascular Exam: RRR, +S1, +S2 - GI/Abdominal Exam GI & Abdominal Exam: Normal Bowel Sounds, Soft Additional comments: ND, NT - Extremities Exam Extremities exam: Positive for: normal inspection - Neurological Exam Neurological exam: Alert, Oriented x 3 Laboratory Results - last 72 hr 03/04/18 03/05/18 07:12 13:20 Absolute Lymphs (Flow) 128 L % CD4 Cells 20 L Absolute CD4 Count 25 L T-Help/Suppress Ratio 0.29 L % CD8 Cells 69 H Absolute CD8 Count 88 L T-Lymph Analys Comment See note C. difficile Ag & Toxin Negative Microbiology 03/02/18 Unknown Blood-Venous Blood Culture - Final NO GROWTH AFTER 5 DAYS 03/02/18 Unknown Blood-Venous Gram Stain - Final TEST NOT PERFORMED 03/03/18 11:14 Blood-Venous Blood Culture - Preliminary NO GROWTH AFTER 4 DAYS 03/02/18 10:45 Blood-Venous Blood Culture - Final NO GROWTH AFTER 5 DAYS 03/02/18 10:45 Blood-Venous Gram Stain - Final TEST NOT PERFORMED 02/26/18 19:03 Blood-Venous Blood Culture - Final NO GROWTH AFTER 5 DAYS 02/26/18 19:03 Blood-Venous Gram Stain - Final TEST NOT PERFORMED 02/26/18 12:00 Blood Blood Culture - Final NO GROWTH AFTER 5 DAYS 02/26/18 12:00 Blood Gram Stain - Final TEST NOT PERFORMED 02/26/18 12:00 Blood Blood Culture - Final NO GROWTH AFTER 5 DAYS 02/26/18 12:00 Blood Gram Stain - Final TEST NOT PERFORMED 02/28/18 04:00 Stool Stool Culture - Final NO SALMONELLA, SHIGELLA OR CAMPYLOBACTER ISOLATED. 02/26/18 18:53 Blood-Venous S.aureus & Coag-Neg Staph PNA FISH - Final 02/26/18 18:53 Blood-Venous Blood Culture - Final Coagulase Neg Staphylococcus 02/26/18 18:53 Blood-Venous Gram Stain - Final 02/28/18 04:00 Stool Ova and Parasite Concentrate Exam - Final 02/27/18 02:51 Sputum Gram Stain - Final 02/27/18 02:51 Sputum Sputum Culture - Final NORMAL ORAL DEANN 02/26/18 16:15 Urine Urine Culture - Final No Growth (<1,000 CFU/ML) Accession No. : [id number] Patient Name / ID : MARSHALL NGUYEN PARKER / [id number] Exam Date : 03/02/2018 10:35:58 ( Approved ) Study Comment : Sex / Age : M / 27Y Creator : Jessica Schuster MD Dictator : Jessica Schuster MD Grain Thresher : Snack Bar Cook : Jessica Schuster MD Approver2 : Report Date : 03/02/2018 17:42:21 My Comment : Date of service: 03/02/2018 HISTORY: PCP COMPARISON: Comparison is made with 02/27/2018 TECHNIQUE: Chest PA and lateral FINDINGS: LUNGS: Interval improvement in the previously noted pulmonary edema since the previous exam. There is persistent mild to moderate pulmonary congestion and diffuse reticular opacities at the mid and lower lungs PLEURA: No significant pleural effusion identified. No pneumothorax apparent. CARDIOVASCULAR: Normal. OSSEOUS STRUCTURES: No significant abnormalities. VISUALIZED UPPER ABDOMEN: Normal. OTHER FINDINGS: None. IMPRESSION: Interval improvement in the lungs since the previous exam. Assessment and Plan (1) AIDS Status: Acute (2) Diarrhea Status: Acute (3) Pneumonia Status: Acute (4) Fever Status: Acute - Assessment and Plan (Free Text) Assessment: A/P- 27 year old male with newly diagnosed HIV, PCP pneumonia admitted with nause and diarrhe after starting HAART 2 days ago. clinically much improved. has remained afebrile for more than 4 days. normal wbc count stool c.diff- neg x 2 stool cx- neg stool O and P -neg one of the blood cx from 02/26/2018- coag neg staph ( most likely contaminant) repeat blood cx- neg x 4 urine cx- neg sputum cx-neg cxr- improved as per report TTE- no vegetations as per report. plan- continue with IV bactrim for PCP treatment. had already completed 11 days of IV bactrim last admission and was d/c on oral bactrim. hence day #20 of IV bactrim. needs one more day if IV bactrim. to complete total of 21 days of treatment. continue with his HAART regimen. has completed 10 days of IV cefepime. d/c cefepime now. can be d/c on oral auugmentin 875 mg BID for 7 more days. will need repeat cxr as outpatient. can be d/c on oral bactrim DS Daily until his CD4 count rise to above 200. continue with once a week azithromycin 1200 mg for MAC prophylaxis until Cd4 gets >50. received 6 days of IV vanco for coag neg staph bactermia in 1 bottle of blood cx only. d/c vanco. most likely was a contaminant. must be seen by his HIV doctor at [facility] in 2-3 days for f/u. all above d/w patient and with DR.Pierre Gar at length.
[2018-03-07 16:44] VITALS: RESP 18
[2018-03-07 21:11] VITALS: PULSE 90
[2018-03-08] MEDS: TRIMETHOPRIM IVPB SCH ×2 (03:13→11:08)
[2018-03-08] MEDS: DEXTROSE 5% IVPB SCH ×2 (03:13→11:08)
[2018-03-08] MEDS: WATER IVPB SCH ×2 (03:13→11:08)
[2018-03-08] MEDS: SULFAMETHOXAZOLE IVPB SCH ×2 (03:13→11:08)
[2018-03-08] MEDS: Cefepime 1 GM in Sodium Chloride 0.9% 100 ML IVPB SCH (05:30)
[2018-03-08 08:11] VITALS: BP 110/63; TEMP 98.1; O2SAT 96
[2018-03-08] MEDS: Citracal+D 315mg/250IU PO SCH (08:26)
[2018-03-08] MEDS: Patient's Own Med (Elviteg/Cob/Emtri/Tenof Alafen [Genvoya Tablet] 1 TAB) PO SCH (08:27)
[2018-03-08] MEDS: Enoxaparin 40 mg Syringe SC SCH (08:28)
[2018-03-08] MEDS: Nystatin 100,000 Units/ml Oral Susp 5 ml UD PO SCH (08:28)
[2018-03-08] MEDS: Saccharomyces Boulardi 250 mg Cap PO SCH (08:29)
[2018-03-08 10:39] LABS: BLOOD UREA NITROGEN 10 mg/dl (9-20); GFR AFRICAN-AMERICAN > 60; GFR NON-AFRICAN AMERICAN > 60
[2018-03-08] MEDS ORDERED: Potassium Chloride 20 mEq ER Tab PO ONE (10:49)
--- NOTE | 2018-03-08 13:39 | CP.PCM.DIS ---
Provider - Provider Date of Admission: 02/26/18 13:11 Attending physician: Staci Daniel MD Consults: ID: Dr. Atkinson Pulmonary: Dr. Givens Time Spent in preparation of Discharge (in minutes): 15 Diagnosis - Discharge Diagnosis (1) PCP (pneumocystis carinii pneumonia) Status: Acute (2) HIV (human immunodeficiency virus infection) Status: Chronic (3) AIDS (acquired immune deficiency syndrome) Status: Chronic (4) Tachycardia Status: Acute (5) Oral candidiasis Status: Acute Hospital Course - Lab Results Lab Results: Micro Results 03/03/18 11:14 Blood-Venous Blood Culture - Final NO GROWTH AFTER 5 DAYS 03/03/18 11:14 Blood-Venous Gram Stain - Final TEST NOT PERFORMED 03/02/18 Unknown Blood-Venous Blood Culture - Final NO GROWTH AFTER 5 DAYS 03/02/18 Unknown Blood-Venous Gram Stain - Final TEST NOT PERFORMED 03/02/18 10:45 Blood-Venous Blood Culture - Final NO GROWTH AFTER 5 DAYS 03/02/18 10:45 Blood-Venous Gram Stain - Final TEST NOT PERFORMED 02/26/18 19:03 Blood-Venous Blood Culture - Final NO GROWTH AFTER 5 DAYS 02/26/18 19:03 Blood-Venous Gram Stain - Final TEST NOT PERFORMED 02/26/18 12:00 Blood Blood Culture - Final NO GROWTH AFTER 5 DAYS 02/26/18 12:00 Blood Gram Stain - Final TEST NOT PERFORMED 02/26/18 12:00 Blood Blood Culture - Final NO GROWTH AFTER 5 DAYS 02/26/18 12:00 Blood Gram Stain - Final TEST NOT PERFORMED 02/28/18 04:00 Stool Stool Culture - Final NO SALMONELLA, SHIGELLA OR CAMPYLOBACTER ISOLATED. 02/26/18 18:53 Blood-Venous S.aureus & Coag-Neg Staph PNA FISH - Final 02/26/18 18:53 Blood-Venous Blood Culture - Final Coagulase Neg Staphylococcus 02/26/18 18:53 Blood-Venous Gram Stain - Final 02/28/18 04:00 Stool Ova and Parasite Concentrate Exam - Final 02/27/18 02:51 Sputum Gram Stain - Final 02/27/18 02:51 Sputum Sputum Culture - Final NORMAL ORAL DEANN 02/26/18 16:15 Urine Urine Culture - Final No Growth (<1,000 CFU/ML) Most Recent Lab Values WBC 4.0 K/uL (4.8-10.8) L 03/04/18 07:12 RBC 4.97 Mil/uL (4.40-5.90) 03/04/18 07:12 Hgb 14.6 g/dL (12.0-18.0) 03/04/18 07:12 Hct 43.9 % (35.0-51.0) 03/04/18 07:12 MCV 88.4 fl (80.0-94.0) 03/04/18 07:12 MCH 29.4 pg (27.0-31.0) 03/04/18 07:12 MCHC 33.3 g/dL (33.0-37.0) 03/04/18 07:12 RDW 16.8 % (11.5-14.5) H 03/04/18 07:12 Plt Count 340 K/uL (130-400) D 03/04/18 07:12 MPV 8.8 fl (7.2-11.7) 03/04/18 07:12 Neut % (Auto) 95.8 % (50.0-75.0) H 03/04/18 07:12 Lymph % (Auto) 3.0 % (20.0-40.0) L 03/04/18 07:12 Ellis % (Auto) 0.3 % (0.0-10.0) 03/04/18 07:12 Eos % (Auto) 0.3 % (0.0-4.0) 03/04/18 07:12 Baso % (Auto) 0.6 % (0.0-2.0) 03/04/18 07:12 Neut # (Auto) 3.8 K/uL (1.8-7.0) 03/04/18 07:12 Lymph # (Auto) 0.1 K/uL (1.0-4.3) L 03/04/18 07:12 Ellis # (Auto) 0.0 K/uL (0.0-0.8) 03/04/18 07:12 Eos # (Auto) 0.0 K/uL (0.0-0.7) 03/04/18 07:12 Baso # (Auto) 0.0 K/uL (0.0-0.2) 03/04/18 07:12 Neutrophils % (Manual) 78 % (42-75) H 03/04/18 07:12 Band Neutrophils % 8 % (0-2) H 03/04/18 07:12 Lymphocytes % (Manual) 2 % (20-50) L 03/04/18 07:12 Monocytes % (Manual) 7 % (0-10) 03/04/18 07:12 Basophils % (Manual) 1 % (0-2) 03/04/18 07:12 Metamyelocytes % 3 % (0-0) H 03/04/18 07:12 Myelocytes % 1 % (0-0) H 03/04/18 07:12 Platelet Estimate Normal (NORMAL) 03/04/18 07:12 Large Platelets Present 02/27/18 06:00 Anisocytosis (manual) Slight 02/27/18 06:00 Tear Drop Cells Slight 02/27/18 06:00 Ovalocytes Slight 02/27/18 06:00 pCO2 31 mm/Hg (35-45) L 03/02/18 09:35 pO2 80 mm/Hg (80-100) 03/02/18 09:35 HCO3 24.1 mmol/L (21-28) 03/02/18 09:35 ABG pH 7.46 (7.35-7.45) H 03/02/18 09:35 ABG Total CO2 23.0 mmol/L (22-28) 03/02/18 09:35 ABG O2 Saturation 97.1 % (95-98) 03/02/18 09:35 ABG O2 Content 17.0 ML/dL (15-23) 03/02/18 09:35 ABG Base Excess -1.0 mmol/L (-2.0-3.0) 03/02/18 09:35 ABG Hemoglobin 12.9 g/dL (11.7-17.4) 03/02/18 09:35 ABG Carboxyhemoglobin 1.9 % (0.5-1.5) H 03/02/18 09:35 POC ABG HHb (Measured) 2.8 % (0.0-5.0) 03/02/18 09:35 ABG Methemoglobin 1.6 % (0.0-3.0) 03/02/18 09:35 ABG O2 Capacity 17.5 mL/dL (16-24) 03/02/18 09:35 Lino Test Yes 03/02/18 09:35 ABG Potassium 3.5 mmol/L (3.6-5.2) L 02/27/18 08:24 VBG pH 7.48 (7.32-7.43) H 02/26/18 11:50 VBG pCO2 34 mmHg (40-60) L 02/26/18 11:50 VBG HCO3 26.0 mmol/L 02/26/18 11:50 VBG Total CO2 26.3 mmol/L (22-28) 02/26/18 11:50 VBG O2 Sat (Calc) 67.8 % (40-65) H 02/26/18 11:50 VBG Base Excess 2.2 mmol/L (0.0-2.0) H 02/26/18 11:50 VBG Potassium 3.8 mmol/L (3.6-5.2) 02/26/18 11:50 A-a O2 Difference 31.0 mm/Hg 03/02/18 09:35 Hgb O2 Saturation 93.6 % (95.0-98.0) L 03/02/18 09:35 Sodium 129.0 mmol/L (132-148) L 02/27/18 08:24 Chloride 101.0 mmol/L (98-107) 02/27/18 08:24 Glucose 105 mg/dL (75-110) 02/27/18 08:24 Lactate 1.5 mmol/L (0.7-2.1) 02/27/18 08:24 FiO2 21.0 % 03/02/18 09:35 Sodium 134 mmol/l (132-148) 03/08/18 10:07 Potassium 3.3 MMOL/L (3.6-5.0) L 03/08/18 10:07 Chloride 100 mmol/L (98-107) 03/08/18 10:07 Carbon Dioxide 23 mmol/L (22-30) 03/08/18 10:07 Anion Gap 14 (10-20) 03/08/18 10:07 BUN 10 mg/dl (9-20) 03/08/18 10:07 Creatinine 0.4 mg/dl (0.8-1.5) L 03/08/18 10:07 Est GFR ( Amer) > 60 03/08/18 10:07 Est GFR (Non-Af Amer) > 60 03/08/18 10:07 POC Glucose (mg/dL) 92 mg/dL (65-110) 02/27/18 07:58 Random Glucose 112 mg/dL (75-110) H 03/08/18 10:07 Calcium 9.0 mg/dL (8.4-10.2) 03/08/18 10:07 Magnesium 2.1 MG/DL (1.6-2.3) 02/26/18 12:00 Total Bilirubin 0.2 mg/dl (0.2-1.3) 03/01/18 04:20 AST 42 U/L (17-59) 03/01/18 04:20 ALT 63 U/L (21-72) 03/01/18 04:20 Alkaline Phosphatase 56 U/L (38-126) 03/01/18 04:20 Lactate Dehydrogenase 1002 U/L (313-618) H 03/04/18 07:12 Total Protein 4.9 G/DL (6.3-8.2) L 03/01/18 04:20 Albumin 2.5 g/dL (3.5-5.0) L 03/01/18 04:20 Globulin 2.4 gm/dL (2.2-3.9) 03/01/18 04:20 Albumin/Globulin Ratio 1.0 (1.0-2.1) 03/01/18 04:20 Arterial Blood Potassium 3.5 mmol/L (3.6-5.2) L 02/27/18 08:24 Venous Blood Potassium 3.8 mmol/L (3.6-5.2) 02/26/18 11:50 Urine Color Yellow (YELLOW) 02/27/18 00:19 Urine Clarity Clear (Clear) 02/27/18 00:19 Urine pH 6.0 (5.0-8.0) 02/27/18 00:19 Ur Specific [place] 1.014 (1.003-1.030) 02/27/18 00:19 Urine Protein 30 mg/dL (NEGATIVE) 02/27/18 00:19 Urine Glucose (UA) Neg mg/dL (Normal) 02/27/18 00:19 Urine Ketones Negative mg/dL (NEGATIVE) 02/27/18 00:19 Urine Blood Negative (NEGATIVE) 02/27/18 00:19 Urine Nitrate Negative (NEGATIVE) 02/27/18 00:19 Urine Bilirubin Negative (NEGATIVE) 02/27/18 00:19 Urine Urobilinogen 0.2-1.0 mg/dL (0.2-1.0) 02/27/18 00:19 Ur Leukocyte Esterase Neg Lyric/uL (Negative) 02/27/18 00:19 Urine RBC (Auto) 2 /hpf (0-3) 02/27/18 00:19 Urine Microscopic WBC 2 /hpf (0-5) 02/27/18 00:19 Vancomycin Trough < 5.0 ug/mL (5.0-10.0) L 03/04/18 08:17 Urine Opiates Screen Negative (NEGATIVE) 02/26/18 16:15 Urine Methadone Screen Negative (NEGATIVE) 02/26/18 16:15 Ur Barbiturates Screen Negative (NEGATIVE) 02/26/18 16:15 Ur Phencyclidine Scrn Negative (NEGATIVE) 02/26/18 16:15 Ur Amphetamines Screen Negative (NEGATIVE) 02/26/18 16:15 U Benzodiazepines Scrn Negative (NEGATIVE) 02/26/18 16:15 U Oth Cocaine Metabols Negative (NEGATIVE) 02/26/18 16:15 U Cannabinoids Screen Positive (NEGATIVE) H 02/26/18 16:15 Absolute Lymphs (Flow) 128 Cells/mcL (850-3900) L 03/04/18 07:12 % CD4 Cells 20 Percent (30-61) L 03/04/18 07:12 Absolute CD4 Count 25 Cells/mcL (490-1740) L 03/04/18 07:12 T-Help/Suppress Ratio 0.29 Ratio (0.86-5.00) L 03/04/18 07:12 % CD8 Cells 69 Percent (12-42) H 03/04/18 07:12 Absolute CD8 Count 88 Cells/mcL (180-1170) L 03/04/18 07:12 T-Lymph Analys Comment See note 03/04/18 07:12 C. difficile Tox B Gene Not detected (Not Detected) 02/26/18 22:12 C. difficile Ag & Toxin Negative (NEGATIVE) 03/05/18 13:20 HIV-1 RNA Qnt (RT-PCR) 3.54 (Not Detected) H 02/28/18 18:31 Ur L.pneumophila Ag Negative (NEGATIVE) 03/01/18 04:00 - Hospital Course Hospital Course: 27 y/o male with PMH of recently diagnosed HIV(CD4 count 30 on 02/02) and PCP pneumonia admitted to [facility] for evaluation and treatment of nausea, vomiting and diarrhea which started 2 days after starting Genvoya. Nausea and vomiting improved with IV fluids and medications. CT scan and CXR consistent with PCP pneumonia for which patient treated with total of 21 days ago IV bactrim( including 11 days from previous hospitalization). Patient also developed tachycardia and oral candidiasis during hospitalization. CXR, CT chest, CT abdomen, EKG and Echocardiogram done during hospital course. Patient discharged on Bactrim DS daily till CD4 count >200, Azithromycin weekly for MAC prophylaxis , Prednisone, Genvoya, Nystatin oral solution QID and Metoprolol 50 mg BID. Discharge Medications Discontinued Medications Metoprolol 25 mg BID New Medications Metoprolol Tartrate [Lopressor] 50 mg PO Q12 30 Days #60 tab Nystatin [Nystatin Oral Susp] 5 ml PO QID 7 Days predniSONE [predniSONE Tab] 20 mg PO DAILY #13 tab, 40 mg tomorrow, 20 mg from -03/21 Home Medications Genvoya 1 Tab PO daily Bactrim DS 1 tab PO daily Azithromycin 1200 mg once daily Discharge Exam - Head Exam Head Exam: ATRAUMATIC, NORMAL INSPECTION, NORMOCEPHALIC - Eye Exam Eye Exam: EOMI, Normal appearance, PERRL - ENT Exam ENT Exam: Mucous Membranes Moist Additional comments: while patch on oropharynx - Neck Exam Neck exam: Full Rom - Respiratory Exam Respiratory Exam: Clear to PA & Lateral. absent: Decreased Breath Sounds, Rales , Rhonchi, Wheezes, Respiratory Distress - Cardiovascular Exam Cardiovascular Exam: REGULAR RHYTHM, +S1, +S2 - GI/Abdominal Exam GI & Abdominal Exam: Normal Bowel Sounds, Soft. absent: Tenderness - Neurological Exam Neurological exam: Alert, Oriented x3 - Psychiatric Exam Psychiatric exam: Normal Affect, Normal Mood - Skin Skin Exam: Dry, Intact, Normal Color Discharge Plan - Discharge Medications Prescriptions: Metoprolol Tartrate [Lopressor] 50 mg PO Q12 30 Days #60 tab Nystatin [Nystatin Oral Susp] 5 ml PO QID 7 Days udc predniSONE [predniSONE Tab] 20 mg PO DAILY #13 tab - Follow Up Plan Condition: FAIR Disposition: HOME/ ROUTINE Patient education suggested?: Yes Instructions: Dehydration, Adult (DC), Pneumonia, Adult (DC), Nausea and Vomiting, Adult (DC) Additional Instructions: f/u appointment with Dr. Ji March 14 at 1:30pm Referrals: Raffi Ji MD [Staff Provider] -
== END 2018-03-08 16:05 | disposition home or self-care (01) | DRG 710 ==
LOC: H.ER 10:55 → H.ERHOLD 13:11 → H.MEDSURG1 18:36 → H.TEL 02-27 08:33 → H.MEDSURG1 03-04 16:50
PROVIDERS: ADMIT Family Medicine Geriatric Medicine; ATTEND Family Medicine Geriatric Medicine
PROC: 3E0F7GC Introduction of Other Therapeutic Substance into Respiratory Tract, Via Natural or Artificial Opening (ICD-10-PCS; principal; 2018-03-01)
DX: B20 Human immunodeficiency virus [HIV] disease (principal); B59 Pneumocystosis; A41.9 Sepsis, unspecified organism; B37.0 Candidal stomatitis; R09.02 Hypoxemia; F14.90 Cocaine use, unspecified, uncomplicated; E86.0 Dehydration; Z79.899 Other long term (current) drug therapy; Z82.49 Family history of ischemic heart disease and other diseases of the circulatory system; Z83.3 Family history of diabetes mellitus; Z87.01 Personal history of pneumonia (recurrent); Z87.891 Personal history of nicotine dependence; F12.90 Cannabis use, unspecified, uncomplicated; I95.9 Hypotension, unspecified; R00.0 Tachycardia, unspecified; R00.2 Palpitations; R74.0 Nonspecific elevation of levels of transaminase and lactic acid dehydrogenase [LDH]

== ENCOUNTER 2018-03-14 15:14 | Emergency (ER) | payer OTHER ==
[2018-03-14 15:14] VITALS: BMI 25.0
[2018-03-14 15:42] VITALS: BP 99/67; PULSE 94; RESP 16; TEMP 98.1; O2SAT 99
[2018-03-14] MEDS ORDERED: PROPARACAINE/FLUORESCEIN SOD 100 DROP/5 ML BOTTLE OS STA (16:22)
[2018-03-14] MEDS ORDERED: PROPARACAINE/FLUORESCEIN SOD 100 DROP/5 ML BOTTLE ONE (16:26)
--- NOTE | 2018-03-14 16:30 | ED PDOC ---
HPI: Eye Injury/Pain Time Seen by Provider: 03/14/18 16:11 Chief Complaint (Nursing): Eye Problem Chief Complaint (Provider): Eye Problem History Per: Patient History/Exam Limitations: no limitations Onset/Duration Of Symptoms: Days (x5) Current Symptoms Are (Timing): Still Present Additional Complaint(s): 27 year old male with history of HIV, currently on medications, presents to the ED complaining of right eye drainage and itchiness for 5 days. Patient denies headache. Pt also has 2 lesions on the right face, which he states are painful and itchy. PT states the rash appeared 2 hours ago. PMD: Raffi Andrews Past Medical History Reviewed: Historical Data, Nursing Documentation, Vital Signs Vital Signs: Last Vital Signs Temp 98.1 F 03/14/18 15:40 Pulse 94 H 03/14/18 15:40 Resp 16 03/14/18 15:40 BP 99/67 L 03/14/18 15:40 Pulse Ox 99 03/14/18 15:40 - Medical History PMH: HIV, Pneumonia Denies: Chronic Kidney Disease - Surgical History Surgical History: No Surg Hx - Family History Family History: States: Unknown Family Hx - Home Medications Home Medications: Ambulatory Orders Medication Instructions Recorded Elviteg/Cob/Emtri/Tenof Alafen 1 02/26/18 [Genvoya Tablet] Metoprolol Tartrate [Lopressor] 50 mg PO Q12 30 Days #60 tab 03/08/18 Nystatin [Nystatin Oral Susp] 5 ml PO QID 7 Days udc 03/08/18 predniSONE [predniSONE Tab] 20 mg PO DAILY #13 tab 03/08/18 Famciclovir [Famvir] 500 mg PO TID #30 tab 03/14/18 Trifluridine Opht 1% [Viroptic 1% 1 drop OD Q2H #1 bottle 03/14/18 Opht Soln] - Allergies Allergies/Adverse Reactions: Allergies Allergy/AdvReac Type Severity Reaction Status Date / Time No Known Allergies Allergy Verified 02/26/18 11:19 Review of Systems ROS Statement: Except As Marked, All Systems Reviewed And Found Negative Eyes: Positive for: Other (Right eye drainage and itchiness) Physical Exam - Reviewed Nursing Documentation Reviewed: Yes Vital Signs Reviewed: Yes - Physical Exam Appears: Positive for: Non-toxic, No Acute Distress Head Exam: Positive for: ATRAUMATIC, NORMOCEPHALIC Skin: Positive for: Warm, Dry. Negative for: Normal Color ((+) ulcerative lesions on the right face approx 1.5 in diameter - upper lateral right eye lid and lateral to lips on the right ) Eye Exam: Positive for: Normal appearance, EOMI, PERRL, Conjunctival injection, Other ((+) dendritic appearing lesions superior cornea ). Negative for: Periorbital swelling, Periorbital tenderness Neck: Positive for: Normal Cardiovascular/Chest: Negative for: Bradycardia, Tachycardia Respiratory: Negative for: Respiratory Distress Extremity: Positive for: Normal ROM Neurologic/Psych: Positive for: Alert, Oriented, Gait. Negative for: Motor/ Sensory Deficits - ECG O2 Sat by Pulse Oximetry: 99 (RA) Pulse Ox Interpretation: Normal Medical Decision Making Medical Decision Making: Initial Impression: Right eye itchiness and drainage Initial Plan: --Fluorescein 1 drop OS Discussed with Dr. Enamorado and Dr. Whaley. Pt will see Dr. Whaley tomorrow and be places on both oral and ophthalmic eye drop viral medications, IV antivirals in ER. Scribe Attestation: Documented by Guille Whelan acting as a scribe for Ernestina HERNANDEZ. Provider Scribe Attestation: All medical record entries made by the Scribe were at my direction and personally dictated by me. I have reviewed the chart and agree that the record accurately reflects my personal performance of the history, physical exam, medical decision making, and the department course for this patient. I have also personally directed, reviewed, and agree with the discharge instructions and disposition. 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 Whaley tomorrow at 9am (03/15/18) Prescriptions: Famciclovir [Famvir] 500 mg PO TID #30 tab Trifluridine Opht 1% [Viroptic 1% Opht Soln] 1 drop OD Q2H #1 bottle Instructions: Shingles Forms: [facility] (Beninese) Print Language: THAI
== END 2018-03-14 18:36 | disposition home or self-care (01) ==
LOC: H.ER 15:14
DX: B00.53 Herpesviral conjunctivitis (principal); Z21 Asymptomatic human immunodeficiency virus [HIV] infection status
CPT/HCPCS: 96365; 99282; J0133

== ENCOUNTER 2018-04-07 22:29 | Emergency (ER) | payer SELFPAY ==
[2018-04-07 22:29] VITALS: BMI 25.0
[2018-04-07 23:33] VITALS: O2SAT 94
[2018-04-08] MEDS ORDERED: Iohexol 240 (50 ml) PO ONE (01:49)
[2018-04-08] MEDS ORDERED: Sodium Chloride 0.9% 1,000 ML IV STA ×2 (01:55→05:05)
--- NOTE | 2018-04-08 01:57 | ED PDOC ---
HPI: Abdomen Chief Complaint (Provider): abdominal pain History Per: Patient History/Exam Limitations: no limitations Onset/Duration Of Symptoms: Days (1) Current Symptoms Are (Timing): Still Present Location Of Pain/Discomfort: Diffuse <Cheryl Perez - Last Filed: 04/08/18 05:40> <Binh Jarquin Y - Last Filed: 04/08/18 06:14> Time Seen by Provider: 04/08/18 00:55 Chief Complaint (Nursing): GI Problem Additional Complaint(s): 27 y/o male presents to ED for evaluation of abdominal pain x 1 day. Associated bright red blood in stool x 3 today. Denies fever, nausea/vomiting, cough, chest pain, shortness of breath, palpitations, urinary symptoms. PMD: Dr. Raffi Landaverde (Cheryl Perez) Past Medical History Reviewed: Historical Data, Nursing Documentation, Vital Signs - Medical History PMH: HIV, Pneumonia (01/2018) Denies: Chronic Kidney Disease - Family History Family History: States: Unknown Family Hx <Cheryl Perez - Last Filed: 04/08/18 05:40> <Binh Jarquin Y - Last Filed: 04/08/18 06:14> Vital Signs: Last Vital Signs Temp 100.0 F H 04/07/18 23:28 Pulse 117 H 04/07/18 23:28 Resp 20 04/07/18 23:28 BP 104/60 04/07/18 23:28 Pulse Ox 94 L 04/08/18 05:41 - Home Medications Home Medications: Ambulatory Orders Medication Instructions Recorded Elviteg/Cob/Emtri/Tenof Alafen 1 02/26/18 [Genvoya Tablet] Metoprolol Tartrate [Lopressor] 50 mg PO Q12 30 Days #60 tab 03/08/18 Nystatin [Nystatin Oral Susp] 5 ml PO QID 7 Days udc 03/08/18 predniSONE [predniSONE Tab] 20 mg PO DAILY #13 tab 03/08/18 Famciclovir [Famvir] 500 mg PO TID #30 tab 03/14/18 Trifluridine Opht 1% [Viroptic 1% 1 drop OD Q2H #1 bottle 03/14/18 Opht Soln] - Allergies Allergies/Adverse Reactions: Allergies Allergy/AdvReac Type Severity Reaction Status Date / Time No Known Allergies Allergy Verified 04/07/18 23:26 Review of Systems ROS Statement: Except As Marked, All Systems Reviewed And Found Negative Gastrointestinal: Positive for: Abdominal Pain, Hematochezia <Cheryl Perez - Last Filed: 04/08/18 05:40> Physical Exam - Reviewed Nursing Documentation Reviewed: Yes Vital Signs Reviewed: Yes - Physical Exam Appears: Positive for: Well, Non-toxic, No Acute Distress Head Exam: Positive for: ATRAUMATIC, NORMAL INSPECTION, NORMOCEPHALIC Skin: Positive for: Normal Color Eye Exam: Positive for: Normal appearance ENT: Positive for: Normal ENT Inspection Cardiovascular/Chest: Positive for: Regular Rate, Rhythm Respiratory: Positive for: Normal Breath Sounds Gastrointestinal/Abdominal: Positive for: Normal Exam Back: Positive for: Normal Inspection Rectal: Positive for: Other (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 Negative for: Hemorrhoids Extremity: Positive for: Normal ROM Neurologic/Psych: Positive for: Alert, Oriented (x3) <Cheryl Perez - Last Filed: 04/08/18 05:40> - Laboratory Results Result Diagrams: 04/08/18 02:15 04/08/18 02:15 - ECG O2 Sat by Pulse Oximetry: 94 <Cheryl Perez - Last Filed: 04/08/18 05:40> - Laboratory Results Result Diagrams: 04/08/18 02:15 04/08/18 02:15 <Binh Jarquin Y - Last Filed: 04/08/18 06:14> - Progress ED Course And Treament: labs, urine, IV fluids (Cheryl Perez) Medical Decision Making <Cheryl Perez - Last Filed: 04/08/18 05:40> <Binh Jarquin Y - Last Filed: 04/08/18 06:14> Medical Decision Making: Time: 05:[address] Abdomen/Pelvis result. Time: 05:51 CT Abdomen/Pelvis FINDINGS: Lower thorax: Stable diffuse groundglass opacification and interstitial thickening in the visualized lungs. ABDOMEN: Liver: The liver is unremarkable. Gallbladder and bile ducts: The gallbladder is unremarkable. No biliary ductal dilatation. New gallbladder wall edema. No calcified gallstones or biliary duct dilatation. Pancreas: The pancreas is unremarkable. The pancreas is unremarkable. Spleen: Normal. No splenomegaly. Adrenals: The adrenal glands are unremarkable. Kidneys and ureters: Symmetric renal enhancement without hydronephrosis. Stomach and bowel: No evidence of bowel obstruction. No pericolonic inflammatory stranding. Appendix: Normal appendix. PELVIS: Bladder: No focal wall thickening of the urinary bladder. Reproductive: Unremarkable as visualized. ABDOMEN and PELVIS: Intraperitoneal space: No significant peritoneal free fluid. No free peritoneal air. Bones/joints: No acute fracture. No dislocation. Soft tissues: Unremarkable. Vasculature: Normal. No abdominal aortic aneurysm. Lymph nodes: Stable borderline retroperitoneal adenopathy. IMPRESSION: 1. New gallbladder wall edema. No calcified gallstones or biliary duct dilatation. Cholecystitis is not excluded and correlation with ultrasound is recommended if needed. 2. Stable diffuse groundglass opacification and interstitial thickening in the visualized lungs. Time: 06:05 Based on new gallbladder wall edema, US Gallbladder ordered. Time: 07:00 Patient signed out to Dr. Enamorado pending US study, reassessment and disposition. Scribe Attestation: Documented by Taylor Iniguez, acting as a scribe for Binh Jarquin MD. Provider Scribe Attestation: All medical record entries made by the Scribe were at my direction and personally dictated by me. I have reviewed the chart and agree that the record accurately reflects my personal performance of the history, physical exam, medical decision making, and the department course for this patient. I have also personally directed, reviewed, and agree with the discharge instructions and disposition. (Bihn Jarquin) Disposition - Disposition Disposition Time: 06:00 Patient Signed Over To: Binh Jarquin Handoff Comments: pending CT <Cheryl Perez - Last Filed: 04/08/18 05:40> - Patient ED Disposition Is Patient to be Admitted: Transfer of Care - Disposition Disposition: Transfer of Care Disposition Time: 07:00 Patient Signed Over To: Se Enamorado Handoff Comments: Pending US gallbladder <Binh Jarquin - Last Filed: 04/08/18 06:14> - Clinical Impression Clinical Impression: Abdominal pain, Bloody stool - Disposition Referrals: Raffi Landaverde MD [Primary Care Provider] - Condition: STABLE Forms: [email or web address] (Salvadorean)
[2018-04-08 02:27] LABS: BASO # 0.1 K/uL (0.0-0.2); BASO % 1.2 % (0.0-2.0); EOS # 0.2 K/uL (0.0-0.7); EOS % 3.2 % (0.0-4.0); HEMOGLOBIN 12.3 g/dL (12.0-18.0); LYMPH # 0.3 K/uL (1.0-4.3); LYMPH % 5.8 % (20.0-40.0); MEAN CELL VOLUME 85.1 fl (80.0-94.0); MEAN CORPUSCULAR HEMOGLOBIN 28.3 pg (27.0-31.0); MEAN CORPUSCULAR HGB CONC 33.3 g/dL (33.0-37.0); MEAN PLATELET VOLUME 8.9 fl (7.2-11.7); MONO % 0.6 % (0.0-10.0); NEUT % 89.2 % (50.0-75.0); NRBC % 0.1 % (0.0-0.0); PLATELET COUNT 148 K/uL (130-400); RBC 4.35 Mil/uL (4.40-5.90); RED CELL DISTRIBUTION WIDTH 18.6 % (11.5-14.5); WHITE BLOOD COUNT 5.6 K/uL (4.8-10.8)
[2018-04-08] MEDS ORDERED: Iohexol 240 (50 ml) ONE (02:28)
[2018-04-08 02:52] LABS: ALB/GLOB RATIO 0.8 (1.0-2.1); ALBUMIN 2.2 g/dL (3.5-5.0); ALT/SGPT 77 U/L (21-72); AST/SGOT 94 U/L (17-59); BLOOD UREA NITROGEN 12 mg/dl (9-20); CALCIUM 7.3 mg/dL (8.4-10.2); GFR NON-AFRICAN AMERICAN > 60
[2018-04-08 02:55] LABS: SQUAMOUS EPITHIAL < 1 /hpf (0-5); URINE BILIRUBIN NEGATIVE (NEGATIVE); URINE BLOOD NEGATIVE (NEGATIVE); URINE CLARITY CLOUDY (Clear); URINE COLOR AMBER (YELLOW); URINE GLUCOSE (UA) NEG (Normal); URINE LEUKOCYTE ESTERASE NEG Leu/uL (Negative); URINE PROTEIN 100 mg/dL (NEGATIVE); URINE UROBILINOGEN 0.2-1.0 mg/dL (0.2-1.0)
[2018-04-08] MEDS ORDERED: Iohexol 300 100 ML IJ ONE (05:10)
[2018-04-08] MEDS ORDERED: Sodium Chloride 0.9% 50 ML IV ONE (05:10)
--- NOTE | 2018-04-08 07:15 | ED PDOC ---
- Laboratory Results Result Diagrams: 04/08/18 02:15 04/08/18 02:15 - ECG O2 Sat by Pulse Oximetry: 94 (RA) Pulse Ox Interpretation: Normal - Progress Re-evaluation Time: 10:41 Condition: Improved (Feels better, requesting food) Medical Decision Making Medical Decision Makin Patient endorsed to me by Dr. Jarquin pending Gallbladder US. Disposition - Clinical Impression Clinical Impression: Abdominal pain, Bloody stool, UTI (urinary tract infection) - POA Present On Arrival: None - Disposition Referrals: Raffi Landaverde MD [Primary Care Provider] - Disposition: Admitted as In-Patient Disposition Time: 10:50 Condition: FAIR Forms: [employer] (Ghanaian)
[2018-04-08 07:16] LABS: ACANTHOCYTES SLIGHT; ANISOCYTOSIS SLIGHT; BANDS 2 % (0-2); HYPOCHROMIC SLIGHT; LYMPHOCYTE 12 % (20-50); MONOCYTE 16 % (0-10); MYELOCYTE 1 % (0-0); NEUTROPHIL 69 % (42-75); PLATELET ESTIMATE NORMAL (NORMAL); TOTAL CELLS COUNTED 100
[2018-04-08 08:35] VITALS: BP 118/64; PULSE 138; RESP 20; TEMP 100
--- NOTE | 2018-04-08 10:32 | US ---
Date of service: 04/08/2018 HISTORY: Gallbladder edema COMPARISON: None. TECHNIQUE: Sonographic evaluation of the right upper quadrant of the abdomen. FINDINGS: LIVER: Liver is mildly enlarged measuring nearly 19 cm in length. Smooth contour though increased echogenicity suggesting fatty infiltration however other infiltrative hepatocellular disease process not excluded.. No mass. No intrahepatic bile duct dilatation. GALLBLADDER: No evidence of intraluminal gallbladder calculi or wall edema however there does appear to be a small amount pericholecystic fluid. Clinic correlation recommended. COMMON BILE DUCT: Measures 5.4 mm. No stones. No dilatation. PANCREAS: Unremarkable as visualized. No mass. No ductal dilatation. RIGHT KIDNEY: Measures 11.9 x 6.0 x 5.2 cm in length. Normal echogenicity. No calculus, mass, or hydronephrosis. AORTA: No aneurysmal dilatation. IVC: Unremarkable. OTHER FINDINGS: None . IMPRESSION: Small amount of pericholecystic fluid. No evidence of intraluminal gallbladder calculi. Mild hepatomegaly with increased hepatic echotexture likely due to fatty infiltration however other infiltrative hepatocellular disease process not excluded.
--- NOTE | 2018-04-08 12:27 | CT ---
Date of service: 04/08/2018 PROCEDURE: CT abdomen pelvis HISTORY: Abdominal pain, blood in stool COMPARISON: Comparison made with prior CT scan abdomen and pelvis dated 02/26/2018 TECHNIQUE: Contiguous axial images of the abdomen and pelvis follow-up following oral and intravenous injection of approximately 90 cc Omnipaque 300 contrast material. Coronal and Sagittal reformats generated. This CT exam was performed using one or more of the following dose reduction techniques: Automated exposure control, adjustment of the mA and/or kV according to patient size, and/or use of iterative reconstruction technique. Radiation dose: Total exam DLP = 317.71 mGy-cm. FINDINGS: LOWER THORAX: Re demonstrated are diffuse bilateral ground-glass and micronodular opacities both lung bases.. Clinical correlation recommended. LIVER: Liver is enlarged measuring approximately 20 cm in CC dimension. Mild to moderate fatty hepatic infiltration. No obvious hepatic mass or collection. Portal and splenic veins are opacified. GALLBLADDER AND BILE DUCTS: Questionable minimal layering sludge within the dependent portion of the gallbladder and questionable gallbladder wall thickening. PANCREAS: Pancreas appears grossly unremarkable without masses collections or calcifications. SPLEEN: Spleen exhibits relatively normal size. No splenic mass collection or calcification. ADRENALS: There are no adrenal lesions seen. KIDNEYS AND URETERS: Kidneys demonstrate relatively symmetric nephrograms. No evidence of nephrolithiasis or hydronephrosis. BLADDER: Urinary bladder incompletely distended which in part account for slight thick-walled appearance. Correlation with urinalysis recommended to exclude UTI/cystitis. REPRODUCTIVE: Unremarkable. APPENDIX: Unremarkable. BOWEL: Evaluation of the bowel is slightly limited due to incomplete opacification. The stomach is incompletely distended which in part accounts for thick-walled appearance however the possibility of gastritis versus other intrinsic/invasive wall lesion not excluded. Clinical correlation recommended. There is slight wall thickening of the terminal ileum which is nonspecific. Clinical correlation recommended to exclude the possibility of a terminal ileitis. Visualized loops of small bowel exhibit normal contour and caliber. No evidence of acute mechanical small bowel obstruction with oral contrast material seen extending into the colon to the level of the rectum. No definitive evidence of abnormal mural wall thickening. PERITONEUM: Unremarkable. No fluid collection. No free air. Small fat containing umbilical hernia. LYMPH NODES: Multiple small nonspecific mesenteric lymph nodes are present. Mild rule out mesenteric adenitis. Additionally, there are multiple small to medium sized retroperitoneal lymph nodes as well. VASCULATURE: No evidence of abdominal aortic or iliac artery aneurysms. BONES: No fracture or destructive lesion. OTHER FINDINGS: None. IMPRESSION: Diffuse bilateral ground-glass and reticular nodular infiltrates both lung bases. Mild hepatomegaly with fatty hepatic infiltration. Mild wall thickening of the terminal ileum; rule out terminal ileitis. Multiple small to medium sized retroperitoneal lymph nodes nonspecific.. Multiple small mesenteric lymph nodes; rule out mesenteric adenitis. Cd Mixer doctor's is back
[2018-04-08] MEDS ORDERED: Piperacillin/Tazobact 3.375 GM in Sodium Chloride 0.9% 100 ML IVPB SCH (21:00)
== END 2018-04-08 13:02 | disposition home or self-care (01) ==
LOC: H.ER 22:29 → UNDOADMIN 04-08 10:48 → H.ERHOLD 04-08 10:48 → UNDODISIN 04-08 13:02
DX: R10.9 Unspecified abdominal pain (principal); N39.0 Urinary tract infection, site not specified; R19.5 Other fecal abnormalities
CPT/HCPCS: 74177; 76705; 80053; 81003; 83605; 85025; 87040; 87086; 96360; 96361; 99285; G0328; J7030; Q9966; Q9967

== ENCOUNTER 2018-04-10 11:36 | Inpatient (IN) | payer SELFPAY ==
[2018-04-10 11:43] VITALS: BMI 24.0
[2018-04-10] MEDS ORDERED: Sodium Chloride 0.9% 1,000 ML IV STA (12:04)
--- NOTE | 2018-04-10 12:05 | ED PDOC ---
HPI: General Adult Time Seen by Provider: 04/10/18 11:53 Chief Complaint (Nursing): ENT Problem Chief Complaint (Provider): throat and mouth pain History Per: Patient Additional Complaint(s): 27-year-old male with history of HIV presents with throat and mouth discomfort 2 days. Patient states that he has noticed white spots on the roof of mouth and tongue. He is able to tolerate liquids and solids. Patient was seen 2 days ago in ER for abdominal pain and bloody stool. He states that this has resolved. He denies any abdominal pain at present. Patient denies known fever or chills, no nausea or vomiting. PMD: Dr. Landaverde Past Medical History Reviewed: Historical Data, Nursing Documentation, Vital Signs Vital Signs: Last Vital Signs Temp 98.6 F 04/10/18 11:43 Pulse 135 H 04/10/18 11:55 Resp 16 04/10/18 11:43 BP 103/64 04/10/18 11:43 Pulse Ox 98 04/10/18 13:29 - Medical History PMH: HIV, Pneumonia - Family History Family History: States: No Known Family Hx - Living Arrangements Living Arrangements: With Family - Social History Current smoker - smoking cessation education provided: No Alcohol: None Drugs: Denies - Home Medications Home Medications: Ambulatory Orders Medication Instructions Recorded Elviteg/Cob/Emtri/Tenof Alafen 1 tab PO DAILY 02/26/18 [Genvoya Tablet] Metoprolol Tartrate [Lopressor] 50 mg PO Q12 30 Days #60 tab 03/08/18 Azithromycin [Zithromax] 1,200 mg PO QWK 04/08/18 Ciprofloxacin HCl [Cipro] 500 mg PO BID #20 tab 04/08/18 Sulfamethoxazole/Trimethoprim 1 tab PO DAILY 04/08/18 [Bactrim DS Tab] - Allergies Allergies/Adverse Reactions: Allergies Allergy/AdvReac Type Severity Reaction Status Date / Time No Known Allergies Allergy Verified 04/10/18 11:54 Review of Systems ROS Statement: Except As Marked, All Systems Reviewed And Found Negative Constitutional: Positive for: Weakness. Negative for: Fever, Chills ENT: Positive for: Mouth Pain, Throat Pain Respiratory: Positive for: Cough, Shortness of Breath Gastrointestinal: Negative for: Nausea, Vomiting, Abdominal Pain, Diarrhea Genitourinary Male: Negative for: Dysuria Physical Exam - Reviewed Nursing Documentation Reviewed: Yes Vital Signs Reviewed: Yes - Physical Exam Appears: Positive for: Well, Non-toxic, No Acute Distress Skin: Positive for: Normal Color. Negative for: Rash Eye Exam: Positive for: Normal appearance ENT: Positive for: Other (oral thrush noted) Neck: Positive for: Normal Cardiovascular/Chest: Positive for: Regular Rate, Rhythm Respiratory: Positive for: Rhonchi, Other (course breath sounds). Negative for : Wheezing, Respiratory Distress Gastrointestinal/Abdominal: Positive for: Soft. Negative for: Tenderness, Distended, Guarding, Rebound Back: Negative for: Vertebral Tenderness Extremity: Positive for: Normal ROM Neurologic/Psych: Positive for: Alert, Oriented - Laboratory Results Result Diagrams: 04/10/18 12:42 04/10/18 12:42 - ECG Interpretation Of ECG: Sinus tach 133, reviewed by PA and ED attending O2 Sat by Pulse Oximetry: 98 Pulse Ox Interpretation: Normal - Other Rad CXR X-Ray: Interpreted by Me, Viewed By Me X-Ray Interpretation: likely PCP pneumonia Medical Decision Making Medical Decision Makin27 year old with mouth and throat discomfort Plan: EKG CXR CBC CMP LDH ABG with lactate IVF Rapid strep Patient was started on IV bactrim and IV diflucan. Case was d/w Dr. Blankenship, patient meets sepsis criteria and will be admitted. Dr. Angelo aware. Disposition - Clinical Impression Clinical Impression: PCP (pneumocystis carinii pneumonia), Oral candidiasis, AIDS (acquired immune deficiency syndrome), Sepsis, Esophagitis - Patient ED Disposition Is Patient to be Admitted: Yes - Disposition Disposition Time: 15:10 Condition: GUARDED - Pt Status Changed To: Hospital Disposition Of: Inpatient - Admit Certification Admit to Inpatient:: After my assessment, the patient will require hospitalization for at least two midnights. This is because of the severity of symptoms shown, intensity of services needed, and/or the medical risk in this patient being treated as an outpatient. - POA Present On Arrival: None Results - Lab Results Lab Results: 04/10/18 04/10/18 04/10/18 14:15 12:42 12:42 WBC RBC Hgb Hct MCV MCH MCHC RDW Plt Count MPV Neut % (Auto) Lymph % (Auto) [place] % (Auto) Eos % (Auto) Baso % (Auto) Neut # (Auto) Lymph # (Auto) [place] # (Auto) Eos # (Auto) Baso # (Auto) pCO2 33 L pO2 54 L HCO3 23.8 ABG pH 7.44 ABG Total CO2 23.4 ABG O2 Saturation 92.2 L ABG Base Excess -1.1 Lino Test Yes ABG Potassium 3.4 L A-a O2 Difference 54.0 Glucose 91 Lactate 1.4 FiO2 21.0 Sodium 126.0 L 126 L Potassium 3.9 Chloride 101.0 99 Carbon Dioxide 24 Anion Gap 7 L BUN 7 L Creatinine 0.5 L Est GFR ( Amer) > 60 Est GFR (Non-Af Amer) > 60 Random Glucose 90 Calcium 6.8 L Total Bilirubin 0.7 AST 93 H ALT 87 H Alkaline Phosphatase 624 H D Lactate Dehydrogenase 2551 H Total Protein 4.3 L Albumin 1.9 L Globulin 2.3 Albumin/Globulin Ratio 0.8 L Lipase 59 Arterial Blood Potassium 3.4 L Grp A Beta Strep Ag 04/10/18 04/10/18 12:42 12:42 WBC 3.7 L RBC 3.89 L Hgb 11.2 L Hct 33.3 L MCV 85.5 MCH 28.7 MCHC 33.5 RDW 18.2 H Plt Count 135 MPV 8.6 Neut % (Auto) 86.3 H Lymph % (Auto) 5.7 L [place] % (Auto) 4.4 Eos % (Auto) 2.4 Baso % (Auto) 1.2 Neut # (Auto) 3.2 Lymph # (Auto) 0.2 L [place] # (Auto) 0.2 Eos # (Auto) 0.1 Baso # (Auto) 0.0 pCO2 pO2 HCO3 ABG pH ABG Total CO2 ABG O2 Saturation ABG Base Excess Lino Test ABG Potassium A-a O2 Difference Glucose Lactate FiO2 Sodium Potassium Chloride Carbon Dioxide Anion Gap BUN Creatinine Est GFR ( Amer) Est GFR (Non-Af Amer) Random Glucose Calcium Total Bilirubin AST ALT Alkaline Phosphatase Lactate Dehydrogenase Total Protein Albumin Globulin Albumin/Globulin Ratio Lipase Arterial Blood Potassium Grp A Beta Strep Ag Negative
[2018-04-10 12:46] LABS: BASO % 1.2 % (0.0-2.0); EOS # 0.1 K/uL (0.0-0.7); EOS % 2.4 % (0.0-4.0); HEMOGLOBIN 11.2 g/dL (12.0-18.0); LYMPH # 0.2 K/uL (1.0-4.3); LYMPH % 5.7 % (20.0-40.0); MEAN CELL VOLUME 85.5 fl (80.0-94.0); MEAN CORPUSCULAR HEMOGLOBIN 28.7 pg (27.0-31.0); MEAN CORPUSCULAR HGB CONC 33.5 g/dL (33.0-37.0); MEAN PLATELET VOLUME 8.6 fl (7.2-11.7); MONO # 0.2 K/uL (0.0-0.8); MONO % 4.4 % (0.0-10.0); NEUT # 3.2 K/uL (1.8-7.0); NEUT % 86.3 % (50.0-75.0); RBC 3.89 Mil/uL (4.40-5.90); RED CELL DISTRIBUTION WIDTH 18.2 % (11.5-14.5); WHITE BLOOD COUNT 3.7 K/uL (4.8-10.8)
[2018-04-10 13:13] LABS: ALB/GLOB RATIO 0.8 (1.0-2.1); ALBUMIN 1.9 g/dL (3.5-5.0); ALT/SGPT 87 U/L (21-72); AST/SGOT 93 U/L (17-59); BLOOD UREA NITROGEN 7 mg/dl (9-20); CALCIUM 6.8 mg/dL (8.4-10.2); GFR NON-AFRICAN AMERICAN > 60; LIPASE 59 U/L (23-300)
[2018-04-10] MEDS ORDERED: Nystatin 100,000 Units/ml Oral Susp 5 ml UD PO ONE (14:00)
[2018-04-10] MEDS ORDERED: TRIMETHOPRIM IVPB ONE (14:00)
[2018-04-10] MEDS ORDERED: SULFAMETHOXAZOLE IVPB ONE (14:00)
[2018-04-10] MEDS ORDERED: Fluconazole IV 100mg/50 ml NS 50 ML IVPB ONE (14:00)
[2018-04-10] MEDS ORDERED: DEXTROSE 5% IVPB ONE (14:00)
[2018-04-10] MEDS ORDERED: WATER IVPB ONE (14:00)
[2018-04-10 14:27] LABS: ABG ALLEN TEST YES; ARTERIAL BLOOD GAS HCO3 23.8 mmol/L (21-28); ARTERIAL BLOOD GAS O2 SAT 92.2 % (95-98); ARTERIAL BLOOD GAS PCO2 33 mm/Hg (35-45); ARTERIAL BLOOD GAS PH 7.44 (7.35-7.45); ARTERIAL BLOOD GAS PO2 54 mm/Hg (80-100); ARTERIAL BLOOD GAS TCO2 23.4 mmol/L (22-28)
--- NOTE | 2018-04-10 15:25 | CP.PCM.HP ---
<Maura Lopez - Last Filed: 04/10/18 16:27> History of Present Illness - History of Present Illness History of Present Illness: 27-year-old male with history of HIV (CD4 count 49 on 03/22) presents with throat and mouth discomfort for 2 days. He noticed white spots on the roof of mouth and tongue and soon after began having a sore throat. He is able to tolerate liquids and solids. Patient was seen 2 days ago in ER for abdominal pain and bloody stool but has since resolved. He denies any abdominal pain at present. Patient denies known fever or chills, shortness of breath, chest pain, fever, nausea or vomiting. PMD: Dr. Acuna PMH: HIV (CD4 count 49 on 03/22) and PCP pneumonia PSH: Denies Allg: NKDA Meds: Bactrim DS, Azithro for PCP and MAC ppx respectively, Steroid 20mg daily, Metoprolol 25mg and Recently started Genvoya 2 days ago FH: Parents alive, mother with DMII and father with HTN SH: Denies any alcohol, smoking, reports marijuana and cocain use 2 months ago Sexual hx: 6 sexual partners in last 1 year, reports unsafe sexual relationships in past ED course: EKG: Sinus tachycardia CXR: Likely PCP pneumonia CBC: 3.7 > 11.2 / 33.3 < 135 CMP: 130 / 3.5 ; 101/ 23 ; 7 / 0.4 < 86 LDH: 2551 ABG with lactate: pCO2: 33 ; pO2: 33 ; HCO3: 23.8 ; ABG pH: 7.44 ; IVF- NS 1L Rapid strep- negative Medications: IV bactrim 166.667 IVPB and IV diflucan 100mg. Present on Admission - Present on Admission Any Indicators Present on Admission: No History of DVT/PE: No History of Uncontrolled Diabetes: No Urinary Catheter: No Decubitus Ulcer Present: No Past Patient History - Past Medical History & Family History Past Medical History?: Yes - Past Social History Alcohol: None Drugs: Denies - CARDIAC Hx Cardiac Disorders: No - PULMONARY Hx Pneumonia: Yes - NEUROLOGICAL Hx Neurological Disorder: No - HEENT Hx HEENT Problems: No - RENAL Hx Chronic Kidney Disease: No - ENDOCRINE/METABOLIC Hx Endocrine Disorders: No - HEMATOLOGICAL/ONCOLOGICAL Hx Human Immunodeficiency Virus (HIV): Yes - INTEGUMENTARY Hx Dermatological Problems: No - MUSCULOSKELETAL/RHEUMATOLOGICAL Hx Musculoskeletal Disorders: No Hx Falls: No - GASTROINTESTINAL Hx Gastrointestinal Disorders: No - GENITOURINARY/GYNECOLOGICAL Hx Genitourinary Disorders: No - PSYCHIATRIC Hx Psychophysiologic Disorder: No Hx Substance Use: No - SURGICAL HISTORY Hx Surgeries: No - ANESTHESIA Hx Anesthesia: No Hx Anesthesia Reactions: No Hx Malignant Hyperthermia: No Meds Allergies/Adverse Reactions: Allergies Allergy/AdvReac Type Severity Reaction Status Date / Time No Known Allergies Allergy Verified 04/10/18 11:54 Physical Exam - Constitutional Appears: Non-toxic, No Acute Distress - Head Exam Head Exam: NORMAL INSPECTION - Eye Exam Additional comments: + round lesion located at upper right eyelid. Patient states this is from a previous herpes infection. - Respiratory Exam Respiratory Exam: Decreased Breath Sounds (at the bases. ), Rales (bases. ). absent: Rhonchi, Wheezes, Stridor - Cardiovascular Exam Cardiovascular Exam: Tachycardia, REGULAR RHYTHM, +S1, +S2. absent: Diastolic murmur, Gallop, JVD, Rubs, +S4, Systolic Murmur - GI/Abdominal Exam GI & Abdominal Exam: Normal Bowel Sounds, Soft. absent: Distended, Firm, Guarding, Rebound, Rigid - Extremities Exam Extremities exam: Positive for: normal inspection, pedal edema, pedal pulses present (+2) Additional comments: +1 pedal edema. Results - Vital Signs Recent Vital Signs: Last Vital Signs Temp 98.6 F 04/10/18 11:43 Pulse 135 H 04/10/18 11:55 Resp 16 04/10/18 11:43 BP 103/64 04/10/18 11:43 Pulse Ox 98 04/10/18 15:13 - Labs Result Diagrams: 04/10/18 12:42 04/10/18 15:11 Labs: Laboratory Results - last 24 hr 04/10/18 04/10/18 04/10/18 12:42 12:42 12:42 WBC 3.7 L RBC 3.89 L Hgb 11.2 L Hct 33.3 L MCV 85.5 MCH 28.7 MCHC 33.5 RDW 18.2 H Plt Count 135 MPV 8.6 Neut % (Auto) 86.3 H Lymph % (Auto) 5.7 L Lee % (Auto) 4.4 Eos % (Auto) 2.4 Baso % (Auto) 1.2 Neut # (Auto) 3.2 Lymph # (Auto) 0.2 L [place] # (Auto) 0.2 Eos # (Auto) 0.1 Baso # (Auto) 0.0 pCO2 pO2 HCO3 ABG pH ABG Total CO2 ABG O2 Saturation ABG Base Excess Lino Test ABG Potassium A-a O2 Difference Glucose Lactate FiO2 Sodium 126 L Potassium 3.9 Chloride 99 Carbon Dioxide 24 Anion Gap 7 L BUN 7 L Creatinine 0.5 L Est GFR ( Amer) > 60 Est GFR (Non-Af Amer) > 60 Random Glucose 90 Calcium 6.8 L Total Bilirubin 0.7 AST 93 H ALT 87 H Alkaline Phosphatase 624 H D Lactate Dehydrogenase Total Protein 4.3 L Albumin 1.9 L Globulin 2.3 Albumin/Globulin Ratio 0.8 L Lipase 59 Arterial Blood Potassium Grp A Beta Strep Ag Negative 04/10/18 04/10/18 12:42 14:15 WBC RBC Hgb Hct MCV MCH MCHC RDW Plt Count MPV Neut % (Auto) Lymph % (Auto) Lee % (Auto) Eos % (Auto) Baso % (Auto) Neut # (Auto) Lymph # (Auto) Lee # (Auto) Eos # (Auto) Baso # (Auto) pCO2 33 L pO2 54 L HCO3 23.8 ABG pH 7.44 ABG Total CO2 23.4 ABG O2 Saturation 92.2 L ABG Base Excess -1.1 Lino Test Yes ABG Potassium 3.4 L A-a O2 Difference 54.0 Glucose 91 Lactate 1.4 FiO2 21.0 Sodium 126.0 L Potassium Chloride 101.0 Carbon Dioxide Anion Gap BUN Creatinine Est GFR ( Amer) Est GFR (Non-Af Amer) Random Glucose Calcium Total Bilirubin AST ALT Alkaline Phosphatase Lactate Dehydrogenase 2551 H Total Protein Albumin Globulin Albumin/Globulin Ratio Lipase Arterial Blood Potassium 3.4 L Grp A Beta Strep Ag Assessment & Plan - Assessment and Plan (Free Text) Assessment: 27-year-old male with history of HIV (CD4 count 49 on 03/22) presents with throat for 2 days found to have oral thrush and suspicious for PCP pneumonia on chest xray admitted because of hypoxemia found on ABG. Plan: 1. Hypoxemia possibly secondary to PCP infection - Admitted to Telemetry for observation - Afebrile. - Patient saturating 98% on Room air. - ABG evidence of Hypoxemia - ABG to be ordered after 2 doses of Bactrim. - Continue Bactrim IV 166.667 IVPB BID - IV fluid hydration- NS @ 125/hr - continue to monitor O2 saturation. - F/U Blood culture. 2. Oral- pharyngeal Candidiasis - Start Diflucan 200mg po Daily. - Regular diet. - F/U throat culture 3. AIDs - HIV (CD4 count 49 on 03/22) - Continue current medication- Genvoya. 4. DVT prophylaxis - SCD's and early ambulation <Jake Angelo D - Last Filed: 04/10/18 16:32> Results - Vital Signs Recent Vital Signs: Last Vital Signs Temp 98.6 F 04/10/18 11:43 Pulse 135 H 04/10/18 11:55 Resp 16 04/10/18 11:43 BP 103/64 04/10/18 11:43 Pulse Ox 98 04/10/18 15:13 - Labs Result Diagrams: 04/10/18 12:42 04/10/18 15:11 Labs: Laboratory Results - last 24 hr 04/10/18 04/10/18 04/10/18 12:42 12:42 12:42 WBC 3.7 L RBC 3.89 L Hgb 11.2 L Hct 33.3 L MCV 85.5 MCH 28.7 MCHC 33.5 RDW 18.2 H Plt Count 135 MPV 8.6 Neut % (Auto) 86.3 H Lymph % (Auto) 5.7 L Lee % (Auto) 4.4 Eos % (Auto) 2.4 Baso % (Auto) 1.2 Neut # (Auto) 3.2 Lymph # (Auto) 0.2 L Lee # (Auto) 0.2 Eos # (Auto) 0.1 Baso # (Auto) 0.0 pCO2 pO2 HCO3 ABG pH ABG Total CO2 ABG O2 Saturation ABG Base Excess Lino Test ABG Potassium A-a O2 Difference Glucose Lactate FiO2 Sodium 126 L Potassium 3.9 Chloride 99 Carbon Dioxide 24 Anion Gap 7 L BUN 7 L Creatinine 0.5 L Est GFR ( Amer) > 60 Est GFR (Non-Af Amer) > 60 Random Glucose 90 Calcium 6.8 L Total Bilirubin 0.7 AST 93 H ALT 87 H Alkaline Phosphatase 624 H D Lactate Dehydrogenase Total Protein 4.3 L Albumin 1.9 L Globulin 2.3 Albumin/Globulin Ratio 0.8 L Lipase 59 Arterial Blood Potassium Grp A Beta Strep Ag Negative 04/10/18 04/10/18 04/10/18 12:42 14:15 15:11 WBC RBC Hgb Hct MCV MCH MCHC RDW Plt Count MPV Neut % (Auto) Lymph % (Auto) Lee % (Auto) Eos % (Auto) Baso % (Auto) Neut # (Auto) Lymph # (Auto) Lee # (Auto) Eos # (Auto) Baso # (Auto) pCO2 33 L pO2 54 L HCO3 23.8 ABG pH 7.44 ABG Total CO2 23.4 ABG O2 Saturation 92.2 L ABG Base Excess -1.1 Lino Test Yes ABG Potassium 3.4 L A-a O2 Difference 54.0 Glucose 91 Lactate 1.4 FiO2 21.0 Sodium 126.0 L 130 L Potassium 3.5 L Chloride 101.0 101 Carbon Dioxide 23 Anion Gap 10 BUN 7 L Creatinine 0.4 L Est GFR ( Amer) > 60 Est GFR (Non-Af Amer) > 60 Random Glucose 86 Calcium 6.4 L Total Bilirubin AST ALT Alkaline Phosphatase Lactate Dehydrogenase 2551 H Total Protein Albumin Globulin Albumin/Globulin Ratio Lipase Arterial Blood Potassium 3.4 L Grp A Beta Strep Ag Attending/Attestation - Attestation I have personally seen and examined this patient.: Yes I have fully participated in the care of the patient.: Yes I have reviewed all pertinent clinical information: Yes
[2018-04-10 15:28] LABS: BLOOD UREA NITROGEN 7 mg/dl (9-20); CALCIUM 6.4 mg/dL (8.4-10.2); GFR NON-AFRICAN AMERICAN > 60
[2018-04-10] MEDS: Sodium Chloride 0.9% 1,000 ML IV SCH ×2 (16:43→22:00)
--- NOTE | 2018-04-10 17:57 | RAD ---
Date of service: 04/10/2018 HISTORY: cough COMPARISON: 03/02/2018 TECHNIQUE: Chest PA and lateral FINDINGS: LUNGS: Is stable bilateral interstitial infiltrates. PLEURA: No significant pleural effusion identified. No pneumothorax apparent. CARDIOVASCULAR: Normal. OSSEOUS STRUCTURES: No significant abnormalities. VISUALIZED UPPER ABDOMEN: Normal. OTHER FINDINGS: None. IMPRESSION: Stable bilateral interstitial infiltrates.
[2018-04-10] MEDS: TRIMETHOPRIM IVPB SCH ×2 (19:01→23:10)
[2018-04-10] MEDS: SULFAMETHOXAZOLE IVPB SCH ×2 (19:01→23:10)
[2018-04-10] MEDS: DEXTROSE 5% IVPB SCH ×2 (19:01→23:10)
[2018-04-10] MEDS: WATER IVPB SCH ×2 (19:01→23:10)
[2018-04-10] MEDS ORDERED: Mag&Al/Simet/Diphen/Lido 237 ML KIT PO SCH (22:00)
[2018-04-10] MEDS: Mag&Al/Simet/Diphen/Lido 237 ML KIT PO SCH (22:15)
[2018-04-11] MEDS: TRIMETHOPRIM IVPB SCH ×4 (04:07→22:42)
[2018-04-11] MEDS: WATER IVPB SCH ×4 (04:07→22:42)
[2018-04-11] MEDS: DEXTROSE 5% IVPB SCH ×4 (04:07→22:42)
[2018-04-11] MEDS: SULFAMETHOXAZOLE IVPB SCH ×4 (04:07→22:42)
[2018-04-11] MEDS: Mag&Al/Simet/Diphen/Lido 237 ML KIT PO SCH ×2 (04:09→09:08)
[2018-04-11] MEDS ORDERED: Chlorhexidine Gluconate 1 APPL/PKT TP ONE ×2 (06:24→08:12)
[2018-04-11 06:55] LABS: BASO % 0.4 % (0.0-2.0); EOS % 0.5 % (0.0-4.0); LYMPH # 0.2 K/uL (1.0-4.3); LYMPH % 7.8 % (20.0-40.0); MEAN CELL VOLUME 86.1 fl (80.0-94.0); MEAN CORPUSCULAR HEMOGLOBIN 28.4 pg (27.0-31.0); MONO % 0.8 % (0.0-10.0); NEUT # 2.2 K/uL (1.8-7.0); NEUT % 90.5 % (50.0-75.0); NRBC % 0.1 % (0.0-0.0); RBC 3.88 Mil/uL (4.40-5.90); RED CELL DISTRIBUTION WIDTH 18.7 % (11.5-14.5); WHITE BLOOD COUNT 2.5 K/uL (4.8-10.8)
[2018-04-11 07:03] LABS: BLOOD UREA NITROGEN 7 mg/dl (9-20); CALCIUM 6.7 mg/dL (8.4-10.2); GFR NON-AFRICAN AMERICAN > 60
[2018-04-11 08:37] LABS: PLATELET COUNT 98 K/uL (130-400)
[2018-04-11] MEDS ORDERED: Sodium Chloride 0.9% 500 ML IV ONE (08:44)
[2018-04-11] MEDS: Sodium Chloride 0.9% 1,000 ML IV SCH ×3 (09:15→15:49)
--- NOTE | 2018-04-11 09:31 | CP.PCM.PN ---
<Maura Lopez - Last Filed: 04/11/18 11:29> Subjective - Date & Time of Evaluation Date of Evaluation: 04/11/18 Time of Evaluation: 09:31 - Subjective Subjective: Patient seen and examined at bedside. Patient is lying comfortably in his bed with the bear hugger on him. He reports good appetite and states that he had one BM this morning, soft and formed. Pt reports he feels cold and states that his sore throat pain has decreased since he started taking the Fluconazole. He denies chest pain, shortness of breath, nausea, vomiting, abdominal pain, weakness or tingling. Objective - Vital Signs/Intake and Output Vital Signs (last 24 hours): Temp Pulse Resp BP Pulse Ox 94.9 F L 89 18 93/57 L 100 04/11/18 05:00 04/11/18 08:03 04/11/18 08:03 04/11/18 08:03 04/11/18 08:03 - Medications Medications: Current Medications Acetaminophen (Tylenol 325mg Tab) 650 mg PO PRN PRN PRN Reason: Fever >100.4 F Azithromycin (Zithromax) 1,200 mg PO QWK [facility] PRN Reason: Protocol Fluconazole (Diflucan) 200 mg PO DAILY [facility] PRN Reason: Protocol Last Admin: 04/11/18 09:07 Dose: 200 mg Home Med (Elviteg/Cob/Emtri/Tenof Alafen [Genvoya Tablet]) 1 tab PO DAILY [facility] Sodium Chloride (Sodium Chloride 0.9%) 1,000 mls @ 125 mls/hr IV .Q8H [facility] Stop: 04/11/18 15:37 Last Admin: 04/11/18 09:15 Dose: 125 mls/hr Trimethoprim/Sulfamethoxazole (250 mg/ Dextrose) 250 mls @ 250 mls/hr IVPB Q6 [facility] PRN Reason: Protocol Last Admin: 04/11/18 09:24 Dose: 250 mls/hr Sodium Chloride (Sodium Chloride 0.9%) 500 mls @ 500 mls/hr IV .Q1H ONE Stop: 04/11/18 09:43 Last Admin: 04/11/18 09:13 Dose: 500 mls/hr Metoprolol Tartrate (Lopressor) 50 mg PO Q12 [facility] Last Admin: 04/10/18 21:50 Dose: Not Given Prednisone (Prednisone Tab) 40 mg PO BID [facility] Last Admin: 04/11/18 09:08 Dose: 40 mg Saliva Substitute (First Magic Mouthwash) 10 ml PO Q6 [facility] Last Admin: 04/11/18 09:08 Dose: 10 ml - Labs Labs: 04/11/18 06:00 04/11/18 06:00 - Constitutional Appears: Well, Non-toxic, No Acute Distress - Eye Exam Eye Exam: Normal appearance Additional comments: + Right upper eye lid round lesion present on admission. - ENT Exam ENT Exam: Mucous Membranes Moist Additional comments: + Oral thrush noted on exam. - Respiratory Exam Respiratory Exam: Decreased Breath Sounds, Rales (Bilateral lower lung [place] - crackles present. ), NORMAL BREATHING PATTERN. absent: Rhonchi, Wheezes, Respiratory Distress, Stridor - Cardiovascular Exam Cardiovascular Exam: REGULAR RHYTHM, RRR, +S1, +S2, Murmur. absent: Gallop, JVD , Rubs, +S4 - GI/Abdominal Exam GI & Abdominal Exam: Normal Bowel Sounds. absent: Distended, Firm, Rigid, Tenderness, Organomegaly, Rebound - Extremities Exam Extremities Exam: Normal Inspection. absent: Calf Tenderness, Pedal Edema, Tenderness - Neurological Exam Neurological Exam: Alert, Awake, Oriented x3 - Psychiatric Exam Psychiatric exam: Normal Affect, Normal Mood - Skin Skin Exam: Dry, Intact, Normal Color, Warm Assessment and Plan - Assessment and Plan (Free Text) Assessment: 27-year-old male with history of HIV (CD4 count 49 on 03/22) presents with throat for 2 days found to have oral thrush and suspicious for PCP pneumonia on chest xray admitted because of hypoxemia found on ABG. Plan: 1. Hypoxemia possibly secondary to PCP infection - Admitted to Telemetry for observation - Febrile over night, now hypothermic at 94.9 @ 5 am. - Patient saturating 100% on Room air. - ABG demonstrates evidence of Hypoxemia - Continue Bactrim IV 166.667 IVPB BID - Continue Prednisone 40mg po BID - IV fluid hydration- NS @ 125/hr - continue to monitor O2 saturation. - F/U Blood culture. -F/U fungal culture. - F/U Urine culture - F/U ID consult. 2. Oral- pharyngeal Candidiasis - Continue Diflucan 200mg po Daily. - Regular diet. - F/U throat culture 3. AIDs - HIV (CD4 count 49 on 03/22) - Continue current medication- Genvoya. - Continue Azithromycin 1200mg per week. - F/U Viral load and CD4/ CD8 4. DVT prophylaxis - SCD's and early ambulation <Jake Angelo D - Last Filed: 04/11/18 13:13> Objective - Vital Signs/Intake and Output Vital Signs (last 24 hours): Temp Pulse Resp BP Pulse Ox 94.9 F L 96 H 18 102/67 100 04/11/18 05:00 04/11/18 11:51 04/11/18 11:51 04/11/18 11:51 04/11/18 11:51 - Medications Medications: Current Medications Acetaminophen (Tylenol 325mg Tab) 650 mg PO PRN PRN PRN Reason: Fever >100.4 F Azithromycin (Zithromax) 1,200 mg PO QWK IV[facility] PRN Reason: Protocol Fluconazole (Diflucan) 200 mg PO DAILY [facility] PRN Reason: Protocol Last Admin: 04/11/18 09:07 Dose: 200 mg Home Med (Elviteg/Cob/Emtri/Tenof Alafen [Genvoya Tablet]) 1 tab PO DAILY [facility] Trimethoprim/Sulfamethoxazole (250 mg/ Dextrose) 250 mls @ 250 mls/hr IVPB Q6 [facility] PRN Reason: Protocol Last Admin: 04/11/18 09:24 Dose: 250 mls/hr Sodium Chloride (Sodium Chloride 0.9%) 1,000 mls @ 250 mls/hr IV .Q4H [facility] Stop: 04/11/18 15:37 Last Admin: 04/11/18 12:41 Dose: 250 mls/hr Metoprolol Tartrate (Lopressor) 50 mg PO Q12 [facility] Last Admin: 04/10/18 21:50 Dose: Not Given Prednisone (Prednisone Tab) 40 mg PO BID [facility] Last Admin: 04/11/18 09:08 Dose: 40 mg - Labs Labs: 04/11/18 06:00 04/11/18 06:00 Attending/Attestation - Attestation I have personally seen and examined this patient.: Yes I have fully participated in the care of the patient.: Yes I have reviewed all pertinent clinical information, including history, physical exam and plan: Yes
[2018-04-11] MEDS ORDERED: Potassium Chloride 20 mEq ER Tab PO ONE (10:43)
[2018-04-11 10:46] LABS: BANDS 9 % (0-2); LYMPHOCYTE 10 % (20-50); METAMYELOCYTE 1 % (0-0); MONOCYTE 3 % (0-10); NEUTROPHIL 77 % (42-75); TOTAL CELLS COUNTED 100
[2018-04-11 10:49] LABS: PLATELET ESTIMATE DECREASED (NORMAL)
[2018-04-11 10:50] LABS: ANISOCYTOSIS SLIGHT; HYPOCHROMIC SLIGHT; OVALOCYTES SLIGHT; TEARDROP CELLS SLIGHT
[2018-04-11 10:51] LABS: LARGE PLATELETS PRESENT
--- NOTE | 2018-04-11 15:39 | CP.PCM.CON ---
History of Present Illness - History of Present Illness History of Present Illness: 27 y old man with PMHX of HIV with CD4 of 49 presented with whitish spots in the mouth. shortness of breath on exertion. no sputum or fever Past Patient History - Past Medical History & Family History Past Medical History?: Yes - Past Social History Smoking Status: Never Smoked - CARDIAC Hx Cardiac Disorders: No - PULMONARY Hx Pneumonia: Yes - NEUROLOGICAL Hx Neurological Disorder: No - HEENT Hx HEENT Problems: No - RENAL Hx Chronic Kidney Disease: No - ENDOCRINE/METABOLIC Hx Endocrine Disorders: No - HEMATOLOGICAL/ONCOLOGICAL Hx AIDS: Yes Hx Human Immunodeficiency Virus (HIV): Yes - INTEGUMENTARY Hx Dermatological Problems: No - MUSCULOSKELETAL/RHEUMATOLOGICAL Hx Falls: No - GASTROINTESTINAL Hx Gastrointestinal Disorders: No - GENITOURINARY/GYNECOLOGICAL Hx Genitourinary Disorders: No - PSYCHIATRIC Hx Substance Use: No - SURGICAL HISTORY Hx Surgeries: No - ANESTHESIA Hx Anesthesia: No Hx Anesthesia Reactions: No Hx Malignant Hyperthermia: No Meds Allergies/Adverse Reactions: Allergies Allergy/AdvReac Type Severity Reaction Status Date / Time No Known Allergies Allergy Verified 04/10/18 11:54 - Medications Medications: Current Medications Acetaminophen (Tylenol 325mg Tab) 650 mg PO PRN PRN PRN Reason: Fever >100.4 F Azithromycin (Zithromax) 1,200 mg PO QWK [facility] PRN Reason: Protocol Fluconazole (Diflucan) 200 mg PO DAILY [facility] PRN Reason: Protocol Last Admin: 04/11/18 09:07 Dose: 200 mg Home Med (Elviteg/Cob/Emtri/Tenof Alafen [Genvoya Tablet]) 1 tab PO DAILY [facility] Trimethoprim/Sulfamethoxazole (250 mg/ Dextrose) 250 mls @ 250 mls/hr IVPB Q6 IVAN[facility] PRN Reason: Protocol Last Admin: 04/11/18 09:24 Dose: 250 mls/hr Sodium Chloride (Sodium Chloride 0.9%) 1,000 mls @ 250 mls/hr IV .Q4H [facility] Stop: 04/11/18 15:37 Last Admin: 04/11/18 12:41 Dose: 250 mls/hr Metoprolol Tartrate (Lopressor) 50 mg PO Q12 [facility] Last Admin: 04/10/18 21:50 Dose: Not Given Prednisone (Prednisone Tab) 40 mg PO BID [facility] Last Admin: 04/11/18 09:08 Dose: 40 mg Physical Exam - ENT Exam Additional comments: whitish spots in the oropharynx - Respiratory Exam Additional comments: scattered rales Results - Vital Signs Recent Vital Signs: Last Vital Signs Temp 94.9 F L 04/11/18 05:00 Pulse 96 H 04/11/18 11:51 Resp 18 04/11/18 11:51 BP 102/67 04/11/18 11:51 Pulse Ox 100 04/11/18 11:51 - Labs Result Diagrams: 04/11/18 06:00 04/11/18 06:00 Labs: Laboratory Results - last 24 hr 04/11/18 04/11/18 04/11/18 04:20 06:00 06:00 WBC 2.5 L RBC 3.88 L Hgb 11.0 L Hct 33.4 L MCV 86.1 MCH 28.4 MCHC 33.0 RDW 18.7 H Plt Count 98 L D MPV 9.0 Neut % (Auto) 90.5 H Lymph % (Auto) 7.8 L [place] % (Auto) 0.8 Eos % (Auto) 0.5 Baso % (Auto) 0.4 Neut # (Auto) 2.2 Lymph # (Auto) 0.2 L [place] # (Auto) 0.0 Eos # (Auto) 0.0 Baso # (Auto) 0.0 Neutrophils % (Manual) 77 H Band Neutrophils % 9 H Lymphocytes % (Manual) 10 L Monocytes % (Manual) 3 Metamyelocytes % 1 H Platelet Estimate Decreased L Large Platelets Present Hypochromasia (manual) Slight Anisocytosis (manual) Slight Tear Drop Cells Slight Ovalocytes Slight Sodium 134 Potassium 3.5 L Chloride 109 H Carbon Dioxide 24 Anion Gap 5 L BUN 7 L Creatinine 0.3 L Est GFR ( Amer) > 60 Est GFR (Non-Af Amer) > 60 Random Glucose 147 H Lactic Acid Calcium 6.7 L Phosphorus Magnesium Lactate Dehydrogenase 2070 H 04/11/18 04/11/18 09:30 09:30 WBC RBC Hgb Hct MCV MCH MCHC RDW Plt Count MPV Neut % (Auto) Lymph % (Auto) [place] % (Auto) Eos % (Auto) Baso % (Auto) Neut # (Auto) Lymph # (Auto) [place] # (Auto) Eos # (Auto) Baso # (Auto) Neutrophils % (Manual) Band Neutrophils % Lymphocytes % (Manual) Monocytes % (Manual) Metamyelocytes % Platelet Estimate Large Platelets Hypochromasia (manual) Anisocytosis (manual) Tear Drop Cells Ovalocytes Sodium Potassium Chloride Carbon Dioxide Anion Gap BUN Creatinine Est GFR ( Amer) Est GFR (Non-Af Amer) Random Glucose Lactic Acid 1.4 Calcium Phosphorus 2.7 Magnesium 2.6 H Lactate Dehydrogenase Assessment & Plan - Assessment and Plan (Free Text) Assessment: 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 Oropharyngeal candidiasis. Agree with Bactrim iv q 6h #2. Continue Fluconozale When patient stable, then patient can be switched to po Bactrim DS 1 tab po tid with medrol pack.
[2018-04-11] MEDS: Elviteg/Cob/Emtri/Tenof Alafen [Genvoya Tablet] PO SCH (15:48)
[2018-04-12] MEDS: TRIMETHOPRIM IVPB SCH ×4 (04:00→22:19)
[2018-04-12] MEDS: WATER IVPB SCH ×4 (04:00→22:19)
[2018-04-12] MEDS: DEXTROSE 5% IVPB SCH ×4 (04:00→22:19)
[2018-04-12] MEDS: SULFAMETHOXAZOLE IVPB SCH ×4 (04:00→22:19)
[2018-04-12 06:49] LABS: BASO % 1.6 % (0.0-2.0); EOS % 0.3 % (0.0-4.0); LYMPH # 0.2 K/uL (1.0-4.3); LYMPH % 9.7 % (20.0-40.0); MEAN CELL VOLUME 85.5 fl (80.0-94.0); MEAN CORPUSCULAR HEMOGLOBIN 29.1 pg (27.0-31.0); MEAN CORPUSCULAR HGB CONC 34.1 g/dL (33.0-37.0); MEAN PLATELET VOLUME 9.1 fl (7.2-11.7); MONO % 0.9 % (0.0-10.0); NEUT # 2.2 K/uL (1.8-7.0); NEUT % 87.5 % (50.0-75.0); NRBC % 0.1 % (0.0-0.0); RBC 3.78 Mil/uL (4.40-5.90); RED CELL DISTRIBUTION WIDTH 18.7 % (11.5-14.5); WHITE BLOOD COUNT 2.6 K/uL (4.8-10.8)
[2018-04-12 07:16] LABS: ALB/GLOB RATIO 0.8 (1.0-2.1); ALBUMIN 1.8 g/dL (3.5-5.0); ALT/SGPT 110 U/L (21-72); AST/SGOT 121 U/L (17-59); BLOOD UREA NITROGEN 4 mg/dl (9-20); CALCIUM 6.9 mg/dL (8.4-10.2); GFR NON-AFRICAN AMERICAN > 60
[2018-04-12] MEDS ORDERED: Sodium Chloride 3% for Inhalation 4 ML VIAL.NEB IH PRN (07:37)
--- NOTE | 2018-04-12 07:42 | CP.PCM.PN ---
<Maura Lopez - Last Filed: 04/12/18 09:37> Subjective - Date & Time of Evaluation Date of Evaluation: 04/12/18 Time of Evaluation: 07:42 - Subjective Subjective: Patient seen and examined a bedside. Patient is in no acute distress and is resting comfortably in his hospital bed. He reports feeling well and denies chest pain, sore throat, shortness of breath, nausea, vomiting or diarrhea. He states that he has an appointment with Dr. Landaverde this in HIV clinic. He also reports that he will be flying to [place] April 19 and will be staying there for two months. Patient was educated upon the importance of continuing his medications even while in [place]. Objective - Vital Signs/Intake and Output Vital Signs (last 24 hours): Temp Pulse Resp BP Pulse Ox 97.7 F 95 H 18 106/65 95 04/12/18 00:02 04/12/18 00:02 04/12/18 00:02 04/12/18 00:02 04/12/18 00:02 - Medications Medications: Current Medications Acetaminophen (Tylenol 325mg Tab) 650 mg PO PRN PRN PRN Reason: Fever >100.4 F Azithromycin (Zithromax) 1,200 mg PO QWK [facility]; Protocol Fluconazole (Diflucan) 200 mg PO DAILY [facility]; Protocol Last Admin: 04/11/18 09:07 Dose: 200 mg Home Med (Elviteg/Cob/Emtri/Tenof Alafen [Genvoya Tablet]) 1 tab PO DAILY [facility] Last Admin: 04/11/18 15:48 Dose: 1 tab Trimethoprim/Sulfamethoxazole (250 mg/ Dextrose) 250 mls @ 250 mls/hr IVPB Q6 [facility]; Protocol Last Admin: 04/12/18 04:00 Dose: 250 mls/hr Metoprolol Tartrate (Lopressor) 50 mg PO Q12 [facility] Last Admin: 04/10/18 21:50 Dose: Not Given Prednisone (Prednisone Tab) 40 mg PO BID [facility] Last Admin: 04/11/18 17:00 Dose: 40 mg - Labs Labs: 04/12/18 04:20 04/12/18 04:20 - Constitutional Appears: Well, Non-toxic, No Acute Distress - ENT Exam ENT Exam: Mucous Membranes Moist Additional comments: minimal Oral thrust present - Respiratory Exam Respiratory Exam: Decreased Breath Sounds, Clear to Ausculation Bilateral. absent: Rales, Rhonchi, Wheezes, Respiratory Distress, Stridor - Cardiovascular Exam Cardiovascular Exam: Tachycardia, REGULAR RHYTHM, +S1, +S2. absent: Gallop, JVD, Rubs, Murmur - GI/Abdominal Exam GI & Abdominal Exam: Soft, Normal Bowel Sounds. absent: Distended, Firm, Guarding, Rigid, Tenderness, Organomegaly, Pulsatile Mass, Rebound - Extremities Exam Extremities Exam: Normal Inspection. absent: Calf Tenderness, Pedal Edema, Tenderness Additional comments: +2 dorsalis pedis pulses present bilaterally. - Neurological Exam Neurological Exam: Alert, Awake, Oriented x3 - Psychiatric Exam Psychiatric exam: Normal Affect - Skin Skin Exam: Dry, Intact, Normal Color, Warm Assessment and Plan - Assessment and Plan (Free Text) Assessment: 27-year-old male with history of HIV (CD4 count 49 on 03/22) presents with throat for 2 days found to have oral thrush and suspicious for PCP pneumonia on chest xray admitted because of hypoxemia found on ABG and oral-pharyngeal candidiasis. Plan: 1. Hypoxemia secondary to PCP infection - Admitted to Telemetry for observation - Hypothermic yesterday but now norm thermic. - Patient saturating 98% on Room air. - Continue Bactrim IV 166.667 IVPB BID - Continue Prednisone 40mg po BID - IV fluid hydration- NS @ 125/hr - continue to monitor O2 saturation. - Blood culture no growth to date. - ID consult appreciated- continue current antibiotic regimen. - F/U fungal culture. - F/U Urine culture - F/U Sputum culture - F/U Legionella Ag Urine - Mycoplasma pneumoniae in the serum. 2. Oral- pharyngeal Candidiasis - Continue Diflucan 200mg po Daily. - Regular diet. - GAS throat swab negative. - F/U throat culture 3. AIDs - HIV (CD4 count 49 on 03/22) - Continue current medication- Genvoya. - Continue Azithromycin 1200mg per week. - F/U Viral load and CD4/ CD8 4. DVT prophylaxis - SCD's and early ambulation <Adriana Fernandez - Last Filed: 04/12/18 15:24> Objective - Vital Signs/Intake and Output Vital Signs (last 24 hours): Temp Pulse Resp BP Pulse Ox 97.9 F 109 H 18 94/68 L 97 04/12/18 09:00 04/12/18 09:00 04/12/18 09:00 04/12/18 09:00 04/12/18 09:00 - Medications Medications: Current Medications Acetaminophen (Tylenol 325mg Tab) 650 mg PO PRN PRN PRN Reason: Fever >100.4 F Fluconazole (Diflucan) 200 mg PO DAILY [facility]; Protocol Last Admin: 04/12/18 08:29 Dose: 200 mg Home Med (Elviteg/Cob/Emtri/Tenof Alafen [Genvoya Tablet]) 1 tab PO DAILY [facility] Last Admin: 04/12/18 08:29 Dose: 1 tab Trimethoprim/Sulfamethoxazole (250 mg/ Dextrose) 250 mls @ 250 mls/hr IVPB Q6 [facility]; Protocol Last Admin: 04/12/18 11:24 Dose: 250 mls/hr Metoprolol Tartrate (Lopressor) 50 mg PO Q12 [facility] Last Admin: 04/10/18 21:50 Dose: Not Given Prednisone (Prednisone Tab) 40 mg PO BID [facility] Last Admin: 04/12/18 08:29 Dose: 40 mg - Labs Labs: 04/12/18 04:20 04/12/18 04:20 Attending/Attestation - Attestation I have personally seen and examined this patient.: Yes I have fully participated in the care of the patient.: Yes I have reviewed all pertinent clinical information, including history, physical exam and plan: Yes
[2018-04-12] MEDS: Elviteg/Cob/Emtri/Tenof Alafen [Genvoya Tablet] PO SCH (08:29)
[2018-04-12 14:51] LABS: LEGIONELLA AG URINE NEGATIVE (NEGATIVE)
[2018-04-12 22:46] LABS: MYCOPLASMA PNEUMONIAE IGM NEGATIVE (NEGATIVE)
[2018-04-12 23:41] VITALS: RESP 18
[2018-04-13] MEDS: TRIMETHOPRIM IVPB SCH ×2 (03:55→11:13)
[2018-04-13] MEDS: SULFAMETHOXAZOLE IVPB SCH ×2 (03:55→11:13)
[2018-04-13] MEDS: DEXTROSE 5% IVPB SCH ×2 (03:55→11:13)
[2018-04-13] MEDS: WATER IVPB SCH ×2 (03:55→11:13)
[2018-04-13 04:55] VITALS: TEMP 97.5; O2SAT 100
[2018-04-13 06:17] LABS: ALB/GLOB RATIO 0.9 (1.0-2.1); ALBUMIN 2.1 g/dL (3.5-5.0); ALT/SGPT 156 U/L (21-72); AST/SGOT 132 U/L (17-59); BLOOD UREA NITROGEN 6 mg/dl (9-20); CALCIUM 7.3 mg/dL (8.4-10.2); GFR NON-AFRICAN AMERICAN > 60
[2018-04-13 06:59] LABS: BASO # 0.1 K/uL (0.0-0.2); BASO % 2.6 % (0.0-2.0); EOS % 0.1 % (0.0-4.0); HEMOGLOBIN 11.1 g/dL (12.0-18.0); LYMPH # 0.3 K/uL (1.0-4.3); LYMPH % 12.6 % (20.0-40.0); MEAN CELL VOLUME 85.1 fl (80.0-94.0); MEAN CORPUSCULAR HEMOGLOBIN 28.4 pg (27.0-31.0); MEAN CORPUSCULAR HGB CONC 33.3 g/dL (33.0-37.0); MEAN PLATELET VOLUME 8.7 fl (7.2-11.7); MONO # 0.1 K/uL (0.0-0.8); MONO % 3.1 % (0.0-10.0); NEUT % 81.6 % (50.0-75.0); NRBC % 0.1 % (0.0-0.0); RBC 3.92 Mil/uL (4.40-5.90); WHITE BLOOD COUNT 2.5 K/uL (4.8-10.8)
[2018-04-13 08:26] VITALS: BP 99/57
[2018-04-13] MEDS: Elviteg/Cob/Emtri/Tenof Alafen [Genvoya Tablet] PO SCH (08:27)
--- NOTE | 2018-04-13 09:04 | CP.PCM.DIS ---
<Maura Lopez - Last Filed: 04/13/18 13:28> Provider - Provider Date of Admission: 04/10/18 14:47 Attending physician: Jake Angelo MD Primary care physician: Dr. Dunlap Time Spent in preparation of Discharge (in minutes): 30 Diagnosis - Discharge Diagnosis (1) Oral candidiasis Status: Acute Comment: Continue diflucan 200mg daily for 12 more days. (2) PCP (pneumocystis carinii pneumonia) Status: Acute Comment: Continue Bactrim weight based dose for a total of 21 days. (today is day 14). Take Medrol dose pack as directed. (3) AIDS (acquired immune deficiency syndrome) Status: Chronic Comment: Continue Genvoya as prescribed. F/U tomorrow with Dr. Dunlap (Pt has appointment) Hospital Course - Lab Results Lab Results: Micro Results 04/10/18 12:15 Blood-Venous Blood Culture - Preliminary NO GROWTH AFTER 48 HOURS 04/10/18 12:40 Blood-Venous Blood Culture - Preliminary NO GROWTH AFTER 48 HOURS 04/11/18 09:30 Blood Blood Culture - Preliminary NO GROWTH AFTER 24 HOURS 04/10/18 13:11 Throat Group A Strep Throat Culture - Final NORMAL SAPROPHYTIC DEANN. CULTURE NEGATIVE FOR BETA STREP GROUP A. Most Recent Lab Values WBC 2.5 K/uL (4.8-10.8) L 04/13/18 04:20 RBC 3.92 Mil/uL (4.40-5.90) L 04/13/18 04:20 Hgb 11.1 g/dL (12.0-18.0) L 04/13/18 04:20 Hct 33.4 % (35.0-51.0) L 04/13/18 04:20 MCV 85.1 fl (80.0-94.0) 04/13/18 04:20 MCH 28.4 pg (27.0-31.0) 04/13/18 04:20 MCHC 33.3 g/dL (33.0-37.0) 04/13/18 04:20 RDW 19.0 % (11.5-14.5) H 04/13/18 04:20 Plt Count 159 K/uL (130-400) 04/13/18 04:20 MPV 8.7 fl (7.2-11.7) 04/13/18 04:20 Neut % (Auto) 81.6 % (50.0-75.0) H 04/13/18 04:20 Lymph % (Auto) 12.6 % (20.0-40.0) L 04/13/18 04:20 Greenlee % (Auto) 3.1 % (0.0-10.0) 04/13/18 04:20 Eos % (Auto) 0.1 % (0.0-4.0) 04/13/18 04:20 Baso % (Auto) 2.6 % (0.0-2.0) H 04/13/18 04:20 Neut # (Auto) 2.0 K/uL (1.8-7.0) 04/13/18 04:20 Lymph # (Auto) 0.3 K/uL (1.0-4.3) L 04/13/18 04:20 Greenlee # (Auto) 0.1 K/uL (0.0-0.8) 04/13/18 04:20 Eos # (Auto) 0.0 K/uL (0.0-0.7) 04/13/18 04:20 Baso # (Auto) 0.1 K/uL (0.0-0.2) 04/13/18 04:20 Neutrophils % (Manual) 77 % (42-75) H 04/11/18 06:00 Band Neutrophils % 9 % (0-2) H 04/11/18 06:00 Lymphocytes % (Manual) 10 % (20-50) L 04/11/18 06:00 Monocytes % (Manual) 3 % (0-10) 04/11/18 06:00 Metamyelocytes % 1 % (0-0) H 04/11/18 06:00 Platelet Estimate Decreased (NORMAL) L 04/11/18 06:00 Large Platelets Present 04/11/18 06:00 Hypochromasia (manual) Slight 04/11/18 06:00 Anisocytosis (manual) Slight 04/11/18 06:00 Tear Drop Cells Slight 04/11/18 06:00 Ovalocytes Slight 04/11/18 06:00 pCO2 33 mm/Hg (35-45) L 04/10/18 14:15 pO2 54 mm/Hg (80-100) L 04/10/18 14:15 HCO3 23.8 mmol/L (21-28) 04/10/18 14:15 ABG pH 7.44 (7.35-7.45) 04/10/18 14:15 ABG Total CO2 23.4 mmol/L (22-28) 04/10/18 14:15 ABG O2 Saturation 92.2 % (95-98) L 04/10/18 14:15 ABG Base Excess -1.1 mmol/L (-2.0-3.0) 04/10/18 14:15 Lino Test Yes 04/10/18 14:15 ABG Potassium 3.4 mmol/L (3.6-5.2) L 04/10/18 14:15 A-a O2 Difference 54.0 mm/Hg 04/10/18 14:15 Sodium 126.0 mmol/L (132-148) L 04/10/18 14:15 Chloride 101.0 mmol/L (98-107) 04/10/18 14:15 Glucose 91 mg/dL (75-110) 04/10/18 14:15 Lactate 1.4 mmol/L (0.7-2.1) 04/10/18 14:15 FiO2 21.0 % 04/10/18 14:15 Sodium 135 mmol/l (132-148) 04/13/18 04:20 Potassium 4.1 MMOL/L (3.6-5.0) 04/13/18 04:20 Chloride 105 mmol/L (98-107) 04/13/18 04:20 Carbon Dioxide 24 mmol/L (22-30) 04/13/18 04:20 Anion Gap 10 (10-20) 04/13/18 04:20 BUN 6 mg/dl (9-20) L 04/13/18 04:20 Creatinine 0.3 mg/dl (0.8-1.5) L 04/13/18 04:20 Est GFR ( Amer) > 60 04/13/18 04:20 Est GFR (Non-Af Amer) > 60 04/13/18 04:20 Random Glucose 121 mg/dL (75-110) H 04/13/18 04:20 Lactic Acid 1.4 MMOL/L (0.7-2.1) 04/11/18 09:30 Calcium 7.3 mg/dL (8.4-10.2) L 04/13/18 04:20 Phosphorus 2.7 mg/dl (2.5-4.5) 04/11/18 09:30 Magnesium 2.6 MG/DL (1.6-2.3) H 04/11/18 09:30 Total Bilirubin 0.3 mg/dl (0.2-1.3) 04/13/18 04:20 AST 132 U/L (17-59) H 04/13/18 04:20 ALT 156 U/L (21-72) H D 04/13/18 04:20 Alkaline Phosphatase 756 U/L (38-126) H 04/13/18 04:20 Lactate Dehydrogenase 1644 U/L (313-618) H 04/13/18 04:20 Total Protein 4.3 G/DL (6.3-8.2) L 04/13/18 04:20 Albumin 2.1 g/dL (3.5-5.0) L 04/13/18 04:20 Globulin 2.3 gm/dL (2.2-3.9) 04/13/18 04:20 Albumin/Globulin Ratio 0.9 (1.0-2.1) L 04/13/18 04:20 Lipase 59 U/L (23-300) 04/10/18 12:42 Procalcitonin 1.77 NG/ML (0.19-0.49) H 04/11/18 09:30 Arterial Blood Potassium 3.4 mmol/L (3.6-5.2) L 04/10/18 14:15 HIV-1 RNA Qnt (RT-PCR) <1.30 detected (Not Detected) H 04/11/18 10:20 Ur L.pneumophila Ag Negative (NEGATIVE) 04/12/18 09:00 Mycoplasma pneumon IgM Negative (NEGATIVE) 04/12/18 09:00 Grp A Beta Strep Ag Negative (NEGATIVE) 04/10/18 12:42 - Hospital Course Hospital Course: 27-year-old male with history of HIV (CD4 count 49 on 03/22) presents with throat and mouth discomfort for 2 days. He noticed white spots on the roof of mouth and tongue and soon after began having a sore throat. He is able to tolerate liquids and solids. Patient was seen 2 days ago in ER for abdominal pain and bloody stool but has since resolved. He denies any abdominal pain at present. Patient denies known fever or chills, shortness of breath, chest pain, fever, nausea or vomiting. PMD: Dr. Acuna PMH: HIV (CD4 count 49 on 03/22) and PCP pneumonia PSH: Denies Allg: NKDA Meds: Bactrim DS, Azithro for PCP and MAC ppx respectively, Steroid 20mg daily, Metoprolol 25mg and Recently started Genvoya 2 days ago FH: Parents alive, mother with DMII and father with HTN SH: Denies any alcohol, smoking, reports marijuana and cocain use 2 months ago Sexual hx: 6 sexual partners in last 1 year, reports unsafe sexual relationships in past ED course: EKG: Sinus tachycardia CXR: Likely PCP pneumonia CBC: 3.7 > 11.2 / 33.3 < 135 CMP: 130 / 3.5 ; 101/ 23 ; 7 / 0.4 < 86 LDH: 2551 ABG with lactate: pCO2: 33 ; pO2: 33 ; HCO3: 23.8 ; ABG pH: 7.44 ; IVF- NS 1L Rapid strep- negative Medications: IV bactrim 166.667 IVPB and IV diflucan 100mg. Floor Course: Patient admitted to telemetry. During his hospital stay, patient had an episode of hypothermia of which a bear hugger was applied on the patient. Hypothermia then resolved. He had no complaints on the floor and his oral- phayrngeal candidiasis began decreasing in intensity with the Diflucan. - Patient was given bactrim (wegiht based dose) and prednisone for treatment of PCP. Patient's O2 saturation was consistenly >95% on Room air. - Diflucan 200mg daily was given to the patient for oral-pharyngeal candidiasis. - Patient continued his Genvoya for AIDs during his hospital stay. Discharge Exam - Head Exam Head Exam: NORMAL INSPECTION - Eye Exam Eye Exam: Normal appearance - ENT Exam Additional comments: mild Oral thrust present on exam. - Respiratory Exam Respiratory Exam: Decreased Breath Sounds. absent: Rales, Wheezes, Respiratory Distress, Stridor - Cardiovascular Exam Cardiovascular Exam: REGULAR RHYTHM, +S1, +S2. absent: Gallop, JVD, Rubs, +S4 - GI/Abdominal Exam GI & Abdominal Exam: Normal Bowel Sounds, Soft. absent: Distended, Firm, Guarding, Rebound, Rigid, Tenderness - Extremities Exam Extremities exam: normal inspection - Neurological Exam Neurological exam: Alert, Oriented x3 - Psychiatric Exam Psychiatric exam: Normal Affect, Normal Mood - Skin Skin Exam: Dry, Intact, Normal Color, Warm Discharge Plan - Discharge Medications Prescriptions: Fluconazole [Diflucan] 200 mg PO DAILY 12 Days #12 tab Methylprednisolone [Medrol Dose Pack (21 tabs)] 4 mg PO ASDIR #21 mg Sulfamethoxazole/Trimethoprim [Bactrim DS 800 mg-160 mg] 2 tab PO Q8H #108 tab - Follow Up Plan Condition: GOOD Disposition: HOME/ ROUTINE Instructions: Thrush, Pneumocystis Pneumonia (PCP) Additional Instructions: Continue Fluconazole 200mg daily for a total of 14 days. Continue to take Bactrim 1 table every 12 hours for 21 days. Take Medrol Dose pack as indicated. Continue taking Genvoya as prescribed. Follow up with Dr. Landaverde tomorrow, 04/14 (Patient has appointment). Referrals: Raffi Landaverde MD [Family Provider] - <Adriana Fernandez - Last Filed: 04/13/18 18:10> Provider - Provider Date of Admission: 04/10/18 14:47 Attending physician: Jake Angelo MD Hospital Course - Lab Results Lab Results: Micro Results 04/10/18 12:15 Blood-Venous Blood Culture - Preliminary NO GROWTH AFTER 3 DAYS 04/10/18 12:40 Blood-Venous Blood Culture - Preliminary NO GROWTH AFTER 3 DAYS 04/11/18 09:30 Blood Blood Culture - Preliminary NO GROWTH AFTER 48 HOURS 04/11/18 19:02 Urine,Clean Catch Urine Culture - Final No Growth (<1,000 CFU/ML) 04/10/18 13:11 Throat Group A Strep Throat Culture - Final NORMAL SAPROPHYTIC DEANN. CULTURE NEGATIVE FOR BETA STREP GROUP A. Most Recent Lab Values WBC 2.5 K/uL (4.8-10.8) L 04/13/18 04:20 RBC 3.92 Mil/uL (4.40-5.90) L 04/13/18 04:20 Hgb 11.1 g/dL (12.0-18.0) L 04/13/18 04:20 Hct 33.4 % (35.0-51.0) L 04/13/18 04:20 MCV 85.1 fl (80.0-94.0) 04/13/18 04:20 MCH 28.4 pg (27.0-31.0) 04/13/18 04:20 MCHC 33.3 g/dL (33.0-37.0) 04/13/18 04:20 RDW 19.0 % (11.5-14.5) H 04/13/18 04:20 Plt Count 159 K/uL (130-400) 04/13/18 04:20 MPV 8.7 fl (7.2-11.7) 04/13/18 04:20 Neut % (Auto) 81.6 % (50.0-75.0) H 04/13/18 04:20 Lymph % (Auto) 12.6 % (20.0-40.0) L 04/13/18 04:20 Greenlee % (Auto) 3.1 % (0.0-10.0) 04/13/18 04:20 Eos % (Auto) 0.1 % (0.0-4.0) 04/13/18 04:20 Baso % (Auto) 2.6 % (0.0-2.0) H 04/13/18 04:20 Neut # (Auto) 2.0 K/uL (1.8-7.0) 04/13/18 04:20 Lymph # (Auto) 0.3 K/uL (1.0-4.3) L 04/13/18 04:20 Greenlee # (Auto) 0.1 K/uL (0.0-0.8) 04/13/18 04:20 Eos # (Auto) 0.0 K/uL (0.0-0.7) 04/13/18 04:20 Baso # (Auto) 0.1 K/uL (0.0-0.2) 04/13/18 04:20 Neutrophils % (Manual) 77 % (42-75) H 04/11/18 06:00 Band Neutrophils % 9 % (0-2) H 04/11/18 06:00 Lymphocytes % (Manual) 10 % (20-50) L 04/11/18 06:00 Monocytes % (Manual) 3 % (0-10) 04/11/18 06:00 Metamyelocytes % 1 % (0-0) H 04/11/18 06:00 Platelet Estimate Decreased (NORMAL) L 04/11/18 06:00 Large Platelets Present 04/11/18 06:00 Hypochromasia (manual) Slight 04/11/18 06:00 Anisocytosis (manual) Slight 04/11/18 06:00 Tear Drop Cells Slight 04/11/18 06:00 Ovalocytes Slight 04/11/18 06:00 pCO2 33 mm/Hg (35-45) L 04/10/18 14:15 pO2 54 mm/Hg (80-100) L 04/10/18 14:15 HCO3 23.8 mmol/L (21-28) 04/10/18 14:15 ABG pH 7.44 (7.35-7.45) 04/10/18 14:15 ABG Total CO2 23.4 mmol/L (22-28) 04/10/18 14:15 ABG O2 Saturation 92.2 % (95-98) L 04/10/18 14:15 ABG Base Excess -1.1 mmol/L (-2.0-3.0) 04/10/18 14:15 Lino Test Yes 04/10/18 14:15 ABG Potassium 3.4 mmol/L (3.6-5.2) L 04/10/18 14:15 A-a O2 Difference 54.0 mm/Hg 04/10/18 14:15 Sodium 126.0 mmol/L (132-148) L 04/10/18 14:15 Chloride 101.0 mmol/L (98-107) 04/10/18 14:15 Glucose 91 mg/dL (75-110) 04/10/18 14:15 Lactate 1.4 mmol/L (0.7-2.1) 04/10/18 14:15 FiO2 21.0 % 04/10/18 14:15 Sodium 135 mmol/l (132-148) 04/13/18 04:20 Potassium 4.1 MMOL/L (3.6-5.0) 04/13/18 04:20 Chloride 105 mmol/L (98-107) 04/13/18 04:20 Carbon Dioxide 24 mmol/L (22-30) 04/13/18 04:20 Anion Gap 10 (10-20) 04/13/18 04:20 BUN 6 mg/dl (9-20) L 04/13/18 04:20 Creatinine 0.3 mg/dl (0.8-1.5) L 04/13/18 04:20 Est GFR ( Amer) > 60 04/13/18 04:20 Est GFR (Non-Af Amer) > 60 04/13/18 04:20 Random Glucose 121 mg/dL (75-110) H 04/13/18 04:20 Lactic Acid 1.4 MMOL/L (0.7-2.1) 04/11/18 09:30 Calcium 7.3 mg/dL (8.4-10.2) L 04/13/18 04:20 Phosphorus 2.7 mg/dl (2.5-4.5) 04/11/18 09:30 Magnesium 2.6 MG/DL (1.6-2.3) H 04/11/18 09:30 Total Bilirubin 0.3 mg/dl (0.2-1.3) 04/13/18 04:20 AST 132 U/L (17-59) H 04/13/18 04:20 ALT 156 U/L (21-72) H D 04/13/18 04:20 Alkaline Phosphatase 756 U/L (38-126) H 04/13/18 04:20 Lactate Dehydrogenase 1644 U/L (313-618) H 04/13/18 04:20 Total Protein 4.3 G/DL (6.3-8.2) L 04/13/18 04:20 Albumin 2.1 g/dL (3.5-5.0) L 04/13/18 04:20 Globulin 2.3 gm/dL (2.2-3.9) 04/13/18 04:20 Albumin/Globulin Ratio 0.9 (1.0-2.1) L 04/13/18 04:20 Lipase 59 U/L (23-300) 04/10/18 12:42 Procalcitonin 1.77 NG/ML (0.19-0.49) H 04/11/18 09:30 Arterial Blood Potassium 3.4 mmol/L (3.6-5.2) L 04/10/18 14:15 Absolute Lymphs (Flow) 130 Cells/mcL (850-3900) L 04/11/18 10:20 % CD4 Cells 26 Percent (30-61) L 04/11/18 10:20 Absolute CD4 Count 34 Cells/mcL (490-1740) L 04/11/18 10:20 T-Help/Suppress Ratio 0.40 Ratio (0.86-5.00) L 04/11/18 10:20 % CD8 Cells 66 Percent (12-42) H 04/11/18 10:20 Absolute CD8 Count 87 Cells/mcL (180-1170) L 04/11/18 10:20 T-Lymph Analys Comment See note 04/11/18 10:20 HIV-1 RNA Qnt (RT-PCR) <1.30 detected (Not Detected) H 04/11/18 10:20 Ur L.pneumophila Ag Negative (NEGATIVE) 04/12/18 09:00 Mycoplasma pneumon IgM Negative (NEGATIVE) 04/12/18 09:00 Grp A Beta Strep Ag Negative (NEGATIVE) 04/10/18 12:42 Attending/Attestation - Attestation I have personally seen and examined this patient.: Yes I have fully participated in the care of the patient.: Yes I have reviewed all pertinent clinical information, including history, physical exam and plan: Yes Notes (Text): Pt markedly improved . Saturating 98% on Room Air , afebrile , ambulating in the unit We will d/c pt home on PO Bactrim DS and Medrol dose lynette to complete 21 days of treatment as recommended by Dr Meyer
[2018-04-13 10:30] LABS: % CD4 (T HELPER CELL) 26 Percent (30-61); % CD8 (SUPPRESSOR T CELL) 66 Percent (12-42); ABSOLUTE CD4 CELLS 34 Cells/mcL (490-1740); ABSOLUTE CD8 CELLS 87 Cells/mcL (180-1170); ABSOLUTE LYMPHOCYTES 130 Cells/mcL (850-3900)
[2018-04-13 10:48] VITALS: PULSE 80
== END 2018-04-13 14:00 | disposition home or self-care (01) | DRG 710 ==
LOC: H.ER 11:36 → H.ERHOLD 14:47 → H.TEL 18:35
DX: B59 Pneumocystosis (principal); B20 Human immunodeficiency virus [HIV] disease; B37.0 Candidal stomatitis; R09.02 Hypoxemia